=== PATIENT | male | born 1965 | race Caucasian/White ===

== ENCOUNTER 2022-07-31 11:17 | Inpatient (IN) ==
--- NOTE | 2022-07-31 12:12 | XRay Report ---
XR chest 2V PA/lateral HISTORY: Atypical Chest Pain COMPARISON: Chest 01/24/2020. FINDINGS: No pneumothorax. There is a small right pleural effusion. The heart is normal in size. Righ t jugular Port-A-Cath terminates at the distal SVC. Interval development of multiple pulmonary nodule s/masses most pronounced within the right lung consistent with metastatic disease. Dominant right mid lung zone mass measures 7.7 cm. Lobular appearance to the mediastinum likely representing lymphadenop athy. IMPRESSION: 1. Interval development of multiple pulmonary nodules/masses and mediastinal lymphadenopathy consiste nt with metastatic disease. 2. Small right pleural effusion. ACT 112: Negative or not required by law. Electronically signed by: Winston Sepulveda M.D. 07/31/2022 12:10 PM
[2022-07-31 12:39] LABS: Basophils # (auto) 0.04 K/uL (0-0.2); Basophils % (auto) 0.4 %; Eosinophils # (auto) 0.25 K/uL (0-0.50); Eosinophils % (auto) 2.5 %; Hematocrit (blood only) 43.3 % (40.1-51.0); Hemoglobin 15.4 g/dl (14.0-18.0); Immature Granulocytes # (auto) 0.08 K/uL (0.00-0.02); Immature Granulocytes % (auto) 0.8 %; Lymphocytes # (auto) 1.31 K/uL (1.2-3.4); Lymphocytes % (auto) 13.1 %; Mean Corpuscular Hemoglobin 31.2 pg (25.0-34.0); Mean Corpuscular Hgb Conc 35.6 g/dL (32.0-36.0); Mean Corpuscular Volume 87.8 fL (80.0-100.0); Mean Platelet Volume 10.1 fL (9.4-12.4); Monocytes # (auto) 0.92 K/uL (0.24-0.82); Monocytes % (auto) 9.2 %; Neutrophils # (auto) 7.37 K/uL (1.4-6.5); Platelet Count 202 K/uL (130-400); RDW Standard Deviation 38.6 fL (36.4-46.3); Red Blood Count 4.93 M/uL (4.63-6.08); White Blood Count 9.97 K/ul (4.8-10.8)
[2022-07-31] MEDS ORDERED: HYDROmorphone INJ 1 MG/ML SYRINGE IV STA ×2 (12:49→15:12)
[2022-07-31] MEDS ORDERED: ONDANSETRON INJ 2 MG/ML 2 ML VIAL IV STA (12:49)
--- NOTE | 2022-07-31 12:53 | Emergency Department Note ---
Impression & Plan Chest pain, Metastatic cancer, Synovial sarcoma, Goals of care, counseling/discussion, Cancer related pain, Hypokalemia ED Provider Note NAME: CHAPIS VICK AGE: 56 SEX: M : 1965 ARRIVES VIA: Walk-In INFORMANT: Patient ED PROVIDER(S): Krunal Dorantes DO CHIEF COMPLAINT: Right sided chest pain HPI: Patient is a 56-year-old male with past medical history of synovial sarcoma who presents the ER for severe right-sided chest pain which has been present for the past 2 weeks. Pain is a 9.5 out of 10. It feels better when he lays on his chest. Does not change with twisting, turning, bending or exertion. No belly pain, nausea, vomiting, or diarrhea. No dysuria, urgency, or frequency. No other exacerbating or remitting factors. He follows with [facility] hematology/oncology. They will not give him any pain medications. He was unable to get into his PCP and consequently was referred in here. ROS: See above HPI for pertinent positives & negatives. A total of 10 systems reviewed and were otherwise negative. PAST MEDICAL HISTORY:See Below PAST SURGICAL HISTORY:See Below FAMILY HISTORY:See Below SOCIAL HISTORY:See Below HOME MEDICATIONS:See Below ALLERGIES:See Below VITALS:See Below PHYSICAL EXAMINATION: GENERAL: Sitting up in bed, alert, well appearing, well nourished, no distress, non-toxic EYE EXAM: normal conjunctiva. OROPHARYNX: no exudate, no erythema, lips, buccal mucosa, and tongue normal and mucous membranes are moist NECK: supple, no nuchal rigidity, no adenopathy, non-tender CHEST: No reproducible anterior chest pain LUNGS: Clear to auscultation. Normal chest wall mechanics HEART: no murmurs, S1 normal and S2 normal ABDOMEN: abdomen soft, non-tender, normo-active bowel sounds, no masses, no rebound or guarding. UPPER EXTREMITIES: upper extremities are grossly normal. LOWER EXTREMITIES: No pitting edema. NEURO EXAM: Normal sensorium, cranial nerves II-XII grossly intact, normal speech, no gross weakness of arms, no gross weakness of legs. MEDICAL DECISION MAKING: Patient is a 56-year-old male who presents the ER for severe right-sided chest pain which has been getting worse over the past 2 weeks. IV was established blood work was obtained. Labs show no significant leukocytosis or anemia. INR unremarkable. BMP with mild hypokalemia 3.2. LFTs and troponin was negative. T bili slightly up at 1.9. CT angio of the chest showed a pleural effusion with metastatic disease but no PEs. EKG was nondiagnostic. Do favor that this is likely secondary to the cancer. He was given 2 dose of IV Dilaudid with improvement of his symptoms. He was still having a moderate amount of pain. He has no good follow-up in regards to pain control as an outpatient consequently was discussed with the hospitalist for further evaluation. I discussed with Jammie from [facility]. Triage Nursing notes reviewed. Limited review of prior medical records performed Vital Signs: reviewed and remarkable for HTN Differential diagnosis: Cardiac ischemia, aortic dissection, pulmonary embolism, pneumothorax, pneumonia, pericarditis, myocarditis, esophageal rupture, GERD, cholecystitis, pancreatitis, musculoskeletal, as well as other pathologies. ER treatment provided: See below Diagnostics interpreted by me: ECG: Sinus rhythm rate 78 Normal axis No PVCs QTC 442 Cardiac Monitoring: An order was placed for continuous cardiac monitoring. The monitor shows a rate of 80 with sinus rhythm. Laboratory studies: As stated above and show below. 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 Grandmother (Maternal) , iat 91 old age No problems noted. Grandfather (Paternal) , in his eighties old age No problems noted. Father , age 66 of pancreatic cancer and metastasis No problems noted. Mother No problems noted. Brother Age: 54 No problems noted. Son Age: 35 Leukemia in remission Daughter Age: 35 No problems noted. Daughter Age: 23 No problems noted. Son Age: 20 No problems noted. Social History Smoking Status: Never smoker Hx Alcohol Use: Yes (social) Hx Substance Use: No Preferred Language: Turkish Beliefs That Will Affect Care: None marital status: Current Living Situation: Spouse current occupational status: employed Feels Safe at Home: Yes Childhood Exposure to Second-Hand Smoke: Yes caffeine: No Dental Care, Regularly: Yes Physical Activity Frequency: Does not Exercise Seatbelt Use: always Sunscreen Use: Yes Do you think of yourself as: straight/heterosexual Allergies Allergies Allergy/AdvReac Type Severity Reaction Status Date / Time bacitracin Allergy Severe hives, Verified 07/31/22 16:51 syncopy tree and shrub pollen AdvReac Mild nasal Verified 07/31/22 16:51 congestion, eyes water Home Meds Home Medications Medication Instructions Recorded Confirmed albuterol sulfate 90 mcg/actuation 2 puffs inhalation Q4 PRN 10/10/19 07/31/22 aerosol inhaler (Ventolin HFA) Shortness Of Breath Or Wheezing pantoprazole 40 mg tablet,delayed 40 mg PO DAILY 10/10/19 07/31/22 release (Protonix) valacyclovir 1 gram tablet 1,000 mg PO PRN 01/04/20 07/31/22 (Valtrex) albuterol sulfate 2.5 mg/3 mL 2.5 mg inhalation Q6H PRN 01/31/20 07/31/22 (0.083 %) solution for nebulization shortness of breath or wheezing montelukast 10 mg tablet 10 mg PO DAILY 06/29/20 07/31/22 (Singulair) acetaminophen 500 mg tablet 1,000 - 1,500 mg PO Q8 PRN Pain 07/31/22 07/31/22 (Tylenol Extra Strength) amlodipine 10 mg tablet 10 mg PO DAILY 07/31/22 07/31/22 amoxicillin 500 mg capsule 2,000 mg PO DIRECTED 07/31/22 07/31/22 carvedilol 6.25 mg tablet 6.25 mg PO BID 07/31/22 07/31/22 famotidine 40 mg tablet 40 mg PO DAILY 07/31/22 07/31/22 fluticasone propionate 50 2 spray intranasal QAM 07/31/22 07/31/22 mcg/actuation nasal spray,suspension hydrochlorothiazide 25 mg tablet 25 mg PO DAILY 07/31/22 07/31/22 hydroxyzine HCl 25 mg tablet 50 mg PO HS 07/31/22 07/31/22 loratadine 10 mg tablet 10 mg PO DAILY 07/31/22 07/31/22 losartan 100 mg tablet 100 mg PO DAILY 07/31/22 07/31/22 pazopanib 200 mg tablet (Votrient) 800 mg PO QAM 07/31/22 07/31/22 potassium chloride 10 mEq 10 meq PO QAM 07/31/22 07/31/22 tablet,extended release(part/cryst) (Klor-Con M) Previous Rx's Medication Instructions Recorded fluticasone furoate 100 1 puffs inhalation DAILY #180 ea 10/13/19 mcg-vilanterol 25 mcg/dose inhalation powder (Breo Ellipta) Results & Data (ED) Vital Signs Vital Signs - 24 hr 07/31/22 11:20 07/31/22 12:55 07/31/22 12:55 Temperature 36.8 C Temperature Source Temporal Artery Scan Pulse Rate 77 Pulse Rate [Finger] 77 Pulse Rhythm [Finger] Regular Pulse Strength [Finger] Normal Respiratory Rate 18 22 Respiratory Effort / Characteristics Non-Labored Respiratory Depth Normal Respiratory Pattern Regular Blood Pressure 174/109 H Blood Pressure [Right Arm] 175/109 H Blood Pressure Mean 130 Blood Pressure Mean [Right Arm] 131 Blood Pressure Position [Right Arm] Lying Pulse Oximetry 96 96 95 Oxygen Delivery Method Room Air Room Air Room Air Sepsis Recent Fever Within 48 Hours No Sepsis New/Unexplained Change in Mental Status No Sepsis Action Taken by Nursing No Action Required 07/31/22 14:15 07/31/22 15:50 07/31/22 17:00 Temperature Temperature Source Pulse Rate Pulse Rate [Finger] 68 70 68 Pulse Rhythm [Finger] Regular Regular Pulse Strength [Finger] Normal Normal Respiratory Rate 16 20 18 Respiratory Effort / Characteristics Non-Labored Spontaneous Non-Labored Non-Labored Respiratory Depth Normal Normal Normal Respiratory Pattern Regular Regular Regular Blood Pressure Blood Pressure [Right Arm] 166/107 H 172/116 H 153/96 H Blood Pressure Mean Blood Pressure Mean [Right Arm] 126 134 115 Blood Pressure Position [Right Arm] Sitting Lying Pulse Oximetry 96 95 93 Oxygen Delivery Method Room Air Room Air Room Air Sepsis Recent Fever Within 48 Hours Sepsis New/Unexplained Change in Mental Status Sepsis Action Taken by Nursing Laboratory Data Result diagrams: 07/31/22 11:43 07/31/22 11:43 Lab Results 07/31/22 07/31/22 07/31/22 Range/Units 11:43 11:43 11:43 WBC 9.97 (4.8-10.8) K/ul RBC 4.93 (4.63-6.08) M/uL Hgb 15.4 (14.0-18.0) g/dl Hct 43.3 (40.1-51.0) % MCV 87.8 (80.0-100.0) fL MCH 31.2 (25.0-34.0) pg MCHC 35.6 (32.0-36.0) g/dL RDW Std Deviation 38.6 (36.4-46.3) fL RDW Coeff of Darrell 12.0 (11.5-14.5) % Plt Count 202 (130-400) K/uL MPV 10.1 (9.4-12.4) fL Immature Gran % (Auto) 0.8 % Neut % (Auto) 74.0 % Lymph % (Auto) 13.1 % [place] % (Auto) 9.2 % Eos % (Auto) 2.5 % Baso % (Auto) 0.4 % Neut # (Auto) 7.37 H (1.4-6.5) K/uL Lymph # (Auto) 1.31 (1.2-3.4) K/uL [place] # (Auto) 0.92 H (0.24-0.82) K/uL Eos # (Auto) 0.25 (0-0.50) K/uL Baso # (Auto) 0.04 (0-0.2) K/uL Immature Gran # (Auto) 0.08 H (0.00-0.02) K/uL PT 12.0 (9.0-12.0) Seconds INR 1.1 (0.9-1.1) APTT 36.0 H (21.0-31.0) Seconds PTT Ratio 1.3 Sodium 139 (136-145) mmol/L Potassium 3.2 L (3.5-5.1) mmol/L Chloride 101 (98-107) mmol/L Carbon Dioxide 28 (21-32) mmol/L Anion Gap 10 (3-11) BUN 13 (6-23) mg/dl Creatinine 0.48 L (0.6-1.4) mg/dl Est Cr Clr Drug Dosing 237.7 ml/min Est GFR ( Amer) 141.8 ml/min Est GFR (Non-Af Amer) 122.3 ml/min BUN/Creatinine Ratio 27.1 H (10-20) Glucose 127 H (70-99(Fasting)) mg/dl Calcium 8.6 (8.5-10.1) mg/dl Total Bilirubin 1.9 H (0.2-1.0) mg/dl AST 20 (13-39) U/L ALT 50 (7-52) U/L Alkaline Phosphatase 98 (34-104) U/L Troponin I High Sens 6.1 (0-20) pg/ml Total Protein 6.4 (6.0-8.3) gm/dl Albumin 3.8 (3.4-5.0) gm/dl Globulin 2.6 (2.5-4.0) gm/dl Albumin/Globulin Ratio 1.5 (0.9-2) Administered Medications Discontinued Medications Hydromorphone HCl (Hydromorphone Inj 1 Mg/Ml Syringe) 1 mg IV NOW STA Stop: 07/31/22 12:50 Last Admin: 07/31/22 12:55 Dose: 1 mg Documented By: CATIE Hydromorphone HCl (Hydromorphone Inj 1 Mg/Ml Syringe) 1 mg IV NOW STA Stop: 07/31/22 15:13 Last Admin: 07/31/22 15:27 Dose: 1 mg Documented By: RSL Hydromorphone HCl (Hydromorphone Inj 0.5 Mg/0.5 Ml Syr) 0.5 mg IV NOW STA Stop: 07/31/22 17:11 Last Admin: 07/31/22 17:24 Dose: 0.5 mg Documented By: ARNOL Ioversol (Optiray 300 500ml) 117 ml IV ONCE ONE Stop: 07/31/22 14:12 Last Admin: 07/31/22 14:11 Dose: 117 ml Documented By: YANELIS Ondansetron HCl (Ondansetron Inj 2 Mg/Ml 2 Ml Vial) 4 mg IV NOW STA Stop: 07/31/22 12:50 Last Admin: 07/31/22 12:55 Dose: 4 mg Documented By: CATIE Imaging Data Radiologist's Impression: Chest X-Ray 07/31/22 11:25 XR chest 2V PA/lateral HISTORY: Atypical Chest Pain COMPARISON: Chest 01/24/2020. FINDINGS: No pneumothorax. There is a small right pleural effusion. The heart is normal in size. Right jugular Port-A-Cath terminates at the distal SVC. Interval development of multiple pulmonary nodules/masses most pronounced within the right lung consistent with metastatic disease. Dominant right midlung zone mass measures 7.7 cm. Lobular appearance to the mediastinum likely representing lymphadenopathy. IMPRESSION: 1. Interval development of multiple pulmonary nodules/masses and mediastinal lymphadenopathy consistent with metastatic disease. 2. Small right pleural effusion. ACT 112: Negative or not required by law. Electronically signed by: Winston Sepulveda M.D. 07/31/2022 12:10 PM Chest CTA 07/31/22 12:49 CT ANGIOGRAPHY OF THE CHEST, PULMONARY EMBOLUS PROTOCOL CLINICAL HISTORY: Severe right-sided chest pain. Metastatic disease. COMPARISON STUDY: Chest radiograph July 31, 2022. TECHNIQUE: Following IV administration of 117 mL of Optiray, helical axial images of the chest were obtained utilizing the pulmonary embolus protocol. Maximal intensity projections and sagittal and coronal reformats were viewed on an independent 3D workstation. IV contrast was administered without complication. Automated exposure control was utilized for the study. A dose lowering technique was utilized adhering to the principles of ALARA. CT DOSE: 611.92 mGycm FINDINGS: No pulmonary emboli are identified. There is no thoracic aortic dissection. Size of the heart is normal. There is no pericardial effusion. A right internal jugular [id number] is in place. A small right pleural effusion is noted. There are numerous right pleural masses. These include a 5.9 x 3.1 cm lesion within the right lateral hemithorax. A 7.6 x 4.8 cm mass along the medias tinal pleura is noted. There is an additional 5.1 x 4.8 cm mass along the left anterior mediastinal pleura and 3.8 x 3.5 cm right posterior mediastinal lymph node/pleural lesion. There is no pneumothorax. Numerous pulmonary nodules are also present. The largest left lung nodule is a 1.7 cm left upper lobe lesion. The central airways are patent. Subpleural opacities within the right lower lobe represent atelectasis. There is no consolidation to suggest pneumonia. There is a possible 1.1 cm left pleural implant on axial image 178 of 301. No bony destruction within the thorax is noted. There is a partially visualized indeterminate density medial to the spleen which measures at least 2.6 cm. IMPRESSION: 1. No pulmonary emboli identified. 2. Extensive metastatic disease within the chest, as described above. Numerous right pleural masses, pulmonary metastases and a small malignant right pleural effusion. ACT 112: Negative or not required by law. Electronically signed by: Marquis Lu M.D. 07/31/2022 3:07 PM Discharge Plan Visit Data Chief Complaint: Chest Pain Stated Complaint: CHEST PAIN, RIB DISCOMFORT, CANCER ED Provider: Krunal Dorantes Discharge Problem: Chest pain, Metastatic cancer, Synovial sarcoma, Goals of care, counseling/d iscussion, Cancer related pain, Hypokalemia Forms Stand Alone Forms: My [facility] [employer] Prescriptions Prescriptions: No Action albuterol sulfate 2.5 mg /3 mL (0.083 %) solution for nebulization 2.5 mg INH Q6H PRN (Reason: shortness of breath or wheezing) montelukast [Singulair] 10 mg tablet 10 mg PO DAILY Breo Ellipta 100-25 mcg/dose blister with device 1 puffs INH DAILY Qty: 180 3RF pantoprazole [Protonix] 40 mg tablet,delayed release (DR/EC) 40 mg PO DAILY albuterol sulfate [Ventolin HFA] 90 mcg/actuation HFA aerosol inhaler 2 puffs INH Q4 PRN (Reason: Shortness Of Breath Or Wheezing) valacyclovir [Valtrex] 1 gram tablet 1,000 mg PO PRN Rx Instructions: PRN FOR COLDSORES amoxicillin 500 mg Capsule 2,000 mg PO DIRECTED Rx Instructions: TAKE 1 HR PRIOR TO DENTIST carvedilol 6.25 mg tablet 6.25 mg PO BID acetaminophen [Tylenol Extra Strength] 500 mg Tablet 1,000 - 1,500 mg PO Q8 PRN (Reason: Pain) amlodipine 10 mg tablet 10 mg PO DAILY hydroxyzine HCl 25 mg tablet 50 mg PO HS hydrochlorothiazide 25 mg tablet 25 mg PO DAILY losartan 100 mg tablet 100 mg PO DAILY fluticasone propionate 50 mcg/actuation spray,suspension 2 spray INTRANASAL QAM loratadine 10 mg Tablet 10 mg PO DAILY potassium chloride [Klor-Con M10] 10 mEq tablet,ER particles/crystals 10 meq PO QAM Votrient 200 mg tablet 800 mg PO QAM Rx Instructions: Take on empty stomach, do not eat for 1 hr. famotidine 40 mg tablet 40 mg PO DAILY Referrals Referrals: PCP,NO [Physician] -
[2022-07-31 12:54] LABS: INR 1.1 (0.9-1.1); Partial Thromboplastin Ratio 1.3
[2022-07-31 13:05] LABS: Troponin I High Sensitivity 6.1 pg/ml (0-20)
[2022-07-31 13:10] LABS: Albumin Globulin Ratio 1.5 (0.9-2); Albumin Level 3.8 gm/dl (3.4-5.0); BUN Creatinine Ratio 27.1 (10-20); Bilirubin,Total 1.9 mg/dl (0.2-1.0); Calcium 8.6 mg/dl (8.5-10.1); Creatinine Clr Calc Pharmacy 237.7 ml/min; Est GFR (African American) 141.8 ml/min; Est GFR (Non-African American) 122.3 ml/min; Globulin 2.6 gm/dl (2.5-4.0); Potassium 3.2 mmol/L (3.5-5.1); Total Protein 6.4 gm/dl (6.0-8.3)
--- NOTE | 2022-07-31 13:33 | Electrocardiogram Report ---
Test Reason : Blood Pressure : / mmHG Vent. Rate : 078 BPM Atrial Rate : 078 BPM P-R Int : 146 ms QRS Dur : 090 ms QT Int : 388 ms P-R-T Axes : 036 -06 005 degrees QTc Int : 442 ms Poor data quality, interpretation may be adversely affected Normal sinus rhythm Normal ECG When compared with ECG of 03-AUG-2016 14:30, No significant change was found Confirmed by Xavi Garcia ([id number]) on 07/31/2022 1:32:49 PM Referred By: Confirmed By:Rigoberto Garcia
[2022-07-31] MEDS ORDERED: OPTIRAY 300 500mL IV ONE (14:11)
--- NOTE | 2022-07-31 15:08 | CT Scan Report ---
CT ANGIOGRAPHY OF THE CHEST, PULMONARY EMBOLUS PROTOCOL CLINICAL HISTORY: Severe right-sided chest pain. Metastatic disease. COMPARISON STUDY: Chest radiograph July 31, 2022. TECHNIQUE: Following IV administration of 117 mL of Optiray, helical axial images of the chest were o btained utilizing the pulmonary embolus protocol. Maximal intensity projections and sagittal and cor onal reformats were viewed on an independent 3D workstation. IV contrast was administered without co mplication. Automated exposure control was utilized for the study. A dose lowering technique was ut ilized adhering to the principles of ALARA. CT DOSE: 611.92 mGycm FINDINGS: No pulmonary emboli are identified. There is no thoracic aortic dissection. Size of the he art is normal. There is no pericardial effusion. A right internal jugular Tueikw-x-Ohbh is in place. A small right pleural effusion is noted. There are numerous right pleural masses. These include a 5.9 x 3.1 cm lesion within the right lateral hemithorax. A 7.6 x 4.8 cm mass along the mediastinal pleur a is noted. There is an additional 5.1 x 4.8 cm mass along the left anterior mediastinal pleura and 3 .8 x 3.5 cm right posterior mediastinal lymph node/pleural lesion. There is no pneumothorax. Numerous pulmonary nodules are also present. The largest left lung nodule is a 1.7 cm left upper lobe lesion. The central airways are patent. Subpleural opacities within the right lower lobe represent atelectas is. There is no consolidation to suggest pneumonia. There is a possible 1.1 cm left pleural implant o n axial image 178 of 301. No bony destruction within the thorax is noted. There is a partially visual ized indeterminate density medial to the spleen which measures at least 2.6 cm. IMPRESSION: 1. No pulmonary emboli identified. 2. Extensive metastatic disease within the chest, as described above. Numerous right pleural masses, pulmonary metastases and a small malignant right pleural effusion. ACT 112: Negative or not required by law. Electronically signed by: Marquis Lu M.D. 07/31/2022 3:07 PM
--- NOTE | 2022-07-31 16:28 | History & Physical Report ---
Date of Service July 31, 2022 Assessment & Plan (1) Synovial sarcoma: (2) Cancer related pain: (3) HTN (hypertension): (4) Goals of care, counseling/discussion: (5) Asthma: (6) GERD (gastroesophageal reflux disease): Plan 56 year old with advanced metastatic synovial sarcoma presents with right sided pleuritic pain 08/04. Follows with Dr. Concepcion ricardo and [facility]. On oral chemo; Votrient. CT on 07/27 showed increasing lesion and further mets to heart border. Admit for pain control. 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 Palliative Med consulted. Goals of care as outlined below. Metastatic Synovial Sarcoma Cancer Related Pain: Initial Biospy done: 08/2019; involving left medial elbow/forearm initially; now metastatic involving lungs and lymph nodes. Opioid naive - Received two doses of IV Dilaudid in the ED; relieved pain Follows Dr. Concepcion ricardo; received second opinion from Dr. Martin at [facility] Received 3 cycles ofAIMchemotherapy followed by preoperative radiation therapy. Last cycle of chemotherapy was given on 12/02/2019 through 12/05/2019. Further wide surgical excision on 2019 and underwent soft tissue reconstruction with a free anterior lateral thigh flap. Histopathology was consistent with the synovial sarcoma, size was 13 x 6 x 5.3 with negative margin. 04/09/22: Disease progression noted on CT; increased lung nodule sizes, large nodules along right heart bordered and right middle lobe. Has started taking Votriant on 07/27 for oral chemotherapy 07/23: Patient has incurable disease and he can benefit with palliative treatment per review of Dr. Javier's documentation after his visit Patient is schedule to have a follow-up appointment with Dr. Martin on zoom in 3 weeks to determine further treatment continuation or discontinuation. As patient is opioid naive, want to gain a better understanding of his breakthrough use. So far, patient has received 2.5 mg of IV Dilaudid and continues to have 07/05 pain. 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 Dosing instructions as follows per order: Dilaudid 30mg/30mL: NO Basal rate as patient is opioid naive. 0.25mg bolus with Q 20 minute lockout with max dose of 0.75 mg over a one hour period. Order placed via SALES AND MERCHANDISING REPRESENTATIVE order set Will have one additional Dilaudid 0.5 mg IV Once order prior to SALES AND MERCHANDISING REPRESENTATIVE set u; which will be a total of TWO mg administered PRIOR to SALES AND MERCHANDISING REPRESENTATIVE initiation Would not consider a fentanyl patch in this gentleman at this point; may be a good Methadone candidate; however, I fear this patient may decline rapidly. Patient may benefit from a long acting opiod, but need to have better pain control and opioid data use prior to making that transition. Patient noted that his BM's are soft due to the Votrient. Will have PRN stool softeners available. Will consult palliative medicine team for continued pain and symptom management. Goals of care; counseling/discussion: Lengthy conversation held with patient and his Selam at bedside. Both are reasonably realistic but admitted that this has progressed faster than they anticipated. They do understand that the cancer is not curable. I stated that my first priority is his pain control which will allow him to think more clearly w ith regards to end of life and what is important to him if he was to have limited time. They have 4 adult children with the youngest being 20 years old. 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 We did discuss Hospice and what that entails; family understandably not ready for this transition. Will monitor his progress through this hospitalization. HTN: Elevated in ED; takes Amlodipine, HCTZ, and Losartan; continue Hydralazine 10 mg IV Q 6 PRN for SBP > 170 Asthma: Takes Fluticasone; continue Takes montelukast; continue Albuterol PRN for rescue; continue GERD: Continue pantoprazole Disposition: PCP: Dr. Urias Code: Full VTE Prophylaxis: Lovenox SQ Goal to return home at DC I personally was able to review all current laboratory work and diagnostic images obtained in the ED. Additionally, I was able to review the patients past medication reconciliation and history with direct visualization in the patients chart. Collaborated with Dr. Villarreal regarding this patient plan of care. History of Present Illness Chief Complaint: cancer related pain Primary Care Provider: Nelson Martin MD, PhD Mr. Marsh is a 59-year-old unfortunate male who presented to the ED today with 9/10 right sided chest pain that has been occuring over the past few weeks. 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 Initial Biospy done: 08/2019; involving left medial elbow/forearm initially; now metastatic involving lungs and lymph nodes.He follows Dr. Javier locally; received second opinion from Dr. Martin at [facility]. He has received 3 cycles ofAIMchemotherapy followed by preoperative radiation therapy.His last cycle of chemotherapy was given on 12/02/2019 through 12/05/2019.Further wide surgical excision on 2019 and underwent soft tissue reconstruction with a free anterior lateral thigh flap.Histopathology was consistent with the synovial sarcoma, size was 13 x 6 x 5.3 with negative margin. 04/09/22: Disease progression noted on CT; increased lung nodule sizes, large nodules along right heart bordered and right middle lobe. Has started taking Votriant on 07/27 for oral chemotherapy. 07/23: Patient has incurable disease and he can benefit with palliative treatment per review of Dr. Javier's documentation after his visit. Patient is schedule to have a follow- up appointment with Dr. Mario boucher in 3 weeks to determine further treatment continuation or discontinuation of his treatment. Patient has incurable disease and he can benefit with palliative medicine and has an appointment with Dr. Moss but not until 08/11. He will be followed by Dr. Martin and his team for the treatment decision and also follow for toxicity from the Votrient. Patient is schedule to have a follow-up appointment with Dr. Mario boucher in 3- 4 weeks to determine further treatment options. Additional PMH includes HTN, GERD, asthma, and DUY (on CPAP at home). Patient is sitting in his bed in acute distress. His pain is right sided pleuritic without radiation. He denies LAMB, dizziness, SOB, CP, palpitations, N/V/D, skin changes. He recently did complete a course of Prednisone for poison shona. Patient will be admitted for pain management and further goals of care. Please see A/P for further details. Allergies Allergy/AdvReac Type Severity Reaction Status Date / Time bacitracin Allergy Severe hives, Verified 07/31/22 16:51 syncopy tree and shrub pollen AdvReac Mild nasal Verified 07/31/22 16:51 congestion, eyes water Home Medications Medication Instructions Recorded Confirmed Type albuterol sulfate 90 mcg/actuation 2 puffs inhalation Q4 PRN 10/10/19 07/31/22 History aerosol inhaler (Ventolin HFA) Shortness Of Breath Or Wheezing pantoprazole 40 mg tablet,delayed 40 mg PO DAILY 10/10/19 07/31/22 History release (Protonix) fluticasone furoate 100 1 puffs inhalation DAILY #180 ea 10/13/19 07/31/22 Rx mcg-vilanterol 25 mcg/dose inhalation powder (Breo Ellipta) valacyclovir 1 gram tablet 1,000 mg PO PRN 01/04/20 07/31/22 History (Valtrex) albuterol sulfate 2.5 mg/3 mL 2.5 mg inhalation Q6H PRN 01/31/20 07/31/22 History (0.083 %) solution for nebulization shortness of breath or wheezing montelukast 10 mg tablet 10 mg PO DAILY 06/29/20 07/31/22 History (Singulair) acetaminophen 500 mg tablet 1,000 - 1,500 mg PO Q8 PRN Pain 07/31/22 07/31/22 History (Tylenol Extra Strength) amlodipine 10 mg tablet 10 mg PO DAILY 07/31/22 07/31/22 History amoxicillin 500 mg capsule 2,000 mg PO DIRECTED 07/31/22 07/31/22 History carvedilol 6.25 mg tablet 6.25 mg PO BID 07/31/22 07/31/22 History famotidine 40 mg tablet 40 mg PO DAILY 07/31/22 07/31/22 History fluticasone propionate 50 2 spray intranasal QAM 07/31/22 07/31/22 History mcg/actuation nasal spray,suspension hydrochlorothiazide 25 mg tablet 25 mg PO DAILY 07/31/22 07/31/22 History hydroxyzine HCl 25 mg tablet 50 mg PO HS 07/31/22 07/31/22 History loratadine 10 mg tablet 10 mg PO DAILY 07/31/22 07/31/22 History losartan 100 mg tablet 100 mg PO DAILY 07/31/22 07/31/22 History pazopanib 200 mg tablet (Votrient) 800 mg PO QAM 07/31/22 07/31/22 History potassium chloride 10 mEq 10 meq PO QAM 07/31/22 07/31/22 History tablet,extended release(part/cryst) (Earnestine Milner) Past Med/Surg History Medical History (Updated 07/31/22 @ 18:13 by Krunal Dorantes DO) Asthma Cancer related pain GERD (gastroesophageal reflux disease) GERD (gastroesophageal reflux disease) Goals of care, counseling/discussion Hepatic steatosis HTN (hypertension) 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 Grandmother (Maternal) , iat 91 old age No problems noted. Grandfather (Paternal) , in his eighties old age No problems noted. Father , age 66 of pancreatic cancer and metastasis No problems noted. Mother No problems noted. Brother Age: 54 No problems noted. Son Age: 35 Leukemia in remission Daughter Age: 35 No problems noted. Daughter Age: 23 No problems noted. Son Age: 20 No problems noted. Social History Smoking Status: Never smoker Hx Alcohol Use: Yes (social) Hx Substance Use: No Preferred Language: Belarusian Beliefs That Will Affect Care: None marital status: Current Living Situation: Spouse current occupational status: employed Feels Safe at Home: Yes Childhood Exposure to Second-Hand Smoke: Yes caffeine: No Dental Care, Regularly: Yes Physical Activity Frequency: Does not Exercise Seatbelt Use: always Sunscreen Use: Yes Do you think of yourself as: straight/heterosexual Review of Systems Review of Systems: Neuro: (-) Falls, trauma, slurred speech HEENT: (-) LAMB, dizziness, dysphagia, visual or auditory changes CV: (-) CP, palpitations, swelling Resp: (-) SOB GI: (-) appetite changes, N/V/D, bowel changes : (-) urinary changes Skin: (-) rashes Psych: (-) anxiety, depression Physical Exam Physical Exam: Neuro: AAOx4, PERRLA, no aphagia, memory changes, CNII-XII grossly intact HEENT: head normocephalic, moist mucus membranes CV: S1/S2, (-) M/G/R, (-) edema, cap refill < 3 seconds Resp: Lungs CTA in all webster. On RA GI: Abdomen large S/NT/ND, Ax4 bowel sounds, (-) CVA tenderness Musculoskeletal: 5/5 B/L UE strength, 5/5 B/L LE strength. No gait disturbance Skin: (-) rashes , (-) erythema. Psych: euthymic mood Results & Data Results & Data ([facility]) Vital Signs (Past 12 Hours) Vital Signs Temp Pulse Pulse Resp BP BP Pulse Ox 07/31/22 15:50 70 20 172/116 H 95 07/31/22 14:15 68 16 166/107 H 96 07/31/22 12:55 77 22 175/109 H 95 07/31/22 12:55 96 07/31/22 11:20 36.8 C 77 18 174/109 H 96 O2 Del Method 07/31/22 15:50 Room Air 07/31/22 14:15 Room Air 07/31/22 12:55 Room Air 07/31/22 12:55 Room Air 07/31/22 11:20 Room Air Laboratory Results Short CBC 07/31/22 Range/Units 11:43 WBC 9.97 (4.8-10.8) K/ul Hgb 15.4 (14.0-18.0) g/dl Hct 43.3 (40.1-51.0) % Plt Count 202 (130-400) K/uL BMP 07/31/22 11:43 Sodium 139 Potassium 3.2 L Chloride 101 Carbon Dioxide 28 BUN 13 Creatinine 0.48 L Glucose 127 H Calcium 8.6 Liver Function 07/31/22 Range/Units 11:43 Total Bilirubin 1.9 H (0.2-1.0) mg/dl AST 20 (13-39) U/L ALT 50 (7-52) U/L Alkaline Phosphatase 98 (34-104) U/L Albumin 3.8 (3.4-5.0) gm/dl Diagnostic Findings Chest X-Ray 07/31/22 11:25 XR chest 2V PA/lateral HISTORY: Atypical Chest Pain COMPARISON: Chest 01/24/2020. FINDINGS: No pneumothorax. There is a small right pleural effusion. The heart is normal in size. Right jugular Port-A-Cath terminates at the distal SVC. Interval development of multiple pulmonary nodules/masses most pronounced within the right lung consistent with metastatic disease. Dominant right midlung zone mass measures 7.7 cm. Lobular appearance to the mediastinum likely representing lymphadenopathy. IMPRESSION: 1. Interval development of multiple pulmonary nodules/masses and mediastinal lymphadenopathy consistent with metastatic disease. 2. Small right pleural effusion. ACT 112: Negative or not required by law. Electronically signed by: Winston Sepulveda M.D. 07/31/2022 12:10 PM Chest CTA 07/31/22 12:49 CT ANGIOGRAPHY OF THE CHEST, PULMONARY EMBOLUS PROTOCOL CLINICAL HISTORY: Severe right-sided chest pain. Metastatic disease. COMPARISON STUDY: Chest radiograph July 31, 2022. TECHNIQUE: Following IV administration of 117 mL of Optiray, helical axial images of the chest were obtained utilizing the pulmonary embolus protocol. Maximal intensity projections and sagittal and coronal reformats were viewed on an independent 3D workstation. IV contrast was administered without complication. Automated exposure control was utilized for the study. A dose lowering technique was utilized adhering to the principles of ALARA. CT DOSE: 611.92 mGycm FINDINGS: No pulmonary emboli are identified. There is no thoracic aortic dissection. Size of the heart is normal. There is no pericardial effusion. A right internal jugular [id number] is in place. A small right pleural effusion is noted. There are numerous right pleural masses. These include a 5.9 x 3.1 cm lesion within the right lateral hemithorax. A 7.6 x 4.8 cm mass along the mediastinal pleura is noted. There is an additional 5.1 x 4.8 cm mass along the left anterior mediastinal pleura and 3.8 x 3.5 cm right posterior mediastinal lymph node/pleural lesion. There is no pneumothorax. Numerous pulmonary nodules are also present. The largest left lung nodule is a 1.7 cm left upper lobe lesion. The central airways are patent. Subpleural opacities within the right lower lobe represent atelectasis. There is no consolidation to suggest pneumonia. There is a possible 1.1 cm left pleural implant on axial image 178 of 301. No bony destruction within the thorax is noted. There is a partially visualized indeterminate density medial to the spleen which measures at least 2.6 cm. IMPRESSION: 1. No pulmonary emboli identified. 2. Extensive metastatic disease within the chest, as described above. Numerous right pleural masses, pulmonary metastases and a small malignant right pleural effusion. ACT 112: Negative or not required by law. Electronically signed by: Marquis Lu M.D. 07/31/2022 3:07 PM Code Status & VTE Plan Code Status Full Code in the event of cardiac or respiratory arrest VTE Prophylaxis Plan VTE Prophylaxis will be ordered: Yes Supervising Physician Co-Signing Physician Notes 56-year-old male with PMH of metastatic synovial sarcoma comes in with right- sided lower chest pain 08/04. 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 Admitting CT chest with bilateral lung metastasis. Patient does report exacerbation of pain with deep breathing. Patient denies any fever/chills/sore throat/cough/belly pain/acute changes in his bowel or bladder habits lately. We will order pain management, will need further tailoring of pain management medications. Palliative consulted. We will resume other home medications as and when appropriate. Other labs reviewed, fairly WNL. Upon examination, class II obese, on 2 L nasal cannula oxygen, heart lung and abdomen exam fairly WNL, no BLE edema. Rest of the examination as above. I have seen and examined the patient and have discussed the case with the pr lorna above. I agree with the assessment and plan as stated.
[2022-07-31] MEDS ORDERED: HYDROmorphone INJ 0.5 MG/0.5 ML SYR IV STA ×2 (17:10→18:12)
[2022-07-31] MEDS ORDERED: oxyCODONE HCL IR 5 MG TAB (IMMEDIATE RELEASE) PO PRN (17:47)
[2022-07-31] MEDS ORDERED: MoRPHine SULFATE CR 15 MG TABCR PO SCH (18:00)
[2022-07-31] MEDS ORDERED: HYDROmorphone PCA 30 MG/30 ML IV PRN (18:14)
[2022-07-31] MEDS ORDERED: NALOXONE HCL 0.4 MG/1 ML VIAL/CARP IV PRN (18:14)
[2022-07-31] MEDS ORDERED: ALBUTEROL HFA 8 GM INHALER INH PRN (20:46)
[2022-07-31] MEDS ORDERED: ALUMINUM/MAGNESIUM SUSP 30 ML UDC PO PRN (20:46)
[2022-07-31] MEDS ORDERED: ONDANSETRON INJ 2 MG/ML 2 ML VIAL IV PRN (20:46)
[2022-07-31] MEDS ORDERED: hydrALAZINE HCL 20 MG/ML VIAL IV PRN (20:46)
[2022-07-31] MEDS ORDERED: ALBUTEROL 0.083% NEBU SOLN 3 ML VIAL INH PRN (20:46)
[2022-07-31] MEDS ORDERED: MAGNESIUM HYDROXIDE SUSP 30 ML UDC PO PRN (20:46)
[2022-07-31] MEDS ORDERED: ACETAMINOPHEN 325 MG TAB PO PRN (20:46)
[2022-07-31] MEDS ORDERED: HYDROmorphone INJ 0.5 MG/0.5 ML SYR IV PRN (21:00)
[2022-07-31] MEDS: carvediloL 6.25 MG TAB PO SCH (22:22)
[2022-08-01] MEDS: SODIUM CHLORIDE 0.9% 1000ML 1,000 ML IV SCH (00:38)
[2022-08-01 05:08] LABS: Hematocrit (blood only) 42.9 % (40.1-51.0); Mean Corpuscular Hemoglobin 31.6 pg (25.0-34.0); Mean Corpuscular Volume 90.3 fL (80.0-100.0); Mean Platelet Volume 10.3 fL (9.4-12.4); Platelet Count 200 K/uL (130-400); RDW Coefficient of Variation 12.1 % (11.5-14.5); Red Blood Count 4.75 M/uL (4.63-6.08); White Blood Count 10.96 K/ul (4.8-10.8)
[2022-08-01 05:32] LABS: BUN Creatinine Ratio 27.1 (10-20); Calcium 8.6 mg/dl (8.5-10.1); Creatinine Clr Calc Pharmacy 193.1 ml/min; Est GFR (African American) 130.3 ml/min; Est GFR (Non-African American) 112.4 ml/min; Magnesium 2.1 mg/dl (1.7-2.4); Potassium 3.3 mmol/L (3.5-5.1)
[2022-08-01] MEDS ORDERED: PANTOprazole 40 MG TAB PO SCH (09:00)
[2022-08-01] MEDS ORDERED: PAZOPANIB HCL 200 MG PO SCH (09:00)
[2022-08-01] MEDS: ENOXAPARIN INJ 40 MG/0.4 ML SYR SQ SCH ×2 (09:20→20:06)
[2022-08-01] MEDS ORDERED: POTASSIUM CHLORIDE CRTAB 20 MEQ TABCR PO STA (09:21)
[2022-08-01] MEDS: FLUTICASONE/VILANTEROL 100/25MCG 14 PUFFS/INHALER INH SCH (09:21)
[2022-08-01] MEDS: FAMOTIDINE 40 MG TABLET PO SCH (09:21)
[2022-08-01] MEDS: LOSARTAN POTASSIUM 50 MG TAB PO SCH (09:21)
[2022-08-01] MEDS: MONTELUKAST SODIUM 10 MG TABLET PO SCH (09:21)
[2022-08-01] MEDS: hydroCHLOROthiazide 25 MG TAB PO SCH (09:21)
[2022-08-01] MEDS: LORATADINE 10 MG TAB PO SCH (09:21)
[2022-08-01] MEDS: carvediloL 6.25 MG TAB PO SCH ×2 (09:21→20:05)
--- NOTE | 2022-08-01 10:53 | XRay Report ---
XR chest 1V portable HISTORY: post-operative coughing and wheezing COMPARISON: Chest 07/31/2022. FINDINGS: No pneumothorax. The heart remains mildly enlarged. There are low lung volumes. Bilateral p leural/pulmonary masses are again noted. There is progressive consolidation within the right lower lo be and a small right pleural effusion. Right jugular Port-A-Cath terminates at the distal SVC. IMPRESSION: 1. Interval progression of the small right pleural effusion and right lower lobe airspace opacity. 2. Pleural/pulmonary masses again noted. ACT 112: Negative or not required by law. Electronically signed by: Winston Sepulveda M.D. 08/01/2022 10:52 AM
--- NOTE | 2022-08-01 11:06 | Palliative Care Consultation ---
Date of Consultation August 01, 2022 Assessment & Plan (1) Chest pain: He was placed on a DIRECTOR OF MATERIALS with bolus dosing only when admitted. Dose is hydromorphone 0.25mg with lockout every 20minutes. He has had numerous attempts overnight and pump was cleared four hours prior to my visit. In that four hour time frame he had 10 doses for a total of 2.5mg of dilaudid. He tells me that he has never caught up from the relief that he got in the ER when he had a total of 2.5mg while in the ER. He recalls that the pain was 5/10 in intensity compared to 9/10 at this time. I asked him what an acceptable level of pain would be and he told me 0/10. I explained that no pain may not be a realistic expectation but we would focus on controlling pain so he would be able to be more active. At this point he has very limited activity due to pain. He asked about long acting pain medication which would be a good plan in the long run but as his pain is not currently controlled, it is not clear what dose of medication he would need. We discussed increasing bolus dose on DIRECTOR OF MATERIALS to 0.5 mg. We also discussed adjuvant treatments. He had significant relief with prednisone. Given his immunotherapy, long term care phlebotomist steroids would not be indicated but we will try short term dosing to see if he gets relief and could potentially rotate to an NSAID if he gets relief. We also discussed having him meet with radiation oncology to see if he would benefit from palliative radiation. I discussed this with Dr. Villarreal who consulted radiation oncology. We will monitor prn dosing with increased dose with the goal of converting to long acting opioid. (2) Dyspnea: Related to pain. Small right pleural effusion noted on CT in addition to numerous metastatic lesions. On O2 (3) Palliative care encounter: During our conversation, I explained to Mr. Marsh, the need to be careful and systematic about prescribing long acting opioids as there could be considerable risk of harm with overdose. He told me that he was already "at the end stage". We explored that further and he was clear that he is not wanting to shift focus of care to comfort and symptom management. While he understands that his cancer is not curable, he is hopeful that his new therapy will at least provide further time and he would want to make the most of that. I stopped by the room later and spoke with Mrs Marsh who had questions about plan of care for pain management. We reviewed current plan. At that time, Davey, also mentioned that he has had morphine for postoperative pain in the past and did not get significant relief. He is unsure about the dose. 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 He had initial treatment with adriamycin followed by radiation therapy and subsequent resection with negative margins. He is followed at [facility] by a Dr. Pinto and locally by Dr. Javier. 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 He was just recently started on Votrient earlier this month. He presented with uncontrolled pain of his right chest. He has a scheduled appointment with Dr. Boland later this month but was not able to tolerate the pain and came to the hospital. He describes severe, 9/10 pain in his right chest. It feels like a pressure and is constant. It does not radiate. It is worse when he is upright. He also has stabbing pleuritic pain which is making him feel short of breath. He has not had any opioid pain medication prior to coming to the hospital. He does note that when he recently had prednisone for poison shona, the pain was better while he was on the prednisone. Allergies Allergy/AdvReac Type Severity Reaction Status Date / Time bacitracin Allergy Severe hives, Verified 07/31/22 16:51 syncopy tree and shrub pollen AdvReac Mild nasal Verified 07/31/22 16:51 congestion, eyes water Home Medications Medication Instructions Recorded Confirmed Type albuterol sulfate 90 mcg/actuation 2 puffs inhalation Q4 PRN 10/10/19 07/31/22 History aerosol inhaler (Ventolin HFA) Shortness Of Breath Or Wheezing pantoprazole 40 mg tablet,delayed 40 mg PO DAILY 10/10/19 07/31/22 History release (Protonix) fluticasone furoate 100 1 puffs inhalation DAILY #180 ea 10/13/19 07/31/22 Rx mcg-vilanterol 25 mcg/dose inhalation powder (Breo Ellipta) valacyclovir 1 gram tablet 1,000 mg PO PRN 01/04/20 07/31/22 History (Valtrex) albuterol sulfate 2.5 mg/3 mL 2.5 mg inhalation Q6H PRN 01/31/20 07/31/22 History (0.083 %) solution for nebulization shortness of breath or wheezing montelukast 10 mg tablet 10 mg PO DAILY 06/29/20 07/31/22 History (Singulair) acetaminophen 500 mg tablet 1,000 - 1,500 mg PO Q8 PRN Pain 07/31/22 07/31/22 History (Tylenol Extra Strength) amlodipine 10 mg tablet 10 mg PO DAILY 07/31/22 07/31/22 History amoxicillin 500 mg capsule 2,000 mg PO DIRECTED 07/31/22 07/31/22 History carvedilol 6.25 mg tablet 6.25 mg PO BID 07/31/22 07/31/22 History famotidine 40 mg tablet 40 mg PO DAILY 07/31/22 07/31/22 History fluticasone propionate 50 2 spray intranasal QAM 07/31/22 07/31/22 History mcg/actuation nasal spray,suspension hydrochlorothiazide 25 mg tablet 25 mg PO DAILY 07/31/22 07/31/22 History hydroxyzine HCl 25 mg tablet 50 mg PO HS 07/31/22 07/31/22 History loratadine 10 mg tablet 10 mg PO DAILY 07/31/22 07/31/22 History losartan 100 mg tablet 100 mg PO DAILY 07/31/22 07/31/22 History pazopanib 200 mg tablet (Votrient) 800 mg PO QAM 07/31/22 07/31/22 History potassium chloride 10 mEq 10 meq PO QAM 07/31/22 07/31/22 History tablet,extended release(part/cryst) (Klor-Con M) Patient History Medical History Asthma Cancer related pain GERD (gastroesophageal reflux disease) GERD (gastroesophageal reflux disease) Goals of care, counseling/discussion Hepatic steatosis HTN (hypertension) 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 Grandmother (Maternal) , iat 91 old age No problems noted. Grandfather (Paternal) , in his eighties old age No problems noted. Father , age 66 of pancreatic cancer and metastasis No problems noted. Mother No problems noted. Brother Age: 54 No problems noted. Son Age: 35 Leukemia in remission Daughter Age: 35 No problems noted. Daughter Age: 23 No problems noted. Son Age: 20 No problems noted. Social History Smoking Status: Never smoker Hx Alcohol Use: Yes Alcohol type: beer Hx Substance Use: No Preferred Language: Upper Sorbian Communication Ability: Effective Computational Geneticist Required: No Beliefs That Will Affect Care: None marital status: Current Living Situation: Spouse current occupational status: employed Other Information That Helps Us Care for You: No Feels Safe at Home: Yes Safety Concerns: Feels Safe At This Time Childhood Exposure to Second-Hand Smoke: Yes caffeine: No Dental Care, Regularly: Yes Physical Activity Frequency: Does not Exercise Seatbelt Use: always Sunscreen Use: Yes Do you think of yourself as: straight/heterosexual Assistive Devices: CPAP and Glasses Assistive Devices Comment: READING GLASSES, HOME CPAP Review of Systems Review of Systems: ESAS Pain 3/3 Dyspnea 2/3, halting conversation Nausea 0/3 Drowsiness 0/3 Anorexia 0/3 PPS 50% with pain 70% without pain Physical Exam Constitutional: no acute distress ENMT: Mouth: oral mucous membranes not dry Respiratory: shallow respirations Cardiovascular: Rate/Rhythm: regular rate and regular rhythm Gastrointestinal (Abdomen): obese, LBM 10/6 Musculoskeletal: previous surgery left forearm otherwise normal to inspection Skin: warm and dry Neurologic: moves all extremities and awake; not confused Genitourinary: continent Results & Data ([facility]) Vital Signs (Past 12 Hours) Vital Signs Temp Pulse Resp BP Pulse Ox O2 Del Method O2 Flow Rate 08/01/22 08:00 98.6 F 82 20 128/84 93 CPAP 08/01/22 03:00 98.1 F 78 18 149/97 H 90 CPAP 07/31/22 23:56 Nasal Cannula 3 07/31/22 23:00 98.2 F 79 20 136/89 90 CPAP PG Care Time/CCT Total # of Minutes Spent Total Time Spent: 80 Total Time Spent with Patient: Total time spent is greater than 50% in coordination of care (as documented) at patient's floor/unit and/or counseling patient: goals of care, symptom management, patient and family education and support, coordination of care Coding Level of Care Code 14038 Initial Inpt Care Lvl 3 Diagnoses Chest pain R07.9 Dyspnea R06.00 Palliative care encounter Z51.5 Synovial sarcoma C49.9
[2022-08-01] MEDS: HYDROmorphone PCA 30 MG/30 ML IV PRN ×2 (11:18→21:44)
[2022-08-01] MEDS: dexAMETHasone 4 MG in SYRINGE 0 ML IV SCH ×2 (11:32→20:06)
--- NOTE | 2022-08-01 13:03 | Radiation OncologyConsultation ---
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 He ultimately underwent en bloc excision with clear margins. The tumor measured 13 cm with very little pretreatment response noted. The margins were clear with the closest margin the posterior margin at 0.4 cm in 2019. Patient was noted to have metastatic disease in the early fall 2020 with biopsy on July 08 confirming metastatic disease. At that time the lesions were small and patient was asymptomatic and the choice was made to continue to follow. These lesions gradually increased in size and more recently rapidly increased in size. Patient started to have pain initially relieved by the prednisone given to him for his poison shona but with completion of this treatment the patient since pain has become rated at a 9-10. Given a level of 9-10 by the patient. This pain is exacerbated by motion respiration and cough. Patient has been started on Votrient on July 27. Treatment Options: 1. Continue Votrient. 2. Continue pain medication. 3. Initiation of palliative radiation. Recommendations: The patient is just started on therapy with Votrient a few days ago. He is still experiencing pain which is gradually improving with increasing doses of pain medication. We talked about waiting to give adequate time for the Votrient to respond versus initiation of palliative radiation. Plan: 1. We will allow a few days for the patient to obtain appropriate pain control. 2. We will talk with the patient on Thursday either in hospital or at home about the initiation of palliative radiation. 3. If patient wishes to proceed we will schedule him for CT simulation. 4. After planning the patient would begin a course of palliative radiation for pain control to the right chest wall lesion. 5. Patient will continue follow-up with Dr. Javier and Dr. Zhang. Rationale/Explanation of Treatment: The patient has had evidence of metastatic chest disease for over a year but this has increased only slowly until recently when it has started to increase rapidly. The patient just started to have chest pain approximately 2 weeks ago. This was improved with the 2 doses of prednisone he took for his poison shona but with completion of this medication the pain has become severe which he rates at a 9-10. Patient has just been started on Votrient on August 01 which hopefully will have a positive response. However it appears that this medication would likely take weeks or longer to obtain appropriate response and pain control. For this reason we will talk with the patient on Thursday about initiating a course of palliative radiation. Hopefully by then he will have adequate pain control with his pain medication regimen that he is started since admission. He is under the care of Dr. Hernadez (palliative medicine) to aid in pain control. If the patient agrees we will schedule him for a CT simulation and ultimately initiate a course of palliative radiation to the right chest wall mass. We will discussed with the patient the anticipated duration of treatment as well as the potential risks and side effects which hopefully should be few. Once his consent form has been reviewed signed and witnessed we will schedule him for CT simulation with the initiation of a palliative course of radiation as soon as possible after that. The the patient and his had multiple questions which were answered to their full satisfaction. Thank you for allowing us to participate in the care of this patient. This chart was completed in part utilizing [employer] Speech Voice Recognition software. Grammatical errors, random word insertions, pronoun errors and incomplete sentences are occasional consequence of this system due to software limitations, ambient noise and hardware issues. Any formal questions or concerns about the content, text or information contained within the body of this dictation should be directly addressed to the provider for clarification. Minh Adams MD Department of Radiation Oncology [facility] History of Present Illness Reason for Consultation: Progressive severe chest pain. Attending Physician: Dale Villarreal MD History of Present Illness Mr. Marsh is a 56-year-old male who was initially diagnosed with a localized synovial cell sarcoma. He was treated with preoperative chemoradiation and surgery. Unfortunately now presents with metastatic disease causing severe pain. 08/23/2019. X-ray of forearm. X-ray of elbow. Impression: Multiple foci of mineralization within the medial soft tissues at the level of the elbow joint with findings concerning for underlying mass. Correlation with MRI is recommended. 09/20/2019. Left forearm mass, core needle biopsy: Synovial sarcoma. 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 10/08/2019. Patient seen by Dr. Peter Zhang (orthopedic oncology). He had ordered a PET CT scan demonstrating no evidence of metastatic disease. The left forearm mass was very PET avid. He recommended preoperative chemoradiation followed by surgery. 12/04/2019. CT of chest. Impression: No evidence of metastatic disease in the chest. Indeterminate hypodensity in the superior pole of the left kidney, not PET avid on recent study and new from 2013. Consider nonemergent outpatient renal ultrasound evaluation. 12/19/2019. MRI of left elbow with and without gadolinium. Conclusion a large irregularly enhancing mass is seen in the musculature in the ulnar aspect of the proximal forearm measuring up to approximately 9.5 cm in the cephalocaudal dimension. The appearance is consistent with a history of a sarcoma. Increased signal intensity is seen in the musculature distal to the mass on the fast immediate weighted sagittal and coronal sequences. This could be due to edema however tumor extension cannot be excluded. This is incompletely imaged on the present study and could be further evaluated with an MRI examination of the forearm. A partial tear of the common extensor tendon adjacent to the lateral epicondyle seen. A partial tear of the common flexor tendon adjacent to the medial epicondyle is suggested. Biceps tendon is thickened distally with increased signal intensity consistent with tendinitis. Increased signal intensity is seen in the marrow of the distal humerus mid metadiaphysis and in the proximal shaft of the radius of the fast intermediate weighted images which could be red marrow. A bone marrow scan might provide additional information. 12/30/2019. Orthopedic surgery follow-up. Multidisciplinary sarcoma and bone cancer clinic. Recommendation is for preoperative radiation therapy followed by surgical resection. Also referral to plastic surgery. 01/17/2020. Patient begins preoperative radiation to the left elbow and upper arm. 02/20/2020. Patient completes course of preoperative radiation with 25 fractions at 200 cGy per fraction for total preoperative dose of 50 Gy. 03/13/2020. Patient undergoes left forearm reconstruction with free right anterolateral thigh flap, split-thickness skin graft to right thigh. An 8.4 cm deep biphasic synovial sarcoma involving the left anterior medial elbow and proximal forearm was removed en bloc. Overall the tumor measured 13.0 x 6.0 x 5.3 cm. There were 10/10 high-power field with histologic grade 2. The margins were uninvolved by sarcoma with the closest margin the posterior margin at 0.4 cm. There were no lymph nodes identified. Final stage was ypT3 NX M0. Accession #: [id number]. 06/29/2020. Patient seen in follow-up in radiation oncology. He has steadily recuperated following the surgery. Prior to surgery he did have skin irritation with hyperpigmentation. He also had some areas of desquamation on the antecubital fossa and elbow. Photographs were reviewed. These were taken by his . The skin healed without difficulty. He underwent the surgery with the free flap from the thigh. He did have some issues with skin reactions and itching. They have also noted that he has sensitivity to the skin if it is slightly scratched or bumped he will developed a red raised area. He continues his follow-up with Dr. Zhang. They stated that follow-up was not continued with the medical oncologist. Dr. Zhang is a oncologic orthopedic physician and that the remainder of follow-up will be with him. They did have follow-up with plastic surgery. 09/10/2020. Patient seen in follow-up by orthopedics with patient doing well with no evidence of recurrent disease locally. CT scan of the chest was obtained and there were several subcentimeter pulmonary nodules of indeterminate significance but no significant evidence of recurrent disease. A recent MRI had been obtained and showed no evidence of locally recurrent tumor. 03/14/2021. CT of the chest showed subcentimeter nodules in the bilateral lung. Largest in the right upper lung. These have previously grown and are compatible with metastatic disease. The right upper lobe nodule measured 9 x 7 mm increased from 7 x 7 mm. 5 by 06/13/2021. Patient seen in orthopedic oncology for follow-up. Local examination again showed no clinical evidence of recurrent disease. Unfortunately CT scan showed slowly enlarging multiple pulmonary nodules consistent with metastatic disease. The largest nodule measured 10 cm. These are highly suggestive of metastatic synovial sarcoma. Core needle biopsy was recommended by Dr. Peter Zhang. 07/08/2021. A needle biopsy of the right lung pleural-based lesion was performed. This was positive for metastatic synovial cell sarcoma. Accession #: [id number]. Patient unfortunately did develop a collapsed lung. This was treated with a chest tube and has since reexpanded. Discussions at the time included the potential initiation of systemic chemotherapy. However upon review of the pathology specimen post preoperative chemoradiation showed very little treatment response and the chemotherapy suggested with the same that was used previously. The patient was having no symptoms at the time and the decision was made to hold off on initiation of any systemic therapy. 10/16/2021. CT of the chest abdomen pelvis performed. This showed slowly enlarging pulmonary nodules with a stable small radiodense area in the right posterior L1 vertebral body of indeterminate significance possibly representing metastatic disease or normal anatomic variant. 11/28/2021. Patient seen by Dr. Peter Zhang (orthopedic oncology). The patient reportedly was feeling well. He reviewed the discussion of systemic chemotherapy versus continued observation. He continued under the care of medical oncology and the plan was to pursue active surveillance short-term reserving chemotherapy as an alternative treatment for the future. Plan was to continue follow-up with orthopedic clinic in 6 months. 04/09/2022. CT scan showed significant increase in lung nodule size with the largest nodules along the right heart border and right middle lobe measuring 2.7 x 1.9 cm. Multiple smaller nodules are also mildly more prominent compared to previous study. The largest at the right lung base on right measures 1.6 cm compared to 6 mm previously. Nodules abutting the right heart border are grossly larger measuring 2.8 x 3.0 cm. 07/24/2022. Patient seen by Dr. Ocasio (internal medicine) complaining of a rash in the left chest wall consistent with poison shona. Patient was started on prednisone and given to cycles. This had significantly improved the right chest pain that he was having. With the completion of his prednisone the pain started to return and ultimately became severe. 07/27/2022. Patient initiated treatment with Votrient (Pazopanib oral chemotherapy). 07/30/2022. Patient undergoes CT chest abdomen and pelvis with IV and oral contrast at [facility]. Subpleural mass in the right upper lobe measured 6.0 x 2.8 cm previously measuring 3.0 x 2.1 cm. The right perihilar mass measured 3.7 x 4.0 cm previously measuring 2.4 x 3.1 cm. Right middle lobe nodule measured 7.4 x 5.2 cm previously measuring 3.3 x 3.1 cm. A new mass along the base of the right lung abutting the right hemidiaphragm measured 5.8 x 4.5 cm with additional numerous pulmonary nodules seen which have also increased in size. A 5.1 x 5.0 cm heterogeneous nodule was noted in the anterior mediastinum previously measuring 1.0 x 0.5 cm. A new right paratracheal mass measuring 3.8 x 3.1 cm was noted. A 3.7 cm lesion in the superior pole of the left kidney is unchanged there is a left hip arthroplasty and degenerative changes seen within the spine. 07/31/2022. Patient presents to the emergency department with plaint of chest pain and prior history of metastatic synovial cell sarcoma to the chest. CT of the chest was performed which showed evidence of metastatic disease with a 5.9 x 3 point centimeter lesion in the right lateral hemithorax, a 7.6 x 4.8 cm mass along the mediastinal pleura, 5.1 x 4.8 cm mass along the left anterior mediastinal pleura, 3.8 x 3.5 cm right posterior mediastinal lymph node/pleural lesion and multiple pulmonary nodules the largest in the left lung at 1.7 cm in the left upper lobe. There is a possible 1.1 cm left pleural implant. Patient was admitted for pain control. 07/31/2022. The patient was admitted for further evaluation and pain control. He was seen by Dr. Martin at [facility] for second opinion and is presently under the care of Dr. Javier locally. Patient was initially treated with IV Dila udid and has since been placed on a pump for pain control. He states his pain is slightly better but still not adequately controlled. 08/01/2022. Patient seen by radiation oncology for evaluation and discussion of the potential role of palliative radiation. This chart was completed in part utilizing [employer] Speech Voice Recognition software. Grammatical errors, random word insertions, pronoun errors and incomplete sentences are occasional consequence of this system due to software limitations, ambient noise and hardware issues. Any formal questions or concerns about the content, text or information contained within the body of this dictation should be directly addressed to the provider for clarification. Minh Adams MD Department of Radiation Oncology [facility] Allergies Allergy/AdvReac Type Severity Reaction Status Date / Time bacitracin Allergy Severe hives, Verified 07/31/22 16:51 syncopy tree and shrub pollen AdvReac Mild nasal Verified 07/31/22 16:51 congestion, eyes water Home Medications Medication Instructions Recorded Confirmed Type albuterol sulfate 90 mcg/actuation 2 puffs inhalation Q4 PRN 10/10/19 07/31/22 History aerosol inhaler (Ventolin HFA) Shortness Of Breath Or Wheezing pantoprazole 40 mg tablet,delayed 40 mg PO DAILY 10/10/19 07/31/22 History release (Protonix) fluticasone furoate 100 1 puffs inhalation DAILY #180 ea 10/13/19 07/31/22 Rx mcg-vilanterol 25 mcg/dose inhalation powder (Breo Ellipta) valacyclovir 1 gram tablet 1,000 mg PO PRN 01/04/20 07/31/22 History (Valtrex) albuterol sulfate 2.5 mg/3 mL 2.5 mg inhalation Q6H PRN 01/31/20 07/31/22 History (0.083 %) solution for nebulization shortness of breath or wheezing montelukast 10 mg tablet 10 mg PO DAILY 06/29/20 07/31/22 History (Singulair) acetaminophen 500 mg tablet 1,000 - 1,500 mg PO Q8 PRN Pain 07/31/22 07/31/22 History (Tylenol Extra Strength) amlodipine 10 mg tablet 10 mg PO DAILY 07/31/22 07/31/22 History amoxicillin 500 mg capsule 2,000 mg PO DIRECTED 07/31/22 07/31/22 History carvedilol 6.25 mg tablet 6.25 mg PO BID 07/31/22 07/31/22 History famotidine 40 mg tablet 40 mg PO DAILY 07/31/22 07/31/22 History fluticasone propionate 50 2 spray intranasal QAM 07/31/22 07/31/22 History mcg/actuation nasal spray,suspension hydrochlorothiazide 25 mg tablet 25 mg PO DAILY 07/31/22 07/31/22 History hydroxyzine HCl 25 mg tablet 50 mg PO HS 07/31/22 07/31/22 History loratadine 10 mg tablet 10 mg PO DAILY 07/31/22 07/31/22 History losartan 100 mg tablet 100 mg PO DAILY 07/31/22 07/31/22 History pazopanib 200 mg tablet (Votrient) 800 mg PO QAM 07/31/22 07/31/22 History potassium chloride 10 mEq 10 meq PO QAM 07/31/22 07/31/22 History tablet,extended release(part/cryst) (Klor-Con M) Patient History Medical History Asthma Cancer related pain GERD (gastroesophageal reflux disease) GERD (gastroesophageal reflux disease) Goals of care, counseling/discussion Hepatic steatosis HTN (hypertension) 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 Grandmother (Maternal) , iat 91 old age No problems noted. Grandfather (Paternal) , in his eighties old age No problems noted. Father , age 66 of pancreatic cancer and metastasis No problems noted. Mother No problems noted. Brother Age: 54 No problems noted. Son Age: 35 Leukemia in remission Daughter Age: 35 No problems noted. Daughter Age: 23 No problems noted. Son Age: 20 No problems noted. Social History Smoking Status: Never smoker Hx Alcohol Use: Yes Alcohol type: beer Hx Substance Use: No Preferred Language: Portuguese Communication Ability: Effective Field Tax Auditor Required: No Beliefs That Will Affect Care: None marital status: Current Living Situation: Spouse current occupational status: employed Other Information That Helps Us Care for You: No Feels Safe at Home: Yes Safety Concerns: Feels Safe At This Time Childhood Exposure to Second-Hand Smoke: Yes caffeine: No Dental Care, Regularly: Yes Physical Activity Frequency: Does not Exercise Seatbelt Use: always Sunscreen Use: Yes Do you think of yourself as: straight/heterosexual Assistive Devices: None Assistive Devices Comment: READING GLASSES, HOME CPAP Review of Systems Eyes: no diplopia and no problem reported Ear, Nose, Mouth, Throat: no problem reported Respiratory: See history of present illness Cardiovascular: no problem reported Gastrointestinal: + constipation Genitourinary: no problem reported Integumentary: no problem reported Neurologic: no problem reported Endocrine: no problem reported Physical Exam Constitutional: WD/WN, vitals as above Eyes: PERRL, conjunctivae normal, anicteric sclerae ENMT: Ears: no hearing impairment Neck: trachea midline, no thyromegaly Respiratory: normal respiratory effort, lungs clear to auscultation Cardiovascular: RRR, no murmur, no edema Chest (Breasts): Additional Comments: Chest wall is nontender. Gastrointestinal (Abdomen): normal bowel sounds, soft, nontender, no hepatosplenomegaly Musculoskeletal: The left upper extremity is neurovascularly intact. He has a well-healed graft of the lateral aspect of the forearm. Skin: no rashes, warm and dry Neurologic: Normal strength and coordination. Psychiatric: A+Ox3, euthymic affect Results (Rad Onc) Pathology Results: were reviewed and pertinent findings noted in HPI Imaging Studies: were reviewed and pertinent findings noted in HPI Time Spent Attending This documentation has been prepared in full or in part by Tanja EDWARD acting as a scribe under my direction. I, Dr. Adams personally reviewed the services described and have reviewed the documentation to ensure its accuracy. I spent 20 minutes with direct face to face interaction with the patient which included obtaining clinical information, recommending a plan of action and answering questions. I spent 30 minutes reviewing his scans, his chart, discussion with medical oncology and preparation of this document. NANNETTE
--- NOTE | 2022-08-01 14:10 | Hospitalist Progress Note ---
Date of Service August 01, 2022 Assessment & Plan (1) Synovial sarcoma: (2) Cancer related pain: (3) HTN (hypertension): (4) Goals of care, counseling/discussion: (5) Asthma: (6) GERD (gastroesophageal reflux disease): Plan 56 year old with advanced metastatic synovial sarcoma presented 07/31 with right sided pleuritic pain 08/04. Follows with Dr. Concepcion ricardo and [facility]. On oral chemo; Votrient. CT on 07/27 showed increasing lesion and further mets to he art border. Admitted for pain control. Opioid naive. He is being managed for the following: Metastatic Synovial Sarcoma Cancer Related Pain: Initial Biospy done: 08/2019; involving left medial elbow/forearm initially; now metastatic involving lungs and lymph nodes. Opioid naive - Received two doses of IV Dilaudid in the ED; relief of pain noted. Follows Dr. Javier locally; received second opinion from Dr. Martin at [facility] Received 3 cycles ofAIMchemotherapy followed by preoperative radiation therapy. Last cycle of chemotherapy was given on 12/02/2019 through 12/05/2019. Further wide surgical excision on 2019 and underwent soft tissue reconstruction with a free anterior lateral thigh flap. Histopathology was consistent with the synovial sarcoma, size was 13 x 6 x 5.3 with negative margin. 04/09/22: Disease progression noted on CT; increased lung nodule sizes, large nodules along right heart bordered and right middle lobe. Has started taking Votriant on 07/27 for oral chemotherapy 07/23: Patient has incurable disease and he can benefit with palliative treatment per review of Dr. Javier's documentation after his visit Patient is schedule to have a follow-up appointment with Dr. Martin on zoom in 3 weeks to determine further treatment continuation or discontinuation. As the patient was not recently taking any opiates as an outpatient, he was started on Dilaudid TRADE SHOW COORDINATOR pump to gain a better understanding of his breakthrough use of pain meds. Since patient had reported improvement in his pain with the steroid use during the treatment course of poison shona prior to arrival, steroid has been started per palliative care. Plan to increase bolus dose of TRADE SHOW COORDINATOR pump to 0.5 mg. Appreciate palliative recommendation. Radiation oncology consulted for evaluation for palliative radiation. Appreciate recs. Goals of care; counseling/discussion: Lengthy conversation held with patient and his Selam at bedside on the day of arrival. Both are reasonably realistic but admitted that this has progressed faster than they anticipated. They do understand that the cancer is not curable. They have 4 adult children with the youngest being 20 years old. 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 We did discuss Hospice and what that entails; family understandably not ready for this transition. Will monitor his progress through this hospitalization. Palliative care on board, appreciate recommendation. HTN: Elevated in ED; takes Amlodipine, HCTZ, and Losartan; continue Hydralazine 10 mg IV Q 6 PRN for SBP > 170 Asthma: Takes Fluticasone; continue Takes montelukast; continue Albuterol PRN for rescue; continue GERD: Continue pantoprazole Disposition: PCP: Dr. Urias Code: Full VTE Prophylaxis: Lovenox SQ Goal to return home at DC Admission and Anticipated Discharge Date Admission Date: July 31, 2022 Subjective Patient seen and examined at bedside as a follow-up of cancer related pain secondary to metastatic synovial sarcoma. Patient was lying in bed, on 3 L nasal cannula oxygen, not very much happy due to pain pump not working in the night until late, reports not an optimal pain control, reports ongoing right lower chest pain, reports eating okay, denies cough or shortness of breath, denies any headache or dizziness, has not moved bowel but is moving gas. Denies other review of symptoms. Physical Exam Physical Exam: GENERAL: Alert and oriented x3. NAD, on RA. Class II obese. HEENT: No pallor, no icterus. Pupils equal, round and reactive to light. Oral mucosa moist. NECK: No JVD, no neck masses. HEART: S1 and S2 heard. Regular rate and rhythm. No murmur, no gallop. RESPIRATORY SYSTEM: Normal AP diameter. No accessory muscle use. No wheezing, no crackles. ABDOMEN: Soft, bowel sounds present, nontender, no distention. CENTRAL NERVOUS SYSTEM: No facial droop. Speech is clear. Obeys simple commands. Moves extremities. EXTREMITIES: No edema, no erythema seen. Results & Data Results & Data ([facility]) Vital Signs (Past 12 Hours) Vital Signs Temp Pulse Resp BP Pulse Ox O2 Del Method O2 Flow Rate 08/01/22 08:00 Nasal Cannula 3 08/01/22 11:30 37.0 C 79 18 162/99 H 94 Nasal Cannula 2.5 08/01/22 08:00 37.0 C 82 20 128/84 93 CPAP 08/01/22 03:00 36.7 C 78 18 149/97 H 90 CPAP
[2022-08-01] MEDS: DOCUSATE SODIUM 100 MG CAP PO PRN (21:42)
[2022-08-01] MEDS ORDERED: HEPARIN 100 UNIT/ML 5ML FLUSH FLUSH PRN (23:36)
[2022-08-02] MEDS ORDERED: Nursing to Pharmacy Communication SCH ×2 (01:00→20:30)
[2022-08-02 05:26] LABS: Hematocrit (blood only) 41.2 % (40.1-51.0); Hemoglobin 14.6 g/dl (14.0-18.0); Mean Corpuscular Hemoglobin 31.7 pg (25.0-34.0); Mean Corpuscular Hgb Conc 35.4 g/dL (32.0-36.0); Mean Corpuscular Volume 89.6 fL (80.0-100.0); Mean Platelet Volume 10.3 fL (9.4-12.4); Platelet Count 197 K/uL (130-400); RDW Coefficient of Variation 11.9 % (11.5-14.5); RDW Standard Deviation 38.1 fL (36.4-46.3); White Blood Count 10.31 K/ul (4.8-10.8)
[2022-08-02] MEDS: PAZOPANIB HCL 200 MG PO SCH (05:56)
[2022-08-02 06:05] LABS: BUN Creatinine Ratio 40.4 (10-20); Calcium 9.1 mg/dl (8.5-10.1); Creatinine Clr Calc Pharmacy 199.9 ml/min; Est GFR (African American) 132.1 ml/min; Magnesium 2.2 mg/dl (1.7-2.4); Phosphorus 2.5 mg/dl (2.5-4.9); Potassium 3.5 mmol/L (3.5-5.1)
[2022-08-02] MEDS: HYDROmorphone PCA 30 MG/30 ML IV PRN ×2 (07:18→19:50)
[2022-08-02] MEDS ORDERED: CALCIUM CARBONATE 500 MG CHEWABLE TAB PO PRN (07:33)
[2022-08-02] MEDS: POLYETHYLENE (MIRALAX) 17 GM PACK PO PRN (08:04)
[2022-08-02] MEDS: DOCUSATE SODIUM 100 MG CAP PO PRN (08:04)
[2022-08-02] MEDS ORDERED: SENNA 8.6 MG TAB PO SCH (09:00)
[2022-08-02] MEDS: hydroCHLOROthiazide 25 MG TAB PO SCH (09:10)
[2022-08-02] MEDS: LOSARTAN POTASSIUM 50 MG TAB PO SCH (09:10)
[2022-08-02] MEDS: PANTOprazole 40 MG TAB PO SCH ×2 (09:10→21:48)
[2022-08-02] MEDS: FLUTICASONE/VILANTEROL 100/25MCG 14 PUFFS/INHALER INH SCH (09:11)
[2022-08-02] MEDS: LORATADINE 10 MG TAB PO SCH (09:11)
[2022-08-02] MEDS: carvediloL 6.25 MG TAB PO SCH ×2 (09:11→21:47)
[2022-08-02] MEDS: MONTELUKAST SODIUM 10 MG TABLET PO SCH (09:12)
[2022-08-02] MEDS: FAMOTIDINE 40 MG TABLET PO SCH (09:12)
[2022-08-02] MEDS: ENOXAPARIN INJ 40 MG/0.4 ML SYR SQ SCH ×2 (09:12→21:47)
[2022-08-02] MEDS: amLODIPine BESYLATE 5 MG TAB PO SCH (09:13)
[2022-08-02] MEDS: dexAMETHasone 4 MG in SYRINGE 0 ML IV SCH ×2 (09:13→21:48)
[2022-08-02] MEDS: POTASSIUM CHLORIDE 10 MEQ TABCR PO SCH (10:00)
[2022-08-02] MEDS ORDERED: fentaNYL 50 MCG/HR TDSY TD STA (11:45)
--- NOTE | 2022-08-02 11:53 | Palliative Care Progress Note ---
Date of Service August 02, 2022 Assessment & Plan (1) Chest pain: Plan: Some improvement with hydromorphone WINE BLENDER. Will convert to fentanyl patch. Start patch at 50mcg, accounting for cross tolerance. Continue WINE BLENDER for now. Goal will be to transition to oral hydromorphone for breakthrough pain when fentanyl patch is at therapeutic level. Continue IV decadron for now. Will convert to NSAID for discharge. He has been seen by radiation oncology and could benefit from treatment. Discussed with RN (2) Anxiety: Plan: He is very focused on timing of WINE BLENDER and persistent pain is creating increased anxiety which contributes to pain perception. Will add prn lorazepam just twice daily as needed. (3) Constipation: Plan: He generally moves his bowels every morning. He does have flatus and denies abdominal pain or nausea. Increase senna. Continue miralax prn. (4) Palliative care encounter: Plan: He has just started new oral immunotherapy treatment a few days ago. He very much wants to continue treatment and have more time if it can be relatively comfortable, good time. Admission and Anticipated Discharge Date Admission Date: July 31, 2022 Subjective Awake and alert. Didn't sleep well last night. He continues to push the WINE BLENDER button every 20 minutes. He has had 9mg of hydromorphone (180mg OME) in last 12 hours. He reports that constant pressure pain is now 3/10. Pleuritic pain feels somewhat worse today. He is able to ambulate to the bathroom independently. Eating a little less than usual per his but he reports good appetite. Review of Systems Review of Systems: ESAS Pain 2/3 Dyspnea 0/3 Anxiety 2/3 Nausea 0/3 Drowsiness 0/3 PPS 50% Physical Exam Constitutional: no acute distress ENMT: Mouth: + dry oral mucous membranes Respiratory: normal respiratory effort; no labored breathing Cardiovascular: Rate/Rhythm: regular rate and regular rhythm Gastrointestinal (Abdomen): LBM 07/31 Musculoskeletal: Extremities: extremities normal to inspection Neurologic: moves all extremities and awake; not confused Results & Data ([facility]) Vital Signs (Past 12 Hours) Vital Signs Temp Pulse Pulse Resp BP Pulse Ox O2 Del Method 08/02/22 11:12 97.9 F 59 L 19 151/97 H 92 Nasal Cannula 08/02/22 08:00 67 10/08/22 08:00 Nasal Cannula 08/02/22 07:23 97.5 F L 66 19 137/98 92 Nasal Cannula 08/02/22 04:24 97.7 F 71 20 155/90 H 91 Nasal Cannula O2 Flow Rate 08/02/22 11:12 2.5 08/02/22 08:00 08/02/22 08:00 2.5 08/02/22 07:23 2.5 08/02/22 04:24 2.5 PG Care Time/CCT Total # of Minutes Spent Total Time Spent: 45 Total Time Spent with Patient: Total time spent is greater than 50% in coordination of care (as documented) at patient's floor/unit and/or counseling patient: symptom management, patient and family education and support, coordination of care. Coding Level of Care Code 56283 Subseq Hosp Care Lvl 3 Diagnoses Chest pain R07.9 Anxiety F41.9 Constipation K59.00 Palliative care encounter Z51.5
[2022-08-02] MEDS: LORazepam 0.5 MG TAB PO PRN ×2 (11:59→21:49)
[2022-08-02] MEDS: CHECK fentaNYL PATCH PLACEMENT SCH (15:44)
--- NOTE | 2022-08-02 18:41 | Hospitalist Progress Note ---
Date of Service August 02, 2022 Assessment & Plan (1) Synovial sarcoma: (2) Cancer related pain: (3) HTN (hypertension): (4) Goals of care, counseling/discussion: (5) Asthma: (6) GERD (gastroesophageal reflux disease): Plan 56 year old with advanced metastatic synovial sarcoma presented 07/31 with right sided pleuritic pain 08/04. Follows with Dr. Concepcino ricardo and [facility]. On oral chemo; Votrient. CT on 07/27 showed increasing lesion and further mets to he art border. Admitted for pain control. Opioid naive. He is being managed for the following: Metastatic Synovial Sarcoma Cancer Related Pain: Initial Biospy done: 08/2019; involving left medial elbow/forearm initially; now metastatic involving lungs and lymph nodes. Opioid naive - Received two doses of IV Dilaudid in the ED; relief of pain noted. Follows Dr. Javier locally; received second opinion from Dr. Martin at [facility] Received 3 cycles ofAIMchemotherapy followed by preoperative radiation therapy. Last cycle of chemotherapy was given on 12/02/2019 through 12/05/2019. Further wide surgical excision on 2019 and underwent soft tissue reconstruction with a free anterior lateral thigh flap. Histopathology was consistent with the synovial sarcoma, size was 13 x 6 x 5.3 with negative margin. 04/09/22: Disease progression noted on CT; increased lung nodule sizes, large nodules along right heart bordered and right middle lobe. Has started taking Votriant on 07/27 for oral chemotherapy 07/23: Patient has incurable disease and he can benefit with palliative treatment per review of Dr. Javier's documentation after his visit Patient is schedule to have a follow-up appointment with Dr. Martin on zoom in 3 weeks to determine further treatment continuation or discontinuation. As the patient was not recently taking any opiates as an outpatient, he was started on Dilaudid EMBOSSING PRESS OPERATOR APPRENTICE pump to gain a better understanding of his breakthrough use of pain meds. Since patient had reported improvement in his pain with the steroid use during the treatment course of poison shona prior to arrival, steroid has been started per palliative care. Patient pain is not optimally being controlled with EMBOSSING PRESS OPERATOR APPRENTICE pump boluses, he has not been able to sleep overnight, patient is started on fentanyl patch 08/02, appreciate palliative recommendation. Radiation oncology consulted for evaluation for palliative radiation. Appreciate recs. Goals of care; counseling/discussion: Lengthy conversation held with patient and his Selam at bedside on the day of arrival. Both are reasonably realistic but admitted that this has progressed faster than they anticipated. They do understand that the cancer is not curable. They have 4 adult children with the youngest being 20 years old. 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 We did discuss Hospice and what that entails; family understandably not ready for this transition. Will monitor his progress through this hospitalization. Palliative care on board, appreciate recommendation. HTN: Elevated in ED; takes Amlodipine, HCTZ, and Losartan; continue Hydralazine 10 mg IV Q 6 PRN for SBP > 170 Asthma: Takes Fluticasone; continue Takes montelukast; continue Albuterol PRN for rescue; continue GERD: Continue pantoprazole Disposition: PCP: Dr. Urias Code: Full VTE Prophylaxis: Lovenox SQ Goal to return home at DC Admission and Anticipated Discharge Date Admission Date: July 31, 2022 Subjective Patient seen and examined at bedside as a follow-up of cancer related pain secondary to metastatic synovial sarcoma. Patient was lying in bed, on 2L nasal cannula oxygen, still with a lot of pain, patient put on fentanyl patch today, reports not an optimal pain control, reports ongoing right lower chest pain, reports eating okay, denies cough or shortness of breath, denies any headache or dizziness, has not moved bowel but is moving gas. Denies other review of symptoms. Has not able to sleep last night due to pain. Physical Exam Physical Exam: GENERAL: Alert and oriented x3. NAD, on RA. Class II obese. HEENT: No pallor, no icterus. Pupils equal, round and reactive to light. Oral mucosa moist. NECK: No JVD, no neck masses. HEART: S1 and S2 heard. Regular rate and rhythm. No murmur, no gallop. RESPIRATORY SYSTEM: Normal AP diameter. No accessory muscle use. No wheezing, no crackles. ABDOMEN: Soft, bowel sounds present, nontender, no distention. CENTRAL NERVOUS SYSTEM: No facial droop. Speech is clear. Obeys simple commands. Moves extremities. EXTREMITIES: No edema, no erythema seen. Results & Data Results & Data ([facility]) Vital Signs (Past 12 Hours) Vital Signs Temp Pulse Pulse Resp BP Pulse Ox O2 Del Method 08/02/22 15:55 63 08/02/22 15:36 36.7 C 59 L 18 137/83 92 Nasal Cannula 08/02/22 11:12 36.6 C 59 L 19 151/97 H 92 Nasal Cannula 08/02/22 08:00 67 08/02/22 08:00 Nasal Cannula 08/02/22 07:23 36.4 C L 66 19 137/98 92 Nasal Cannula O2 Flow Rate 08/02/22 15:55 08/02/22 15:36 2.5 08/02/22 11:12 2.5 08/02/22 08:00 08/02/22 08:00 2.5 08/02/22 07:23 2.5
[2022-08-02] MEDS: SODIUM CHLORIDE 0.9% 1000ML 1,000 ML IV SCH ×2 (19:50→21:46)
[2022-08-02] MEDS: SENNA 8.6 MG TAB PO SCH (21:48)
[2022-08-03] MEDS: CHECK fentaNYL PATCH PLACEMENT SCH ×4 (01:42→23:48)
[2022-08-03 05:57] LABS: BUN Creatinine Ratio 29.5 (10-20); Calcium 9.3 mg/dl (8.5-10.1); Creatinine Clr Calc Pharmacy 187.2 ml/min; Est GFR (African American) 128.5 ml/min; Est GFR (Non-African American) 110.9 ml/min; Potassium 3.3 mmol/L (3.5-5.1)
[2022-08-03] MEDS: PAZOPANIB HCL 200 MG PO SCH (06:22)
[2022-08-03] MEDS: ENOXAPARIN INJ 40 MG/0.4 ML SYR SQ SCH ×2 (07:40→19:42)
[2022-08-03] MEDS: POLYETHYLENE (MIRALAX) 17 GM PACK PO PRN (07:42)
[2022-08-03] MEDS: FLUTICASONE/VILANTEROL 100/25MCG 14 PUFFS/INHALER INH SCH (09:04)
[2022-08-03] MEDS: dexAMETHasone 4 MG in SYRINGE 0 ML IV SCH ×2 (09:05→19:46)
[2022-08-03] MEDS: amLODIPine BESYLATE 5 MG TAB PO SCH (09:06)
[2022-08-03] MEDS: LORATADINE 10 MG TAB PO SCH (09:06)
[2022-08-03] MEDS: hydroCHLOROthiazide 25 MG TAB PO SCH (09:07)
[2022-08-03] MEDS: LOSARTAN POTASSIUM 50 MG TAB PO SCH (09:07)
[2022-08-03] MEDS: POTASSIUM CHLORIDE 10 MEQ TABCR PO SCH (09:08)
[2022-08-03] MEDS: FAMOTIDINE 40 MG TABLET PO SCH (09:08)
[2022-08-03] MEDS: PANTOprazole 40 MG TAB PO SCH ×2 (09:08→19:44)
[2022-08-03] MEDS: MONTELUKAST SODIUM 10 MG TABLET PO SCH (09:08)
[2022-08-03] MEDS: carvediloL 6.25 MG TAB PO SCH ×2 (09:08→19:44)
[2022-08-03] MEDS: SENNA 8.6 MG TAB PO SCH ×2 (09:08→19:46)
[2022-08-03] MEDS ORDERED: POTASSIUM CHLORIDE CRTAB 20 MEQ TABCR PO STA (09:35)
[2022-08-03] MEDS ORDERED: HYDROmorphone INJ 0.5 MG/0.5 ML SYR IV PRN (10:20)
[2022-08-03] MEDS: HYDROmorphone HCL 2 MG TAB PO PRN (11:01)
[2022-08-03] MEDS ORDERED: Nursing to Pharmacy Communication SCH (16:00)
[2022-08-03 16:10] LABS: Anion Gap 8.9 (3-11)
--- NOTE | 2022-08-03 16:50 | Hospitalist Progress Note ---
Date of Service August 03, 2022 Assessment & Plan (1) Synovial sarcoma: (2) Cancer related pain: (3) HTN (hypertension): (4) Goals of care, counseling/discussion: (5) Asthma: (6) GERD (gastroesophageal reflux disease): Plan 56 year old with advanced metastatic synovial sarcoma presented 07/31 with right sided pleuritic pain 08/04. Follows with Dr. Concepcion ricardo and [facility]. On oral chemo; Votrient. CT on 07/27 showed increasing lesion and further mets to he art border. Admitted for pain control. Opioid naive. He is being managed for the following: Metastatic Synovial Sarcoma Cancer Related Pain: Initial Biospy done: 08/2019; involving left medial elbow/forearm initially; now metastatic involving lungs and lymph nodes. Opioid naive - Received two doses of IV Dilaudid in the ED; relief of pain noted. Follows Dr. Javier locally; received second opinion from Dr. Martin at [facility] Received 3 cycles ofAIMchemotherapy followed by preoperative radiation therapy. Last cycle of chemotherapy was given on 12/02/2019 through 12/05/2019. Further wide surgical excision on 2019 and underwent soft tissue reconstruction with a free anterior lateral thigh flap. Histopathology was consistent with the synovial sarcoma, size was 13 x 6 x 5.3 with negative margin. 04/09/22: Disease progression noted on CT; increased lung nodule sizes, large nodules along right heart bordered and right middle lobe. Has started taking Votriant on 07/27 for oral chemotherapy 07/23: Patient has incurable disease and he can benefit with palliative treatment per review of Dr. Javier's documentation after his visit Patient is schedule to have a follow-up appointment with Dr. Martin on zoom in 3 weeks to determine further treatment continuation or discontinuation. As the patient was not recently taking any opiates as an outpatient, he was started on Dilaudid ENERGY ADVISOR pump to gain a better understanding of his breakthrough use of pain meds. Since patient had reported improvement in his pain with the steroid use during the treatment course of poison shona prior to arrival, steroid has been started per palliative care. Pain better controlled with Dilaudid and fentanyl patch, appreciate palliative recommendation. Radiation oncology consulted for evaluation for palliative radiation. Appreciate recs. Goals of care; counseling/discussion: Lengthy conversation held with patient and his Selam at bedside on the day of arrival. Both are reasonably realistic but admitted that this has progressed faster than they anticipated. They do understand that the cancer is not curable. They have 4 adult children with the youngest being 20 years old. 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 We did discuss Hospice and what that entails; family understandably not ready for this transition. Will monitor his progress through this hospitalization. Palliative care on board, appreciate recommendation. HTN: Elevated in ED; takes Amlodipine, HCTZ, and Losartan; continue Hydralazine 10 mg IV Q 6 PRN for SBP > 170 Asthma: Takes Fluticasone; continue Takes montelukast; continue Albuterol PRN for rescue; continue GERD: Continue pantoprazole Disposition: PCP: Dr. Urias Code: Full VTE Prophylaxis: Lovenox SQ Goal to return home at DC Admission and Anticipated Discharge Date Admission Date: July 31, 2022 Subjective Patient seen and examined at bedside as a follow-up of cancer related pain secondary to metastatic synovial sarcoma. Patient was lying in bed, on room air, reports pain better controlled today, patient was put on fentanyl patch yesterday, patient reports being constipated likely secondary to ongoing narcotic use/need, reports eating okay, denies cough or shortness of breath/headache or dizziness/other review of symptoms. Physical Exam Physical Exam: GENERAL: Alert and oriented x3. NAD, on RA. Class II obese. HEENT: No pallor, no icterus. Pupils equal, round and reactive to light. Oral mucosa moist. NECK: No JVD, no neck masses. HEART: S1 and S2 heard. Regular rate and rhythm. No murmur, no gallop. RESPIRATORY SYSTEM: Normal AP diameter. No accessory muscle use. No wheezing, no crackles. ABDOMEN: Soft, bowel sounds present, nontender, no distention. CENTRAL NERVOUS SYSTEM: No facial droop. Speech is clear. Obeys simple commands. Moves extremities. EXTREMITIES: No edema, no erythema seen. Results & Data Results & Data ([facility]) Vital Signs (Past 12 Hours) Vital Signs Temp Pulse Pulse Resp BP Pulse Ox Pulse Ox 08/03/22 15:38 37.0 C 58 L 18 155/97 H 91 08/03/22 11:43 36.6 C 61 19 156/90 H 92 08/03/22 08:00 51 L 08/03/22 08:00 08/03/22 08:00 96 08/03/22 07:01 37.0 C 60 19 155/94 H 94 O2 Del Method O2 Del Method O2 Flow Rate O2 Flow Rate 08/03/22 15:38 Room Air 08/03/22 11:43 Room Air 08/03/22 08:00 08/03/22 08:00 Nasal Cannula 1 08/03/22 08:00 Room Air 1 08/03/22 07:01 Nasal Cannula 1
[2022-08-04] MEDS: HYDROmorphone HCL 2 MG TAB PO PRN (03:14)
[2022-08-04 03:31] VITALS: O2SAT 93
[2022-08-04] MEDS: PAZOPANIB HCL 200 MG PO SCH (05:50)
[2022-08-04 07:13] LABS: BUN Creatinine Ratio 27.9 (10-20); Calcium 8.8 mg/dl (8.5-10.1); Creatinine Clr Calc Pharmacy 185.1 ml/min; Est GFR (African American) 128.5 ml/min; Est GFR (Non-African American) 110.9 ml/min; Magnesium 1.9 mg/dl (1.7-2.4); Potassium 3.3 mmol/L (3.5-5.1)
[2022-08-04] MEDS: CHECK fentaNYL PATCH PLACEMENT SCH (07:26)
[2022-08-04 07:38] VITALS: TEMP 97.5
[2022-08-04] MEDS ORDERED: POTASSIUM CHLORIDE CRTAB 20 MEQ TABCR PO STA (09:06)
[2022-08-04] MEDS: POTASSIUM CHLORIDE 10 MEQ TABCR PO SCH (09:10)
[2022-08-04] MEDS: MONTELUKAST SODIUM 10 MG TABLET PO SCH (09:10)
[2022-08-04] MEDS: LOSARTAN POTASSIUM 50 MG TAB PO SCH (09:11)
[2022-08-04] MEDS: FAMOTIDINE 40 MG TABLET PO SCH (09:11)
[2022-08-04] MEDS: LORATADINE 10 MG TAB PO SCH (09:11)
[2022-08-04] MEDS: hydroCHLOROthiazide 25 MG TAB PO SCH (09:11)
[2022-08-04] MEDS: carvediloL 6.25 MG TAB PO SCH (09:12)
[2022-08-04] MEDS: amLODIPine BESYLATE 5 MG TAB PO SCH (09:12)
[2022-08-04] MEDS: ENOXAPARIN INJ 40 MG/0.4 ML SYR SQ SCH (09:12)
[2022-08-04] MEDS: dexAMETHasone 4 MG in SYRINGE 0 ML IV SCH ×2 (09:13→10:16)
[2022-08-04] MEDS: SENNA 8.6 MG TAB PO SCH (09:13)
[2022-08-04] MEDS: PANTOprazole 40 MG TAB PO SCH (09:14)
[2022-08-04] MEDS: FLUTICASONE/VILANTEROL 100/25MCG 14 PUFFS/INHALER INH SCH (09:14)
[2022-08-04] MEDS ORDERED: dexAMETHasone 4 MG TAB PO ONE (09:28)
[2022-08-04] MEDS ORDERED: HYDROmorphone HCL 2 MG TAB PO PRN (09:29)
--- NOTE | 2022-08-04 09:34 | Palliative Care Progress Note ---
Date of Service August 04, 2022 Assessment & Plan (1) Chest pain: Plan: Controlled on current regimen. He used prn hydromorphone twice in the last 24 hours. As fentanyl should now be therapeutic and he has no pain, will decrease prn dose of hydromorphone to 2mg every four hours as needed. Will convert decadron to po and decrease dose to 6mg daily for four days then decrease to 4mg daily. He has an appointment with Dr. Boland in one week and she can contin ue taper at that time. Radiation oncology is following him to arrange palliative radiation. (2) Anxiety: Plan: Improved with pain control. (3) Constipation: Plan: Improved on senna BID with prn miralax. (4) Palliative care encounter: Plan: 56 yo gentleman diagnosed with synovial sarcoma of left forearm in 2019. He is s/p adriamycin and radiation therapy with subsequent resection. He was found to have metastatic disease to the lung, pleura and mediastinal lymph node and is on immunotherapy. He presented with severe pressure like pain in right chest consistent with location of metastatic lesion. He also had severe pleuritic pain. Pain has improved and he is planning a hunting trip later this month. He is realistic about his cancer and understands that he will likely from this. However, at this time, his priority is to do what he can to live as long as he can. (5) Synovial sarcoma: Admission and Anticipated Discharge Date Admission Date: July 31, 2022 Subjective Sitting up in bed. Reports feeling good. Denies pain. Was able to sleep last night with some interruptions. Moved bowels yesterday and today. Going for sim study in radiation oncology later this morning. Review of Systems Review of Systems: ESAS Pain 0/3 Dyspnea 0/3 Drowsiness 0/3 Nausea 0/3 Anxiety 0/3 PPS 50% Physical Exam Constitutional: no acute distress ENMT: Mouth: + dry oral mucous membranes Respiratory: normal respiratory effort; no labored breathing Gastrointestinal (Abdomen): obese, LBM 10/10 Musculoskeletal: Extremities: extremities normal to inspection Neurologic: moves all extremities and awake; not confused Results & Data ([facility]) Vital Signs (Past 12 Hours) Vital Signs Temp Pulse Resp BP Pulse Ox O2 Del Method 08/04/22 07:37 97.5 F L 59 L 18 151/93 H 93 BiPAP 08/04/22 03:36 169/98 H 08/04/22 03:30 97.7 F 52 L 18 93 Room Air 08/03/22 23:09 98.2 F 61 18 156/88 H 90 PG Care Time/CCT Total # of Minutes Spent Total Time Spent: 30 Total Time Spent with Patient: Total time spent is greater than 50% in coordination of care (as documented) at patient's floor/unit and/or counseling patient: symptom management, patient education and support, coordination of care Coding Level of Care Code 26766 Subseq Hosp Care Lvl 2 Diagnoses Chest pain R07.9 Anxiety F41.9 Constipation K59.00 Palliative care encounter Z51.5 Synovial sarcoma C49.9
[2022-08-04 13:35] VITALS: BP 158/94; PULSE 54
[2022-08-04] MEDS ORDERED: Nursing to Pharmacy Communication SCH (13:45)
[2022-08-04] MEDS ORDERED: fentaNYL 50 MCG/HR TDSY TD SCH (14:00)
--- NOTE | 2022-08-04 14:15 | Discharge Summary ---
Discharge Summary Date of Service August 04, 2022 Notes For Next Care Provider Patient is started on hydromorphone and dexamethasone taper for his cancer related pain. Patient will need PCP follow-up in a week. Patient will need radiation oncology follow-up as an outpatient. Patient will need his outpatient oncology follow-up. Patient will need palliative care follow-up to continue pain management evaluation/prescription and to continue with the steroid taper. CBC/CMP/Mg in 1 week at PCP eval. Medication Changes From Visit Hydromorphone, and dexamethasone taper added for your pain related to cancer. Your potassium supplement has been increased to 20 mEq daily. Continue to take your pantoprazole twice a day as long as you are on a steroid. You can use a stool softener [id number]. Admission HPI Per Admitting Provider Mr. Marsh is a 59-year-old unfortunate male who presented to the ED today with 9/10 right sided chest pain that has been occuring over the past few weeks. 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 Initial Biospy done: 08/2019; involving left medial elbow/forearm initially; now metastatic involving lungs and lymph nodes.He follows Dr. Javier locally; received second opinion from Dr. Martin at [facility]. He has received 3 cycles ofAIMchemotherapy followed by preoperative radiation therapy.His last cycle of chemotherapy was given on 12/02/2019 through 12/05/2019.Further wide surgical excision on 2019 and underwent soft tissue reconstruction with a free anterior lateral thigh flap.Histopathology was consistent with the synovial sarcoma, size was 13 x 6 x 5.3 with negative margin. 04/09/22: Disease progression noted on CT; increased lung nodule sizes, large nodules along right heart bordered and right middle lobe. Has started taking Votriant on 07/27 for oral chemotherapy. 07/23: Patient has incurable disease and he can benefit with palliative treatment per review of Dr. Javier's documentation after his visit. Patient is schedule to have a follow- up appointment with Dr. Martin on zoom in 3 weeks to determine further treatment continuation or discontinuation of his treatment. Patient has incurable disease and he can benefit with palliative medicine and has an appointment with Dr. Moss but not until 08/11. He will be followed by Dr. Martin and his team for the treatment decision and also follow for toxicity from the Votrient. Patient is schedule to have a follow-up appointment with Dr. Martin on zoom in 3- 4 weeks to determine further treatment options. Additional PMH includes HTN, GERD, asthma, and DUY (on CPAP at home). Patient is sitting in his bed in acute distress. His pain is right sided pleuritic without radiation. He denies LAMB, dizziness, SOB, CP, palpitations, N/V/D, skin changes. He recently did complete a course of Prednisone for poison shona. Patient will be admitted for pain management and further goals of care. Please see A/P for further details. Admission Exam Per Admitting Provider Neuro: AAOx4, PERRLA, no aphagia, memory changes, CNII-XII grossly intact HEENT: head normocephalic, moist mucus membranes CV: S1/S2, (-) M/G/R, (-) edema, cap refill < 3 seconds Resp: Lungs CTA in all webster. On RA GI: Abdomen large S/NT/ND, Ax4 bowel sounds, (-) CVA tenderness Musculoskeletal: 5/5 B/L UE strength, 5/5 B/L LE strength. No gait disturbance Skin: (-) rashes , (-) erythema. Psych: euthymic mood Principal Dx & Hospital Course #1 = Principal Diagnosis (1) Synovial sarcoma: (2) Cancer related pain: (3) HTN (hypertension): (4) Goals of care, counseling/discussion: (5) Asthma: (6) GERD (gastroesophageal reflux disease): Plan 56 year old with advanced metastatic synovial sarcoma presented 07/31 with right sided pleuritic pain 08/04. Follows with Dr. Concepcion ricardo and [facility]. On oral chemo; Votrient. CT on 07/27 showed increasing lesion and further mets to heart border. Admitted for pain control. Opioid naive. He was managed for the following: Metastatic Synovial Sarcoma Cancer Related Pain: Initial Biospy done: 08/2019; involving left medial elbow/forearm initially; now metastatic involving lungs and lymph nodes. Opioid naive - Received two doses of IV Dilaudid in the ED; relief of pain noted. Follows Dr. Concepcion ricardo; received second opinion from Dr. Martin at [facility] Received 3 cycles ofAIMchemotherapy followed by preoperative radiation therapy. Last cycle of chemotherapy was given on 12/02/2019 through 12/05/2019. Further wide surgical excision on 2019 and underwent soft tissue reconstruction with a free anterior lateral thigh flap. Histopathology was consistent with the synovial sarcoma, size was 13 x 6 x 5.3 with negative margin. 04/09/22: Disease progression noted on CT; increased lung nodule sizes, large nodules along right heart bordered and right middle lobe. Has started taking Votriant on 07/27 for oral chemotherapy 07/23: Patient has incurable disease and he can benefit with palliative treatment per review of Dr. Javier's documentation after his visit Patient is schedule to have a follow-up appointment with Dr. Martin on zoom in 3 weeks to determine further treatment continuation or discontinuation. As the patient was not recently taking any opiates as an outpatient, he was started on Dilaudid R[employer] pump to gain a better understanding of his breakthrough use of pain meds. Since patient had reported improvement in his pain with the steroid use during the treatment course of poison shona prior to arrival, steroid has been started per palliative care. Pain better controlled with Dilaudid and fentanyl patch, appreciate palliative recommendation. Patient is being discharged on pain management regimen with hydromorphone and dexamethasone taper, patient made aware to follow-up with palliative care to continue pain management evaluation/prescription and to continue dexamethasone taper. He voiced understanding. Radiation oncology consulted for evaluation for palliative radiation. Appreciate recs. Patient to follow-up with radiation oncology upon discharge. Patient to maintain follow-up with his outpatient oncology. Goals of care; counseling/discussion: Lengthy conversation held with patient and his Selam at bedside on the day of arrival. Both are reasonably realistic but admitted that this has progressed faster than they anticipated. They do understand that the cancer is not curable. They have 4 adult children with the youngest being 20 years old. 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 We did discuss Hospice and what that entails; family understandably not ready for this transition. Palliative care on board, appreciate recommendation. HTN: Elevated in ED; takes Amlodipine, HCTZ, and Losartan; continue Hydralazine 10 mg IV Q 6 PRN for SBP > 170 Asthma: Takes Fluticasone; continue Takes montelukast; continue Albuterol PRN for rescue; continue GERD: Continue pantoprazole Disposition: PCP: Dr. Urias Code: Full Patient being discharged home with following instruction at the point of discharge: Follow-up with your primary care physician within a week time. You will likely need your blood test CBC/CMP/magnesium level after evaluation with your PCP. Follow-up with palliative care DrYonny As an outpatient in a week time. Follow-up with your radiation oncology recommendation who evaluated you while inpatient, maintain follow-up with them after discharge for radiation. Maintain follow-up with outpatient oncology. For your pain management, you will be discharged on pain medication and a steroid taper, you will have to get in touch with your palliative care for ongoing pain management evaluation/prescription and further doses on tapering your steroid. You can use [id number] stool softeners/laxatives to counter pain medication induced constipation. Because your potassium was borderline low while in hospital, your home potassium supplement has been increased to 20 mEq daily. Your pantoprazole has been increased to twice a day, continue to take twice a day for the duration you are on steroid. Take your medications as prescribed. Discharge Exam GENERAL: Alert and oriented x3. NAD, on RA. Class II obese. HEENT: No pallor, no icterus. Pupils equal, round and reactive to light. Oral mucosa moist. NECK: No JVD, no neck masses. HEART: S1 and S2 heard. Regular rate and rhythm. No murmur, no gallop. RESPIRATORY SYSTEM: Normal AP diameter. No accessory muscle use. No wheezing, no crackles. ABDOMEN: Soft, bowel sounds present, nontender, no distention. CENTRAL NERVOUS SYSTEM: No facial droop. Speech is clear. Obeys simple commands. Moves extremities. EXTREMITIES: No edema, no erythema seen. Updated Medication List Medication Instructions Recorded Confirmed Type albuterol sulfate 90 mcg/actuation 2 puffs inhalation Q4 PRN 10/10/19 07/31/22 History aerosol inhaler (Ventolin HFA) Shortness Of Breath Or Wheezing fluticasone furoate 100 1 puffs inhalation DAILY #180 ea 10/13/19 07/31/22 Rx mcg-vilanterol 25 mcg/dose inhalation powder (Breo Ellipta) valacyclovir 1 gram tablet 1,000 mg PO PRN 01/04/20 07/31/22 History (Valtrex) albuterol sulfate 2.5 mg/3 mL 2.5 mg inhalation Q6H PRN 01/31/20 07/31/22 History (0.083 %) solution for nebulization shortness of breath or wheezing montelukast 10 mg tablet 10 mg PO DAILY 06/29/20 07/31/22 History (Singulair) acetaminophen 500 mg tablet 1,000 - 1,500 mg PO Q8 PRN Pain 07/31/22 07/31/22 History (Tylenol Extra Strength) amlodipine 10 mg tablet 10 mg PO DAILY 07/31/22 07/31/22 History amoxicillin 500 mg capsule 2,000 mg PO DIRECTED 07/31/22 07/31/22 History carvedilol 6.25 mg tablet 6.25 mg PO BID 07/31/22 07/31/22 History famotidine 40 mg tablet 40 mg PO DAILY 07/31/22 07/31/22 History fluticasone propionate 50 2 spray intranasal QAM 07/31/22 07/31/22 History mcg/actuation nasal spray,suspension hydrochlorothiazide 25 mg tablet 25 mg PO DAILY 07/31/22 07/31/22 History hydroxyzine HCl 25 mg tablet 50 mg PO HS 07/31/22 07/31/22 History loratadine 10 mg tablet 10 mg PO DAILY 07/31/22 07/31/22 History losartan 100 mg tablet 100 mg PO DAILY 07/31/22 07/31/22 History pazopanib 200 mg tablet (Votrient) 800 mg PO QAM 07/31/22 07/31/22 History dexamethasone 2 mg tablet 4 mg PO DAILY 10 days #24 tabs 08/04/22 Rx docusate sodium 100 mg capsule 100 mg PO BID PRN laxative effect 08/04/22 Rx #60 caps fentanyl 50 mcg/hr transdermal 50 mcg transdermal Q72H #5 ea 08/04/22 Rx patch hydromorphone 2 mg tablet 2 mg PO Q4H PRN severe pain (scale 08/04/22 Rx (Dilaudid) score 7-10) 7 days #42 tabs pantoprazole 40 mg tablet,delayed 40 mg PO BID #60 tabs 08/04/22 Rx release polyethylene glycol 3350 17 gram 17 g PO DAILY PRN laxative effect 08/04/22 Rx oral powder packet (Miralax) #30 ea potassium chloride 10 mEq 20 meq PO QAM #60 tabs 08/04/22 Rx tablet,extended release(part/cryst) (Klor-Con M) sennosides 8.6 mg tablet (Senokot) 8.6 mg PO BID #60 tabs 08/04/22 Rx Hospital Stay Data Consultations 07/31/22 17:42 Consult Palliative Care Routine 08/01/22 11:28 Consult Radiation Oncology Routine Diagnostic Imagining Performed 07/31/22 12:49 CT angio chest PE protocol Stat 08/04/22 08:47 CT guide rad therapy chest Routine Pending Results Patient Have Any Pending Studies at Discharge: No Discharge Instructions Given to Patient (Per Discharging Provider) Follow-up with your primary care physician within a week time. You will likely need your blood test CBC/CMP/magnesium level after evaluation with your PCP. Follow-up with palliative care As an outpatient in a week time. Follow-up with your radiation oncology recommendation who evaluated you while inpatient, maintain follow-up with them after discharge for radiation. Maintain follow-up with outpatient oncology. For your pain management, you will be discharged on pain medication and a steroid taper, you will have to get in touch with your palliative care for ongoing pain management evaluation/prescription and further doses on tapering your steroid. You can use [id number] stool softeners/laxatives to counter pain medication induced constipation. Because your potassium was borderline low while in hospital, your home potassium supplement has been increased to 20 mEq daily. Your pantoprazole has been increased to twice a day, continue to take twice a day for the duration you are on steroid. Take your medications as prescribed. Total Time Total Time Spent Total Time Spent (In Minutes): 45
--- NOTE | 2022-08-04 16:31 | Communication Note ---
Date of Service: August 04, 2022 After the patient was discharged, received a message from pharmacy that they did not get my already prescribed potassium order, which I cannot cancel, hence ordered another set of potassium tablets 20 mEq daily. Hence the two orders are seen in discharge med rec. Also pharmacy said that they need prior authorization for Dilaudid, I got in touch with complex case manager, Dilaudid does not apparently need prior authorization. Fentanyl prior authorization has been sent earlier in the day. Pharmacy said that they did not receive prior Auth so far. May take 2-3 days to process, RN was communicated to change the fentanyl patch prior to DC, so the current patch on patient should work for next 3 days. Also pharmacy said that they had confusion on dexamethasone prescribed which had clear instruction on it, I canceled the prior order and submitted 2 separate dexamethasone orders to the patient's pharmacy.
[2022-08-05] MEDS ORDERED: fentaNYL 50 MCG/HR TDSY TD SCH (11:45)
== END 2022-08-04 15:15 | disposition home or self-care (01) | DRG 948 ==
LOC: ED 11:17 → 4W 17:46
DX: G89.3 Neoplasm related pain (acute) (chronic); C79.89 Secondary malignant neoplasm of other specified sites; C78.01 Secondary malignant neoplasm of right lung; Z79.891 Long term (current) use of opiate analgesic; K21.9 Gastro-esophageal reflux disease without esophagitis; C49.9 Malignant neoplasm of connective and soft tissue, unspecified; Z92.3 Personal history of irradiation; K59.00 Constipation, unspecified; J45.909 Unspecified asthma, uncomplicated; E87.6 Hypokalemia; C78.02 Secondary malignant neoplasm of left lung; I10 Essential (primary) hypertension; K76.0 Fatty (change of) liver, not elsewhere classified; R07.81 Pleurodynia

== ENCOUNTER 2022-09-02 11:06 | Inpatient (IN) ==
--- NOTE | 2022-09-02 11:21 | Emergency Department Note ---
Impression & Plan Transaminitis, Fever, Lung cancer ED Provider Note NAME: CHAPIS VICK AGE: 57 SEX: M : 1965 ARRIVES VIA: Walk-In INFORMANT: [Patient][, ] ED PROVIDER(S): [Brandon Gonzalez MD] Chief Complaint: Abdominal pain, outpatient referral HPI: Patient presents due to concern for some abdominal pain as well as assoc iated fever and was referred by his outpatient provider due to concern for abnormal blood work. Patient has had associated fever. Because he does have a fentanyl patch and is taking Dilaudid they have not taken anything for the fever. Fever is waxed and waned on its own T-max is great is 101. Patient denies any upper respiratory symptoms including cough congestion or ear pain. Patient does not complain of any chest pains or shortness of breath. Patient has not had any associated nausea vomiting or dysuria. Patient does have the right upper abdominal pain. Patient was told that a recent chemotherapy drug that he was taken off of a days ago because of some liver dysfunction could be a likely cause of his change in liver function testing. The patient also did recently have radiation therapy completed to a right lower lobe nodule with Dr. Javier. It also been postulated that may be some of the radiation had also gotten part of the liver as well. Patient denies any vomiting or diarrhea. The was concerned about some intermittent episodes of confusion but no recent falls or trauma the patient denies any numbness tingling focal weakness slurred speech or facial droop. Patient denies any alcohol or tobacco use. Patient is not take anything for his fever at home. ROS: See HPI for pertinent positives and negatives. A total of 10 systems were reviewed and otherwise negative. Past medical history: See below Surgical history: See below Social history: See below Physical Exam: GENERAL: NAD, wearing a mask, non-toxic. EYE EXAM: Normal conjunctiva. Prosthetic R eye, L eye w/ normal EOM and no pain, round and reactive pupil. NECK: Supple, no nuchal rigidity, no adenopathy, non-tender. No signs of meningismus. FROM of the neck with good chin to chest and neck extension. No stridor. LUNGS: Clear to auscultation. Normal chest wall mechanics. HEART: NSR, no MRG. ABDOMEN: Abdomen soft, RUQ pain but not peritonitic, normo-active bowel sounds, no masses, no rebound or guarding. BACK: No CVA TTP. SKIN: No rashes and no bruising. UPPER EXTREMITIES: Upper extremities are grossly normal. LOWER EXTREMITIES: Grossly normal, no edema. NEURO EXAM: A&O x3, cranial nerves II-XII grossly intact, normal speech, moves all 4 extremities. No sensory deficits. Differential diagnoses: Viral syndrome, otitis, pharyngitis, pneumonia, influenza, meningitis, urinary tract infection, sepsis, bacteremia, as well as other pathologies. Course: Patient was seen and evaluated the bedside. Full history physical exam was performed. Imaging Studies: See Below Cardiac monitoring: An order was placed for continuous cardiac monitoring. The monitor shows a rate of 88 with sinus rhythm. MDM: Patient's blood work showed a normal white count with mild anemia hemoglobin of 12 with a normal platelet count. The patient's kidney function does show some mild MICHA with a creatinine of 1.49. Patient does have a transaminitis noted. Patient did receive IV fluids as well as IV Toradol. Tylenol avoided given patient's transaminitis. Patient CT head negative. CT angio of the chest without PE. The patient's pulmonary nodules do appear lessened compared to prior. CT abdomen pelvis does show bilateral renal enhancement with perinephric stranding. There is bladder wall thickening. Patient not complain of any urinary symptoms but in light of the patient's fever and associated findings on CT patient was ordered antibiotics. I did speak with the on-call hospitalist after discussing the findings with the patient. I did speak with Ivy Hensley PA-C and the patient was admitted by Dr. Ludwig. 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 Grandmother (Maternal) , iat 91 old age No problems noted. Grandfather (Paternal) , in his eighties old age No problems noted. Father , age 66 of pancreatic cancer and metastasis No problems noted. Mother No problems noted. Brother Age: 54 No problems noted. Son Age: 35 Leukemia in remission Daughter Age: 35 No problems noted. Daughter Age: 23 No problems noted. Son Age: 20 No problems noted. Social History Smoking Status: Former smoker Smoking End Date: 2001; Hx Alcohol Use: No Hx Substance Use: No Preferred Language: Bengali Communication Ability: Effective Micro Computer Specialist Required: No Beliefs That Will Affect Care: None marital status: Current Living Situation: Spouse current occupational status: employed Feels Safe at Home: Yes Safety Concerns: Feels Safe At This Time Childhood Exposure to Second-Hand Smoke: Yes caffeine: No Dental Care, Regularly: Yes Physical Activity Frequency: Does not Exercise Seatbelt Use: always Sunscreen Use: Yes Do you think of yourself as: straight/heterosexual Assistive Devices: Oxygen - Continuous Allergies Allergies Allergy/AdvReac Type Severity Reaction Status Date / Time bacitracin Allergy Severe hives, Verified 09/02/22 15:46 syncopy tree and shrub pollen AdvReac Mild nasal Verified 09/02/22 15:46 congestion, eyes water Home Meds Home Medications Medication Instructions Recorded Confirmed albuterol sulfate 90 mcg/actuation 2 puffs inhalation Q4 PRN 10/10/19 09/02/22 aerosol inhaler (Ventolin HFA) Shortness Of Breath Or Wheezing albuterol sulfate 2.5 mg/3 mL 2.5 mg inhalation Q6H PRN 01/31/20 09/02/22 (0.083 %) solution for nebulization shortness of breath or wheezing montelukast 10 mg tablet 10 mg PO DAILY 06/29/20 09/02/22 (Singulair) amlodipine 10 mg tablet 10 mg PO DAILY 07/31/22 09/02/22 amoxicillin 500 mg capsule 2,000 mg PO DIRECTED 07/31/22 09/02/22 carvedilol 6.25 mg tablet 6.25 mg PO BID 07/31/22 09/02/22 famotidine 40 mg tablet 40 mg PO DAILY 07/31/22 09/02/22 fluticasone propionate 50 2 spray intranasal QAM 07/31/22 09/02/22 mcg/actuation nasal spray,suspension hydrochlorothiazide 25 mg tablet 25 mg PO DAILY 07/31/22 09/02/22 hydroxyzine HCl 25 mg tablet 50 mg PO HS 07/31/22 09/02/22 loratadine 10 mg tablet 10 mg PO DAILY 07/31/22 09/02/22 losartan 100 mg tablet 100 mg PO DAILY 07/31/22 09/02/22 hydromorphone 2 mg tablet 2 mg PO Q3H PRN Severe Pain (Scale 08/12/22 09/02/22 (Dilaudid) Score 7-10) aspirin 81 mg tablet 81 mg PO DAILY 09/02/22 09/02/22 buspirone 10 mg tablet 10 mg PO BID PRN Pain 09/02/22 09/02/22 mirtazapine 15 mg tablet 15 mg PO HS 09/02/22 09/02/22 pantoprazole 40 mg tablet,delayed 40 mg PO QAM 09/02/22 09/02/22 release sennosides 8.6 mg tablet (Senokot) 8.6 mg PO BID PRN Constipation 09/02/22 09/02/22 Previous Rx's Medication Instructions Recorded fluticasone furoate 100 1 puffs inhalation DAILY #180 ea 10/13/19 mcg-vilanterol 25 mcg/dose inhalation powder (Breo Ellipta) docusate sodium 100 mg capsule 100 mg PO BID PRN laxative effect 08/04/22 #60 caps fentanyl 50 mcg/hr transdermal 50 mcg transdermal Q72H #5 ea 08/04/22 patch polyethylene glycol 3350 17 gram 17 g PO DAILY PRN laxative effect 08/04/22 oral powder packet (Miralax) #30 ea potassium chloride 20 mEq 20 meq PO DAILY #30 tabs 08/04/22 tablet,extended release Results & Data (ED) Vital Signs Vital Signs - 24 hr 09/02/22 11:09 09/02/22 11:32 09/02/22 12:24 Temperature 37.6 C H Temperature Source Oral Pulse Rate 82 90 Pulse Rate [Apical] 91 H Pulse Rhythm Regular Pulse Rhythm [Apical] Regular Pulse Strength [Apical] Respiratory Rate 18 16 18 Respiratory Effort / Characteristics Non-Labored Non-Labored Respiratory Depth Normal Normal Respiratory Pattern Regular Regular Blood Pressure 108/72 Blood Pressure [Left Arm] 105/66 Blood Pressure Mean 84 Blood Pressure Mean [Left Arm] 79 Blood Pressure Position [Left Arm] Lying Pulse Oximetry 92 91 91 Oxygen Delivery Method Room Air Room Air Room Air Oxygen Flow Rate Sepsis Recent Fever Within 48 Hours Yes Sepsis New/Unexplained Change in Mental Status No Sepsis Action Taken by Nursing No Action Required Oxygen Flow Rate - Titration Pulse Oximetry Post Tiitration 09/02/22 14:00 09/02/22 14:10 Temperature Temperature Source Pulse Rate Pulse Rate [Apical] 79 Pulse Rhythm Pulse Rhythm [Apical] Regular Pulse Strength [Apical] Normal Respiratory Rate 16 Respiratory Effort / Characteristics Non-Labored Respiratory Depth Normal Respiratory Pattern Regular Blood Pressure Blood Pressure [Left Arm] 113/69 Blood Pressure Mean Blood Pressure Mean [Left Arm] 83 Blood Pressure Position [Left Arm] Lying Pulse Oximetry 92 88 L Oxygen Delivery Method Nasal Cannula Room Air Nasal Cannula Oxygen Flow Rate 2 0 Sepsis Recent Fever Within 48 Hours Sepsis New/Unexplained Change in Mental Status Sepsis Action Taken by Nursing Oxygen Flow Rate - Titration 2 Pulse Oximetry Post Tiitration 93 Home Medications Current Medication List: was personally reviewed by me Laboratory Data Attestation: I reviewed the patient's lab results. . Result diagrams: 09/03/22 05:25 09/03/22 05:25 Lab Results 09/02/22 09/02/22 09/02/22 Range/Units 11:57 12:00 12:00 WBC 6.29 (4.8-10.8) K/ul RBC 3.84 L (4.63-6.08) M/uL Hgb 12.1 L (14.0-18.0) g/dl Hct 35.4 L (40.1-51.0) % MCV 92.2 (80.0-100.0) fL MCH 31.5 (25.0-34.0) pg MCHC 34.2 (32.0-36.0) g/dL RDW Std Deviation 53.1 H (36.4-46.3) fL RDW Coeff of Darrell 15.9 H (11.5-14.5) % Plt Count 166 (130-400) K/uL MPV 10.6 (9.4-12.4) fL Immature Gran % (Auto) 0.5 % Neut % (Auto) 76.4 % Lymph % (Auto) 13.7 % Webb % (Auto) 9.1 % Eos % (Auto) 0.0 % Baso % (Auto) 0.3 % Neut # (Auto) 4.81 (1.4-6.5) K/uL Lymph # (Auto) 0.86 L (1.2-3.4) K/uL Webb # (Auto) 0.57 (0.24-0.82) K/uL Eos # (Auto) 0.00 (0-0.50) K/uL Baso # (Auto) 0.02 (0-0.2) K/uL Immature Gran # (Auto) 0.03 H (0.00-0.02) K/uL PT 14.5 H (9.0-12.0) Seconds INR 1.4 H (0.9-1.1) Sodium (136-145) mmol/L Potassium (3.5-5.1) mmol/L Chloride (98-107) mmol/L Carbon Dioxide (21-32) mmol/L Anion Gap (3-11) BUN (6-23) mg/dl Creatinine (0.6-1.4) mg/dl Est Cr Clr Drug Dosing ml/min Est GFR ( Amer) ml/min Est GFR (Non-Af Amer) ml/min BUN/Creatinine Ratio (10-20) Glucose (70-99(Fasting)) mg/dl Calcium (8.5-10.1) mg/dl Total Bilirubin (0.2-1.0) mg/dl AST (13-39) U/L ALT (7-52) U/L Alkaline Phosphatase (34-104) U/L Total Protein (6.0-8.3) gm/dl Albumin (3.4-5.0) gm/dl Globulin (2.5-4.0) gm/dl Albumin/Globulin Ratio (0.9-2) Lipase (11-82) U/L Urine Color [place] Urine Appearance Cloudy A (Clear) Urine pH 5.5 (4.5-7.5) Ur Specific [place] 1.017 (1.000-1.030) Urine Protein 1+ H (Negative) Urine Glucose (UA) Negative (Negative) Urine Ketones Negative (Negative) Urine Blood Negative (Negative) Urine Nitrite Negative (Negative) Urine Bilirubin Negative (Negative) Urine Urobilinogen Positive H (Negative) Ur Leukocyte Esterase Trace H (Negative) Urine WBC (Auto) 1-5 (0-5) /hpf Urine RBC (Auto) 5-10 H (0-4) /hpf U Hyaline Cast (Auto) 1-5 (0-5) /lpf U Epithel Cells (Auto) 5-10 H (0-5) /lpf Urine Bacteria (Auto) Negative (Negative) SARS-CoV-2, RNA, NAAT (NEGATIVE) 09/02/22 09/02/22 Range/Units 12:00 12:20 WBC (4.8-10.8) K/ul RBC (4.63-6.08) M/uL Hgb (14.0-18.0) g/dl Hct (40.1-51.0) % MCV (80.0-100.0) fL MCH (25.0-34.0) pg MCHC (32.0-36.0) g/dL RDW Std Deviation (36.4-46.3) fL RDW Coeff of Darrell (11.5-14.5) % Plt Count (130-400) K/uL MPV (9.4-12.4) fL Immature Gran % (Auto) % Neut % (Auto) % Lymph % (Auto) % Webb % (Auto) % Eos % (Auto) % Baso % (Auto) % Neut # (Auto) (1.4-6.5) K/uL Lymph # (Auto) (1.2-3.4) K/uL Webb # (Auto) (0.24-0.82) K/uL Eos # (Auto) (0-0.50) K/uL Baso # (Auto) (0-0.2) K/uL Immature Gran # (Auto) (0.00-0.02) K/uL PT (9.0-12.0) Seconds INR (0.9-1.1) Sodium 134 L (136-145) mmol/L Potassium 4.0 (3.5-5.1) mmol/L Chloride 99 (98-107) mmol/L Carbon Dioxide 25 (21-32) mmol/L Anion Gap 10 (3-11) BUN 34 H (6-23) mg/dl Creatinine 1.49 H (0.6-1.4) mg/dl Est Cr Clr Drug Dosing 73.7 ml/min Est GFR ( Amer) 59.1 ml/min Est GFR (Non-Af Amer) 51.0 ml/min BUN/Creatinine Ratio 22.8 H (10-20) Glucose 127 H (70-99(Fasting)) mg/dl Calcium 7.2 L (8.5-10.1) mg/dl Total Bilirubin 1.9 H (0.2-1.0) mg/dl AST 334 H (13-39) U/L ALT 336 H (7-52) U/L Alkaline Phosphatase 183 H (34-104) U/L Total Protein 6.8 (6.0-8.3) gm/dl Albumin 2.6 L (3.4-5.0) gm/dl Globulin 4.2 H (2.5-4.0) gm/dl Albumin/Globulin Ratio 0.6 L (0.9-2) Lipase 15 (11-82) U/L Urine Color Urine Appearance (Clear) Urine pH (4.5-7.5) Ur Specific [place] (1.000-1.030) Urine Protein (Negative) Urine Glucose (UA) (Negative) Urine Ketones (Negative) Urine Blood (Negative) Urine Nitrite (Negative) Urine Bilirubin (Negative) Urine Urobilinogen (Negative) Ur Leukocyte Esterase (Negative) Urine WBC (Auto) (0-5) /hpf Urine RBC (Auto) (0-4) /hpf U Hyaline Cast (Auto) (0-5) /lpf U Epithel Cells (Auto) (0-5) /lpf Urine Bacteria (Auto) (Negative) SARS-CoV-2, RNA, NAAT NEGATIVE (NEGATIVE) Administered Medications Acetaminophen (Acetaminophen 325 Mg Tab) 650 mg PO Q4H PRN PRN Reason: Pain or Fever Stop: 10/02/22 16:39 Last Admin: 09/03/22 06:01 Dose: 650 mg Documented By: TG Carvedilol (Carvedilol 6.25 Mg Tab) 6.25 mg PO BID ADIA Stop: 10/02/22 20:59 Last Admin: 09/02/22 20:26 Dose: 6.25 mg Documented By: TG Heparin Sodium (Porcine) (Heparin Sod 5,000 Unit/0.5 Ml Vial) 5,000 units SQ Q8 ADIA Stop: 10/02/22 21:59 Last Admin: 09/03/22 05:32 Dose: 5,000 units Documented By: Admin: 09/02/22 22:03 Dose: 5,000 units Documented By: TG Hydromorphone HCl (Hydromorphone Hcl 2 Mg Tab) 2 mg PO Q3H PRN PRN Reason: Severe Pain (Scale Score 7-10) Stop: 09/16/22 17:42 Last Admin: 09/03/22 04:34 Dose: 2 mg Documented By: Admin: 09/02/22 20:27 Dose: 2 mg Documented By: TG Hydroxyzine HCl (Hydroxyzine Hcl 25 Mg Tab) 50 mg PO HS [facility] Stop: 10/02/22 20:59 Last Admin: 09/02/22 20:26 Dose: 50 mg Documented By: TG Cefepime HCl 2,000 mg/ Syringe 20 mls @ 5 mls/min IV Q12 ADIA; Protocol Stop: 09/12/22 20:59 Last Admin: 09/02/22 20:26 Dose: 5 mls/min Documented By: TG Sodium Chloride (Nss 1000ml) 1,000 mls @ 125 mls/hr IV .Q8H ADIA Stop: 09/03/22 10:29 Last Admin: 09/03/22 03:29 Dose: 125 mls/hr Documented By: Infusion: 09/03/22 03:29 Dose: 125 mls/hr Documented By: Admin: 09/02/22 19:29 Dose: 125 mls/hr Documented By: TG Mirtazapine (Mirtazapine Tab 15 Mg Tab) 15 mg PO HS ADIA Stop: 10/02/22 20:59 Last Admin: 09/02/22 20:27 Dose: 15 mg Documented By: TG Miscellaneous (Check Fentanyl Patch Placement) 1 each N/A QS [facility] Stop: 10/03/22 00:00 Last Admin: 09/02/22 23:08 Dose: 1 each Documented By: TG Discontinued Medications Hydromorphone HCl (Hydromorphone Hcl 2 Mg Tab) 2 mg PO NOW STA Stop: 09/02/22 11:57 Last Admin: 09/02/22 12:15 Dose: 2 mg Documented By: Hydromorphone HCl (Hydromorphone Hcl 2 Mg Tab) 2 mg PO NOW STA Stop: 09/02/22 17:38 Last Admin: 09/02/22 17:50 Dose: 2 mg Documented By: JOHANNA Hydromorphone HCl (Hydromorphone Inj 1 Mg/Ml Syringe) Confirm Administered Dose 2 mg .ROUTE .STK-MED ONE Stop: 09/02/22 17:46 Last Admin: 09/02/22 17:50 Dose: Not Given Documented By: JOHANNA Sodium Chloride (Nss 1000ml) 1,000 mls @ 999 mls/hr IV .Q1H1M STA Stop: 09/02/22 12:56 Last Infusion: 09/02/22 13:20 Dose: 0 mls/hr Documented By: Admin: 09/02/22 12:15 Dose: 999 mls/hr Documented By: Cefepime HCl (Maxipime) 2,000 mg in 20 mls @ 5 mls/min IV NOW STA; Protocol Stop: 09/02/22 12:00 Last Admin: 09/02/22 12:15 Dose: 5 mls/min Documented By: Ceftriaxone Sodium (Rocephin) 2,000 mg in 70 mls @ 140 mls/hr IV NOW STA Stop: 09/02/22 14:20 Last Infusion: 09/02/22 14:45 Dose: 0 mls/hr Documented By: Admin: 09/02/22 14:15 Dose: 140 mls/hr Documented By: Calcium Gluconate () 1,000 mg in 60 mls @ 240 mls/hr IV NOW STA Stop: 09/02/22 15:09 Last Infusion: 09/02/22 15:40 Dose: 0 mls/hr Documented By: Admin: 09/02/22 15:14 Dose: 240 mls/hr Documented By: JAIRO Ioversol (Optiray 320 500ml) 120 ml IV ONCE ONE Stop: 09/02/22 13:20 Last Admin: 09/02/22 13:19 Dose: 120 ml Documented By: JAMEL Ketorolac Tromethamine (Ketorolac Tromethamine 15 Mg/Ml Vial) 10 mg IV NOW ONE Stop: 09/02/22 11:58 Last Admin: 09/02/22 12:16 Dose: 10 mg Documented By: Imaging Data Radiologist's Impression: Abdomen/Pelvis CT 09/02/22 11:[address] WITH IV CONTRAST CT DOSE: 3289.58 mGy.cm HISTORY: Right upper quadrant pain, transaminitis, radiation trx to liver TECHNIQUE: Multiaxial CT images of the abdomen and pelvis were performed following the use of intravenous contrast. A dose lowering technique was utilized adhering to the principles of ALARA. COMPARISON STUDY: Outside hospital chest, abdomen, and pelvis CT 07/30/2022. Chest CTA 07/31/2022. FINDINGS: Please refer to the same day chest CTA for further evaluation of the intrathoracic metastatic disease. No pneumoperitoneum. No pneumatosis. There is a left total hip arthroplasty. No suspicious lytic or blastic osseous lesions. Partially visualized catheter tip at the distal SVC. Trace bilateral pleural effusions and multiple pleural/pulmonary masses again noted. There is a tiny fat-containing umbilical hernia. Hepatic steatosis. No hepatic or splenic dino s. The adrenal glands, pancreas, and gallbladder are unremarkable. The main portal vein is patent. No retroperitoneal or pelvic lymphadenopathy. Normal caliber abdominal aorta. No hydronephrosis. Mild bilateral perinephric edema has slightly progressed. No renal or ureteral stones identified. Stable 3.7 cm intermediate density lesion within the upper pole the left kidney. This favors a hyperdense cyst. Mild diffuse heterogeneous enhancement within the kidneys which is new from the prior study. The kidneys appear slightly enlarged compared to the prior study. No hydronephrosis. Normal caliber abdominal aorta. Moderate bladder wall thickening. The prostate gland is mildly enlarged. Deep pelvic structures are suboptimally assessed due to the metallic artifact from the left hip prosthesis. Colonic diverticulosis. No evidence for acute diverticulitis. No bowel wall thickening or obstruction. Normal appendix. Small subcutaneous trace nodules within the gluteal regions favors prior medication injection. Chronic epiploic appendages within the right upper quadrant remain stable. No adjacent i nflammatory change to suggest an acute abnormality. IMPRESSION: 1. Mild enlargement and heterogeneous enhancement within the kidneys which is new from the prior study. Mild bilateral perinephric edema has also progressed. This could be due to a pyelonephritis or glomerulonephritis. Recommend correlate with urinalysis and renal function tests for further evaluation. 2. Hepatic steatosis. No hepatic masses. 3. Please refer to the same day chest CT for further evaluation of the intrathoracic metastatic disease. 4. No bowel wall thickening or obstruction. 5. Bladder wall thickening. This could be due to chronic outlet obstruction from the enlarged prostate gland or a cystitis. Recommend correlation with urinalysis. 6. Colonic diverticulosis. No evidence for acute diverticulitis. 7. Normal appendix. 8. Additional findings as described above. ACT 112: Negative or not required by law. Electronically signed by: Winston Sepulveda M.D. 09/02/2022 1:45 PM Chest CTA 09/02/22 11:56 CT angio chest PE protocol CLINICAL HISTORY: PE, h/o radiation to liver/chemo; h/o lung ca TECHNIQUE: Multidetector row helical CT of the chest was performed with angiographic protocol. Coronal and sagittal reformations were obtained. Coronal and sagittal MIPS were obtained from the axial data set and were submitted for review. Automated dose lowering techniques and/or adjustment according to patient size were utilized for this exam. Comparison: Comparison is made to CTA chest 07/31/2022 FINDINGS: Lungs and pleura: Numerous pulmonary and pleural-based nodules are seen, overall minimally decreased in size from prior exam. For example, a right perihilar nodule previously measured 39 mm, now measures 22 mm. A right lower lobe nodule previously measured 60 mm, now measures 50 mm. Heart and pericardium: Heart size is normal. No pericardial effusion. Vessels: No evidence of pulmonary embolism. Mediastinum and otoniel: Unremarkable. Chest wall and lower neck: A right thyroid nodule measures 21 mm in diameter. Right jugular catheter is seen. Abdomen: For findings below the diaphragm, please refer to CT of the abdomen dated the same. Bones: Unremarkable. IMPRESSION: 1. No evidence of pulmonary embolism. 2. Overall interval mild decrease in size of numerous pulmonary and pleural- based masses/nodules. 3. Right thyroid nodule is incidentally noted. If not previously evaluated, nonemergent ultrasound can be performed. ACT 112: Positive. There are findings on this exam that require communication between the performing entity and the patient following Patient Test Result Information Act ([place] Act 112) guidelines. Electronically signed by: Viktor Carpenter M.D. 09/02/2022 1:[address] 09/02/22 11:57 CT SCAN OF THE BRAIN WITHOUT IV CONTRAST CLINICAL HISTORY: Change in mental status. Fever. History of lung cancer. COMPARISON STUDY: No priors. TECHNIQUE: Unenhanced axial CT scan of the brain is performed from the vertex to the skull base. A dose lowering technique was utilized adhering to the principles of ALARA. FINDINGS: Brain parenchyma: There is age-related involutional change noting mild subcortical and periventricular microangiopathic disease. There is no hemorrhage, mass effect, or evidence of acute territorial ischemia by CT criteria. Corbett-white matter differentiation is preserved. No extra-axial fluid collection is seen. Ventricles, sulci, cisterns: Prominent secondary to involutional change. Intracranial vasculature: There is atherosclerotic calcification of the cavernous carotid arteries. Calvarium: Unremarkable. Sinuses and mastoids: The visualized paranasal sinuses are clear. The mastoid air cells are well pneumatized. Orbits: The bony orbits are grossly intact. A prosthetic globe is seen on the right. IMPRESSION: There is no hemorrhage, mass effect, or evidence of acute territorial ischemia by CT criteria. ACT 112: Negative or not required by law. Electronically signed by: Santos Gutiérrez M.D. 09/02/2022 1:35 PM Discharge Plan Visit Data Chief Complaint: Abdominal Pain Stated Complaint: UPPER ABDOMINAL PAIN, FEVER ED Provider: Brandon Gonzalez Discharge Problem: Transaminitis, Fever, Lung cancer Patient Disposition: Admitted As Inpatient Discharge Instructions Interventions: ED Discharge Assessment Last Done: 09/02/22 15:53
[2022-09-02] MEDS ORDERED: SODIUM CHLORIDE 0.9% 1000ML 1,000 ML IV STA (11:56)
[2022-09-02] MEDS ORDERED: HYDROmorphone HCL 2 MG TAB PO STA ×2 (11:56→17:37)
[2022-09-02] MEDS ORDERED: CEFEPIME 2,000 MG/20 ML VIAL IV STA (11:57)
[2022-09-02] MEDS ORDERED: KETOROLAC TROMETHAMINE 15 MG/ML VIAL IV ONE (11:57)
[2022-09-02 12:20] LABS: Basophils # (auto) 0.02 K/uL (0-0.2); Basophils % (auto) 0.3 %; Hematocrit (blood only) 35.4 % (40.1-51.0); Hemoglobin 12.1 g/dl (14.0-18.0); Immature Granulocytes # (auto) 0.03 K/uL (0.00-0.02); Immature Granulocytes % (auto) 0.5 %; Lymphocytes # (auto) 0.86 K/uL (1.2-3.4); Lymphocytes % (auto) 13.7 %; Mean Corpuscular Hemoglobin 31.5 pg (25.0-34.0); Mean Corpuscular Hgb Conc 34.2 g/dL (32.0-36.0); Mean Corpuscular Volume 92.2 fL (80.0-100.0); Mean Platelet Volume 10.6 fL (9.4-12.4); Monocytes # (auto) 0.57 K/uL (0.24-0.82); Monocytes % (auto) 9.1 %; Neutrophils # (auto) 4.81 K/uL (1.4-6.5); Neutrophils % (auto) 76.4 %; Platelet Count 166 K/uL (130-400); RDW Coefficient of Variation 15.9 % (11.5-14.5); RDW Standard Deviation 53.1 fL (36.4-46.3); Red Blood Count 3.84 M/uL (4.63-6.08); White Blood Count 6.29 K/ul (4.8-10.8)
[2022-09-02 12:24] LABS: Appearance Urine Cloudy (Clear); Bacteria Urine Automated Negative (Negative); Bilirubin Urine Negative (Negative); Blood Urine Negative (Negative); Color Urine Orange; Glucose Urine UA Negative (Negative); Ketones Urine Negative (Negative); Leukocyte Esterase Urine Trace (Negative); Nitrite Urine Negative (Negative); Protein Urine 1+ (Negative); Specific Gravity Urine 1.017 (1.000-1.030); Urobilinogen Urine Positive (Negative); pH Urine 5.5 (4.5-7.5)
[2022-09-02 12:53] LABS: Albumin Globulin Ratio 0.6 (0.9-2); Albumin Level 2.6 gm/dl (3.4-5.0); BUN Creatinine Ratio 22.8 (10-20); Bilirubin,Total 1.9 mg/dl (0.2-1.0); Calcium 7.2 mg/dl (8.5-10.1); Creatinine Clr Calc Pharmacy 73.7 ml/min; Est GFR (African American) 59.1 ml/min; Globulin 4.2 gm/dl (2.5-4.0); Total Protein 6.8 gm/dl (6.0-8.3)
[2022-09-02 12:56] LABS: INR 1.4 (0.9-1.1); Prothrombin Time 14.5 Seconds (9.0-12.0)
[2022-09-02] MEDS ORDERED: OPTIRAY 320 500ml IV ONE (13:19)
--- NOTE | 2022-09-02 13:36 | CT Scan Report ---
CT SCAN OF THE BRAIN WITHOUT IV CONTRAST CLINICAL HISTORY: Change in mental status. Fever. History of lung cancer. COMPARISON STUDY: No priors. TECHNIQUE: Unenhanced axial CT scan of the brain is performed from the vertex to the skull base. A do se lowering technique was utilized adhering to the principles of ALARA. FINDINGS: Brain parenchyma: There is age-related involutional change noting mild subcortical and periventricula r microangiopathic disease. There is no hemorrhage, mass effect, or evidence of acute territorial isc hemia by CT criteria. Corbett-white matter differentiation is preserved. No extra-axial fluid collection is seen. Ventricles, sulci, cisterns: Prominent secondary to involutional change. Intracranial vasculature: There is atherosclerotic calcification of the cavernous carotid arteries. Calvarium: Unremarkable. Sinuses and mastoids: The visualized paranasal sinuses are clear. The mastoid air cells are well pneu matized. Orbits: The bony orbits are grossly intact. A prosthetic globe is seen on the right. IMPRESSION: There is no hemorrhage, mass effect, or evidence of acute territorial ischemia by CT aj casas. ACT 112: Negative or not required by law. Electronically signed by: Santos Gutiérrez M.D. 09/02/2022 1:35 PM
--- NOTE | 2022-09-02 13:37 | CT Scan Report ---
CT angio chest PE protocol CLINICAL HISTORY: PE, h/o radiation to liver/chemo; h/o lung ca TECHNIQUE: Multidetector row helical CT of the chest was performed with angiographic protocol. Mcgarry l and sagittal reformations were obtained. Coronal and sagittal MIPS were obtained from the axial nancy a set and were submitted for review. Automated dose lowering techniques and/or adjustment according to patient size were utilized for this exam. Comparison: Comparison is made to CTA chest 07/31/2022 FINDINGS: Lungs and pleura: Numerous pulmonary and pleural-based nodules are seen, overall minimally decreased in size from prior exam. For example, a right perihilar nodule previously measured 39 mm, now measure s 22 mm. A right lower lobe nodule previously measured 60 mm, now measures 50 mm. Heart and pericardium: Heart size is normal. No pericardial effusion. Vessels: No evidence of pulmonary embolism. Mediastinum and otoniel: Unremarkable. Chest wall and lower neck: A right thyroid nodule measures 21 mm in diameter. Right jugular catheter is seen. Abdomen: For findings below the diaphragm, please refer to CT of the abdomen dated the same. Bones: Unremarkable. IMPRESSION: 1. No evidence of pulmonary embolism. 2. Overall interval mild decrease in size of numerous pulmonary and pleural-based masses/nodules. 3. Right thyroid nodule is incidentally noted. If not previously evaluated, nonemergent ultrasound c an be performed. ACT 112: Positive. There are findings on this exam that require communication between the performing entity and the patient following Patient Test Result Information Act ([place] Act 112) guidelines. Electronically signed by: Viktor Carpenter M.D. 09/02/2022 1:35 PM
--- NOTE | 2022-09-02 13:47 | CT Scan Report ---
ABDOMEN AND PELVIS CT WITH IV CONTRAST CT DOSE: 3289.58 mGy.cm HISTORY: Right upper quadrant pain, transaminitis, radiation trx to liver TECHNIQUE: Multiaxial CT images of the abdomen and pelvis were performed following the use of intrave nous contrast. A dose lowering technique was utilized adhering to the principles of ALARA. COMPARISON STUDY: Outside hospital chest, abdomen, and pelvis CT 07/30/2022. Chest CTA 07/31/2022. FINDINGS: Please refer to the same day chest CTA for further evaluation of the intrathoracic metastat ic disease. No pneumoperitoneum. No pneumatosis. There is a left total hip arthroplasty. No suspiciou s lytic or blastic osseous lesions. Partially visualized catheter tip at the distal SVC. Trace bilate ral pleural effusions and multiple pleural/pulmonary masses again noted. There is a tiny fat-containi ng umbilical hernia. Hepatic steatosis. No hepatic or splenic masses. The adrenal glands, pancreas, a nd gallbladder are unremarkable. The main portal vein is patent. No retroperitoneal or pelvic lymphad enopathy. Normal caliber abdominal aorta. No hydronephrosis. Mild bilateral perinephric edema has sli ghtly progressed. No renal or ureteral stones identified. Stable 3.7 cm intermediate density lesion w ithin the upper pole the left kidney. This favors a hyperdense cyst. Mild diffuse heterogeneous enhan cement within the kidneys which is new from the prior study. The kidneys appear slightly enlarged com pared to the prior study. No hydronephrosis. Normal caliber abdominal aorta. Moderate bladder wall th ickening. The prostate gland is mildly enlarged. Deep pelvic structures are suboptimally assessed due to the metallic artifact from the left hip prosthesis. Colonic diverticulosis. No evidence for acute diverticulitis. No bowel wall thickening or obstruction. Normal appendix. Small subcutaneous trace n odules within the gluteal regions favors prior medication injection. Chronic epiploic appendages with in the right upper quadrant remain stable. No adjacent inflammatory change to suggest an acute abnorm ality. IMPRESSION: 1. Mild enlargement and heterogeneous enhancement within the kidneys which is new from the prior stud y. Mild bilateral perinephric edema has also progressed. This could be due to a pyelonephritis or kanika merulonephritis. Recommend correlate with urinalysis and renal function tests for further evaluation. 2. Hepatic steatosis. No hepatic masses. 3. Please refer to the same day chest CT for further evaluation of the intrathoracic metastatic disea se. 4. No bowel wall thickening or obstruction. 5. Bladder wall thickening. This could be due to chronic outlet obstruction from the enlarged prostat e gland or a cystitis. Recommend correlation with urinalysis. 6. Colonic diverticulosis. No evidence for acute diverticulitis. 7. Normal appendix. 8. Additional findings as described above. ACT 112: Negative or not required by law. Electronically signed by: Winston Sepulveda M.D. 09/02/2022 1:45 PM
[2022-09-02] MEDS ORDERED: cefTRIAXone SODIUM 2,000 MG/70 ML BAG IV STA (13:51)
[2022-09-02] MEDS ORDERED: CALCIUM GLUCONATE 1,000 MG/60 ML BAG IV STA (14:55)
--- NOTE | 2022-09-02 15:17 | History & Physical Report ---
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 Garcia [facility] rad onc, asthma, hypertension and other medical problems listed below who presents with overnight fever and transaminitis. Fever Abnormal CT of the abdomen Tmax of 101.6 F overnight. UA abnormal with urine culture CT abd/pelvis with mild enlargement and heterogeneous enhancement within the kidneys which is new from the prior study. Also with hepatic steatosis, bladder wall thickening Head CT without acute abnormality, chest CTA without evidence of PE, overall interval mild decrease in size of numerous pulmonary and pleural-based masses/nodules Urine and blood cultures pending. Vital signs stable. Continue empiric cefepime Transaminitis Started on Votrient chemotherapy on 07/27, last taken on 08/25. Currently on hold given worsening transaminitis AST 465 -> 334, ALT 467 -> 336, alk phos 232 -> 183 since yesterday. 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 Garcia [facility] rad onc Due for telemed appointment with oncologist Dr. Martin tomorrow evening (09/03) at 1800 Dr Martin's contact info : [phone] Acute kidney injury Cr 1.49 (baseline ~ 0.61). Appears dry on exam CT abd/pelvis with mild enlargement and heterogeneous enhancement within the kidneys which is new from the prior study Holding Votrient. Will also hold hctz and losartan. Continue to monitor with daily labs Cancer related pain on narcotics Following with palliative care. Current regimen for cancer-related pain is fentanyl 50 mcg/h with Dilaudid 2 mg tablet every 3 hours as needed for breakthrough pain Right thyroid nodule Incidental finding on chest CTA. Nonemergent ultrasound and outpatient follow- up recommended Hypertension Normotensive. Holding hctz and losartan for now given MICHA Asthma Continue albuterol nebulizer as needed for shortness of breath and wheezing, albuterol rescue inhaler, Singulair Constipation Continue bowel regimen. Last bowel movement 09/01/22 DVT Ppx: SQ heparin given impaired renal function Code status: FULL PCP: [facility] Dispo: Admitted to PCU Patient seen in collaboration with Dr. Ludwig. Please see addendum. 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 Garcia [facility] rad onc, asthma, hypertension and other medical problems listed below who presents with overnight fever. Was started on a new oral chemotherapy Votrient at [facility] on 07/27 with side effect of transaminitis. With worsening liver function tests, Votrient has been held since 08/15 with outpatient LFT monitoring from yesterday 09/01 revealing T bili of 1.3, AST of 465 and ALT 467. Patient was encouraged to present to ED given worsening LFTs but felt fine enough to stay home, per patient. Overnight, patient had a fever with T-max of 101.6 F. States he feels okay otherwise. Still having pain in right lower ribs with associated abdominal fullness on right side. Current regimen for ca ncer-related pain is fentanyl 50 mcg/h with Dilaudid 2 mg tablet every 3 hours as needed for breakthrough pain. Denies any headache, chest pain, shortness of breath, nausea, vomiting, dysuria, hematuria or diarrhea. Issues with constipation in setting of opioid use but has bowel regimen with last bowel movement yesterday evening. Poor appetite but trying to keep fluid intake up. Follows with Dr. Martin at [facility] with due for telemedicine appointment tomorrow evening at 1800. Allergies Allergy/AdvReac Type Severity Reaction Status Date / Time bacitracin Allergy Severe hives, Verified 09/02/22 15:46 syncopy tree and shrub pollen AdvReac Mild nasal Verified 09/02/22 15:46 congestion, eyes water Home Medications Medication Instructions Recorded Confirmed Type albuterol sulfate 90 mcg/actuation 2 puffs inhalation Q4 PRN 10/10/19 09/02/22 History aerosol inhaler (Ventolin HFA) Shortness Of Breath Or Wheezing fluticasone furoate 100 1 puffs inhalation DAILY #180 ea 10/13/19 09/02/22 Rx mcg-vilanterol 25 mcg/dose inhalation powder (Breo Ellipta) albuterol sulfate 2.5 mg/3 mL 2.5 mg inhalation Q6H PRN 01/31/20 09/02/22 History (0.083 %) solution for nebulization shortness of breath or wheezing montelukast 10 mg tablet 10 mg PO DAILY 06/29/20 09/02/22 History (Singulair) amlodipine 10 mg tablet 10 mg PO DAILY 07/31/22 09/02/22 History amoxicillin 500 mg capsule 2,000 mg PO DIRECTED 07/31/22 09/02/22 History carvedilol 6.25 mg tablet 6.25 mg PO BID 07/31/22 09/02/22 History famotidine 40 mg tablet 40 mg PO DAILY 07/31/22 09/02/22 History fluticasone propionate 50 2 spray intranasal QAM 07/31/22 09/02/22 History mcg/actuation nasal spray,suspension hydrochlorothiazide 25 mg tablet 25 mg PO DAILY 07/31/22 09/02/22 History hydroxyzine HCl 25 mg tablet 50 mg PO HS 07/31/22 09/02/22 History loratadine 10 mg tablet 10 mg PO DAILY 07/31/22 09/02/22 History losartan 100 mg tablet 100 mg PO DAILY 07/31/22 09/02/22 History docusate sodium 100 mg capsule 100 mg PO BID PRN laxative effect 08/04/22 09/02/22 Rx #60 caps fentanyl 50 mcg/hr transdermal 50 mcg transdermal Q72H #5 ea 08/04/22 09/02/22 Rx patch polyethylene glycol 3350 17 gram 17 g PO DAILY PRN laxative effect 08/04/22 09/02/22 Rx oral powder packet (Miralax) #30 ea potassium chloride 20 mEq 20 meq PO DAILY #30 tabs 08/04/22 09/02/22 Rx tablet,extended release hydromorphone 2 mg tablet 2 mg PO Q3H PRN Severe Pain (Scale 08/12/22 09/02/22 History (Dilaudid) Score 7-10) aspirin 81 mg tablet 81 mg PO DAILY 09/02/22 09/02/22 History buspirone 10 mg tablet 10 mg PO BID PRN Pain 09/02/22 09/02/22 History mirtazapine 15 mg tablet 15 mg PO HS 09/02/22 09/02/22 History pantoprazole 40 mg tablet,delayed 40 mg PO QAM 09/02/22 09/02/22 History release sennosides 8.6 mg tablet (Senokot) 8.6 mg PO BID PRN Constipation 09/02/22 09/02/22 History Past Med/Surg History Medical History (Updated 09/02/22 @ 18:26 by Ivy Hensley PA-C) Asthma Cancer related pain GERD (gastroesophageal reflux disease) Hepatic steatosis HTN (hypertension) 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 Grandmother (Maternal) , iat 91 old age No problems noted. Grandfather (Paternal) , in his eighties old age No problems noted. Father , age 66 of pancreatic cancer and metastasis No problems noted. Mother No problems noted. Brother Age: 54 No problems noted. Son Age: 35 Leukemia in remission Daughter Age: 35 No problems noted. Daughter Age: 23 No problems noted. Son Age: 20 No problems noted. Social History Smoking Status: Former smoker Smoking End Date: 2001; Hx Alcohol Use: No Hx Substance Use: No Preferred Language: Martiniquais Communication Ability: Effective Transplanter Required: No Beliefs That Will Affect Care: None marital status: Current Living Situation: Spouse current occupational status: employed Feels Safe at Home: Yes Safety Concerns: Feels Safe At This Time Childhood Exposure to Second-Hand Smoke: Yes caffeine: No Dental Care, Regularly: Yes Physical Activity Frequency: Does not Exercise Seatbelt Use: always Sunscreen Use: Yes Do you think of yourself as: straight/heterosexual Assistive Devices: Oxygen - Continuous Review of Systems Review of Systems: At least ten systems reviewed and negative except as noted in the HPI. Physical Exam Physical Exam: General Appearance: WD/WN, vitals as above, NAD, sitting up in bed, pleasant, obese Head: normocephalic, atraumatic Eyes: normal inspection, PERRL, conjunctivae normal, anicteric sclerae ENT: external ear and nose normal, oropharynx normal Neck: normal visual inspection, trachea midline, no thyromegaly Respiratory: normal respiratory effort, lungs clear to auscultation, no wheeze, rales, rhonchi. No accessory muscle use Cardiovascular: regular rate, rhythm, no murmur, normal peripheral pulses, no BLE edema. Vessels: no JVD Chest: normal inspection of chest. + TTP R anterolateral ribs. + Port R chest wall Abdomen/GI: normal bowel sounds, soft with some TTP in RUQ, no guarding Extremities/Musculoskeletal: no cyanosis or clubbing, extremities motor strength 5/5 Neurologic: PERRL, EOMI, accommodation nl, no face palsy, no dysarthria, CN's II-XI intact bilaterally and moves all extremities Psychiatric: A+Ox3, euthymic affect Skin: no rashes, +mild jaundice noted, warm/dry Results & Data Results & Data ([facility]) Vital Signs (Past 12 Hours) Vital Signs Temp Pulse Pulse Resp BP BP Pulse Ox 09/02/22 14:10 88 L 09/02/22 14:00 79 16 113/69 92 09/02/22 12:24 90 18 91 09/02/22 11:32 91 H 16 105/66 91 09/02/22 11:09 37.6 C H 82 18 108/72 92 O2 Del Method O2 Flow Rate 09/02/22 14:10 Room Air, Nasal Cannula 0 09/02/22 14:00 Nasal Cannula 2 09/02/22 12:24 Room Air 09/02/22 11:32 Room Air 09/02/22 11:09 Room Air Laboratory Results Short CBC 09/02/22 Range/Units 12:00 WBC 6.29 (4.8-10.8) K/ul Hgb 12.1 L (14.0-18.0) g/dl Hct 35.4 L (40.1-51.0) % Plt Count 166 (130-400) K/uL BMP 09/02/22 12:00 Sodium 134 L Potassium 4.0 Chloride 99 Carbon Dioxide 25 BUN 34 H Creatinine 1.49 H Glucose 127 H Calcium 7.2 L Liver Function 09/02/22 Range/Units 12:00 Total Bilirubin 1.9 H (0.2-1.0) mg/dl AST 334 H (13-39) U/L ALT 336 H (7-52) U/L Alkaline Phosphatase 183 H (34-104) U/L Albumin 2.6 L (3.4-5.0) gm/dl Urine 09/02/22 Range/Units 11:57 Urine Color Desha Urine Appearance Cloudy A (Clear) Urine pH 5.5 (4.5-7.5) Ur Specific [place] 1.017 (1.000-1.030) Urine Protein 1+ H (Negative) Urine Glucose (UA) Negative (Negative) Diagnostic Findings Abdomen/Pelvis CT 09/02/22 11:[address] WITH IV CONTRAST CT DOSE: 3289.58 mGy.cm HISTORY: Right upper quadrant pain, transaminitis, radiation trx to liver TECHNIQUE: Multiaxial CT images of the abdomen and pelvis were performed following the use of intravenous contrast. A dose lowering technique was utilized adhering to the principles of ALARA. COMPARISON STUDY: Outside hospital chest, abdomen, and pelvis CT 07/30/2022. Chest CTA 07/31/2022. FINDINGS: Please refer to the same day chest CTA for further evaluation of the intrathoracic metastatic disease. No pneumoperitoneum. No pneumatosis. There is a left total hip arthroplasty. No suspicious lytic or blastic osseous lesions. Partially visualized catheter tip at the distal SVC. Trace bilateral pleural effusions and multiple pleural/pulmonary masses again noted. There is a tiny fat-containing umbilical hernia. Hepatic steatosis. No hepatic or splenic masses. The adrenal glands, pancreas, and gallbladder are unremarkable. The main portal vein is patent. No retroperitoneal or pelvic lymphadenopathy. Normal caliber abdominal aorta. No hydronephrosis. Mild bilateral perinephric edema has slightly progressed. No renal or ureteral stones identified. Stable 3.7 cm intermediate density lesion within the upper pole the left kidney. This favors a hyperdense cyst. Mild diffuse heterogeneous enhancement within the kidneys which is new from the prior study. The kidneys appear slightly enlarged compared to the prior study. No hydronephrosis. Normal caliber abdominal aorta. Moderate bladder wall thickening. The prostate gland is mildly enlarged. Deep pelvic structures are suboptimally assessed due to the metallic artifact from the left hip prosthesis. Colonic diverticulosis. No evidence for acute diverticulitis. No bowel wall thickening or obstruction. Normal appendix. Small subcutaneous trace nodules within the gluteal regions favors prior medication injection. Chronic epiploic appendages within the right upper quadrant remain stable. No adjacent inflammatory change to suggest an acute abnormality. IMPRESSION: 1. Mild enlargement and heterogeneous enhancement within the kidneys which is new from the prior study. Mild bilateral perinephric edema has also progressed. This could be due to a pyelonephritis or glomerulonephritis. Recommend correlate with urinalysis and renal function tests for further evaluation. 2. Hepatic steatosis. No hepatic masses. 3. Please refer to the same day chest CT for further evaluation of the intrathoracic metastatic disease. 4. No bowel wall thickening or obstruction. 5. Bladder wall thickening. This could be due to chronic outlet obstruction from the enlarged prostate gland or a cystitis. Recommend correlation with urinalysis. 6. Colonic diverticulosis. No evidence for acute diverticulitis. 7. Normal appendix. 8. Additional findings as described above. ACT 112: Negative or not required by law. Electronically signed by: Winston Sepulveda M.D. 09/02/2022 1:45 PM Chest CTA 09/02/22 11:56 CT angio chest PE protocol CLINICAL HISTORY: PE, h/o radiation to liver/chemo; h/o lung ca TECHNIQUE: Multidetector row helical CT of the chest was performed with angiographic protocol. Coronal and sagittal reformations were obtained. Coronal and sagittal MIPS were obtained from the axial data set and were submitted for review. Automated dose lowering techniques and/or adjustment according to patient size were utilized for this exam. Comparison: Comparison is made to CTA chest 07/31/2022 FINDINGS: Lungs and pleura: Numerous pulmonary and pleural-based nodules are seen, overall minimally decreased in size from prior exam. For example, a right perihilar nodule previously measured 39 mm, now measures 22 mm. A right lower lobe nodule previously measured 60 mm, now measures 50 mm. Heart and pericardium: Heart size is normal. No pericardial effusion. Vessels: No evidence of pulmonary embolism. Mediastinum and otoniel: Unremarkable. Chest wall and lower neck: A right thyroid nodule measures 21 mm in diameter. Right jugular catheter is seen. Abdomen: For findings below the diaphragm, please refer to CT of the abdomen dated the same. Bones: Unremarkable. IMPRESSION: 1. No evidence of pulmonary embolism. 2. Overall interval mild decrease in size of numerous pulmonary and pleural- based masses/nodules. 3. Right thyroid nodule is incidentally noted. If not previously evaluated, nonemergent ultrasound can be performed. ACT 112: Positive. There are findings on this exam that require communication between the performing entity and the patient following Patient Test Result Information Act ([place] Act 112) guidelines. Electronically signed by: Viktor Carpenter M.D. 09/02/2022 1:[address] 09/02/22 11:57 CT SCAN OF THE BRAIN WITHOUT IV CONTRAST CLINICAL HISTORY: Change in mental status. Fever. History of lung cancer. COMPARISON STUDY: No priors. TECHNIQUE: Unenhanced axial CT scan of the brain is performed from the vertex to the skull base. A dose lowering technique was utilized adhering to the principles of ALARA. FINDINGS: Brain parenchyma: There is age-related involutional change noting mild subcortical and periventricular microangiopathic disease. There is no hemorrhage, mass effect, or evidence of acute territorial ischemia by CT criteria. Corbett-white matter differentiation is preserved. No extra-axial fluid collection is seen. Ventricles, sulci, cisterns: Prominent secondary to involutional change. Intracranial vasculature: There is atherosclerotic calcification of the cavernous carotid arteries. Calvarium: Unremarkable. Sinuses and mastoids: The visualized paranasal sinuses are clear. The mastoid air cells are well pneumatized. Orbits: The bony orbits are grossly intact. A prosthetic globe is seen on the right. IMPRESSION: There is no hemorrhage, mass effect, or evidence of acute territorial ischemia by CT criteria. ACT 112: Negative or not required by law. Electronically signed by: Santos Gutiérrez M.D. 09/02/2022 1:35 PM Supervising Physician Co-Signing Physician Notes I have seen and examined the patient and have discussed the case with the provider above. I agree with the assessment and plan as stated. 57-year-old man with a history of metastatic sarcoma who has been on immunotherapy presents with evidence of possible infection and hepatotoxicity. He reports upper abdominal plain that is bilateral. Right upper quadrant tenderness is greater than left upper quadrant tenderness. He has been febrile. He is followed by [facility] and has been off his immunotherapy which has multiple side effects we are seeing here. My physical exam is consistent without listed above. I do not see jaundice on his exam, however. Work-up today reveals a normal white blood cell count, H&H of 12 and 35 down from 14.6/40 just 1 week ago. INR is elevated at 1.4. Creatinine is up to 1.49 from a baseline of 0.6. Calcium is low however this is normal when corrected for albumin. Total bili is 1.9, AST is 334, ALT is 336, alk phos is 183. Albumin is 2.6. Lipase is 15. No evidence of christos infection on urinalysis and there is no CVA tenderness on exam. He does have protein and blood in his urine. Multiple possible etiologies including but not limited to glomerulonephritis as a side effect of immunotherapy. 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 Also with acute renal failure and possible infection in immunosuppressed state. Agree with continuation of antibiotics and monitoring pending culture results and clinical improvement. We discussed any adverse side effects of his immuno therapy and his was given an up-to-date drug list profile for this medication. All questions were answered to their satisfaction. All results were explained to them. DO Oziel
[2022-09-02] MEDS ORDERED: POLYETHYLENE (MIRALAX) 17 GM PACK PO PRN (16:40)
[2022-09-02] MEDS ORDERED: ONDANSETRON INJ 2 MG/ML 2 ML VIAL IV PRN (16:40)
[2022-09-02] MEDS ORDERED: ALBUTEROL 0.083% NEBU SOLN 3 ML VIAL INH PRN (17:43)
[2022-09-02] MEDS ORDERED: ALBUTEROL HFA 8 GM INHALER INH PRN (17:43)
[2022-09-02] MEDS ORDERED: SENNA 8.6 MG TAB PO PRN (17:43)
[2022-09-02] MEDS ORDERED: busPIRone 5 MG TAB PO PRN (17:43)
[2022-09-02] MEDS ORDERED: DOCUSATE SODIUM 100 MG CAP PO PRN (17:43)
[2022-09-02] MEDS ORDERED: HYDROmorphone INJ 1 MG/ML SYRINGE ONE (17:45)
[2022-09-02] MEDS: SODIUM CHLORIDE 0.9% 1000ML 1,000 ML IV SCH (19:29)
[2022-09-02] MEDS: CEFEPIME 2,000 MG in SYRINGE 0 ML IV SCH (20:26)
[2022-09-02] MEDS: hydrOXYzine HCl 25 MG TAB PO SCH (20:26)
[2022-09-02] MEDS: HYDROmorphone HCL 2 MG TAB PO PRN (20:27)
[2022-09-02] MEDS: MIRTAZAPINE TAB 15 MG TAB PO SCH (20:27)
[2022-09-02] MEDS ORDERED: carvediloL 6.25 MG TAB PO SCH (21:00)
[2022-09-02 21:44] LABS: INR 1.4 (0.9-1.1); Prothrombin Time 14.5 Seconds (9.0-12.0)
[2022-09-02 21:49] LABS: Albumin Globulin Ratio 0.6 (0.9-2); Albumin Level 2.6 gm/dl (3.4-5.0); BUN Creatinine Ratio 22.6 (10-20); Bilirubin,Total 1.6 mg/dl (0.2-1.0); Calcium 7.2 mg/dl (8.5-10.1); Creatinine Clr Calc Pharmacy 80.3 ml/min; Est GFR (African American) 65.4 ml/min; Est GFR (Non-African American) 56.5 ml/min; Globulin 4.3 gm/dl (2.5-4.0); Potassium 3.9 mmol/L (3.5-5.1); Total Protein 6.9 gm/dl (6.0-8.3)
[2022-09-02] MEDS: HEPARIN SOD 5,000 UNIT/0.5 ML VIAL SQ SCH (22:03)
[2022-09-02] MEDS: CHECK fentaNYL PATCH PLACEMENT SCH (23:08)
[2022-09-03] MEDS: SODIUM CHLORIDE 0.9% 1000ML 1,000 ML IV SCH (03:29)
[2022-09-03] MEDS: HYDROmorphone HCL 2 MG TAB PO PRN ×4 (04:34→20:06)
[2022-09-03] MEDS: HEPARIN SOD 5,000 UNIT/0.5 ML VIAL SQ SCH (05:32)
[2022-09-03 06:01] LABS: Hematocrit (blood only) 33.3 % (40.1-51.0); Hemoglobin 11.4 g/dl (14.0-18.0); Mean Corpuscular Hemoglobin 31.4 pg (25.0-34.0); Mean Corpuscular Hgb Conc 34.2 g/dL (32.0-36.0); Mean Corpuscular Volume 91.7 fL (80.0-100.0); Mean Platelet Volume 10.9 fL (9.4-12.4); Platelet Count 164 K/uL (130-400); RDW Coefficient of Variation 15.9 % (11.5-14.5); RDW Standard Deviation 53.1 fL (36.4-46.3); Red Blood Count 3.63 M/uL (4.63-6.08); White Blood Count 6.93 K/ul (4.8-10.8)
[2022-09-03] MEDS: ACETAMINOPHEN 325 MG TAB PO PRN ×2 (06:01→22:53)
[2022-09-03 06:40] LABS: Albumin Globulin Ratio 0.6 (0.9-2); Albumin Level 2.5 gm/dl (3.4-5.0); BUN Creatinine Ratio 23.8 (10-20); Bilirubin,Total 1.8 mg/dl (0.2-1.0); Est GFR (African American) 75.3 ml/min; Est GFR (Non-African American) 64.9 ml/min; Globulin 4.2 gm/dl (2.5-4.0); Potassium 3.8 mmol/L (3.5-5.1); Total Protein 6.7 gm/dl (6.0-8.3)
[2022-09-03] MEDS: POTASSIUM CHLORIDE CRTAB 20 MEQ TABCR PO SCH (08:19)
[2022-09-03] MEDS: PANTOprazole 40 MG TAB PO SCH (08:19)
[2022-09-03] MEDS: FAMOTIDINE 40 MG TABLET PO SCH (08:19)
[2022-09-03] MEDS: CHECK fentaNYL PATCH PLACEMENT SCH ×2 (08:20→16:56)
[2022-09-03] MEDS: MONTELUKAST SODIUM 10 MG TABLET PO SCH (08:20)
[2022-09-03] MEDS: LORATADINE 10 MG TAB PO SCH (08:20)
[2022-09-03] MEDS: CEFEPIME 2,000 MG in SYRINGE 0 ML IV SCH ×2 (08:20→20:07)
[2022-09-03] MEDS: FLUTICASONE PROPIONATE NA SPR 16 GM BTL NAE SCH (08:21)
[2022-09-03] MEDS: FLUTICASONE/VILANTEROL 100/25MCG 14 PUFFS/INHALER INH SCH (08:21)
[2022-09-03] MEDS: fentaNYL 50 MCG/HR TDSY TD SCH (08:21)
[2022-09-03] MEDS ORDERED: HYDROmorphone HCL 2 MG TAB PO PRN (08:28)
[2022-09-03] MEDS ORDERED: ASPIRIN 81 MG ECTAB PO SCH (09:00)
[2022-09-03] MEDS ORDERED: amLODIPine BESYLATE 5 MG TAB PO SCH (09:00)
--- NOTE | 2022-09-03 09:17 | Palliative Care Consultation ---
Date of Consultation September 03, 2022 Assessment & Plan (1) Palliative care encounter: * Palliative prognostics support overall low risk of mortality in the next 4-8 weeks. * Pt has been clear on prior visits his goal is to live as long as he can, so as long as therapies and interventions are offered, he will accept. He will rely on medical teams to tell him when he is transitioning towards an end of life process, because he has to have time to think about what he wants at that junction. It is not something he wants to dwell on right now. * pt is having some limitations with hospital cuisine, some favorite foods were identified and nursing has asked for those to be sent up from kitchen for pt. Advance Care Planning: * Pt recalls his prior discussion with Dr Hernadez during the July admission re [facility]. He indicates his wishes have not changed. He and his elect to remain full code, would like to continue any and all cancer directed therapies, hoping to have years more to live. * They acknowledge the concern re Votrient at dose reduction - what is liver dysfunction persists and chemo needs to be stopped, etc. * They are both aware this would be a junction at which the aims/goals of treatment may change but they feel it is best o approach that with a "we'll cross that bridge when we get to it" mentality. * Patient wants to keep his focus on improving to be dc from this admission and working to resume chemo. is extremely supportive and a staunch advocate for pt. She supports his wishes without hesitation and she is clearly devoted to him. * pt and have a telephonic meeting with Dr Martin / [facility] today at aprpox 6pm. They would like to have primary team attending speak with Dr Martin tomorrow, and will ask Dr Martin what information he would like to have for review if needed. (2) Cancer related pain: * Currently on TDF 50mcg/hr and Dilaudid 2mg PO q4h prn. At home would caitie Dilaudid 4mg prior to bed then 1-2 doses of 2mg through the day, average daily Dilaudid PRN dose is 6mg PO, this is roughly equivalent to 30mg PO MS/oral morphine equivalents (OMEs) or approx 10mg IV MS * We discussed options for pain mgt - I offered a modest dose increase in TDF to 62mcg with the addition of a 12mcg patch which for now pt declined. he would like a few days of treating presumed infection to see if pain improves. * For now, I have added the option of Dilaudid 4mg prn if needed for severe pain and have modified indicator of Dilaudid 2mg to be moderate pain. I have added hold parameters to both opioid orders: Hold for somnolence or resp rate below 14/min. * pt does report OIC, will add daily Senna S one tab PO daily, which he had prior good relief with at home. Would note pt has on average a daily BM sometimes 2/day. I have stopped BID Senokot order. PN daily miralax order remains. Pt encouraged to take this tonight or tomorrow morning if NO BM toda y. * Using BuSpar for anxiety - no change * Pt is followed by Dr Boland/[facility] pall med. I have updated her about the above med changes and she is in agreement. (3) Metastatic cancer: Synovial sarcoma followed by Dr Martin at [place]. he was started on Votrient Jul 2022, with subsequent rise in LFTs. Pt and affirm they have been advised by Dr. Martin that the Votrient is "90% likely to be the culprit behind the liver numbers rising up." They have discussed dose reduced chemo, Dr Martin is contemplating re challenging at 50% reduced dose in next 1-2 weeks, but will need an update re this admission, recent lab and imaging results prior to any chemo. (4) Synovial sarcoma: As above. (5) Fever: progressive transaminitis, work up in progress. Fever type: due to other condition Qualified Code(s): R50.81 - Fever presenting with conditions classified elsewhere Plan recommendations as noted above Jolie Lincoln DNP Clinical Director, Palliative Medicine History of Present Illness Reason for Consultation: "met synovial cancer sent in by [facility] palliative" Attending Physician: Fabian Barnhart MD History of Present Illness Mr. 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 He presented to the emergency room with a complaint of fever and was found to have transaminitis. He has an additional medical history of asthma, reflux, left renal cyst, prosthetic right eye, hypertension. From a surgical perspective he has had a total hip arthroplasty. He was last admitted to our hospital 07/31/2022 through 08/04/2022. At that time he was treated with hydromorphone and dexamethasone taper for cancer related pain. He was also scheduled for outpatient radiation oncology follow-up.He was last seen by the palliative medicine team in [facility] during that admission on 08/04/2022. At that time we recommended continuing his Decadron taper orally, continuing the fentanyl patch and hydromorphone 2 mg every 4 hours as needed. He is followed by Dr. Boland in outpatient palliative medicine at [facility]. During the July admission, he discussed with Dr. Hernadez his goals of care and shared that he tries to remain realistic about his cancer, understands that this will likely be what he dies from but his priority and overall goal at this time is to do what ever he can to live as long as he can. Continues to make plans for travel and to maximize time he spends with friends and family including a hunting trip he has planned. Recent radiation oncology notes indicate that patient completed rate palliative radiation therapy to the right anterior chest min, receiving a total of 2000 cGy. Treatment was given in 5 fractions total. His liver function tests were shown to be worsening and Votrient has been held since 08/15/2022. Labs done on 09/01/2022 revealed a total bilirubin of 1.3, AST 465, ALT 467. During a telemedicine visit he was then advised to present to a local emergency room for further evaluation. He initially declined to do so however overnight had a worsening temperature with a T-max reported at home of 101.6. He continues to have a complaint of cancer related pain in the right lower ribs that seems to intensify with abdominal fullness. His current regimen for cancer related pain management is transdermal fentanyl patch 50 mcg/h every 72 hours along with Dilaudid 2 mg p.o. every 3 hours as needed for breakthrough pain. He does have a issue with constipation due to the chronic opioid use but continues on a bowel regimen which for the most part has been helping. Overall he has some anorexia and appetite remains poor. He denies any other acute symptoms including headache, chest pain, dyspnea, nausea, vomiting, dysuria, hematuria, weakness, falls, syncope, lightheadedness, pruritus, new rash or lesion, or easier bruising. He is due for telemedicine heme-onc visit with Porsha Pink/Dr. Martin today at 6 PM While in the emergency room yesterday and abdominal and pelvic CT with contrast was obtained: There is mild enlargement and heterogeneous enhancement within the kidneys which is new from the prior study. There is mild but bilateral perinephric edema which is also progressed. There is noted by the radiologist that this may be a pyelonephritis or glomerulonephritis. Correlation with clinical data was recommended. There is hepatic steatosis without any masses. Intrathoracic metastatic disease is noted and further outlined in the same-day chest CT. There was no bowel wall thickening or obstruction noted there is bladder wall thickening noted, questionable due to chronic outlet obstruction from his enlarged prostate gland or previous cystitis. There is colonic diverticulosis without evidence of acute diverticulitis. CT angio (PE protocol) revealed numerous pulmonary and pleural-based nodules, overall minimally decreased in size from prior exam. A right perihilar nodule previously measured 39 mm now measuring 22 mm. A right lower lobe nodule previously measured at 60 mm is now noted to be measuring 50 mm. His heart and pericardium were normal in size without any evidence of an effusion. There was no evidence of pulmonary embolism. His mediastinum and otoniel were otherwise unremarkable. There is a right thyroid nodule measuring 21 mm in diameter also noted is a right jugular catheter. His bones appeared unremarkable on this CT scan. His oncology history is as follows: In August 2019 the biopsy revealed a synovial sarcoma clinically stage T2N0, stage IIIa. He was seen in a multidisciplinary sarcoma and bone cancer clinic with recommendations for radiation followed by surgical resection. In January 2020 he was status post completion of radiation therapy to the left arm receiving a total of 5000 cGy using a volumetric modulated arc therapy. In February [address] of the chest revealed bilateral lung nodules and in June 2021 needle biopsy of the right lung pleural-based nodule showed a metastatic synovial sarcoma. There was very little response to treatment. Patient chose for active surveillance unless symptomatic at that time. In July 2022 he was initiated on Votrient therapy. During that same month a chest CT showed multiple pulmonary metastatic lesions. He was then subsequently admitted for emergency room evaluation for uncontrolled chest wall pain. On 12 August 2022 he completed palliative radiation therapy to the right anterior chest wall as outlined above. Pt is seen bedside with present. Allergies Allergy/AdvReac Type Severity Reaction Status Date / Time bacitracin Allergy Severe hives, Verified 09/02/22 15:46 syncopy tree and shrub pollen AdvReac Mild nasal Verified 09/02/22 15:46 congestion, eyes water Home Medications Medication Instructions Recorded Confirmed Type albuterol sulfate 90 mcg/actuation 2 puffs inhalation Q4 PRN 10/10/19 09/02/22 History aerosol inhaler (Ventolin HFA) Shortness Of Breath Or Wheezing fluticasone furoate 100 1 puffs inhalation DAILY #180 ea 10/13/19 09/02/22 Rx mcg-vilanterol 25 mcg/dose inhalation powder (Breo Ellipta) albuterol sulfate 2.5 mg/3 mL 2.5 mg inhalation Q6H PRN 01/31/20 09/02/22 History (0.083 %) solution for nebulization shortness of breath or wheezing montelukast 10 mg tablet 10 mg PO DAILY 06/29/20 09/02/22 History (Singulair) amlodipine 10 mg tablet 10 mg PO DAILY 07/31/22 09/02/22 History amoxicillin 500 mg capsule 2,000 mg PO DIRECTED 07/31/22 09/02/22 History carvedilol 6.25 mg tablet 6.25 mg PO BID 07/31/22 09/02/22 History famotidine 40 mg tablet 40 mg PO DAILY 07/31/22 09/02/22 History fluticasone propionate 50 2 spray intranasal QAM 07/31/22 09/02/22 History mcg/actuation nasal spray,suspension hydrochlorothiazide 25 mg tablet 25 mg PO DAILY 07/31/22 09/02/22 History hydroxyzine HCl 25 mg tablet 50 mg PO HS 07/31/22 09/02/22 History loratadine 10 mg tablet 10 mg PO DAILY 07/31/22 09/02/22 History losartan 100 mg tablet 100 mg PO DAILY 07/31/22 09/02/22 History docusate sodium 100 mg capsule 100 mg PO BID PRN laxative effect 08/04/22 09/02/22 Rx #60 caps fentanyl 50 mcg/hr transdermal 50 mcg transdermal Q72H #5 ea 08/04/22 09/02/22 Rx patch polyethylene glycol 3350 17 gram 17 g PO DAILY PRN laxative effect 08/04/22 09/02/22 Rx oral powder packet (Miralax) #30 ea potassium chloride 20 mEq 20 meq PO DAILY #30 tabs 08/04/22 09/02/22 Rx tablet,extended release hydromorphone 2 mg tablet 2 mg PO Q3H PRN Severe Pain (Scale 08/12/22 09/02/22 History (Dilaudid) Score 7-10) aspirin 81 mg tablet 81 mg PO DAILY 09/02/22 09/02/22 History buspirone 10 mg tablet 10 mg PO BID PRN Pain 09/02/22 09/02/22 History mirtazapine 15 mg tablet 15 mg PO HS 09/02/22 09/02/22 History pantoprazole 40 mg tablet,delayed 40 mg PO QAM 09/02/22 09/02/22 History release sennosides 8.6 mg tablet (Senokot) 8.6 mg PO BID PRN Constipation 09/02/22 09/02/22 History Patient History Medical History Asthma Cancer related pain GERD (gastroesophageal reflux disease) Hepatic steatosis HTN (hypertension) 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 Grandmother (Maternal) , iat 91 old age No problems noted. Grandfather (Paternal) , in his eighties old age No problems noted. Father , age 66 of pancreatic cancer and metastasis No problems noted. Mother No problems noted. Brother Age: 54 No problems noted. Son Age: 35 Leukemia in remission Daughter Age: 35 No problems noted. Daughter Age: 23 No problems noted. Son Age: 20 No problems noted. Social History Smoking Status: Former smoker Smoking End Date: 2001; Hx Alcohol Use: No Hx Substance Use: No Preferred Language: Faroese Communication Ability: Effective [place] [employer] Required: No Beliefs That Will Affect Care: None marital status: Current Living Situation: Spouse current occupational status: employed Feels Safe at Home: Yes Safety Concerns: Feels Safe At This Time Childhood Exposure to Second-Hand Smoke: Yes caffeine: No Dental Care, Regularly: Yes Physical Activity Frequency: Does not Exercise Seatbelt Use: always Sunscreen Use: Yes Do you think of yourself as: straight/heterosexual Assistive Devices: None Review of Systems Review of Systems: All systems reviewed & are unremarkable except as noted in HPI & below and All systems reviewed & are unremarkable except as noted in Subjective Physical Exam Physical Exam: ECO-2 For Oncology Patients: Patient's Palliative Prognostic Score (PaP) Score = 5 points/Interpretation:30- day survival probability >70% ( https://www.mda.co/mfhaetwsmk-wbvdijcvwz-kxtqw-kwj-gxcoqwdwyj-606/); The Palliative Prognostic Score was originally developed for use in cases of solid tumors and has been validated in large prospective studies. It predicts 30-day survival based on theKarnofsky Performance Score (KPS) https://www.mda.co/hsdiietwq-oozpt-fpf-tgwtabiitxp-tjgdtt-vqywhvemmg-231/ and five other criteria: dyspnea, anorexia, clinical prediction of survival in weeks, total WBC and lymphocyte percentage. (Renard Milner, et al.Successful V alidation of the Palliative Prognostic Score in Terminally Ill Cancer Patients https://www.ncbi.nlm.nih.gov/pubmed/52200976 . J Pain and Symptom Manage. 1999; 17:240-247.) Patient's Palliative Prognostic Index (PPI) Score = 4.5 points/Note:If the PPI is greater than 6.0, survival is less than three weeks (Sensitivity - 80%; Specificity - 85%). (https://www.mda.co/hryrnmtgxd-oadjjylany-sixdv-drc-hchugnghbs-401/) The PPI predicts survival in terminally ill oncologic patients based on the score in the Palliative Performance Scale, and four other clinical symptoms: oral intake, o edema, dyspnea at rest and delirium. The PPI can acceptably predict whether or not a patient will survive >3 or >6 weeks. The existence of concomitant diseases has not been taken into account in the building of the majority of survival prognostic scores, although acute concomitant diseases can impact scoring and survival. (Corbin CY, Francisco YS, Marcos HM, Cristal JS, Darrius TL, Cathy CY, David CC, Mika YC, Escobedo JM, Catherine JH, Desmond WC.Combination of initial palliative prognostic index and score change provides a better prognostic value for terminally ill cancer patients: a six-year observational cohort study https://www.ncbi.nlm.nih.gov/pubmed/88689844 . J Pain Symptom Manage. 2014;48(5):804-14.) Tired appearing male, resting in bed,mild distress. Abd distended, tender on laterals, no epigastric or periumbilical tendeness BS diminished no anterior chest wall tenderness S1S2, no JVD Lungs clear, sl diminished. this is a limited anterior chest wall exam Strength intact AAOx3, following commands skin warm, cheeks slightly flushed CAMICU screen is NEG for delirium Results & Data ([facility]) Vital Signs (Past 12 Hours) Vital Signs Temp Pulse Pulse Resp BP Pulse Ox O2 Del Method 09/03/22 08:00 36.6 C 85 20 131/84 91 Room Air 09/03/22 07:41 36.8 C 09/03/22 06:03 38.3 C H 96 H 21 92 Room Air 09/03/22 03:32 37.4 C 93 H 18 113/75 89 L CPAP 09/02/22 22:35 92 H 09/02/22 23:11 38.3 C H 95 H 18 120/75 91 BiPAP Laboratory Results Labs and imaging reviewed PG Care Time/CCT Total # of Minutes Spent Total Time Spent: 110 Total Time Spent with Patient: Total time spent is greater than 50% in coordination of care (as documented) at patient's floor/unit and/or counseling patient: I spent 110 minutes overall addressing this case: 20 in very complex medical data review/discussion with referring provider(s) and/or preparation for the visit 45 in direct interaction with the patient and 18 Advance Care Planning/Goals of Care discussions as detailed above in note (must be >16min) 12 in subsequent review and synthesis of assessment and plan 15 in communicating with other providers regarding the patient's case: primary team, nursing Prolonged Care Time Prolonged Care Time: [place] [address] Inpt Consult Level 5 Patient Type New History Comprehensive Exam Comprehensive Medical Decision Making High Complexity Diagnoses Palliative care encounter Z51.5 Cancer related pain G89.3 Metastatic cancer C79.9 Synovial sarcoma C49.9 Fever R50.81 Fever type: due to other condition Additional Codes Prolonged Care Time - Prolonged Care Time: Yes ([id number])
--- NOTE | 2022-09-03 10:16 | Gastrointestinal Consultation ---
Date of Consultation September 03, 2022 Assessment & Plan (1) Transaminitis: (2) Synovial sarcoma: (3) Fever: Plan Patient is a 57 years old male with metastatic synovial carcinoma completed XRT and was on Votrient, who was admitted with fevers and transaminitis. Work-up currently showed possible pyelonephritis, cystitis versus glomerulonephritis. He is currently being covered with cefepime IV antibiotics. Regarding his elevated LFTs, this was suspected to be DILI due to Votrient use. Votrient was started on 07/27, DC'd 08/15. LFTs are on downward trend. He is not jaundiced, not having mental status changes, abd pain. - Will continue to trend LFTs - Consider initiating Prednisone for Votrient related DILI - F/U urine culture results - Will follow along Supervising Physician Co-Signing Physician Notes ATtg add: I interviewed and examined pt, reviewed chart and labs. Pt with increased LFTs after beginning Votrient. Denies abd pain, n/v, jaundice, rash. No APAP or EtOH use. Lipase WNL, Imaging wihtout wanda di, PVT, or liver mass. DILI, likely chemo related -- r/o Hep B, PVT, trend LFTs. If LFT's fail to decline, consider steroids. 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 He denies any jaundice, chest pain or shortness of breath. He does endorse some discomfort on bilateral flank area, rating down to his abdominal sites. Urine has been dark in color. He denies any changes in his bowel habits. Work-up with CT abdomen pelvis showed possible signs of pyelonephritis, cystitis or glomerulonephritis. Currently getting covered with cefepime IV antibiotics. Urine cultures pending. His sarcoma has been managed by [facility] medical oncology, and [facility] radiation oncology. He completed radiation to his right chest wall middle of July. He was started on new oral chemotherapy, Votrient, on 07/27. It was noted that his LFTs started to rise and his Votrient was held August 15. August 25, LFTs were : Total bilirubin 1.6, ALT 554, AST 296, alkaline phosphatase 202. Today's LFTs: Total bilirubin 1.8, AST 252, ALT 278, alkaline phosphatase 168 Allergies Allergy/AdvReac Type Severity Reaction Status Date / Time bacitracin Allergy Severe hives, Verified 09/02/22 15:46 syncopy tree and shrub pollen AdvReac Mild nasal Verified 09/02/22 15:46 congestion, eyes water Home Medications Medication Instructions Recorded Confirmed Type albuterol sulfate 90 mcg/actuation 2 puffs inhalation Q4 PRN 10/10/19 09/02/22 History aerosol inhaler (Ventolin HFA) Shortness Of Breath Or Wheezing fluticasone furoate 100 1 puffs inhalation DAILY #180 ea 10/13/19 09/02/22 Rx mcg-vilanterol 25 mcg/dose inhalation powder (Breo Ellipta) albuterol sulfate 2.5 mg/3 mL 2.5 mg inhalation Q6H PRN 01/31/20 09/02/22 History (0.083 %) solution for nebulization shortness of breath or wheezing montelukast 10 mg tablet 10 mg PO DAILY 06/29/20 09/02/22 History (Singulair) amlodipine 10 mg tablet 10 mg PO DAILY 07/31/22 09/02/22 History amoxicillin 500 mg capsule 2,000 mg PO DIRECTED 07/31/22 09/02/22 History carvedilol 6.25 mg tablet 6.25 mg PO BID 07/31/22 09/02/22 History famotidine 40 mg tablet 40 mg PO DAILY 07/31/22 09/02/22 History fluticasone propionate 50 2 spray intranasal QAM 07/31/22 09/02/22 History mcg/actuation nasal spray,suspension hydrochlorothiazide 25 mg tablet 25 mg PO DAILY 07/31/22 09/02/22 History hydroxyzine HCl 25 mg tablet 50 mg PO HS 07/31/22 09/02/22 History loratadine 10 mg tablet 10 mg PO DAILY 07/31/22 09/02/22 History losartan 100 mg tablet 100 mg PO DAILY 07/31/22 09/02/22 History docusate sodium 100 mg capsule 100 mg PO BID PRN laxative effect 08/04/22 09/02/22 Rx #60 caps fentanyl 50 mcg/hr transdermal 50 mcg transdermal Q72H #5 ea 08/04/22 09/02/22 Rx patch polyethylene glycol 3350 17 gram 17 g PO DAILY PRN laxative effect 08/04/22 09/02/22 Rx oral powder packet (Miralax) #30 ea potassium chloride 20 mEq 20 meq PO DAILY #30 tabs 08/04/22 09/02/22 Rx tablet,extended release hydromorphone 2 mg tablet 2 mg PO Q3H PRN Severe Pain (Scale 08/12/22 09/02/22 History (Dilaudid) Score 7-10) aspirin 81 mg tablet 81 mg PO DAILY 09/02/22 09/02/22 History buspirone 10 mg tablet 10 mg PO BID PRN Pain 09/02/22 09/02/22 History mirtazapine 15 mg tablet 15 mg PO HS 09/02/22 09/02/22 History pantoprazole 40 mg tablet,delayed 40 mg PO QAM 09/02/22 09/02/22 History release sennosides 8.6 mg tablet (Senokot) 8.6 mg PO BID PRN Constipation 09/02/22 09/02/22 History Patient History Medical History Asthma Cancer related pain GERD (gastroesophageal reflux disease) Hepatic steatosis HTN (hypertension) 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 Grandmother (Maternal) , iat 91 old age No problems noted. Grandfather (Paternal) , in his eighties old age No problems noted. Father , age 66 of pancreatic cancer and metastasis No problems noted. Mother No problems noted. Brother Age: 54 No problems noted. Son Age: 35 Leukemia in remission Daughter Age: 35 No problems noted. Daughter Age: 23 No problems noted. Son Age: 20 No problems noted. Social History Smoking Status: Former smoker Smoking End Date: 2001; Hx Alcohol Use: No Hx Substance Use: No Preferred Language: Grenadian Communication Ability: Effective Videographer Required: No Beliefs That Will Affect Care: None marital status: Current Living Situation: Spouse current occupational status: employed Feels Safe at Home: Yes Safety Concerns: Feels Safe At This Time Childhood Exposure to Second-Hand Smoke: Yes caffeine: No Dental Care, Regularly: Yes Physical Activity Frequency: Does not Exercise Seatbelt Use: always Sunscreen Use: Yes Do you think of yourself as: straight/heterosexual Assistive Devices: None Review of Systems Review of Systems: All systems reviewed & are unremarkable except as noted in HPI & below Physical Exam Constitutional: WD/WN, vitals as above well groomed, cooperative and comfortable Eyes: PERRL, conjunctivae normal, anicteric sclerae ENMT: external ear and nose normal, oropharynx normal Respiratory: normal respiratory effort, lungs clear to auscultation Cardiovascular: RRR, no murmur, no edema Gastrointestinal (Abdomen): normal bowel sounds, soft, nontender, no hepatosplenomegaly Skin: no rashes, warm and dry no jaundice Neurologic: Motor/Sensory: no asterixis Psychiatric: A+Ox3, euthymic affect Lymphatic: no lymphedema Results & Data ([facility]) Vital Signs (Past 12 Hours) Vital Signs Temp Pulse Pulse Resp BP Pulse Ox O2 Del Method 09/03/22 08:00 36.6 C 85 20 131/84 91 Room Air 09/03/22 07:41 36.8 C 09/03/22 06:03 38.3 C H 96 H 21 92 Room Air 09/03/22 03:32 37.4 C 93 H 18 113/75 89 L CPAP 09/02/22 22:35 92 H 09/02/22 23:11 38.3 C H 95 H 18 120/75 91 BiPAP (1) Fever Fever type: due to other condition Qualified Code(s): R50.81 - Fever p resenting with conditions classified elsewhere
[2022-09-03] MEDS ORDERED: DOCUSATE SODIUM/SENNA 50/8.6MG TAB PO SCH (12:30)
[2022-09-03 12:42] LABS: INR 1.5 (0.9-1.1); Partial Thromboplastin Ratio 1.2; Partial Thromboplastin Time 33.5 Seconds (21.0-31.0); Prothrombin Time 15.3 Seconds (9.0-12.0)
[2022-09-03 13:01] LABS: Appearance Urine Clear (Clear); Bacteria Urine Automated Negative (Negative); Bilirubin Urine Negative (Negative); Blood Urine Trace (Negative); Color Urine Orange; Glucose Urine UA Negative (Negative); Ketones Urine Negative (Negative); Leukocyte Esterase Urine Negative (Negative); Nitrite Urine Negative (Negative); Protein Urine 1+ (Negative); Specific Gravity Urine 1.021 (1.000-1.030); Urobilinogen Urine Negative (Negative)
--- NOTE | 2022-09-03 13:43 | Hospitalist Progress Note ---
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 Garcia [facility] rad onc, asthma, hypertension and other medical problems listed below who presents with overnight fever and transaminitis. Fever Possible pyelonephritis Tmax of 101.6 F overnight. UA abnormal with urine culture CT abd/pelvis with mild enlargement and heterogeneous enhancement within the kidneys which is new from the prior study. Also with hepatic steatosis, bladder wall thickening Head CT without acute abnormality, chest CTA without evidence of PE, overall interval mild decrease in size of numerous pulmonary and pleural-based masses/nodules Plan; Continue on cefepime for now. We will follow-up on urine culture and blood culture results. Repeat culture if febrile again. Transaminitis likely secondary to Votrient Started on Votrient chemotherapy on 07/27, last taken on 08/25. Currently on hold given worsening transaminitis AST, ALT and ALP all downtrending. GI on board; likely chemo related drug-induced liver injury. Hepatitis B serologies sent; recommend to start steroid if LFTs fail to decline. Hematuria Epistaxis Patient reports episode of epistaxis from his left naris and pinkish urine output today morning PT/INR and APTT mildly elevated. We will hold his aspirin and heparin for now. Monitor his H&H at 6 PM today. 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 Garcia [facility] rad onc Due for telemed appointment with oncologist Dr. Martin today evening (09/03) at 1800 Dr Martin's contact info : [phone] Acute kidney injury Cr 1.49 (baseline ~ 0.61). CT abd/pelvis with mild enlargement and heterogeneous enhancement within the kidneys which is new from the prior study Creatinine downtrending to 1.22. Will hold his antihypertensives for today. MICHA likely secondary to sepsis. On LR at 80 cc/h. Cancer related pain on narcotics Following with palliative care. Dilaudid increased to every 2 hours as needed. Right thyroid nodule Incidental finding on chest CTA. Nonemergent ultrasound and outpatient follow- up recommended Hypertension Antihypertensive on hold. Asthma Continue albuterol nebulizer as needed for shortness of breath and wheezing, albuterol rescue inhaler, Singulair Constipation Continue bowel regimen. Last bowel movement 09/01/22 DVT Ppx: SCDs for now. Holding off pharmacologic PPx in light of hematuria and epistaxis Code status: FULL PCP: [facility] Dispo: Admitted to PCU Admission and Anticipated Discharge Date Admission Date: September 02, 2022 Subjective Patient seen and examined at bedside. Overnight, he was febrile to 38.2 C. He denies chills but reports sweating during the episodes. He reports bilateral flank pain; more on his left side. Patient had episode of epistaxis from his left naris and hematuria. Review of Systems Review of Systems: All systems reviewed & are unremarkable except as noted in Subjective Physical Exam Physical Exam: Constitutional: WD/WN, vitals as above, NAD, sitting up in bed, pleasant, conversing easily Respiratory: normal respiratory effort, lungs clear to auscultation, no wheeze, rales, rhonchi. Normal insp/exp effort, no accessory muscle use Cardiovascular: RRR, no murmur, no edema Vessels: no JVD or carotid bruit Chest: normal inspection of chest. Port present at right upper chest Abdomen: Tenderness present at left flank. Musculoskeletal: no cyanosis or clubbing, extremities motor strength 5/5 Skin: no rashes, warm and dry normal turgor Neurologic: PERRL, EOMI, accommodation nl, no face palsy, no dysarthria CN's II- XI intact bilaterally and moves all extremities Psychiatric: A+Ox3, euthymic affect Lymphatic: no cervical or axillary lymphadenopathy : deferred Results & Data Results & Data ([facility]) Vital Signs (Past 12 Hours) Vital Signs Temp Pulse Pulse Resp BP Pulse Ox O2 Del Method 09/03/22 12:11 36.6 C 78 18 124/78 91 Room Air 09/03/22 08:00 94 H 09/03/22 08:00 Room Air 09/03/22 08:00 36.6 C 85 20 131/84 91 Room Air 09/03/22 07:41 36.8 C 09/03/22 06:03 38.3 C H 96 H 21 92 Room Air 09/03/22 03:32 37.4 C 93 H 18 113/75 89 L CPAP Laboratory Results Laboratory Results WBC 6.93 K/ul (4.8-10.8) 09/03/22 05:25 RBC 3.63 M/uL (4.63-6.08) L 09/03/22 05:25 Hgb 11.4 g/dl (14.0-18.0) L 09/03/22 05:25 Hct 33.3 % (40.1-51.0) L 09/03/22 05:25 MCV 91.7 fL (80.0-100.0) 09/03/22 05:25 MCH 31.4 pg (25.0-34.0) 09/03/22 05:25 MCHC 34.2 g/dL (32.0-36.0) 09/03/22 05:25 RDW Std Deviation 53.1 fL (36.4-46.3) H 09/03/22 05:25 RDW Coeff of Darrell 15.9 % (11.5-14.5) H 09/03/22 05:25 Plt Count 164 K/uL (130-400) 09/03/22 05:25 MPV 10.9 fL (9.4-12.4) 09/03/22 05:25 Immature Gran % (Auto) 0.5 % 09/02/22 12:00 Neut % (Auto) 76.4 % 09/02/22 12:00 Lymph % (Auto) 13.7 % 09/02/22 12:00 [place] % (Auto) 9.1 % 09/02/22 12:00 Eos % (Auto) 0.0 % 09/02/22 12:00 Baso % (Auto) 0.3 % 09/02/22 12:00 Neut # (Auto) 4.81 K/uL (1.4-6.5) 09/02/22 12:00 Lymph # (Auto) 0.86 K/uL (1.2-3.4) L 09/02/22 12:00 [place] # (Auto) 0.57 K/uL (0.24-0.82) 09/02/22 12:00 Eos # (Auto) 0.00 K/uL (0-0.50) 09/02/22 12:00 Baso # (Auto) 0.02 K/uL (0-0.2) 09/02/22 12:00 Immature Gran # (Auto) 0.03 K/uL (0.00-0.02) H 09/02/22 12:00 PT 15.3 Seconds (9.0-12.0) H 09/03/22 12:06 INR 1.5 (0.9-1.1) H 09/03/22 12:06 APTT 33.5 Seconds (21.0-31.0) H 09/03/22 12:06 PTT Ratio 1.2 09/03/22 12:06 Sodium 134 mmol/L (136-145) L 09/03/22 05:25 Potassium 3.8 mmol/L (3.5-5.1) 09/03/22 05:25 Chloride 100 mmol/L (98-107) 09/03/22 05:25 Carbon Dioxide 25 mmol/L (21-32) 09/03/22 05:25 Anion Gap 9 (3-11) 09/03/22 05:25 BUN 29 mg/dl (6-23) H 09/03/22 05:25 Creatinine 1.22 mg/dl (0.6-1.4) 09/03/22 05:25 Est Cr Clr Drug Dosing 91.0 ml/min 09/03/22 05:25 Est GFR ( Amer) 75.3 ml/min 09/03/22 05:25 Est GFR (Non-Af Amer) 64.9 ml/min 09/03/22 05:25 BUN/Creatinine Ratio 23.8 (10-20) H 09/03/22 05:25 Glucose 94 mg/dl (70-99(Fasting)) 09/03/22 05:25 Calcium 7.0 mg/dl (8.5-10.1) L 09/03/22 05:25 Total Bilirubin 1.8 mg/dl (0.2-1.0) H 09/03/22 05:25 AST 252 U/L (13-39) H 09/03/22 05:25 ALT 278 U/L (7-52) H 09/03/22 05:25 Alkaline Phosphatase 168 U/L (34-104) H 09/03/22 05:25 Total Protein 6.7 gm/dl (6.0-8.3) 09/03/22 05:25 Albumin 2.5 gm/dl (3.4-5.0) L 09/03/22 05:25 Globulin 4.2 gm/dl (2.5-4.0) H 09/03/22 05:25 Albumin/Globulin Ratio 0.6 (0.9-2) L 09/03/22 05:25 Lipase 15 U/L (11-82) 09/02/22 12:00 Urine Color [place] 09/03/22 11:10 Urine Appearance Clear (Clear) 09/03/22 11:10 Urine pH 5.0 (4.5-7.5) 09/03/22 11:10 Ur Specific [place] 1.021 (1.000-1.030) 09/03/22 11:10 Urine Protein 1+ (Negative) H 09/03/22 11:10 Urine Glucose (UA) Negative (Negative) 09/03/22 11:10 Urine Ketones Negative (Negative) 09/03/22 11:10 Urine Blood Trace (Negative) H 09/03/22 11:10 Urine Nitrite Negative (Negative) 09/03/22 11:10 Urine Bilirubin Negative (Negative) 09/03/22 11:10 Urine Urobilinogen Negative (Negative) 09/03/22 11:10 Ur Leukocyte Esterase Negative (Negative) 09/03/22 11:10 Urine WBC (Auto) 1-5 /hpf (0-5) 09/03/22 11:10 Urine RBC (Auto) 5-10 /hpf (0-4) H 09/03/22 11:10 U Hyaline Cast (Auto) 5-10 /lpf (0-5) H 09/03/22 11:10 U Epithel Cells (Auto) 10-20 /lpf (0-5) H 09/03/22 11:10 Urine Bacteria (Auto) Negative (Negative) 09/03/22 11:10 Acetaminophen < 3 ug/ml (10-30) L 09/03/22 12:06 SARS-CoV-2, RNA, NAAT NEGATIVE (NEGATIVE) 09/02/22 12:20 Impressions Abdomen/Pelvis CT 09/02/22 11:[address] WITH IV CONTRAST CT DOSE: 3289.58 mGy.cm HISTORY: Right upper quadrant pain, transaminitis, radiation trx to liver TECHNIQUE: Multiaxial CT images of the abdomen and pelvis were performed following the use of intravenous contrast. A dose lowering technique was utilized adhering to the principles of ALARA. COMPARISON STUDY: Outside hospital chest, abdomen, and pelvis CT 07/30/2022. Chest CTA 07/31/2022. FINDINGS: Please refer to the same day chest CTA for further evaluation of the intrathoracic metastatic disease. No pneumoperitoneum. No pneumatosis. There is a left total hip arthroplasty. No suspicious lytic or blastic osseous lesions. Partially visualized catheter tip at the distal SVC. Trace bilateral pleural effusions and multiple pleural/pulmonary masses again noted. There is a tiny fat-containing umbilical hernia. Hepatic steatosis. No hepatic or splenic masses. The adrenal glands, pancreas, and gallbladder are unremarkable. The main portal vein is patent. No retroperitoneal or pelvic lymphadenopathy. Normal caliber abdominal aorta. No hydronephrosis. Mild bilateral perinephric edema has slightly progressed. No renal or ureteral stones identified. Stable 3.7 cm intermediate density lesion within the upper pole the left kidney. This favors a hyperdense cyst. Mild diffuse heterogeneous enhancement within the kidneys which is new from the prior study. The kidneys appear slightly enlarged compared to the prior study. No hydronephrosis. Normal caliber abdominal aorta. Moderate bladder wall thickening. The prostate gland is mildly enlarged. Deep pelvic structures are suboptimally assessed due to the metallic artifact from the left hip prosthesis. Colonic diverticulosis. No evidence for acute diverticulitis. No bowel wall thickening or obstruction. Normal appendix. Small subcutaneous trace nodules within the gluteal regions favors prior medication injection. Chronic epiploic appendages within the right upper quadrant remain stable. No adjacent inflammatory change to suggest an acute abnormality. IMPRESSION: 1. Mild enlargement and heterogeneous enhancement within the kidneys which is new from the prior study. Mild bilateral perinephric edema has also progressed. This could be due to a pyelonephritis or glomerulonephritis. Recommend correlate with urinalysis and renal function tests for further evaluation. 2. Hepatic steatosis. No hepatic masses. 3. Please refer to the same day chest CT for further evaluation of the intrathoracic metastatic disease. 4. No bowel wall thickening or obstruction. 5. Bladder wall thickening. This could be due to chronic outlet obstruction from the enlarged prostate gland or a cystitis. Recommend correlation with urinalysis. 6. Colonic diverticulosis. No evidence for acute diverticulitis. 7. Normal appendix. 8. Additional findings as described above. ACT 112: Negative or not required by law. Electronically signed by: Winston Sepulveda M.D. 09/02/2022 1:45 PM Chest CTA 09/02/22 11:56 CT angio chest PE protocol CLINICAL HISTORY: PE, h/o radiation to liver/chemo; h/o lung ca TECHNIQUE: Multidetector row helical CT of the chest was performed with angiographic protocol. Coronal and sagittal reformations were obtained. Coronal and sagittal MIPS were obtained from the axial data set and were submitted for review. Automated dose lowering techniques and/or adjustment according to patient size were utilized for this exam. Comparison: Comparison is made to CTA chest 07/31/2022 FINDINGS: Lungs and pleura: Numerous pulmonary and pleural-based nodules are seen, overall minimally decreased in size from prior exam. For example, a right perihilar nodule previously measured 39 mm, now measures 22 mm. A right lower lobe nodule previously measured 60 mm, now measures 50 mm. Heart and pericardium: Heart size is normal. No pericardial effusion. Vessels: No evidence of pulmonary embolism. Mediastinum and otoniel: Unremarkable. Chest wall and lower neck: A right thyroid nodule measures 21 mm in diameter. Right jugular catheter is seen. Abdomen: For findings below the diaphragm, please refer to CT of the abdomen dated the same. Bones: Unremarkable. IMPRESSION: 1. No evidence of pulmonary embolism. 2. Overall interval mild decrease in size of numerous pulmonary and pleural- based masses/nodules. 3. Right thyroid nodule is incidentally noted. If not previously evaluated, nonemergent ultrasound can be performed. ACT 112: Positive. There are findings on this exam that require communication between the performing entity and the patient following Patient Test Result Information Act ([place] Act 112) guidelines. Electronically signed by: Viktor Carpenter M.D. 09/02/2022 1:[address] 09/02/22 11:57 CT SCAN OF THE BRAIN WITHOUT IV CONTRAST CLINICAL HISTORY: Change in mental status. Fever. History of lung cancer. COMPARISON STUDY: No priors. TECHNIQUE: Unenhanced axial CT scan of the brain is performed from the vertex to the skull base. A dose lowering technique was utilized adhering to the principles of ALARA. FINDINGS: Brain parenchyma: There is age-related involutional change noting mild subcortical and periventricular microangiopathic disease. There is no hemorrhage, mass effect, or evidence of acute territorial ischemia by CT criteria. Corbett-white matter differentiation is preserved. No extra-axial fluid collection is seen. Ventricles, sulci, cisterns: Prominent secondary to involutional change. Intracranial vasculature: There is atherosclerotic calcification of the cavernous carotid arteries. Calvarium: Unremarkable. Sinuses and mastoids: The visualized paranasal sinuses are clear. The mastoid air cells are well pneumatized. Orbits: The bony orbits are grossly intact. A prosthetic globe is seen on the right. IMPRESSION: There is no hemorrhage, mass effect, or evidence of acute territorial ischemia by CT criteria. ACT 112: Negative or not required by law. Electronically signed by: Santos Gutiérrez M.D. 09/02/2022 1:35 PM (1) Fever Fever type: due to other condition Qualified Code(s): R50.81 - Fever presenting with conditions classified elsewhere
[2022-09-03 13:44] LABS: Creatinine Urine Random 128.9 mg/dl; Protein Creatinine Ratio Urine 0.9 (0-0.2); Total Protein Urine Random 111.8 mg/dl (0-11.9)
[2022-09-03] MEDS: LACTATED RINGER'S 1,000 ML IV SCH (13:51)
[2022-09-03] MEDS ORDERED: VANCOMYCIN HCL 2,000 MG in SODIUM CHLORIDE 0.9% 500 ML IV SCH (16:00)
[2022-09-03] MEDS ORDERED: VANCOMYCIN CONSULT ACTIVE PRN (16:00)
[2022-09-03] MEDS ORDERED: MAGNESIUM HYDROXIDE SUSP 30 ML UDC PO ONE (16:01)
[2022-09-03] MEDS ORDERED: VANCOMYCIN HCL 2,500 MG in SODIUM CHLORIDE 0.9% 500 ML IV ONE (16:15)
--- NOTE | 2022-09-03 17:47 | Ultrasound Report ---
US abdomen limited CLINICAL HISTORY: RUQ us; elevated lft TECHNIQUE: Multiple real-time sonographic images of the right upper quadrant were obtained. Comparison: Comparison is made to CT abdomen pelvis 09/02/2022 FINDINGS: The liver is diffusely echogenic in appearance with poor ultrasound penetration, with normal contour, which is consistent with fatty infiltration. No focal mass lesions are seen. No intrahepatic duct al dilatation is seen. The gallbladder is contracted. No stones are seen. A sonographic Nuno's sig n was not elicited by the core piler. The common duct measures 0.6 cm in diameter at the level of the hepatic artery. The visualized portions of the pancreas appear normal. The right kidney shows normal echogenicity, cortical thickness and renal contour. The right kidney sh ows no evidence of hydronephrosis or mass. No ascites or free fluid is seen in Torres's pouch. IMPRESSION: Hepatic steatosis. No evidence of acute cholecystitis. ACT 112: Negative or not required by law. Electronically signed by: Viktor Carpenter M.D. 09/03/2022 5:46 PM
[2022-09-03 18:35] LABS: Hemoglobin 11.5 g/dl (14.0-18.0)
[2022-09-03] MEDS: hydrOXYzine HCl 25 MG TAB PO SCH (20:07)
[2022-09-03] MEDS: MIRTAZAPINE TAB 15 MG TAB PO SCH (20:08)
[2022-09-04] MEDS: HYDROmorphone HCL 2 MG TAB PO PRN ×3 (00:10→16:46)
[2022-09-04] MEDS: VANCOMYCIN HCL 1,250 MG in SODIUM CHLORIDE 0.9% 250 ML IV SCH ×2 (02:42→13:13)
[2022-09-04] MEDS: LACTATED RINGER'S 1,000 ML IV SCH ×3 (02:42→17:19)
[2022-09-04 07:55] LABS: Hematocrit (blood only) 32.3 % (40.1-51.0); Hemoglobin 11.1 g/dl (14.0-18.0); Mean Corpuscular Hemoglobin 31.3 pg (25.0-34.0); Mean Corpuscular Hgb Conc 34.4 g/dL (32.0-36.0); Mean Platelet Volume 10.8 fL (9.4-12.4); Platelet Count 165 K/uL (130-400); RDW Coefficient of Variation 15.8 % (11.5-14.5); RDW Standard Deviation 52.6 fL (36.4-46.3); Red Blood Count 3.55 M/uL (4.63-6.08); White Blood Count 6.99 K/ul (4.8-10.8)
[2022-09-04] MEDS: MONTELUKAST SODIUM 10 MG TABLET PO SCH (08:17)
[2022-09-04] MEDS: POTASSIUM CHLORIDE CRTAB 20 MEQ TABCR PO SCH (08:17)
[2022-09-04] MEDS: FAMOTIDINE 40 MG TABLET PO SCH (08:17)
[2022-09-04] MEDS: FLUTICASONE PROPIONATE NA SPR 16 GM BTL NAE SCH (08:18)
[2022-09-04] MEDS: LORATADINE 10 MG TAB PO SCH (08:18)
[2022-09-04] MEDS: FLUTICASONE/VILANTEROL 100/25MCG 14 PUFFS/INHALER INH SCH (08:18)
[2022-09-04] MEDS: PANTOprazole 40 MG TAB PO SCH (08:19)
[2022-09-04] MEDS: CHECK fentaNYL PATCH PLACEMENT SCH ×3 (08:19→16:31)
[2022-09-04] MEDS: CEFEPIME 2,000 MG in SYRINGE 0 ML IV SCH ×2 (08:22→16:45)
[2022-09-04] MEDS: ACETAMINOPHEN 325 MG TAB PO PRN (08:23)
[2022-09-04] MEDS: MAGNESIUM HYDROXIDE SUSP 30 ML UDC PO SCH (08:27)
[2022-09-04 08:36] LABS: Albumin Globulin Ratio 0.6 (0.9-2); Albumin Level 2.5 gm/dl (3.4-5.0); BUN Creatinine Ratio 22.8 (10-20); Bilirubin,Total 1.8 mg/dl (0.2-1.0); Calcium 7.4 mg/dl (8.5-10.1); Creatinine Clr Calc Pharmacy 141.7 ml/min; Est GFR (African American) 114.7 ml/min; Globulin 4.3 gm/dl (2.5-4.0); Potassium 3.8 mmol/L (3.5-5.1); Total Protein 6.8 gm/dl (6.0-8.3)
--- NOTE | 2022-09-04 09:34 | Pharmacy Report ---
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 Garcia [facility] rad onc, asthma, hypertension who presents with overnight fever and transaminitis. Patient initially started on cefepime and now vancomycin was added last evening. Repeat blood cultures are pending. Still febrile this morning. Day #2 of vancomycin therapy. Plan Vancomycin * AUC/OSCAR is the preferred PK/PD target for vancomycin * AUC guided dosing is effective and associated with decreased risk of nephrotoxicity compared to traditional trough targets * Patient started on vancomycin 1250 mg iv q 12 hr last evening - Renal function improving more today however dosing still appropriate to achieve targets. * This dosing is predicted to achieve at trough level of ~15 mcg/mL is predicted to achieve target AUC/OSCAR of 400-600 mg/L.hr and may be associated with a 10 % risk of nephrotoxicity * Vancomycin ordered only empirically x 48 hrs - plan to obtain a level tomorrow to ensure stable Pharmacy will continue to follow and will adjust dose/frequency as necessary. Thank you.
--- NOTE | 2022-09-04 09:52 | Gastroenterology Progress Note ---
Date of Service September 04, 2022 Assessment & Plan (1) Transaminitis: (2) Synovial sarcoma: (3) Fever: Plan Patient is a 57 years old male with metastatic synovial carcinoma completed XRT and was on Votrient, who was admitted with fevers and transaminitis. Work-up currently showed possible pyelonephritis, cystitis versus glomerulonephritis. He is currently being covered with cefepime IV antibiotics. Regarding his elevated LFTs, this was suspected to be DILI due to Votrient use. Votrient was started on 07/27, DC'd 08/15. LFTs are on downward trend. He is not jaundiced, not having mental status changes, abd pain. - Continue to trend LFTs - Fever workup per primary team. - No new GI plans, will sign off. Pls recall prn Admission and Anticipated Discharge Date Admission Date: September 02, 2022 Supervising Physician Co-Signing Physician Notes Attg add: LFT's improving, APAP undetectable, HBV/HCV/HAV neg, uls unremarkable although doppler not done. Please continue to trend LFT's and reconsult if needed. Subjective Pt denies any nausea or vomiting. Still having some bilateral lower flank pain. Did not pass any bowel movements today, lots of flatus. Dilaudid helps with his pain. Review of Systems Review of Systems: All systems reviewed & are unremarkable except as noted in HPI & below Physical Exam Constitutional: WD/WN, vitals as above well groomed, cooperative and comfortable Eyes: PERRL, conjunctivae normal, anicteric sclerae ENMT: external ear and nose normal, oropharynx normal Respiratory: normal respiratory effort, lungs clear to auscultation Cardiovascular: RRR, no murmur, no edema Gastrointestinal (Abdomen): normal bowel sounds, soft, nontender, no hepatosplenomegaly Skin: no rashes, warm and dry no jaundice Neurologic: Motor/Sensory: no asterixis Psychiatric: A+Ox3, euthymic affect Lymphatic: no lymphedema Results & Data ([facility]) Vital Signs (Past 12 Hours) Vital Signs Temp Pulse Pulse Resp BP Pulse Ox O2 Del Method 09/04/22 08:02 38.8 C H 103 H 21 127/78 92 Room Air 09/04/22 00:00 94 H 09/04/22 03:27 37.3 C 90 18 120/78 90 Room Air 09/03/22 23:25 94 H 09/03/22 23:14 38.2 C H 97 H 18 129/81 90 BiPAP (1) Fever Fever type: due to other condition Qualified Code(s): R50.81 - Fever presenting with conditions classified elsewhere
[2022-09-04 11:18] LABS: HBSAG NON-REACTIVE (NON-REACTIVE); Hepatitis A Antibody IgM NON-REACTIVE (NON-REACTIVE); Hepatitis B Core Antibody IgM NON-REACTIVE (NON-REACTIVE)
[2022-09-04] MEDS: valACYclovir HCL 500 MG TABLET PO SCH ×2 (13:12→21:15)
--- NOTE | 2022-09-04 14:06 | Hospitalist Progress Note ---
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 Garcia [facility] rad onc, asthma, hypertension and other medical problems listed below who presents with overnight fever and transaminitis. Fever Possible pyelonephritis Tmax of 38.8. Urinalysis analysis does not show sign of infection Urine culture no growth Blood culture no growth so far CT abd/pelvis with mild enlargement and heterogeneous enhancement within the kidneys which is new from the prior study. Also with hepatic steatosis, bladder wall thickening Head CT without acute abnormality, chest CTA without evidence of PE, overall interval mild decrease in size of numerous pulmonary and pleural-based masses/nodules Plan; Continue on cefepime and vancomycin for now. We will follow-up on repeat culture. We will get infectious disease on board; appreciate recommendation. Hepatoxicity and acute liver insufficiency secondary to Votrient therapy Started on Votrient chemotherapy on 07/27, last taken on 08/25. Currently on hold given worsening transaminitis AST, ALT and ALP all downtrending. GI on board; likely chemo related drug-induced liver injury. Continue to monitor. Patient's oncologist Dr. Martin contacted; awaiting callback Hematuria Epistaxis Can be secondary to Votrient therapy Patient reports episode of epistaxis from his left naris and pinkish urine output on 09/03 PT/INR and APTT mildly elevated. Hemoglobin is stable. Continue to monitor. Patient is not on aspirin at home. Heparin Presently on hold. 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 Garcia [facility] rad onc Dr Martin's contact info : [phone]. Contacted; awaiting callback. Acute kidney injury, resolved Cr 1.49 (baseline ~ 0.61). CT abd/pelvis with mild enlargement and heterogeneous enhancement within the kidneys which is new from the prior study Will hold his antihypertensives for today. MICHA likely secondary to sepsis. On LR at 80 cc/h. Cancer related pain on narcotics Following with palliative care. Dilaudid increased to every 2 hours as needed. Right thyroid nodule Incidental finding on chest CTA. Nonemergent ultrasound and outpatient follow- up recommended Hypertension Antihypertensive on hold. Asthma Continue albuterol nebulizer as needed for shortness of breath and wheezing, albuterol rescue inhaler, Singulair Constipation Continue bowel regimen. Last bowel movement 09/01/22 DVT Ppx: SCDs for now. Holding off pharmacologic PPx in light of hematuria and epistaxis Code status: FULL PCP: [facility] Dispo: Admitted to PCU Discussed with at bedside. Answered questions. Admission and Anticipated Discharge Date Admission Date: September 02, 2022 Subjective Patient seen and examined at bedside. He continues to have fever with sweating; T-max of 38.8 C Review of Systems Review of Systems: All systems reviewed & are unremarkable except as noted in Subjective Physical Exam Physical Exam: Constitutional: WD/WN, vitals as above, NAD, sitting up in bed, pleasant, conversing easily Respiratory: normal respiratory effort, lungs clear to auscultation, no wheeze, rales, rhonchi. Normal insp/exp effort, no accessory muscle use Cardiovascular: RRR, no murmur, no edema Vessels: no JVD or carotid bruit Chest: normal inspection of chest. Port present at right upper chest Abdomen: Tenderness present at left flank. Musculoskeletal: no cyanosis or clubbing, extremities motor strength 5/5 Skin: no rashes, warm and dry normal turgor Neurologic: PERRL, EOMI, accommodation nl, no face palsy, no dysarthria CN's II- XI intact bilaterally and moves all extremities Psychiatric: A+Ox3, euthymic affect Lymphatic: no cervical or axillary lymphadenopathy : deferred Results & Data Results & Data ([facility]) Vital Signs (Past 12 Hours) Vital Signs Temp Pulse Resp BP Pulse Ox O2 Del Method 09/04/22 11:30 36.3 C L 83 19 124/74 93 Room Air 09/04/22 08:02 38.8 C H 103 H 21 127/78 92 Room Air 09/04/22 03:27 37.3 C 90 18 120/78 90 Room Air Laboratory Results Laboratory Results WBC 6.99 K/ul (4.8-10.8) 09/04/22 07: RBC 3.55 M/uL (4.63-6.08) L 09/04/22: Hgb 11.1 g/dl (14.0-18.0) L 09/04/22: Hct 32.3 % (40.1-51.0) L 09/04/22: MCV 91.0 fL (80.0-100.0) 09/04/22: MCH 31.3 pg (25.0-34.0) 09/04/22: MCHC 34.4 g/dL (32.0-36.0) 09/04/22: RDW Std Deviation 52.6 fL (36.4-46.3) H 09/04/22: RDW Coeff of Darrell 15.8 % (11.5-14.5) H 09/04/22: Plt Count 165 K/uL (130-400) 09/04/22: MPV 10.8 fL (9.4-12.4) 09/04/22: Immature Gran % (Auto) 0.5 % 09/02/22 12:00 Neut % (Auto) 76.4 % 09/02/22 12:00 Lymph % (Auto) 13.7 % 09/02/22 12:00 Orange % (Auto) 9.1 % 09/02/22 12:00 Eos % (Auto) 0.0 % 09/02/22 12:00 Baso % (Auto) 0.3 % 09/02/22 12:00 Neut # (Auto) 4.81 K/uL (1.4-6.5) 09/02/22 12:00 Lymph # (Auto) 0.86 K/uL (1.2-3.4) L 09/02/22 12:00 Orange # (Auto) 0.57 K/uL (0.24-0.82) 09/02/22 12:00 Eos # (Auto) 0.00 K/uL (0-0.50) 09/02/22 12:00 Baso # (Auto) 0.02 K/uL (0-0.2) 09/02/22 12:00 Immature Gran # (Auto) 0.03 K/uL (0.00-0.02) H 09/02/22 12:00 PT 15.3 Seconds (9.0-12.0) H 09/03/22 12:06 INR 1.5 (0.9-1.1) H 09/03/22 12:06 APTT 33.5 Seconds (21.0-31.0) H 09/03/22 12:06 PTT Ratio 1.2 09/03/22 12:06 Sodium 134 mmol/L (136-145) L 09/04/22 07:22 Potassium 3.8 mmol/L (3.5-5.1) 09/04/22 07:22 Chloride 100 mmol/L (98-107) 09/04/22 07: Carbon Dioxide 27 mmol/L (21-32) 09/04/22 07:22 Anion Gap 7 (3-11) 09/04/22 07:22 BUN 18 mg/dl (6-23) 09/04/22 07: Creatinine 0.79 mg/dl (0.6-1.4) D 09/04/22 07:22 Est Cr Clr Drug Dosing 141.7 ml/min 09/04/22 07:22 Est GFR ( Amer) 114.7 ml/min 09/04/22 07:22 Est GFR (Non-Af Amer) 99.0 ml/min 09/04/22 07:22 BUN/Creatinine Ratio 22.8 (10-20) H 09/04/22 07:22 Glucose 87 mg/dl (70-99(Fasting)) 09/04/22 07: Calcium 7.4 mg/dl (8.5-10.1) L 09/04/22 07:22 Total Bilirubin 1.8 mg/dl (0.2-1.0) H 09/04/22 07:22 AST 192 U/L (13-39) H 09/04/22 07:22 ALT 225 U/L (7-52) H 09/04/22 07:22 Alkaline Phosphatase 149 U/L (34-104) H 09/04/22 07:22 Total Protein 6.8 gm/dl (6.0-8.3) 09/04/22 07:22 Albumin 2.5 gm/dl (3.4-5.0) L 09/04/22 07: Globulin 4.3 gm/dl (2.5-4.0) H 09/04/22 07: Albumin/Globulin Ratio 0.6 (0.9-2) L 09/04/22 07: Lipase 15 U/L (11-82) 09/02/22 12:00 Urine Color [place] 09/03/22 11:10 Urine Appearance Clear (Clear) 09/03/22 11:10 Urine pH 5.0 (4.5-7.5) 09/03/22 11:10 Ur Specific [place] 1.021 (1.000-1.030) 09/03/22 11:10 Urine Protein 1+ (Negative) H 09/03/22 11:10 Urine Glucose (UA) Negative (Negative) 09/03/22 11:10 Urine Ketones Negative (Negative) 09/03/22 11:10 Urine Blood Trace (Negative) H 09/03/22 11:10 Urine Nitrite Negative (Negative) 09/03/22 11:10 Urine Bilirubin Negative (Negative) 09/03/22 11:10 Urine Urobilinogen Negative (Negative) 09/03/22 11:10 Ur Leukocyte Esterase Negative (Negative) 09/03/22 11:10 Urine WBC (Auto) 1-5 /hpf (0-5) 09/03/22 11:10 Urine RBC (Auto) 5-10 /hpf (0-4) H 09/03/22 11:10 U Hyaline Cast (Auto) 5-10 /lpf (0-5) H 09/03/22 11:10 U Epithel Cells (Auto) 10-20 /lpf (0-5) H 09/03/22 11:10 Urine Bacteria (Auto) Negative (Negative) 09/03/22 11:10 Ur Random Creatinine 128.9 mg/dl 09/03/22 11:10 U Random Total Protein 111.8 mg/dl (0-11.9) H 09/03/22 11:10 Protein/Creatinin Ratio 0.9 (0-0.2) H 09/03/22 11:10 Acetaminophen < 3 ug/ml (10-30) L 09/03/22 12:06 Hepatitis A IgM Ab NON-REACTIVE (NON-REACTIVE) 09/03/22 12:06 Hep Bs Antigen NON-REACTIVE (NON-REACTIVE) 09/03/22 12:06 Hep Bs Ag Confirmation TNP 09/03/22 12:06 Hep B Core IgM Ab NON-REACTIVE (NON-REACTIVE) 09/03/22 12:06 Hepatitis C Ab (EIA) NON-REACTIVE (NON-REACTIVE) 09/03/22 12:06 Hep C Ab Signal/Cutoff 0.13 (<1.00) 09/03/22 12:06 SARS-CoV-2, RNA, NAAT NEGATIVE (NEGATIVE) 09/02/22 12:20 Impressions Abdomen/Pelvis CT 09/02/22 11:[address] WITH IV CONTRAST CT DOSE: 3289.58 mGy.cm HISTORY: Right upper quadrant pain, transaminitis, radiation trx to liver TECHNIQUE: Multiaxial CT images of the abdomen and pelvis were performed following the use of intravenous contrast. A dose lowering technique was utilized adhering to the principles of ALARA. COMPARISON STUDY: Outside hospital chest, abdomen, and pelvis CT 07/30/2022. Chest CTA 07/31/2022. FINDINGS: Please refer to the same day chest CTA for further evaluation of the intrathoracic metastatic disease. No pneumoperitoneum. No pneumatosis. There is a left total hip arthroplasty. No suspicious lytic or blastic osseous lesions. Partially visualized catheter tip at the distal SVC. Trace bilateral pleural effusions and multiple pleural/pulmonary masses again noted. There is a tiny fat-containing umbilical hernia. Hepatic steatosis. No hepatic or splenic m asses. The adrenal glands, pancreas, and gallbladder are unremarkable. The main portal vein is patent. No retroperitoneal or pelvic lymphadenopathy. Normal caliber abdominal aorta. No hydronephrosis. Mild bilateral perinephric edema has slightly progressed. No renal or ureteral stones identified. Stable 3.7 cm intermediate density lesion within the upper pole the left kidney. This favors a hyperdense cyst. Mild diffuse heterogeneous enhancement within the kidneys which is new from the prior study. The kidneys appear slightly enlarged compared to the prior study. No hydronephrosis. Normal caliber abdominal aorta. Moderate bladder wall thickening. The prostate gland is mildly enlarged. Deep pelvic structures are suboptimally assessed due to the metallic artifact from the left hip prosthesis. Colonic diverticulosis. No evidence for acute diverticulitis. No bowel wall thickening or obstruction. Normal appendix. Small subcutaneous trace nodules within the gluteal regions favors prior medication injection. Chronic epiploic appendages within the right upper quadrant remain stable. No adjacent inflammatory change to suggest an acute abnormality. IMPRESSION: 1. Mild enlargement and heterogeneous enhancement within the kidneys which is new from the prior study. Mild bilateral perinephric edema has also progressed. This could be due to a pyelonephritis or glomerulonephritis. Recommend correlate with urinalysis and renal function tests for further evaluation. 2. Hepatic steatosis. No hepatic masses. 3. Please refer to the same day chest CT for further evaluation of the intrathoracic metastatic disease. 4. No bowel wall thickening or obstruction. 5. Bladder wall thickening. This could be due to chronic outlet obstruction from the enlarged prostate gland or a cystitis. Recommend correlation with urinalysis. 6. Colonic diverticulosis. No evidence for acute diverticulitis. 7. Normal appendix. 8. Additional findings as described above. ACT 112: Negative or not required by law. Electronically signed by: Winston Sepulveda M.D. 09/02/2022 1:45 PM Chest CTA 09/02/22 11:56 CT angio chest PE protocol CLINICAL HISTORY: PE, h/o radiation to liver/chemo; h/o lung ca TECHNIQUE: Multidetector row helical CT of the chest was performed with angiographic protocol. Coronal and sagittal reformations were obtained. Coronal and sagittal MIPS were obtained from the axial data set and were submitted for review. Automated dose lowering techniques and/or adjustment according to patient size were utilized for this exam. Comparison: Comparison is made to CTA chest 07/31/2022 FINDINGS: Lungs and pleura: Numerous pulmonary and pleural-based nodules are seen, overall minimally decreased in size from prior exam. For example, a right perihilar nodule previously measured 39 mm, now measures 22 mm. A right lower lobe nodule previously measured 60 mm, now measures 50 mm. Heart and pericardium: Heart size is normal. No pericardial effusion. Vessels: No evidence of pulmonary embolism. Mediastinum and otoniel: Unremarkable. Chest wall and lower neck: A right thyroid nodule measures 21 mm in diameter. Right jugular catheter is seen. Abdomen: For findings below the diaphragm, please refer to CT of the abdomen dated the same. Bones: Unremarkable. IMPRESSION: 1. No evidence of pulmonary embolism. 2. Overall interval mild decrease in size of numerous pulmonary and pleural- based masses/nodules. 3. Right thyroid nodule is incidentally noted. If not previously evaluated, nonemergent ultrasound can be performed. ACT 112: Positive. There are findings on this exam that require communication between the performing entity and the patient following Patient Test Result Information Act ([place] Act 112) guidelines. Electronically signed by: Viktor Carpenter M.D. 09/02/2022 1:[address] 09/02/22 11:57 CT SCAN OF THE BRAIN WITHOUT IV CONTRAST CLINICAL HISTORY: Change in mental status. Fever. History of lung cancer. COMPARISON STUDY: No priors. TECHNIQUE: Unenhanced axial CT scan of the brain is performed from the vertex to the skull base. A dose lowering technique was utilized adhering to the principles of ALARA. FINDINGS: Brain parenchyma: There is age-related involutional change noting mild subcortical and periventricular microangiopathic disease. There is no hemorrhage , mass effect, or evidence of acute territorial ischemia by CT criteria. Corbett- white matter differentiation is preserved. No extra-axial fluid collection is seen. Ventricles, sulci, cisterns: Prominent secondary to involutional change. Intracranial vasculature: There is atherosclerotic calcification of the cavernous carotid arteries. Calvarium: Unremarkable. Sinuses and mastoids: The visualized paranasal sinuses are clear. The mastoid air cells are well pneumatized. Orbits: The bony orbits are grossly intact. A prosthetic globe is seen on the right. IMPRESSION: There is no hemorrhage, mass effect, or evidence of acute territorial ischemia by CT criteria. ACT 112: Negative or not required by law. Electronically signed by: Santos Gutiérrez M.D. 09/02/2022 1:35 PM Abdomen Ultrasound 09/03/22 11:10 US abdomen limited CLINICAL HISTORY: RUQ us; elevated lft TECHNIQUE: Multiple real-time sonographic images of the right upper quadrant were obtained. Comparison: Comparison is made to CT abdomen pelvis 09/02/2022 FINDINGS: The liver is diffusely echogenic in appearance with poor ultrasound penetration, with normal contour, which is consistent with fatty infiltration. No focal mass lesions are seen. No intrahepatic ductal dilatation is seen. The gallbladder is contracted. No stones are seen. A sonographic Nuno's sign was not elicited by the manager marketing sales. The common duct measures 0.6 cm in diameter at the level of the hepatic artery. The visualized portions of the pancreas appear normal. The right kidney shows normal echogenicity, cortical thickness and renal contour. The right kidney shows no evidence of hydronephrosis or mass. No ascites or free fluid is seen in Torres's pouch. IMPRESSION: Hepatic steatosis. No evidence of acute cholecystitis. ACT 112: Negative or not required by law. Electronically signed by: Viktor Carpenter M.D. 09/03/2022 5:46 PM (1) Fever Fever type: due to other condition Qualified Code(s): R50.81 - Fever presenting with conditions classified elsewhere
[2022-09-04 16:21] LABS: Lyme Ab IgG w/WB Rflx Negative (Negative); Lyme Ab IgM w/WB Rflx Negative (Negative)
[2022-09-04] MEDS ORDERED: HYDROmorphone HCL 2 MG TAB PO SCH (21:00)
[2022-09-04] MEDS: hydrOXYzine HCl 25 MG TAB PO SCH (21:16)
[2022-09-04] MEDS: MIRTAZAPINE TAB 15 MG TAB PO SCH (21:16)
[2022-09-05] MEDS: HYDROmorphone HCL 2 MG TAB PO PRN ×9 (00:05→21:45)
[2022-09-05] MEDS: CHECK fentaNYL PATCH PLACEMENT SCH ×3 (00:54→15:16)
[2022-09-05] MEDS ORDERED: HYDROmorphone INJ 0.5 MG/0.5 ML SYR IV STA (00:54)
[2022-09-05] MEDS: CEFEPIME 2,000 MG in SYRINGE 0 ML IV SCH ×3 (00:54→15:18)
[2022-09-05] MEDS: VANCOMYCIN HCL 1,250 MG in SODIUM CHLORIDE 0.9% 250 ML IV SCH (01:24)
[2022-09-05] MEDS: LACTATED RINGER'S 1,000 ML IV SCH ×2 (06:32→18:07)
[2022-09-05] MEDS: PANTOprazole 40 MG TAB PO SCH (07:55)
[2022-09-05] MEDS: valACYclovir HCL 500 MG TABLET PO SCH (07:55)
[2022-09-05] MEDS: LORATADINE 10 MG TAB PO SCH (07:56)
[2022-09-05] MEDS: MONTELUKAST SODIUM 10 MG TABLET PO SCH (07:56)
[2022-09-05] MEDS: POTASSIUM CHLORIDE CRTAB 20 MEQ TABCR PO SCH (07:56)
[2022-09-05] MEDS: MAGNESIUM HYDROXIDE SUSP 30 ML UDC PO SCH (07:56)
[2022-09-05] MEDS: FAMOTIDINE 40 MG TABLET PO SCH (07:56)
[2022-09-05] MEDS: FLUTICASONE/VILANTEROL 100/25MCG 14 PUFFS/INHALER INH SCH (07:57)
[2022-09-05] MEDS: FLUTICASONE PROPIONATE NA SPR 16 GM BTL NAE SCH (07:57)
[2022-09-05 09:38] LABS: Creatinine Clr Calc Pharmacy 159.4 ml/min; Est GFR (African American) 120.6 ml/min
--- NOTE | 2022-09-05 10:49 | Nephrology Consultation ---
Date of Consultation September 05, 2022 Assessment & Plan (1) Hematuria: suspect this is multifactorial > from liver dysfunction/mild coagulopathy and pazopanib (votrient). 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 while glomerulonephritis has been reported w/ TKIs, it is case report only and in setting of MICHA and other immune modulating medications in addition to TKIs. during acute illness would not start dar/ arb but could consider after hospital d/c nothing to suggest nephrotic syndrome at this time History of Present Illness Reason for Consultation: hematuria, ? glomerulonephritis Requesting Physician: Dr Barnhart Attending Physician: Fabian Barnhart MD History of Present Illness 57 y/o M whom I'm asked to see for hematuria concerning for possible glomerulonephritis was admitted here 09/02 with F and transaminitis. 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 He follows at [facility] oncology and w/ Dr Garcia [facility] for rad onc. Also w/ hx of HTN, asthma. He had MICHA on presentation w/ presenting creatinine 1.5 (baseline 0.6) and was noted on CT scan to have new/mild heterogeneity/enlargement of renal parenchyma. urinalysis in early july was completely bland. however late july urinalysiis shows 2+ proteinuria adn no blood. 2 f/u labs both show dipstick proteinuria and 900 mg proteinrua on spot ratio w/ trace blood adn 5-10 RBC / hpf on last 2 bmp. Pt also reports that for the past 3 days he has had either aye urine or pink urine; no yellow urine for the past week. urine cytology showed atypical urothelial cells. His renal function came back quickly to 0.8, even though he received IV contrast shortly after admission. no F since yesterday. pt reports marked dyspnea w/ slight exertion. no n/v. has been having repeated blood on tissues when blows his nose after using cpap; this is new. no uncontrolled pain currently though he often has pain in his lateral BL ribs which goes down mid axillary line to his hips and wraps around to hsi pelvis. Allergies Allergy/AdvReac Type Severity Reaction Status Date / Time bacitracin Allergy Severe hives, Verified 09/02/22 15:46 syncopy tree and shrub pollen AdvReac Mild nasal Verified 09/02/22 15:46 congestion, eyes water Home Medications Medication Instructions Recorded Confirmed Type albuterol sulfate 90 mcg/actuation 2 puffs inhalation Q4 PRN 10/10/19 09/02/22 History aerosol inhaler (Ventolin HFA) Shortness Of Breath Or Wheezing fluticasone furoate 100 1 puffs inhalation DAILY #180 ea 10/13/19 09/02/22 Rx mcg-vilanterol 25 mcg/dose inhalation powder (Breo Ellipta) albuterol sulfate 2.5 mg/3 mL 2.5 mg inhalation Q6H PRN 01/31/20 09/02/22 History (0.083 %) solution for nebulization shortness of breath or wheezing montelukast 10 mg tablet 10 mg PO DAILY 06/29/20 09/02/22 History (Singulair) amlodipine 10 mg tablet 10 mg PO DAILY 07/31/22 09/02/22 History amoxicillin 500 mg capsule 2,000 mg PO DIRECTED 07/31/22 09/02/22 History carvedilol 6.25 mg tablet 6.25 mg PO BID 07/31/22 09/02/22 History famotidine 40 mg tablet 40 mg PO DAILY 07/31/22 09/02/22 History fluticasone propionate 50 2 spray intranasal QAM 07/31/22 09/02/22 History mcg/actuation nasal spray,suspension hydrochlorothiazide 25 mg tablet 25 mg PO DAILY 07/31/22 09/02/22 History hydroxyzine HCl 25 mg tablet 50 mg PO HS 07/31/22 09/02/22 History loratadine 10 mg tablet 10 mg PO DAILY 07/31/22 09/02/22 History losartan 100 mg tablet 100 mg PO DAILY 07/31/22 09/02/22 History docusate sodium 100 mg capsule 100 mg PO BID PRN laxative effect 08/04/22 09/02/22 Rx #60 caps fentanyl 50 mcg/hr transdermal 50 mcg transdermal Q72H #5 ea 08/04/22 09/02/22 Rx patch polyethylene glycol 3350 17 gram 17 g PO DAILY PRN laxative effect 08/04/22 09/02/22 Rx oral powder packet (Miralax) #30 ea potassium chloride 20 mEq 20 meq PO DAILY #30 tabs 08/04/22 09/02/22 Rx tablet,extended release hydromorphone 2 mg tablet 2 mg PO Q3H PRN Severe Pain (Scale 08/12/22 09/02/22 History (Dilaudid) Score 7-10) aspirin 81 mg tablet 81 mg PO DAILY 09/02/22 09/02/22 History buspirone 10 mg tablet 10 mg PO BID PRN Pain 09/02/22 09/02/22 History mirtazapine 15 mg tablet 15 mg PO HS 09/02/22 09/02/22 History pantoprazole 40 mg tablet,delayed 40 mg PO QAM 09/02/22 09/02/22 History release sennosides 8.6 mg tablet (Senokot) 8.6 mg PO BID PRN Constipation 09/02/22 09/02/22 History Patient History Medical History Asthma Cancer related pain GERD (gastroesophageal reflux disease) Hepatic steatosis HTN (hypertension) 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 Grandmother (Maternal) , iat 91 old age No problems noted. Grandfather (Paternal) , in his eighties old age No problems noted. Father , age 66 of pancreatic cancer and metastasis No problems noted. Mother No problems noted. Brother Age: 54 No problems noted. Son Age: 35 Leukemia in remission Daughter Age: 35 No problems noted. Daughter Age: 23 No problems noted. Son Age: 20 No problems noted. 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 Beliefs That Will Affect Care: None marital status: Current Living Situation: Spouse current occupational status: employed Feels Safe at Home: Yes Childhood Exposure to Second-Hand Smoke: Yes caffeine: No Dental Care, Regularly: Yes Physical Activity Frequency: Does not Exercise Seatbelt Use: always Sunscreen Use: Yes Do you think of yourself as: straight/heterosexual Assistive Devices: None Review of Systems Review of Systems: All systems reviewed & are unremarkable except as noted in HPI & below Physical Exam Constitutional: well developed, well nourished, + obese and cooperative; no acute distress Eyes: EOM intact bilaterally ENMT: Ears: no external ear abnormality Nose: no external nose abnormality Mouth: + dry oral mucous membranes Neck: no nuchal rigidity Respiratory: normal respiratory effort Auscultation: + diminished lung sounds Cardiovascular: Rate/Rhythm: regular rhythm and + tachycardic (in 90s) Extremities: no edema Gastrointestinal (Abdomen): Inspection/Auscultation: normal bowel sounds Percussion/Palpation: abdomen soft; abdomen nontender Musculoskeletal: Extremities: strength 5/5 throughout Skin: no rashes, warm and dry Neurologic: thomas, fluent speech, no tremor; some amblyopia Psychiatric: Orientation: oriented x 3 Speech: normal rate/rhythm/volume of speech Results & Data ([facility]) Vital Signs (Past 12 Hours) Vital Signs Temp Pulse Pulse Pulse Resp BP Pulse Ox 09/05/22 06:08 85 09/05/22 07:46 37.0 C 102 H 20 129/84 92 09/05/22 03:20 36.6 C 93 H 20 119/78 92 09/04/22 23:10 36.8 C 97 H 18 124/78 93 09/04/22 22:59 88 O2 Del Method 09/05/22 06:08 09/05/22 07:46 Room Air 09/05/22 03:20 BiPAP 09/04/22 23:10 BiPAP 09/04/22 22:59 Laboratory Results 09/04/22 07:22 09/05/22 08:36 09/04 cbc, cmp reviewed UAs 08/21, 09/02, 09/03 reviewed Diagnostic Findings RUQ u/s 09/03 The liver is diffusely echogenic in appearance with poor ultrasound penetration, with normal contour, which is consistent with fatty infiltration. No focal mass lesions are seen. No intrahepatic ductal dilatation is seen. The gallbladder is contracted. No stones are seen. A sonographic Nuno's sign was not elicited by the acid painter. The common duct measures 0.6 cm in diameter at the level of the hepatic artery. The visualized portions of the pancreas appear normal. The right kidney shows normal echogenicity, cortical thickness and renal contour. The right kidney shows no evidence of hydronephrosis or mass. No ascites or free fluid is seen in Torres's pouch. IMPRESSION: Hepatic steatosis. No evidence of acute cholecystitis. CTA Chest 09/02 1. No evidence of pulmonary embolism. 2. Overall interval mild decrease in size of numerous pulmonary and pleural- based masses/nodules. 3. Right thyroid nodule is incidentally noted. If not previously evaluated, nonemergent ultrasound can be performed. CT a/p w/ IV con 09/02 FINDINGS: Please refer to the same day chest CTA for further evaluation of the intrathoracic metastatic disease. No pneumoperitoneum. No pneumatosis. There is a left total hip arthroplasty. No suspicious lytic or blastic osseous lesions. Partially visualized catheter tip at the distal SVC. Trace bilateral pleural effusions and multiple pleural/pulmonary masses again noted. There is a tiny fat-containing umbilical hernia. Hepatic steatosis. No hepatic or splenic masses. The adrenal glands, pancreas, and gallbladder are unremarkable. The main portal vein is patent. No retroperitoneal or pelvic lymphadenopathy. Normal caliber abdominal aorta. No hydronephrosis. Mild bilateral perinephric edema has slightly progressed. No renal or ureteral stones identified. Stable 3.7 cm intermediate density lesion within the upper pole the left kidney. This favors a hyperdense cyst. Mild diffuse heterogeneous enhancement within the kidneys which is new from the prior study. The kidneys appear slightly enlarged compared to the prior study. No hydronephrosis. Normal caliber abdominal aorta. Moderate bladder wall thickening. The prostate gland is mildly enlarged. Deep pelvic structures are suboptimally assessed due to the metallic artifact from the left hip prosthesis. Colonic diverticulosis. No evidence for acute diverticulitis. No bowel wall thickening or obstruction. Normal appendix. Small subcutaneous trace nodules within the gluteal regions favors prior medication injection. Chronic epiploic appendages within the right upper quadrant remain stable. No adjacent inflammatory change to suggest an acute abnormality. IMPRESSION: 1. Mild enlargement and heterogeneous enhancement within the kidneys which is new from the prior study. Mild bilateral perinephric edema has also progressed. This could be due to a pyelonephritis or glomerulonephritis. Recommend correlate with urinalysis and renal function tests for further evaluation. 2. Hepatic steatosis. No hepatic masses. 3. Please refer to the same day chest CT for further evaluation of the intrathoracic metastatic disease. 4. No bowel wall thickening or obstruction. 5. Bladder wall thickening. This could be due to chronic outlet obstruction from the enlarged prostate gland or a cystitis. Recommend correlation with urinalysis. 6. Colonic diverticulosis. No evidence for acute diverticulitis. 7. Normal appendix. 8. Additional findings as described above.
--- NOTE | 2022-09-05 11:27 | Pharmacy Report ---
Pharmacy Vanc AUC Short Note - Date of Service September 05, 2022 - Assessment & Plan Assessment This is a 57yo M with a PMH of synovial sarcoma with metastasis to lungs and lymph nodes following with [facility] onc and Dr. Garcia [facility] rad onc, asthma, hypertension who presents with overnight fever and transaminitis. Patient continues on vancomycin/cefepime. Repeat blood cultures are negative. Fevers improving. Day #3 of vancomycin therapy. Plan Vancomycin * AUC/OSCAR is the preferred PK/PD target for vancomycin * AUC guided dosing is effective and associated with decreased risk of nephrotoxicity compared to traditional trough targets * Random level came back at ~10 mcg/ml - this dosing is predicted to achieve an AUC/OSCAR <400 therefore will increase vancomycin dosing to 1250 mg iv q 8 hrs. * This higher dosing is estimated to produce a trough level of 16 mcg/mL is predicted to achieve target AUC/OSCAR of 400-600 mg/L.hr and may be associated with a 11 % risk of nephrotoxicity * Will begin new dosing for vancomycin now - will order another level in next 24-48 hours if continued Pharmacy will continue to follow and will adjust dose/frequency as necessary. Thank you.
[2022-09-05] MEDS ORDERED: VANCOMYCIN HCL 1,250 MG in SODIUM CHLORIDE 0.9% 250 ML IV SCH (12:00)
[2022-09-05 12:51] LABS: Basophils # (auto) 0.02 K/uL (0-0.2); Basophils % (auto) 0.4 %; Hematocrit (blood only) 32.4 % (40.1-51.0); Hemoglobin 10.9 g/dl (14.0-18.0); Immature Granulocytes # (auto) 0.02 K/uL (0.00-0.02); Immature Granulocytes % (auto) 0.4 %; Lymphocytes % (auto) 13.8 %; Mean Corpuscular Hemoglobin 31.1 pg (25.0-34.0); Mean Corpuscular Hgb Conc 33.6 g/dL (32.0-36.0); Mean Corpuscular Volume 92.6 fL (80.0-100.0); Mean Platelet Volume 10.9 fL (9.4-12.4); Monocytes # (auto) 0.43 K/uL (0.24-0.82); Monocytes % (auto) 8.5 %; Neutrophils # (auto) 3.89 K/uL (1.4-6.5); Neutrophils % (auto) 76.9 %; Platelet Count 166 K/uL (130-400); RDW Coefficient of Variation 15.5 % (11.5-14.5); RDW Standard Deviation 52.5 fL (36.4-46.3); White Blood Count 5.06 K/ul (4.8-10.8)
[2022-09-05] MEDS ORDERED: HYDROmorphone INJ 1 MG/ML SYRINGE IV STA (12:58)
--- NOTE | 2022-09-05 13:05 | Palliative Care Progress Note ---
Date of Service September 05, 2022 Assessment & Plan (1) Palliative care encounter: Plan: Pain and symptom mgt as outlined below. (2) Cancer related pain: Plan: I have modified Dilaudid as follows: Dilaudid 2mg PO q3h prn and Dilaudid 4mg PO q4h prn/hold for somnolence or reps rate<14/min I will give a dose of Dilaudid 1mg IV x1 now for severe persistent pain. He had a dose of 0.5mg IV over night without much relief. (3) Synovial sarcoma: Plan: Pt desires to continue cancer directed therapy. Current chemo, Votrient, is on hold due to elevated LFTs (4) Metastatic cancer: (5) Anxiety: Plan: I have added ativan 0.5mg PO q6h prn anxiety or insomnia Plan As outlined above. I am available by pager through the weekend if needed. Jolie Lincoln DNP Clinical Director, Palliative Medicine Admission and Anticipated Discharge Date Admission Date: September 02, 2022 Subjective * Pain remains uncontrolled * having issues with Dilaudid 4mg prn qhs, tells me he was not always asking for it near bedtime, sometimes would be thru the overnight and then told he could not have it * also notes, pain med not being given routinely, he thought the meds would be offered ATC vs him asking for them when needed. * feels he is now trying to catch up with pain meds, pain has increased and pain along mid to anterior flank/chest wall has increased in addition to his usual abd / pelvic pain * appetite is ok, denies acute n/v/d/c * finds it hard to feel comfortable in hospital. very anxious when is not here. prefers to sleep during daytime when she is visiting "I just feel safer to sleep when she is here with me." * struggling with anxiety from being in hospital, insomnia and hypervigilance related stress Review of Systems Review of Systems: All systems reviewed & are unremarkable except as noted in Subjective Physical Exam Physical Exam: Tired appearing male, resting in bed, some increased distress noted, guarding right side left PERRL, right eye prosthetic Abd distended, tender on laterals, no epigastric or periumbilical tenderness BS diminished +right > left chest/side wall tenderness S1S2, no JVD Lungs clear, sl diminished. this is a limited anterior chest wall exam Strength intact AAOx3, following commands skin warm, cheeks slightly flushed Results & Data ([facility]) Vital Signs (Past 12 Hours) Vital Signs Temp Pulse Pulse Pulse Resp BP Pulse Ox 09/05/22 11:49 37.2 C 94 H 20 133/84 92 09/05/22 06:08 85 09/05/22 07:46 37.0 C 102 H 20 129/84 92 09/05/22 03:20 36.6 C 93 H 20 119/78 92 O2 Del Method 09/05/22 11:49 Room Air 09/05/22 06:08 09/05/22 07:46 Room Air 09/05/22 03:20 BiPAP PG Care Time/CCT Total # of Minutes Spent Total Time Spent: 60 Total Time Spent with Patient: Total time spent is greater than 50% in coordination of care (as documented) at patient's floor/unit and/or counseling patient: 10min chart review, 30 min with pt/, 10 min in GOC/ACP, 10 min in care coordination with medical teams. [place] [address] Subseq Hosp Care Lvl 3 Patient Type Established History Detailed Exam Detailed Medical Decision Making Moderate Complexity Diagnoses Palliative care encounter Z51.5 Cancer related pain G89.3 Synovial sarcoma C49.9 Metastatic cancer C79.9 Anxiety F41.9
[2022-09-05] MEDS: LORazepam 0.5 MG TAB PO PRN (13:21)
--- NOTE | 2022-09-05 13:45 | Urology Consultation ---
Date of Consultation September 05, 2022 Assessment & Plan (1) Hematuria: Urology consulted for evaluation of hematuria and abnormal urine cytology. Patient with microscopic hematuria and recent report of gross hematuria. Afebrile, lab work reviewed - Creatinine 0.65, WBC 5.06. LFTs are trending down. We discussed hematuria work-up including CT imaging, urine cytology, urine culture, and cystoscopy. CT imaging reviewed - mild enlargement and heterogeneous enhancement within the kidneys, mild bilateral perinephric edema. No obstruction. A 3.7 cm upper pole lesion of the left kidney favoring a hyperdense cyst. Urine cytology showed atypical urothelial cells. Urine culture negative. Recommend completing a hematuria work-up with cystoscopy - this can be done as an outpatient. He is voiding spontaneously. Continue to monitor. Bladder scan prn. Patient and spouse are agreeable to the plan. Continue supportive care and antibiotics per primary team. We will arrange outpatient follow-up with our service. will sign off. Case discussed with Dr. Graves, urologist shoe ironer. Supervising Physician Co-Signing Physician Notes I have discussed Mr. Marsh's case with FERNANDO Newby and agree with the above documentation. With history of hematuria he will require cystoscopy and likely further imaging of the collecting systems. These can be coordinated as an outpatient. For now, he is voiding spontaneously and does not require a catheter. We will arrange outpatient followup. 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 History of XRT. He follows with [facility] oncology and Dr. Garcia [facility] rad onc. Votrient was held due to worsening transaminitis. Urology is consulted for evaluation of hematuria and abnormal urine cytology. His CT abdomen and pelvis with IV contrast on 09/02 reviewed and notes mild enlargement and heterogeneous enhancement within the kidneys. Mild bilateral perinephric edema. A 3.7 cm upper pole lesion of the left kidney favoring a hyperdense cyst. No renal or ureteral stones. No hydronephrosis. Prostate mildly enlarged. Bladder wall thickening noted. Urine culture showed no growth. Blood cultures no growth to date. He is on IV Cefepime. His urine cytology showed atypical urothelial cells. UA on 08/21 showed 0-4 RBCs/hpf. UA on 09/02 and 09/03 showed 5-10 RBCs/hpf. Patient seen and examined at bedside this afternoon. present. Reports fever yesterday, but denies fever or chills at present. He reports pain on the sides of his abdomen, right greater than left. He denies flank pain. He is voiding spontaneously. He reports occasional dysuria. Recently he has noted darker urine intermittently. He noted pink urine today. No clots. No history of urinary tract infections. Some minor LUTS at baseline including nocturia 1-3 and urgency. He feels he empties his bladder. No hesitancy. No prior urology evaluations. No personal or family hx of stones. No family hx of malignancy. Allergies Allergy/AdvReac Type Severity Reaction Status Date / Time bacitracin Allergy Severe hives, Verified 09/02/22 15:46 syncopy tree and shrub pollen AdvReac Mild nasal Verified 09/02/22 15:46 congestion, eyes water Home Medications Medication Instructions Recorded Confirmed Type albuterol sulfate 90 mcg/actuation 2 puffs inhalation Q4 PRN 10/10/19 09/02/22 History aerosol inhaler (Ventolin HFA) Shortness Of Breath Or Wheezing fluticasone furoate 100 1 puffs inhalation DAILY #180 ea 10/13/19 09/02/22 Rx mcg-vilanterol 25 mcg/dose inhalation powder (Breo Ellipta) albuterol sulfate 2.5 mg/3 mL 2.5 mg inhalation Q6H PRN 01/31/20 09/02/22 History (0.083 %) solution for nebulization shortness of breath or wheezing montelukast 10 mg tablet 10 mg PO DAILY 06/29/20 09/02/22 History (Singulair) amlodipine 10 mg tablet 10 mg PO DAILY 07/31/22 09/02/22 History amoxicillin 500 mg capsule 2,000 mg PO DIRECTED 07/31/22 09/02/22 History carvedilol 6.25 mg tablet 6.25 mg PO BID 07/31/22 09/02/22 History famotidine 40 mg tablet 40 mg PO DAILY 07/31/22 09/02/22 History fluticasone propionate 50 2 spray intranasal QAM 07/31/22 09/02/22 History mcg/actuation nasal spray,suspension hydrochlorothiazide 25 mg tablet 25 mg PO DAILY 07/31/22 09/02/22 History hydroxyzine HCl 25 mg tablet 50 mg PO HS 07/31/22 09/02/22 History loratadine 10 mg tablet 10 mg PO DAILY 07/31/22 09/02/22 History losartan 100 mg tablet 100 mg PO DAILY 07/31/22 09/02/22 History docusate sodium 100 mg capsule 100 mg PO BID PRN laxative effect 08/04/22 09/02/22 Rx #60 caps fentanyl 50 mcg/hr transdermal 50 mcg transdermal Q72H #5 ea 08/04/22 09/02/22 Rx patch polyethylene glycol 3350 17 gram 17 g PO DAILY PRN laxative effect 08/04/22 09/02/22 Rx oral powder packet (Miralax) #30 ea potassium chloride 20 mEq 20 meq PO DAILY #30 tabs 08/04/22 09/02/22 Rx tablet,extended release hydromorphone 2 mg tablet 2 mg PO Q3H PRN Severe Pain (Scale 08/12/22 09/02/22 History (Dilaudid) Score 7-10) aspirin 81 mg tablet 81 mg PO DAILY 09/02/22 09/02/22 History buspirone 10 mg tablet 10 mg PO BID PRN Pain 09/02/22 09/02/22 History mirtazapine 15 mg tablet 15 mg PO HS 09/02/22 09/02/22 History pantoprazole 40 mg tablet,delayed 40 mg PO QAM 09/02/22 09/02/22 History release sennosides 8.6 mg tablet (Senokot) 8.6 mg PO BID PRN Constipation 09/02/22 09/02/22 History Patient History Medical History Asthma Cancer related pain GERD (gastroesophageal reflux disease) Hepatic steatosis HTN (hypertension) 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 Grandmother (Maternal) , iat 91 old age No problems noted. Grandfather (Paternal) , in his eighties old age No problems noted. Father , age 66 of pancreatic cancer and metastasis No problems noted. Mother No problems noted. Brother Age: 54 No problems noted. Son Age: 35 Leukemia in remission Daughter Age: 35 No problems noted. Daughter Age: 23 No problems noted. Son Age: 20 No problems noted. 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 Required: No Beliefs That Will Affect Care: None marital status: Current Living Situation: Spouse current occupational status: employed Feels Safe at Home: Yes Childhood Exposure to Second-Hand Smoke: Yes caffeine: No Dental Care, Regularly: Yes Physical Activity Frequency: Does not Exercise Seatbelt Use: always Sunscreen Use: Yes Do you think of yourself as: straight/heterosexual Assistive Devices: None Review of Systems Review of Systems: All systems reviewed & are unremarkable except as noted in HPI & below Physical Exam Constitutional: well developed and well nourished; no acute distress and not ill appearing Eyes: no scleral abnormality Neck: normal visual inspection Respiratory: normal respiratory effort and able to speak in complete sentences; no respiratory distress and no labored breathing Cardiovascular: Extremities: no pedal edema Gastrointestinal (Abdomen): Inspection/Auscultation: abdomen normal to inspection; abdomen not distended Percussion/Palpation: + abdomen tender (tender to palpation at right upper quadrant) and abdomen soft; no guarding Musculoskeletal: Head/Neck/Chest: normocephalic and head atraumatic Neurologic: moves all extremities and awake Psychiatric: Orientation: alert and oriented x 3 Genitourinary: no CVA tenderness Results & Data ([facility]) Vital Signs (Past 12 Hours) Vital Signs Temp Pulse Pulse Pulse Resp BP Pulse Ox 09/05/22 11:49 37.2 C 94 H 20 133/84 92 09/05/22 06:08 85 09/05/22 07:46 37.0 C 102 H 20 129/84 92 09/05/22 03:20 36.6 C 93 H 20 119/78 92 O2 Del Method 09/05/22 11:49 Room Air 09/05/22 06:08 09/05/22 07:46 Room Air 09/05/22 03:20 BiPAP PG Care Time/CCT Total # of Minutes Spent Total Time Spent with Patient: Total time spent is greater than 50% in coordination of care (as documented) at patient's floor/unit and/or counseling patient: Coding Level of Care Code 69779 Inpt Consult Level 4 Diagnoses Hematuria R31.9
[2022-09-05 14:13] LABS: Albumin Globulin Ratio 0.6 (0.9-2); Albumin Level 2.5 gm/dl (3.4-5.0); BUN Creatinine Ratio 23.1 (10-20); Bilirubin,Total 1.5 mg/dl (0.2-1.0); Calcium 7.9 mg/dl (8.5-10.1); Creatinine Clr Calc Pharmacy 171.6 ml/min; Est GFR (African American) 124.3 ml/min; Est GFR (Non-African American) 107.2 ml/min; Globulin 4.4 gm/dl (2.5-4.0); Potassium 3.5 mmol/L (3.5-5.1); Total Protein 6.9 gm/dl (6.0-8.3)
--- NOTE | 2022-09-05 14:44 | Hospitalist Progress Note ---
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 Garcia [facility] rad onc, asthma, hypertension and other medical problems listed below who presents with overnight fever and transaminitis. Fever Possible pyelonephritis Afebrile in last 24 hours. He was febrile to 38.3 C intermittently since admission. Urinalysis analysis does not show sign of infection Urine culture no growth Blood culture no growth so far CT abd/pelvis with mild enlargement and heterogeneous enhancement within the kidneys which is new from the prior study. Also with hepatic steatosis, bladder wall thickening Head CT without acute abnormality, chest CTA without evidence of PE, overall interval mild decrease in size of numerous pulmonary and pleural-based masses/nodules Plan; Appreciate infectious disease input. Vancomycin discontinued as MRSA was negative. -Lyme serology and tickborne illness lab sent. Nothing positive for so far. -We will continue on cefepime for now. -Thoracic echo did not show any significant findings. Hepatoxicity and acute liver insufficiency secondary to Votrient therapy Started on Votrient chemotherapy on 07/27, last taken on 08/25. Currently on hold given worsening transaminitis AST, ALT and ALP all downtrending. GI on board; likely chemo related drug-induced liver injury. Continue to monitor. Patient's oncologist Dr. Martin contacted; awaiting callback Hematuria Epistaxis Can be secondary to Votrient therapy Patient reports episode of epistaxis from his left naris and pinkish urine output on 09/03 PT/INR and APTT mildly elevated. Hemoglobin is stable. Continue to monitor. Patient is not on aspirin at home. Heparin Presently on hold. Plan; Nephrology and urology's recommendation appreciated. 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 Garcia [facility] rad onc Dr Martin's contact info : [phone]. Contacted; awaiting callback. Acute kidney injury, resolved Cr 1.49 (baseline ~ 0.61). CT abd/pelvis with mild enlargement and heterogeneous enhancement within the kidneys which is new from the prior study Will hold his antihypertensives for today. MICHA likely secondary to sepsis. On LR at 80 cc/h. Cancer related pain on narcotics Following with palliative care. Right thyroid nodule Incidental finding on chest CTA. Nonemergent ultrasound and outpatient follow- up recommended Hypertension Antihypertensive on hold. Asthma Continue albuterol nebulizer as needed for shortness of breath and wheezing, albuterol rescue inhaler, Singulair Constipation Continue bowel regimen. DVT Ppx: SCDs for now. Holding off pharmacologic PPx in light of hematuria and epistaxis Code status: FULL PCP: [facility] Dispo: Admitted to PCU Discussed with at bedside. Answered questions. Admission and Anticipated Discharge Date Admission Date: September 02, 2022 Subjective Patient seen and examined at bedside. He is comfortable; not in any distress. He is afebrile in last 24 hours. Review of Systems Review of Systems: All systems reviewed & are unremarkable except as noted in Subjective Physical Exam Physical Exam: Constitutional: WD/WN, vitals as above, NAD, sitting up in bed, pleasant, conversing easily Respiratory: normal respiratory effort, lungs clear to auscultation, no wheeze, rales, rhonchi. Normal insp/exp effort, no accessory muscle use Cardiovascular: RRR, no murmur, no edema Vessels: no JVD or carotid bruit Chest: normal inspection of chest. Port present at right upper chest Abdomen: Tenderness present at left flank. Musculoskeletal: no cyanosis or clubbing, extremities motor strength 5/5 Skin: no rashes, warm and dry normal turgor Neurologic: PERRL, EOMI, accommodation nl, no face palsy, no dysarthria CN's II- XI intact bilaterally and moves all extremities Psychiatric: A+Ox3, euthymic affect Lymphatic: no cervical or axillary lymphadenopathy : deferred Results & Data Results & Data ([facility]) Vital Signs (Past 12 Hours) Vital Signs Temp Pulse Pulse Pulse Resp BP Pulse Ox 09/05/22 11:49 37.2 C 94 H 20 133/84 92 09/05/22 06:08 85 09/05/22 07:46 37.0 C 102 H 20 129/84 92 09/05/22 03:20 36.6 C 93 H 20 119/78 92 O2 Del Method 09/05/22 11:49 Room Air 09/05/22 06:08 09/05/22 07:46 Room Air 09/05/22 03:20 BiPAP Laboratory Results Laboratory Results WBC 5.06 K/ul (4.8-10.8) 09/05/22 12:11 RBC 3.50 M/uL (4.63-6.08) L 09/05/22 12:11 Hgb 10.9 g/dl (14.0-18.0) L 09/05/22 12:11 Hct 32.4 % (40.1-51.0) L 09/05/22 12:11 MCV 92.6 fL (80.0-100.0) 09/05/22 12:11 MCH 31.1 pg (25.0-34.0) 09/05/22 12:11 MCHC 33.6 g/dL (32.0-36.0) 09/05/22 12:11 RDW Std Deviation 52.5 fL (36.4-46.3) H 09/05/22 12:11 RDW Coeff of Darrell 15.5 % (11.5-14.5) H 09/05/22 12:11 Plt Count 166 K/uL (130-400) 09/05/22 12:11 MPV 10.9 fL (9.4-12.4) 09/05/22 12:11 Immature Gran % (Auto) 0.4 % 09/05/22 12:11 Neut % (Auto) 76.9 % 09/05/22 12:11 Lymph % (Auto) 13.8 % 09/05/22 12:11 [place] % (Auto) 8.5 % 09/05/22 12:11 Eos % (Auto) 0.0 % 09/05/22 12:11 Baso % (Auto) 0.4 % 09/05/22 12:11 Neut # (Auto) 3.89 K/uL (1.4-6.5) 09/05/22 12:11 Lymph # (Auto) 0.70 K/uL (1.2-3.4) L 09/05/22 12:11 [place] # (Auto) 0.43 K/uL (0.24-0.82) 09/05/22 12:11 Eos # (Auto) 0.00 K/uL (0-0.50) 09/05/22 12:11 Baso # (Auto) 0.02 K/uL (0-0.2) 09/05/22 12:11 Immature Gran # (Auto) 0.02 K/uL (0.00-0.02) 09/05/22 12:11 PT 15.3 Seconds (9.0-12.0) H 09/03/22 12:06 INR 1.5 (0.9-1.1) H 09/03/22 12:06 APTT 33.5 Seconds (21.0-31.0) H 09/03/22 12:06 PTT Ratio 1.2 09/03/22 12:06 Sodium 138 mmol/L (136-145) 09/05/22 12:11 Potassium 3.5 mmol/L (3.5-5.1) 09/05/22 12:11 Chloride 102 mmol/L (98-107) 09/05/22 12:11 Carbon Dioxide 27 mmol/L (21-32) 09/05/22 12:11 Anion Gap 9 (3-11) 09/05/22 12:11 BUN 15 mg/dl (6-23) 09/05/22 12:11 Creatinine 0.65 mg/dl (0.6-1.4) 09/05/22 12:11 Est Cr Clr Drug Dosing 171.6 ml/min 09/05/22 12:11 Est GFR ( Amer) 124.3 ml/min 09/05/22 12:11 Est GFR (Non-Af Amer) 107.2 ml/min 09/05/22 12:11 BUN/Creatinine Ratio 23.1 (10-20) H 09/05/22 12:11 Glucose 107 mg/dl (70-99(Fasting)) H 09/05/22 12:11 Calcium 7.9 mg/dl (8.5-10.1) L 09/05/22 12:11 Total Bilirubin 1.5 mg/dl (0.2-1.0) H 09/05/22 12:11 AST 161 U/L (13-39) H 09/05/22 12:11 ALT 179 U/L (7-52) H 09/05/22 12:11 Alkaline Phosphatase 146 U/L (34-104) H 09/05/22 12:11 Total Protein 6.9 gm/dl (6.0-8.3) 09/05/22 12:11 Albumin 2.5 gm/dl (3.4-5.0) L 09/05/22 12:11 Globulin 4.4 gm/dl (2.5-4.0) H 09/05/22 12:11 Albumin/Globulin Ratio 0.6 (0.9-2) L 09/05/22 12:11 Lipase 15 U/L (11-82) 09/02/22 12:00 Urine Color [place] 09/03/22 11:10 Urine Appearance Clear (Clear) 09/03/22 11:10 Urine pH 5.0 (4.5-7.5) 09/03/22 11:10 Ur Specific [place] 1.021 (1.000-1.030) 09/03/22 11:10 Urine Protein 1+ (Negative) H 09/03/22 11:10 Urine Glucose (UA) Negative (Negative) 09/03/22 11:10 Urine Ketones Negative (Negative) 09/03/22 11:10 Urine Blood Trace (Negative) H 09/03/22 11:10 Urine Nitrite Negative (Negative) 09/03/22 11:10 Urine Bilirubin Negative (Negative) 09/03/22 11:10 Urine Urobilinogen Negative (Negative) 09/03/22 11:10 Ur Leukocyte Esterase Negative (Negative) 09/03/22 11:10 Urine WBC (Auto) 1-5 /hpf (0-5) 09/03/22 11:10 Urine RBC (Auto) 5-10 /hpf (0-4) H 09/03/22 11:10 U Hyaline Cast (Auto) 5-10 /lpf (0-5) H 09/03/22 11:10 U Epithel Cells (Auto) 10-20 /lpf (0-5) H 09/03/22 11:10 Urine Bacteria (Auto) Negative (Negative) 09/03/22 11:10 Ur Random Creatinine 128.9 mg/dl 09/03/22 11:10 U Random Total Protein 111.8 mg/dl (0-11.9) H 09/03/22 11:10 Protein/Creatinin Ratio 0.9 (0-0.2) H 09/03/22 11:10 Nasal Screen MRSA (PCR) Negative (Negative) 09/04/22 16:51 Random Vancomycin 10.0 mcg/ml (10-20) 09/05/22 08:36 Acetaminophen < 3 ug/ml (10-30) L 09/03/22 12:06 Anaplasma Smear See Comment 09/04/22 15:20 Babesia Smear See Comment 09/04/22 15:20 Lyme Disease IgG Ab Negative (Negative) 09/04/22 15:20 Lyme Disease IgM Ab Negative (Negative) 09/04/22 15:20 Hepatitis A IgM Ab NON-REACTIVE (NON-REACTIVE) 09/03/22 12:06 Hep Bs Antigen NON-REACTIVE (NON-REACTIVE) 09/03/22 12:06 Hep Bs Ag Confirmation TNP 09/03/22 12:06 Hep B Core IgM Ab NON-REACTIVE (NON-REACTIVE) 09/03/22 12:06 Hepatitis C Ab (EIA) NON-REACTIVE (NON-REACTIVE) 09/03/22 12:06 Hep C Ab Signal/Cutoff 0.13 (<1.00) 09/03/22 12:06 SARS-CoV-2, RNA, NAAT NEGATIVE (NEGATIVE) 09/02/22 12:20 Impressions Abdomen/Pelvis CT 09/02/22 11:[address] WITH IV CONTRAST CT DOSE: 3289.58 mGy.cm HISTORY: Right upper quadrant pain, transaminitis, radiation trx to liver TECHNIQUE: Multiaxial CT images of the abdomen and pelvis were performed following the use of intravenous contrast. A dose lowering technique was utilized adhering to the principles of ALARA. COMPARISON STUDY: Outside hospital chest, abdomen, and pelvis CT 07/30/2022. Chest CTA 07/31/2022. FINDINGS: Please refer to the same day chest CTA for further evaluation of the intrathoracic metastatic disease. No pneumoperitoneum. No pneumatosis. There is a left total hip arthroplasty. No suspicious lytic or blastic osseous lesions. Partially visualized catheter tip at the distal SVC. Trace bilateral pleural effusions and multiple pleural/pulmonary masses again noted. There is a tiny fat-containing umbilical hernia. Hepatic steatosis. No hepatic or splenic masses. The adrenal glands, pancreas, and gallbladder are unremarkable. The main portal vein is patent. No retroperitoneal or pelvic lymphadenopathy. Normal caliber abdominal aorta. No hydronephrosis. Mild bilateral perinephric edema has slightly progressed. No renal or ureteral stones identified. Stable 3.7 cm intermediate density lesion within the upper pole the left kidney. This favors a hyperdense cyst. Mild diffuse heterogeneous enhancement within the kidneys which is new from the prior study. The kidneys appear slightly enlarged compared to the prior study. No hydronephrosis. Normal caliber abdominal aorta. Moderate bladder wall thickening. The prostate gland is mildly enlarged. Deep pelvic structures are suboptimally assessed due to the metallic artifact from the left hip prosthesis. Colonic diverticulosis. No evidence for acute diverticulitis. No bowel wall thickening or obstruction. Normal appendix. Small subcutaneous trace nodules within the gluteal regions favors prior medication injection. Chronic epiploic appendages within the right upper quadrant remain stable. No adjacent inflammatory change to suggest an acute abnormality. IMPRESSION: 1. Mild enlargement and heterogeneous enhancement within the kidneys which is new from the prior study. Mild bilateral perinephric edema has also progressed. This could be due to a pyelonephritis or glomerulonephritis. Recommend correlate with urinalysis and renal function tests for further evaluation. 2. Hepatic steatosis. No hepatic masses. 3. Please refer to the same day chest CT for further evaluation of the intrathoracic metastatic disease. 4. No bowel wall thickening or obstruction. 5. Bladder wall thickening. This could be due to chronic outlet obstruction from the enlarged prostate gland or a cystitis. Recommend correlation with urinalysis. 6. Colonic diverticulosis. No evidence for acute diverticulitis. 7. Normal appendix. 8. Additional findings as described above. ACT 112: Negative or not required by law. Electronically signed by: Winston Sepulveda M.D. 09/02/2022 1:45 PM Chest CTA 09/02/22 11:56 CT angio chest PE protocol CLINICAL HISTORY: PE, h/o radiation to liver/chemo; h/o lung ca TECHNIQUE: Multidetector row helical CT of the chest was performed with angiographic protocol. Coronal and sagittal reformations were obtained. Coronal and sagittal MIPS were obtained from the axial data set and were submitted for review. Automated dose lowering techniques and/or adjustment according to patient size were utilized for this exam. Comparison: Comparison is made to CTA chest 07/31/2022 FINDINGS: Lungs and pleura: Numerous pulmonary and pleural-based nodules are seen, overall minimally decreased in size from prior exam. For example, a right perihilar nodule previously measured 39 mm, now measures 22 mm. A right lower lobe nodule previously measured 60 mm, now measures 50 mm. Heart and pericardium: Heart size is normal. No pericardial effusion. Vessels: No evidence of pulmonary embolism. Mediastinum and otoniel: Unremarkable. Chest wall and lower neck: A right thyroid nodule measures 21 mm in diameter. Right jugular catheter is seen. Abdomen: For findings below the diaphragm, please refer to CT of the abdomen dated the same. Bones: Unremarkable. IMPRESSION: 1. No evidence of pulmonary embolism. 2. Overall interval mild decrease in size of numerous pulmonary and pleural- based masses/nodules. 3. Right thyroid nodule is incidentally noted. If not previously evaluated, nonemergent ultrasound can be performed. ACT 112: Positive. There are findings on this exam that require communication between the performing entity and the patient following Patient Test Result Information Act ([place] Act 112) guidelines. Electronically signed by: Viktor Carpenter M.D. 09/02/2022 1:[address] 09/02/22 11:57 CT SCAN OF THE BRAIN WITHOUT IV CONTRAST CLINICAL HISTORY: Change in mental status. Fever. History of lung cancer. COMPARISON STUDY: No priors. TECHNIQUE: Unenhanced axial CT scan of the brain is performed from the vertex to the skull base. A dose lowering technique was utilized adhering to the principles of ALARA. FINDINGS: Brain parenchyma: There is age-related involutional change noting mild subcortical and periventricular microangiopathic disease. There is no hemorrhage, mass effect, or evidence of acute territorial ischemia by CT criteria. Corbett-white matter differentiation is preserved. No extra-axial fluid collection is seen. Ventricles, sulci, cisterns: Prominent secondary to involutional change. Intracranial vasculature: There is atherosclerotic calcification of the cavernous carotid arteries. Calvarium: Unremarkable. Sinuses and mastoids: The visualized paranasal sinuses are clear. The mastoid air cells are well pneumatized. Orbits: The bony orbits are grossly intact. A prosthetic globe is seen on the right. IMPRESSION: There is no hemorrhage, mass effect, or evidence of acute territorial ischemia by CT criteria. ACT 112: Negative or not required by law. Electronically signed by: Santos Gutiérrez M.D. 09/02/2022 1:35 PM Abdomen Ultrasound 09/03/22 11:10 US abdomen limited CLINICAL HISTORY: RUQ us; elevated lft TECHNIQUE: Multiple real-time sonographic images of the right upper quadrant were obtained. Comparison: Comparison is made to CT abdomen pelvis 09/02/2022 FINDINGS: The liver is diffusely echogenic in appearance with poor ultrasound penetration, with normal contour, which is consistent with fatty infiltration. No focal mass lesions are seen. No intrahepatic ductal dilatation is seen. The gallbladder is contracted. No stones are seen. A sonographic Nuno's sign was not elicited by the incident response lead. The common duct measures 0.6 cm in diameter at the level of the hepatic artery. The visualized portions of the pancreas appear normal. The right kidney shows normal echogenicity, cortical thickness and renal contour. The right kidney shows no evidence of hydronephrosis or mass. No ascites or free fluid is seen in Torres's pouch. IMPRESSION: Hepatic steatosis. No evidence of acute cholecystitis. ACT 112: Negative or not required by law. Electronically signed by: Viktor Carpenter M.D. 09/03/2022 5:46 PM (1) Fever Fever type: due to other condition Qualified Code(s): R50.81 - Fever presenting with conditions classified elsewhere
[2022-09-05] MEDS: hydrOXYzine HCl 25 MG TAB PO SCH (20:19)
[2022-09-05] MEDS: MIRTAZAPINE TAB 15 MG TAB PO SCH (20:19)
[2022-09-06] MEDS: CHECK fentaNYL PATCH PLACEMENT SCH ×4 (01:00→23:29)
[2022-09-06] MEDS: CEFEPIME 2,000 MG in SYRINGE 0 ML IV SCH ×4 (01:00→23:30)
[2022-09-06] MEDS: HYDROmorphone HCL 2 MG TAB PO PRN ×7 (01:12→23:28)
[2022-09-06] MEDS ORDERED: HYDROmorphone INJ 0.5 MG/0.5 ML SYR IV STA (03:15)
[2022-09-06] MEDS: ACETAMINOPHEN 325 MG TAB PO PRN ×3 (03:24→20:04)
[2022-09-06 04:20] LABS: Basophils # (auto) 0.02 K/uL (0-0.2); Basophils % (auto) 0.4 %; Hematocrit (blood only) 30.7 % (40.1-51.0); Hemoglobin 10.4 g/dl (14.0-18.0); Immature Granulocytes # (auto) 0.02 K/uL (0.00-0.02); Immature Granulocytes % (auto) 0.4 %; Lymphocytes # (auto) 0.84 K/uL (1.2-3.4); Lymphocytes % (auto) 15.7 %; Mean Corpuscular Hgb Conc 33.9 g/dL (32.0-36.0); Mean Corpuscular Volume 91.4 fL (80.0-100.0); Mean Platelet Volume 10.8 fL (9.4-12.4); Monocytes # (auto) 0.53 K/uL (0.24-0.82); Monocytes % (auto) 9.9 %; Neutrophils # (auto) 3.93 K/uL (1.4-6.5); Neutrophils % (auto) 73.6 %; Platelet Count 167 K/uL (130-400); RDW Coefficient of Variation 15.4 % (11.5-14.5); RDW Standard Deviation 50.9 fL (36.4-46.3); Red Blood Count 3.36 M/uL (4.63-6.08); White Blood Count 5.34 K/ul (4.8-10.8)
[2022-09-06 04:38] LABS: Albumin Globulin Ratio 0.6 (0.9-2); Albumin Level 2.5 gm/dl (3.4-5.0); BUN Creatinine Ratio 18.2 (10-20); Bilirubin,Total 1.6 mg/dl (0.2-1.0); Calcium 7.7 mg/dl (8.5-10.1); Creatinine Clr Calc Pharmacy 144.9 ml/min; Est GFR (African American) 115.9 ml/min; Globulin 4.2 gm/dl (2.5-4.0); Potassium 3.7 mmol/L (3.5-5.1); Total Protein 6.7 gm/dl (6.0-8.3)
[2022-09-06] MEDS: LACTATED RINGER'S 1,000 ML IV SCH (06:19)
[2022-09-06] MEDS: FLUTICASONE PROPIONATE NA SPR 16 GM BTL NAE SCH (08:16)
[2022-09-06] MEDS: LORATADINE 10 MG TAB PO SCH (08:16)
[2022-09-06] MEDS: POTASSIUM CHLORIDE CRTAB 20 MEQ TABCR PO SCH (08:16)
[2022-09-06] MEDS: FLUTICASONE/VILANTEROL 100/25MCG 14 PUFFS/INHALER INH SCH (08:16)
[2022-09-06] MEDS: MONTELUKAST SODIUM 10 MG TABLET PO SCH (08:16)
[2022-09-06] MEDS: PANTOprazole 40 MG TAB PO SCH (08:16)
[2022-09-06] MEDS: FAMOTIDINE 40 MG TABLET PO SCH (08:16)
[2022-09-06] MEDS: MAGNESIUM HYDROXIDE SUSP 30 ML UDC PO SCH (08:17)
[2022-09-06] MEDS: fentaNYL 50 MCG/HR TDSY TD SCH (08:21)
--- NOTE | 2022-09-06 14:18 | Nephrology Progress Note ---
Date of Service September 06, 2022 Assessment & Plan (1) Hematuria: Plan: suspect this is multifactorial > from liver dysfunction/mild coagulopathy and pazopanib (votrient). 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 while glomerulonephritis has been reported w/ TKIs, it is case report only and in setting of MICHA and other immune modulating medications in addition to TKIs. during acute illness would not start dar/ arb but could consider after hospital d/c nothing to suggest nephrotic syndrome at this time >but do recommend stopping ivf andmonitoring BP along with 24 hr urine while here for creat and protein >recommend renal f/u after hospital d/c Admission and Anticipated Discharge Date Admission Date: September 02, 2022 Subjective no interval events. F again this am. no sob. no decreased UOP or change in gross urine appearance. urology recommends OP cysto mid Dec. Review of Systems Review of Systems: All systems reviewed & are unremarkable except as noted in Subjective Physical Exam Constitutional: well developed, well nourished, + obese and cooperative; no acute distress Eyes: EOM intact bilaterally ENMT: Ears: no external ear abnormality Nose: no external nose abnormality Mouth: + dry oral mucous membranes Neck: no nuchal rigidity Respiratory: normal respiratory effort Auscultation: + diminished lung sounds Cardiovascular: Rate/Rhythm: regular rhythm and + tachycardic (in 90s) Extremities: no edema Gastrointestinal (Abdomen): Inspection/Auscultation: normal bowel sounds Percussion/Palpation: abdomen soft; abdomen nontender Musculoskeletal: Extremities: strength 5/5 throughout Skin: no rashes, warm and dry slight diaphoresis/skin warm to touch Neurologic: thomas, fluent speech, no tremor Psychiatric: Orientation: oriented x 3 Speech: normal rate/rhythm/volume of speech Results & Data ([facility]) Vital Signs (Past 12 Hours) Vital Signs Temp Pulse Pulse Resp BP Pulse Ox O2 Del Method 09/06/22 11:39 37.9 C H 105 H 16 159/92 H 94 Room Air 09/06/22 08:08 36.8 C 96 H 16 136/89 96 Room Air 09/06/22 06:00 99 H 09/06/22 03:23 38.5 C H 77 18 154/97 H 92 Room Air Laboratory Results 09/06/22 03:59 09/06/22 03:59
--- NOTE | 2022-09-06 14:46 | Hospitalist Progress Note ---
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 Garcia [facility] rad onc, asthma, hypertension and other medical problems listed below who presents with overnight fever and transaminitis. Fever Possible pyelonephritis Fever again this morning to 38.5 C. Afebrile otherwise. Urinalysis analysis does not show sign of infection Urine culture no growth Blood culture no growth so far CT abd/pelvis with mild enlargement and heterogeneous enhancement within the kidneys which is new from the prior study. Also with hepatic steatosis, bladder wall thickening Head CT without acute abnormality, chest CTA without evidence of PE, overall int erval mild decrease in size of numerous pulmonary and pleural-based masses/nodules Plan; Another set of blood culture obtained. -If no growth on blood culture till tomorrow morning; will stop antibiotic and observe him. Will reach out to ID for further recommendation on Thursday. Vancomycin discontinued as MRSA was negative. -Lyme serology and tickborne illness lab sent. Nothing positive for so far. -Thoracic echo did not show any significant findings. Hepatoxicity and acute liver insufficiency secondary to Votrient therapy Started on Votrient chemotherapy on 07/27, last taken on 08/25. Currently on hold given worsening transaminitis AST, ALT and ALP all downtrending. GI on board; likely chemo related drug-induced liver injury. Continue to monitor. Patient's oncologist Dr. Martin contacted; awaiting callback Hematuria Proteinuria Epistaxis Can be secondary to Votrient therapy Patient reports episode of epistaxis from his left naris and pinkish urine output on 09/03 PT/INR and APTT mildly elevated. Hemoglobin is stable. Continue to monitor. Patient is not on aspirin at home. Heparin Presently on hold. Plan; Plan for 24-hour urine collection for protein as per nephrology. Follow-up with nephrology as outpatient. -- Follow-up with urology as outpatient for possible cystoscopy. 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 Garcia [facility] rad onc Dr Martin's contact info : [phone]. Contacted; awaiting callback. Acute kidney injury, resolved Cr 1.49 (baseline ~ 0.61). CT abd/pelvis with mild enlargement and heterogeneous enhancement within the kidneys which is new from the prior study . Fluid. Resume hydrochlorothiazide and losartan. Cancer related pain on narcotics Following with palliative care. Right thyroid nodule Incidental finding on chest CTA. Nonemergent ultrasound and outpatient follow- up recommended Hypertension Antihypertensive on hold. Asthma Continue albuterol nebulizer as needed for shortness of breath and wheezing, albuterol rescue inhaler, Singulair Constipation Continue bowel regimen. DVT Ppx: SCDs for now. Holding off pharmacologic PPx in light of hematuria and epistaxis Code status: FULL PCP: [facility] Dispo: Admitted to PCU Discussed with at bedside. Answered questions. Admission and Anticipated Discharge Date Admission Date: September 02, 2022 Subjective Patient seen and examined at bedside. He is comfortably lying in the bed; not in any distress. He reports feeling better overall compared to previous days. He had a fever of 38.5 C this morning; reports that he did not have any chills or discomfort at that moment. Review of Systems Review of Systems: All systems reviewed & are unremarkable except as noted in Subjective Physical Exam Physical Exam: Constitutional: WD/WN, vitals as above, NAD, sitting up in bed, pleasant, conversing easily Respiratory: normal respiratory effort, lungs clear to auscultation, no wheeze, rales, rhonchi. Normal insp/exp effort, no accessory muscle use Cardiovascular: RRR, no murmur, no edema Vessels: no JVD or carotid bruit Chest: normal inspection of chest. Port present at right upper chest Abdomen: Tenderness present at left flank. Musculoskeletal: no cyanosis or clubbing, extremities motor strength 5/5 Skin: no rashes, warm and dry normal turgor Neurologic: PERRL, EOMI, accommodation nl, no face palsy, no dysarthria CN's II- XI intact bilaterally and moves all extremities Psychiatric: A+Ox3, euthymic affect Lymphatic: no cervical or axillary lymphadenopathy : deferred Results & Data Results & Data ([facility]) Vital Signs (Past 12 Hours) Vital Signs Temp Pulse Pulse Resp BP Pulse Ox O2 Del Method 09/06/22 11:39 37.9 C H 105 H 16 159/92 H 94 Room Air 09/06/22 08:08 36.8 C 96 H 16 136/89 96 Room Air 09/06/22 06:00 99 H 09/06/22 03:23 38.5 C H 77 18 154/97 H 92 Room Air Laboratory Results Laboratory Results WBC 5.34 K/ul (4.8-10.8) 09/06/22 03:59 RBC 3.36 M/uL (4.63-6.08) L 09/06/22 03:59 Hgb 10.4 g/dl (14.0-18.0) L 09/06/22 03:59 Hct 30.7 % (40.1-51.0) L 09/06/22 03:59 MCV 91.4 fL (80.0-100.0) 09/06/22 03:59 MCH 31.0 pg (25.0-34.0) 09/06/22 03:59 MCHC 33.9 g/dL (32.0-36.0) 09/06/22 03:59 RDW Std Deviation 50.9 fL (36.4-46.3) H 09/06/22 03:59 RDW Coeff of Darrell 15.4 % (11.5-14.5) H 09/06/22 03:59 Plt Count 167 K/uL (130-400) 09/06/22 03:59 MPV 10.8 fL (9.4-12.4) 09/06/22 03:59 Immature Gran % (Auto) 0.4 % 09/06/22 03:59 Neut % (Auto) 73.6 % 09/06/22 03:59 Lymph % (Auto) 15.7 % 09/06/22 03:59 Pratt % (Auto) 9.9 % 09/06/22 03:59 Eos % (Auto) 0.0 % 09/06/22 03:59 Baso % (Auto) 0.4 % 09/06/22 03:59 Neut # (Auto) 3.93 K/uL (1.4-6.5) 09/06/22 03:59 Lymph # (Auto) 0.84 K/uL (1.2-3.4) L 09/06/22 03:59 Pratt # (Auto) 0.53 K/uL (0.24-0.82) 09/06/22 03:59 Eos # (Auto) 0.00 K/uL (0-0.50) 09/06/22 03:59 Baso # (Auto) 0.02 K/uL (0-0.2) 09/06/22 03:59 Immature Gran # (Auto) 0.02 K/uL (0.00-0.02) 09/06/22 03:59 PT 15.3 Seconds (9.0-12.0) H 09/03/22 12:06 INR 1.5 (0.9-1.1) H 09/03/22 12:06 APTT 33.5 Seconds (21.0-31.0) H 09/03/22 12:06 PTT Ratio 1.2 09/03/22 12:06 Sodium 136 mmol/L (136-145) 09/06/22 03:59 Potassium 3.7 mmol/L (3.5-5.1) 09/06/22 03:59 Chloride 101 mmol/L (98-107) 09/06/22 03:59 Carbon Dioxide 27 mmol/L (21-32) 09/06/22 03:59 Anion Gap 8 (3-11) 09/06/22 03:59 BUN 14 mg/dl (6-23) 09/06/22 03:59 Creatinine 0.77 mg/dl (0.6-1.4) 09/06/22 03:59 Est Cr Clr Drug Dosing 144.9 ml/min 09/06/22 03:59 Est GFR ( Amer) 115.9 ml/min 09/06/22 03:59 Est GFR (Non-Af Amer) 100.0 ml/min 09/06/22 03:59 BUN/Creatinine Ratio 18.2 (10-20) 09/06/22 03:59 Glucose 96 mg/dl (70-99(Fasting)) 09/06/22 03:59 Calcium 7.7 mg/dl (8.5-10.1) L 09/06/22 03:59 Total Bilirubin 1.6 mg/dl (0.2-1.0) H 09/06/22 03:59 AST 141 U/L (13-39) H 09/06/22 03:59 ALT 157 U/L (7-52) H 09/06/22 03:59 Alkaline Phosphatase 142 U/L (34-104) H 09/06/22 03:59 Total Protein 6.7 gm/dl (6.0-8.3) 09/06/22 03:59 Albumin 2.5 gm/dl (3.4-5.0) L 09/06/22 03:59 Globulin 4.2 gm/dl (2.5-4.0) H 09/06/22 03:59 Albumin/Globulin Ratio 0.6 (0.9-2) L 09/06/22 03:59 Lipase 15 U/L (11-82) 09/02/22 12:00 Urine Color [place] 09/03/22 11:10 Urine Appearance Clear (Clear) 09/03/22 11:10 Urine pH 5.0 (4.5-7.5) 09/03/22 11:10 Ur Specific [place] 1.021 (1.000-1.030) 09/03/22 11:10 Urine Protein 1+ (Negative) H 09/03/22 11:10 Urine Glucose (UA) Negative (Negative) 09/03/22 11:10 Urine Ketones Negative (Negative) 09/03/22 11:10 Urine Blood Trace (Negative) H 09/03/22 11:10 Urine Nitrite Negative (Negative) 09/03/22 11:10 Urine Bilirubin Negative (Negative) 09/03/22 11:10 Urine Urobilinogen Negative (Negative) 09/03/22 11:10 Ur Leukocyte Esterase Negative (Negative) 09/03/22 11:10 Urine WBC (Auto) 1-5 /hpf (0-5) 09/03/22 11:10 Urine RBC (Auto) 5-10 /hpf (0-4) H 09/03/22 11:10 U Hyaline Cast (Auto) 5-10 /lpf (0-5) H 09/03/22 11:10 U Epithel Cells (Auto) 10-20 /lpf (0-5) H 09/03/22 11:10 Urine Bacteria (Auto) Negative (Negative) 09/03/22 11:10 Ur Random Creatinine 128.9 mg/dl 09/03/22 11:10 U Random Total Protein 111.8 mg/dl (0-11.9) H 09/03/22 11:10 Protein/Creatinin Ratio 0.9 (0-0.2) H 09/03/22 11:10 Nasal Screen MRSA (PCR) Negative (Negative) 09/04/22 16:51 Random Vancomycin 10.0 mcg/ml (10-20) 09/05/22 08:36 Acetaminophen < 3 ug/ml (10-30) L 09/03/22 12:06 Anaplasma Smear See Comment 09/04/22 15:20 Babesia Smear See Comment 09/04/22 15:20 Lyme Disease IgG Ab Negative (Negative) 09/04/22 15:20 Lyme Disease IgM Ab Negative (Negative) 09/04/22 15:20 Hepatitis A IgM Ab NON-REACTIVE (NON-REACTIVE) 09/03/22 12:06 Hep Bs Antigen NON-REACTIVE (NON-REACTIVE) 09/03/22 12:06 Hep Bs Ag Confirmation TNP 09/03/22 12:06 Hep B Core IgM Ab NON-REACTIVE (NON-REACTIVE) 09/03/22 12:06 Hepatitis C Ab (EIA) NON-REACTIVE (NON-REACTIVE) 09/03/22 12:06 Hep C Ab Signal/Cutoff 0.13 (<1.00) 09/03/22 12:06 SARS-CoV-2, RNA, NAAT NEGATIVE (NEGATIVE) 09/02/22 12:20 Impressions Abdomen/Pelvis CT 09/02/22 11:[address] WITH IV CONTRAST CT DOSE: 3289.58 mGy.cm HISTORY: Right upper quadrant pain, transaminitis, radiation trx to liver TECHNIQUE: Multiaxial CT images of the abdomen and pelvis were performed f ollowing the use of intravenous contrast. A dose lowering technique was utilized adhering to the principles of ALARA. COMPARISON STUDY: Outside hospital chest, abdomen, and pelvis CT 07/30/2022. [facility] CTA 07/31/2022. FINDINGS: Please refer to the same day chest CTA for further evaluation of the intrathoracic metastatic disease. No pneumoperitoneum. No pneumatosis. There is a left total hip arthroplasty. No suspicious lytic or blastic osseous lesions. Partially visualized catheter tip at the distal SVC. Trace bilateral pleural effusions and multiple pleural/pulmonary masses again noted. There is a tiny fat-containing umbilical hernia. Hepatic steatosis. No hepatic or splenic masses. The adrenal glands, pancreas, and gallbladder are unremarkable. The main portal vein is patent. No retroperitoneal or pelvic lymphadenopathy. Normal caliber abdominal aorta. No hydronephrosis. Mild bilateral perinephric edema has slightly progressed. No renal or ureteral stones identified. Stable 3.7 cm i ntermediate density lesion within the upper pole the left kidney. This favors a hyperdense cyst. Mild diffuse heterogeneous enhancement within the kidneys which is new from the prior study. The kidneys appear slightly enlarged compared to the prior study. No hydronephrosis. Normal caliber abdominal aorta. Moderate bladder wall thickening. The prostate gland is mildly enlarged. Deep pelvic structures are suboptimally assessed due to the metallic artifact from the left hip prosthesis. Colonic diverticulosis. No evidence for acute diverticulitis. No bowel wall thickening or obstruction. Normal appendix. Small subcutaneous trace nodules within the gluteal regions favors prior medication injection. Chronic epiploic appendages within the right upper quadrant remain stable. No adjacent inflammatory change to suggest an acute abnormality. IMPRESSION: 1. Mild enlargement and heterogeneous enhancement within the kidneys which is new from the prior study. Mild bilateral perinephric edema has also progressed. This could be due to a pyelonephritis or glomerulonephritis. Recommend correlate with urinalysis and renal function tests for further evaluation. 2. Hepatic steatosis. No hepatic masses. 3. Please refer to the same day chest CT for further evaluation of the intrathoracic metastatic disease. 4. No bowel wall thickening or obstruction. 5. Bladder wall thickening. This could be due to chronic outlet obstruction from the enlarged prostate gland or a cystitis. Recommend correlation with urinalysis. 6. Colonic diverticulosis. No evidence for acute diverticulitis. 7. Normal appendix. 8. Additional findings as described above. ACT 112: Negative or not required by law. Electronically signed by: Winston Sepulveda M.D. 09/02/2022 1:45 PM Chest CTA 09/02/22 11:56 CT angio chest PE protocol CLINICAL HISTORY: PE, h/o radiation to liver/chemo; h/o lung ca TECHNIQUE: Multidetector row helical CT of the chest was performed with angiographic protocol. Coronal and sagittal reformations were obtained. Coronal and sagittal MIPS were obtained from the axial data set and were submitted for review. Automated dose lowering techniques and/or adjustment according to patient size were utilized for this exam. Comparison: Comparison is made to CTA chest 07/31/2022 FINDINGS: Lungs and pleura: Numerous pulmonary and pleural-based nodules are seen, overall minimally decreased in size from prior exam. For example, a right perihilar nodule previously measured 39 mm, now measures 22 mm. A right lower lobe nodule previously measured 60 mm, now measures 50 mm. Heart and pericardium: Heart size is normal. No pericardial effusion. Vessels: No evidence of pulmonary embolism. Mediastinum and otoniel: Unremarkable. Chest wall and lower neck: A right thyroid nodule measures 21 mm in diameter. Right jugular catheter is seen. Abdomen: For findings below the diaphragm, please refer to CT of the abdomen dated the same. Bones: Unremarkable. IMPRESSION: 1. No evidence of pulmonary embolism. 2. Overall interval mild decrease in size of numerous pulmonary and pleural- based masses/nodules. 3. Right thyroid nodule is incidentally noted. If not previously evaluated, nonemergent ultrasound can be performed. ACT 112: Positive. There are findings on this exam that require communication between the performing entity and the patient following Patient Test Result Information Act ([place] Act 112) guidelines. Electronically signed by: Viktor Carpenter M.D. 09/02/2022 1:[address] 09/02/22 11:57 CT SCAN OF THE BRAIN WITHOUT IV CONTRAST CLINICAL HISTORY: Change in mental status. Fever. History of lung cancer. COMPARISON STUDY: No priors. TECHNIQUE: Unenhanced axial CT scan of the brain is performed from the vertex to the skull base. A dose lowering technique was utilized adhering to the principles of ALARA. FINDINGS: Brain parenchyma: There is age-related involutional change noting mild subcortical and periventricular microangiopathic disease. There is no hemorrhage, mass effect, or evidence of acute territorial ischemia by CT criteria. Corbett-white matter differentiation is preserved. No extra-axial fluid collection is seen. Ventricles, sulci, cisterns: Prominent secondary to involutional change. Intracranial vasculature: There is atherosclerotic calcification of the ca vernous carotid arteries. Calvarium: Unremarkable. Sinuses and mastoids: The visualized paranasal sinuses are clear. The mastoid air cells are well pneumatized. Orbits: The bony orbits are grossly intact. A prosthetic globe is seen on the right. IMPRESSION: There is no hemorrhage, mass effect, or evidence of acute territorial ischemia by CT criteria. ACT 112: Negative or not required by law. Electronically signed by: Santos Gutiérrez M.D. 09/02/2022 1:35 PM Abdomen Ultrasound 09/03/22 11:10 US abdomen limited CLINICAL HISTORY: RUQ us; elevated lft TECHNIQUE: Multiple real-time sonographic images of the right upper quadrant were obtained. Comparison: Comparison is made to CT abdomen pelvis 09/02/2022 FINDINGS: The liver is diffusely echogenic in appearance with poor ultrasound penetration, with normal contour, which is consistent with fatty infiltration. No focal mass lesions are seen. No intrahepatic ductal dilatation is seen. The gallbladder is contracted. No stones are seen. A sonographic Nuno's sign was not elicited by the tool engineer. The common duct measures 0.6 cm in diameter at the level of the hepatic artery. The visualized portions of the pancreas appear normal. The right kidney shows normal echogenicity, cortical thickness and renal contour. The right kidney shows no evidence of hydronephrosis or mass. No ascites or free fluid is seen in Torres's pouch. IMPRESSION: Hepatic steatosis. No evidence of acute cholecystitis. ACT 112: Negative or not required by law. Electronically signed by: Viktor Carpenter M.D. 09/03/2022 5:46 PM (1) Fever Fever type: due to other condition Qualified Code(s): R50.81 - Fever presenting with conditions classified elsewhere
[2022-09-06] MEDS: LOSARTAN POTASSIUM 50 MG TAB PO SCH (15:59)
[2022-09-06] MEDS: hydroCHLOROthiazide 25 MG TAB PO SCH (15:59)
[2022-09-06] MEDS: MIRTAZAPINE TAB 15 MG TAB PO SCH (20:02)
[2022-09-06] MEDS: hydrOXYzine HCl 25 MG TAB PO SCH (20:02)
[2022-09-07] MEDS: ACETAMINOPHEN 325 MG TAB PO PRN (03:40)
[2022-09-07 04:54] LABS: Basophils # (auto) 0.03 K/uL (0-0.2); Basophils % (auto) 0.4 %; Hematocrit (blood only) 31.7 % (40.1-51.0); Hemoglobin 10.9 g/dl (14.0-18.0); Immature Granulocytes # (auto) 0.03 K/uL (0.00-0.02); Immature Granulocytes % (auto) 0.4 %; Lymphocytes # (auto) 0.87 K/uL (1.2-3.4); Lymphocytes % (auto) 11.8 %; Mean Corpuscular Hemoglobin 31.5 pg (25.0-34.0); Mean Corpuscular Hgb Conc 34.4 g/dL (32.0-36.0); Mean Corpuscular Volume 91.6 fL (80.0-100.0); Mean Platelet Volume 10.7 fL (9.4-12.4); Monocytes # (auto) 0.67 K/uL (0.24-0.82); Monocytes % (auto) 9.1 %; Neutrophils # (auto) 5.75 K/uL (1.4-6.5); Neutrophils % (auto) 78.3 %; Platelet Count 188 K/uL (130-400); RDW Standard Deviation 50.4 fL (36.4-46.3); Red Blood Count 3.46 M/uL (4.63-6.08); White Blood Count 7.35 K/ul (4.8-10.8)
[2022-09-07 05:14] LABS: BUN Creatinine Ratio 17.1 (10-20); Calcium 8.2 mg/dl (8.5-10.1); Creatinine Clr Calc Pharmacy 159.2 ml/min; Est GFR (African American) 120.6 ml/min; Potassium 3.4 mmol/L (3.5-5.1)
[2022-09-07] MEDS: HYDROmorphone HCL 2 MG TAB PO PRN ×4 (08:10→20:03)
[2022-09-07] MEDS: LORATADINE 10 MG TAB PO SCH (08:10)
[2022-09-07] MEDS: CEFEPIME 2,000 MG in SYRINGE 0 ML IV SCH (08:10)
[2022-09-07] MEDS: PANTOprazole 40 MG TAB PO SCH (08:11)
[2022-09-07] MEDS: hydroCHLOROthiazide 25 MG TAB PO SCH (08:11)
[2022-09-07] MEDS: FLUTICASONE/VILANTEROL 100/25MCG 14 PUFFS/INHALER INH SCH (08:11)
[2022-09-07] MEDS: FLUTICASONE PROPIONATE NA SPR 16 GM BTL NAE SCH (08:11)
[2022-09-07] MEDS: MONTELUKAST SODIUM 10 MG TABLET PO SCH (08:11)
[2022-09-07] MEDS: LOSARTAN POTASSIUM 50 MG TAB PO SCH (08:11)
[2022-09-07] MEDS: CHECK fentaNYL PATCH PLACEMENT SCH ×2 (08:11→16:02)
[2022-09-07] MEDS: FAMOTIDINE 40 MG TABLET PO SCH (08:11)
[2022-09-07] MEDS: POTASSIUM CHLORIDE CRTAB 20 MEQ TABCR PO SCH (08:11)
[2022-09-07] MEDS: MAGNESIUM HYDROXIDE SUSP 30 ML UDC PO SCH (08:12)
--- NOTE | 2022-09-07 14:21 | Hospitalist Progress Note ---
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 Garcia [facility] rad onc, asthma, hypertension and other medical problems listed below who presents with overnight fever and transaminitis. Fever Infective work up so far. ? Cancer related fever Repeated fever. Afebrile otherwise. Urinalysis analysis does not show sign of infection Urine culture no growth Blood culture no growth so far CT abd/pelvis with mild enlargement and heterogeneous enhancement within the kidneys which is new from the prior study. Also with hepatic steatosis, bladder wall thickening Head CT without acute abnormality, chest CTA without evidence of PE, overall interval mild decrease in size of numerous pulmonary and pleural-based masses/nodules Plan; Infectious work up negative so far. Blood Culture negative so far. --Antibiotics discontinued. -- will follow up with Infectious disease; fever is most likely due to cancer. Hepatoxicity and acute liver insufficiency secondary to Votrient therapy Started on Votrient chemotherapy on 07/27, last taken on 08/25. Currently on hold given worsening transaminitis AST, ALT and ALP all downtrending. GI on board; likely chemo related drug-induced liver injury. Continue to monitor. Patient's oncologist Dr. Martin contacted; awaiting callback Hematuria Proteinuria Epistaxis Can be secondary to Votrient therapy Patient reports episode of epistaxis from his left naris and pinkish urine output on 09/03 PT/INR and APTT mildly elevated. Hemoglobin is stable. Continue to monitor. Patient is not on aspirin at home. Heparin Presently on hold. Plan; Plan for 24-hour urine collection for protein as per nephrology. Follow-up with nephrology as outpatient. -- Follow-up with urology as outpatient for possible cystoscopy. 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 Garcia [facility] rad onc Dr Martin's contact info : [phone]. Acute kidney injury, resolved Cr 1.49 (baseline ~ 0.61). CT abd/pelvis with mild enlargement and heterogeneous enhancement within the kidneys which is new from the prior study . Fluid. Resume hydrochlorothiazide and losartan. Cancer related pain on narcotics Following with palliative care. Right thyroid nodule Incidental finding on chest CTA. Nonemergent ultrasound and outpatient follow- up recommended Hypertension Antihypertensive resumed. Coreg on hold. Asthma Continue albuterol nebulizer as needed for shortness of breath and wheezing, albuterol rescue inhaler, Singulair Constipation Continue bowel regimen. DVT Ppx: SCDs for now. Holding off pharmacologic PPx in light of hematuria and epistaxis Code status: FULL PCP: [facility] Dispo: Admitted to PCU Discussed with at bedside. Answered questions. Admission and Anticipated Discharge Date Admission Date: September 02, 2022 Subjective Patient is comfortable; not in any distress. Febrile overnight. Review of Systems Review of Systems: All systems reviewed & are unremarkable except as noted in Subjective Physical Exam Physical Exam: Constitutional: WD/WN, vitals as above, NAD, sitting up in bed, pleasant, conversing easily Respiratory: normal respiratory effort, lungs clear to auscultation, no wheeze, rales, rhonchi. Normal insp/exp effort, no accessory muscle use Cardiovascular: RRR, no murmur, no edema Vessels: no JVD or carotid bruit Chest: normal inspection of chest. Port present at right upper chest Abdomen: soft, non-tender. Musculoskeletal: no cyanosis or clubbing, extremities motor strength 5/5 Skin: no rashes, warm and dry normal turgor Neurologic: PERRL, EOMI, accommodation nl, no face palsy, no dysarthria CN's II- XI intact bilaterally and moves all extremities Psychiatric: A+Ox3, euthymic affect Lymphatic: no cervical or axillary lymphadenopathy : deferred Results & Data Results & Data ([facility]) Vital Signs (Past 12 Hours) Vital Signs Temp Pulse Pulse Resp BP Pulse Ox O2 Del Method 09/07/22 12:29 36.5 C 96 H 16 133/85 91 Room Air 09/07/22 07:45 36.9 C 106 H 16 122/84 94 CPAP 09/07/22 06:14 114 H 09/07/22 03:27 39.3 C H 115 H 22 143/95 H 93 BiPAP Laboratory Results Laboratory Results WBC 7.35 K/ul (4.8-10.8) 09/07/22 04:21 RBC 3.46 M/uL (4.63-6.08) L 09/07/22 04:21 Hgb 10.9 g/dl (14.0-18.0) L 09/07/22 04:21 Hct 31.7 % (40.1-51.0) L 09/07/22 04:21 MCV 91.6 fL (80.0-100.0) 09/07/22 04:21 MCH 31.5 pg (25.0-34.0) 09/07/22 04:21 MCHC 34.4 g/dL (32.0-36.0) 09/07/22 04:21 RDW Std Deviation 50.4 fL (36.4-46.3) H 09/07/22 04:21 RDW Coeff of Darrell 15.0 % (11.5-14.5) H 09/07/22 04:21 Plt Count 188 K/uL (130-400) 09/07/22 04:21 MPV 10.7 fL (9.4-12.4) 09/07/22 04:21 Immature Gran % (Auto) 0.4 % 09/07/22 04:21 Neut % (Auto) 78.3 % 09/07/22 04:21 Lymph % (Auto) 11.8 % 09/07/22 04:21 [place] % (Auto) 9.1 % 09/07/22 04:21 Eos % (Auto) 0.0 % 09/07/22 04:21 Baso % (Auto) 0.4 % 09/07/22 04:21 Neut # (Auto) 5.75 K/uL (1.4-6.5) 09/07/22 04:21 Lymph # (Auto) 0.87 K/uL (1.2-3.4) L 09/07/22 04:21 [place] # (Auto) 0.67 K/uL (0.24-0.82) 09/07/22 04:21 Eos # (Auto) 0.00 K/uL (0-0.50) 09/07/22 04:21 Baso # (Auto) 0.03 K/uL (0-0.2) 09/07/22 04:21 Immature Gran # (Auto) 0.03 K/uL (0.00-0.02) H 09/07/22 04:21 PT 15.3 Seconds (9.0-12.0) H 09/03/22 12:06 INR 1.5 (0.9-1.1) H 09/03/22 12:06 APTT 33.5 Seconds (21.0-31.0) H 09/03/22 12:06 PTT Ratio 1.2 09/03/22 12:06 Sodium 136 mmol/L (136-145) 09/07/22 04:21 Potassium 3.4 mmol/L (3.5-5.1) L 09/07/22 04:21 Chloride 100 mmol/L (98-107) 09/07/22 04:21 Carbon Dioxide 26 mmol/L (21-32) 09/07/22 04:21 Anion Gap 10 (3-11) 09/07/22 04:21 BUN 12 mg/dl (6-23) 09/07/22 04:21 Creatinine 0.70 mg/dl (0.6-1.4) 09/07/22 04:21 Est Cr Clr Drug Dosing 159.2 ml/min 09/07/22 04:21 Est GFR ( Amer) 120.6 ml/min 09/07/22 04:21 Est GFR (Non-Af Amer) 104.0 ml/min 09/07/22 04:21 BUN/Creatinine Ratio 17.1 (10-20) 09/07/22 04:21 Glucose 99 mg/dl (70-99(Fasting)) 09/07/22 04:21 Calcium 8.2 mg/dl (8.5-10.1) L 09/07/22 04:21 Total Bilirubin 1.6 mg/dl (0.2-1.0) H 09/06/22 03:59 AST 141 U/L (13-39) H 09/06/22 03:59 ALT 157 U/L (7-52) H 09/06/22 03:59 Alkaline Phosphatase 142 U/L (34-104) H 09/06/22 03:59 Total Protein 6.7 gm/dl (6.0-8.3) 09/06/22 03:59 Albumin 2.5 gm/dl (3.4-5.0) L 09/06/22 03:59 Globulin 4.2 gm/dl (2.5-4.0) H 09/06/22 03:59 Albumin/Globulin Ratio 0.6 (0.9-2) L 09/06/22 03:59 Lipase 15 U/L (11-82) 09/02/22 12:00 Urine Color [place] 09/03/22 11:10 Urine Appearance Clear (Clear) 09/03/22 11:10 Urine pH 5.0 (4.5-7.5) 09/03/22 11:10 Ur Specific [place] 1.021 (1.000-1.030) 09/03/22 11:10 Urine Protein 1+ (Negative) H 09/03/22 11:10 Urine Glucose (UA) Negative (Negative) 09/03/22 11:10 Urine Ketones Negative (Negative) 09/03/22 11:10 Urine Blood Trace (Negative) H 09/03/22 11:10 Urine Nitrite Negative (Negative) 09/03/22 11:10 Urine Bilirubin Negative (Negative) 09/03/22 11:10 Urine Urobilinogen Negative (Negative) 09/03/22 11:10 Ur Leukocyte Esterase Negative (Negative) 09/03/22 11:10 Urine WBC (Auto) 1-5 /hpf (0-5) 09/03/22 11:10 Urine RBC (Auto) 5-10 /hpf (0-4) H 09/03/22 11:10 U Hyaline Cast (Auto) 5-10 /lpf (0-5) H 09/03/22 11:10 U Epithel Cells (Auto) 10-20 /lpf (0-5) H 09/03/22 11:10 Urine Bacteria (Auto) Negative (Negative) 09/03/22 11:10 Ur Random Creatinine 128.9 mg/dl 09/03/22 11:10 U Random Total Protein 111.8 mg/dl (0-11.9) H 09/03/22 11:10 Protein/Creatinin Ratio 0.9 (0-0.2) H 09/03/22 11:10 Nasal Screen MRSA (PCR) Negative (Negative) 09/04/22 16:51 Random Vancomycin 10.0 mcg/ml (10-20) 09/05/22 08:36 Acetaminophen < 3 ug/ml (10-30) L 09/03/22 12:06 Anaplasma Smear See Comment 09/04/22 15:20 Babesia Smear See Comment 09/04/22 15:20 Lyme Disease IgG Ab Negative (Negative) 09/04/22 15:20 Lyme Disease IgM Ab Negative (Negative) 09/04/22 15:20 Hepatitis A IgM Ab NON-REACTIVE (NON-REACTIVE) 09/03/22 12:06 Hep Bs Antigen NON-REACTIVE (NON-REACTIVE) 09/03/22 12:06 Hep Bs Ag Confirmation TNP 09/03/22 12:06 Hep B Core IgM Ab NON-REACTIVE (NON-REACTIVE) 09/03/22 12:06 Hepatitis C Ab (EIA) NON-REACTIVE (NON-REACTIVE) 09/03/22 12:06 Hep C Ab Signal/Cutoff 0.13 (<1.00) 09/03/22 12:06 SARS-CoV-2, RNA, NAAT NEGATIVE (NEGATIVE) 09/02/22 12:20 Impressions Abdomen/Pelvis CT 09/02/22 11:[address] WITH IV CONTRAST CT DOSE: 3289.58 mGy.cm HISTORY: Right upper quadrant pain, transaminitis, radiation trx to liver TECHNIQUE: Multiaxial CT images of the abdomen and pelvis were performed following the use of intravenous contrast. A dose lowering technique was utilized adhering to the principles of ALARA. COMPARISON STUDY: Outside hospital chest, abdomen, and pelvis CT 07/30/2022. [facility] CTA 07/31/2022. FINDINGS: Please refer to the same day chest CTA for further evaluation of the intrathoracic metastatic disease. No pneumoperitoneum. No pneumatosis. There is a left total hip arthroplasty. No suspicious lytic or blastic osseous lesions. Partially visualized catheter tip at the distal SVC. Trace bilateral pleural effusions and multiple pleural/pulmonary masses again noted. There is a tiny fat-containing umbilical hernia. Hepatic steatosis. No hepatic or splenic masses. The adrenal glands, pancreas, and gallbladder are unremarkable. The main portal vein is patent. No retroperitoneal or pelvic lymphadenopathy. Normal caliber abdominal aorta. No hydronephrosis. Mild bilateral perinephric edema has slightly progressed. No renal or ureteral stones identified. Stable 3.7 cm intermediate density lesion within the upper pole the left kidney. This favors a hyperdense cyst. Mild diffuse heterogeneous enhancement within the kidneys which is new from the prior study. The kidneys appear slightly enlarged compared to the prior study. No hydronephrosis. Normal caliber abdominal aorta. Moderate bladder wall thickening. The prostate gland is mildly enlarged. Deep pelvic structures are suboptimally assessed due to the metallic artifact from the left hip prosthesis. Colonic diverticulosis. No evidence for acute diverticulitis. No bowel wall thickening or obstruction. Normal appendix. Small subcutaneous trace nodules within the gluteal regions favors prior medication injection. Chronic epiploic appendages within the right upper quadrant remain stable. No adjacent inflammatory change to suggest an acute abnormality. IMPRESSION: 1. Mild enlargement and heterogeneous enhancement within the kidneys which is new from the prior study. Mild bilateral perinephric edema has also progressed. This could be due to a pyelonephritis or glomerulonephritis. Recommend correlate with urinalysis and renal function tests for further evaluation. 2. Hepatic steatosis. No hepatic masses. 3. Please refer to the same day chest CT for further evaluation of the intrathoracic metastatic disease. 4. No bowel wall thickening or obstruction. 5. Bladder wall thickening. This could be due to chronic outlet obstruction from the enlarged prostate gland or a cystitis. Recommend correlation with urinalysis. 6. Colonic diverticulosis. No evidence for acute diverticulitis. 7. Normal appendix. 8. Additional findings as described above. ACT 112: Negative or not required by law. Electronically signed by: Winston Sepulveda M.D. 09/02/2022 1:45 PM Chest CTA 09/02/22 11:56 CT angio chest PE protocol CLINICAL HISTORY: PE, h/o radiation to liver/chemo; h/o lung ca TECHNIQUE: Multidetector row helical CT of the chest was performed with angiogra [facility] protocol. Coronal and sagittal reformations were obtained. Coronal and sagittal MIPS were obtained from the axial data set and were submitted for review. Automated dose lowering techniques and/or adjustment according to patient size were utilized for this exam. Comparison: Comparison is made to CTA chest 07/31/2022 FINDINGS: Lungs and pleura: Numerous pulmonary and pleural-based nodules are seen, overall minimally decreased in size from prior exam. For example, a right perihilar nodule previously measured 39 mm, now measures 22 mm. A right lower lobe nodule previously measured 60 mm, now measures 50 mm. Heart and pericardium: Heart size is normal. No pericardial effusion. Vessels: No evidence of pulmonary embolism. Mediastinum and otoniel: Unremarkable. Chest wall and lower neck: A right thyroid nodule measures 21 mm in diameter. Right jugular catheter is seen. Abdomen: For findings below the diaphragm, please refer to CT of the abdomen dated the same. Bones: Unremarkable. IMPRESSION: 1. No evidence of pulmonary embolism. 2. Overall interval mild decrease in size of numerous pulmonary and pleural- based masses/nodules. 3. Right thyroid nodule is incidentally noted. If not previously evaluated, nonemergent ultrasound can be performed. ACT 112: Positive. There are findings on this exam that require communication between the performing entity and the patient following Patient Test Result Information Act ([place] Act 112) guidelines. Electronically signed by: Viktor Carpenter M.D. 09/02/2022 1:[address] 09/02/22 11:57 CT SCAN OF THE BRAIN WITHOUT IV CONTRAST CLINICAL HISTORY: Change in mental status. Fever. History of lung cancer. COMPARISON STUDY: No priors. TECHNIQUE: Unenhanced axial CT scan of the brain is performed from the vertex to the skull base. A dose lowering technique was utilized adhering to the principles of ALARA. FINDINGS: Brain parenchyma: There is age-related involutional change noting mild subcortical and periventricular microangiopathic disease. There is no hemorrhage, mass effect, or evidence of acute territorial ischemia by CT criteria. Corbett-white matter differentiation is preserved. No extra-axial fluid collection is seen. Ventricles, sulci, cisterns: Prominent secondary to involutional change. Intracranial vasculature: There is atherosclerotic calcification of the c avernous carotid arteries. Calvarium: Unremarkable. Sinuses and mastoids: The visualized paranasal sinuses are clear. The mastoid air cells are well pneumatized. Orbits: The bony orbits are grossly intact. A prosthetic globe is seen on the right. IMPRESSION: There is no hemorrhage, mass effect, or evidence of acute territorial ischemia by CT criteria. ACT 112: Negative or not required by law. Electronically signed by: Santos Gutiérrez M.D. 09/02/2022 1:35 PM Abdomen Ultrasound 09/03/22 11:10 US abdomen limited CLINICAL HISTORY: RUQ us; elevated lft TECHNIQUE: Multiple real-time sonographic images of the right upper quadrant were obtained. Comparison: Comparison is made to CT abdomen pelvis 09/02/2022 FINDINGS: The liver is diffusely echogenic in appearance with poor ultrasound penetration, with normal contour, which is consistent with fatty infiltration. No focal mass lesions are seen. No intrahepatic ductal dilatation is seen. The gallbladder is contracted. No stones are seen. A sonographic Nuno's sign was not elicited by the cotton candy maker. The common duct measures 0.6 cm in diameter at the level of the hepatic artery. The visualized portions of the pancreas appear normal. The right kidney shows normal echogenicity, cortical thickness and renal contour. The right kidney shows no evidence of hydronephrosis or mass. No ascites or free fluid is seen in Torres's pouch. IMPRESSION: Hepatic steatosis. No evidence of acute cholecystitis. ACT 112: Negative or not required by law. Electronically signed by: Viktor Carpenter M.D. 09/03/2022 5:46 PM (1) Fever Fever type: due to other condition Qualified Code(s): R50.81 - Fever presenting with conditions classified elsewhere
[2022-09-07 17:02] LABS: Creatinine 24 Hour Urine 1.9 gm/24 HR (0.6-2.5); Urine Creatinine 64.5 mg/dl; Urine Total Protein 60.9 mg/dl
[2022-09-07] MEDS: hydrOXYzine HCl 25 MG TAB PO SCH (20:03)
[2022-09-07] MEDS: MIRTAZAPINE TAB 15 MG TAB PO SCH (20:04)
[2022-09-08] MEDS: CHECK fentaNYL PATCH PLACEMENT SCH ×4 (00:30→23:21)
[2022-09-08] MEDS: HYDROmorphone HCL 2 MG TAB PO PRN ×7 (01:03→23:21)
[2022-09-08 06:11] LABS: Basophils # (auto) 0.02 K/uL (0-0.2); Basophils % (auto) 0.3 %; Hemoglobin 9.4 g/dl (14.0-18.0); Immature Granulocytes # (auto) 0.02 K/uL (0.00-0.02); Immature Granulocytes % (auto) 0.3 %; Lymphocytes # (auto) 0.88 K/uL (1.2-3.4); Lymphocytes % (auto) 15.3 %; Mean Corpuscular Hemoglobin 31.4 pg (25.0-34.0); Mean Corpuscular Hgb Conc 33.6 g/dL (32.0-36.0); Mean Corpuscular Volume 93.6 fL (80.0-100.0); Mean Platelet Volume 10.8 fL (9.4-12.4); Monocytes # (auto) 0.67 K/uL (0.24-0.82); Monocytes % (auto) 11.7 %; Neutrophils # (auto) 4.15 K/uL (1.4-6.5); Neutrophils % (auto) 72.4 %; Platelet Count 185 K/uL (130-400); RDW Coefficient of Variation 15.4 % (11.5-14.5); RDW Standard Deviation 52.5 fL (36.4-46.3); Red Blood Count 2.99 M/uL (4.63-6.08); White Blood Count 5.74 K/ul (4.8-10.8)
[2022-09-08 06:42] LABS: Albumin Globulin Ratio 0.6 (0.9-2); Albumin Level 2.2 gm/dl (3.4-5.0); BUN Creatinine Ratio 24.5 (10-20); Bilirubin,Total 1.4 mg/dl (0.2-1.0); C Reactive Protein 15.62 mg/dl (0-0.5); Calcium 6.8 mg/dl (8.5-10.1); Creatinine Clr Calc Pharmacy 209.5 ml/min; Est GFR (African American) 135.2 ml/min; Est GFR (Non-African American) 116.6 ml/min; Globulin 3.8 gm/dl (2.5-4.0)
[2022-09-08] MEDS: LORATADINE 10 MG TAB PO SCH (08:09)
[2022-09-08] MEDS: hydroCHLOROthiazide 25 MG TAB PO SCH (08:09)
[2022-09-08] MEDS: FAMOTIDINE 40 MG TABLET PO SCH (08:09)
[2022-09-08] MEDS: PANTOprazole 40 MG TAB PO SCH (08:09)
[2022-09-08] MEDS: POTASSIUM CHLORIDE CRTAB 20 MEQ TABCR PO SCH (08:09)
[2022-09-08] MEDS: MONTELUKAST SODIUM 10 MG TABLET PO SCH (08:09)
[2022-09-08] MEDS: FLUTICASONE PROPIONATE NA SPR 16 GM BTL NAE SCH (08:10)
[2022-09-08] MEDS: LOSARTAN POTASSIUM 50 MG TAB PO SCH (08:10)
[2022-09-08] MEDS: FLUTICASONE/VILANTEROL 100/25MCG 14 PUFFS/INHALER INH SCH (08:10)
[2022-09-08] MEDS: MAGNESIUM HYDROXIDE SUSP 30 ML UDC PO SCH (08:11)
[2022-09-08] MEDS: POTASSIUM CHLORIDE / WTR 10 MEQ/100 ML PLCT IV SCH ×4 (08:15→11:20)
[2022-09-08] MEDS: LORazepam 0.5 MG TAB PO PRN (09:13)
--- NOTE | 2022-09-08 10:32 | Nephrology Progress Note ---
Date of Service September 08, 2022 Assessment & Plan Admission and Anticipated Discharge Date Admission Date: September 02, 2022 Subjective Assessment & Plan (1) Hematuria: Plan: suspect this is multifactorial > from liver dysfunction/mild coagulopathy and pazopanib (votrient). urology recs noted along with hx of atypical cells in urine cytology (2) Protein in urine: Plan: again tyrosine kinase inhibitors like votrient can cause proteinuria in up to 9% of patients; suspect this is distribution driver here of new finding of proteinuria (none present at start of July before starting votrient). while glomerulonephritis has been reported w/ TKIs, it is case report only and in setting of MICHA and other immune modulating medications in addition to TKIs. during acute illness would not start dar/ arb but could consider after hospital d/c nothing to suggest nephrotic syndrome at this time Rec: K is very low and needing aggressive supplement so given this D/c HCTZ for now and also at discharge recommend renal f/u after hospital d/c Subjective no interval events. no sob. no decreased UOP or change in gross urine appearance. urology recommends OP cysto mid Dec. Review of Systems Review of Systems: All systems reviewed & are unremarkable except as noted in Subjective Physical Exam Constitutional: well developed, well nourished, + obese and cooperative; no acute distress Eyes: EOM intact bilaterally ENMT: Ears: no external ear abnormality Nose: no external nose abnormality Mouth: + dry oral mucous membranes Neck: no nuchal rigidity Respiratory: normal respiratory effort Auscultation: + diminished lung sounds Cardiovascular: Rate/Rhythm: regular rhythm and + tachycardic (in 90s) Extremities: no edema Gastrointestinal (Abdomen): Inspection/Auscultation: normal bowel sounds Percussion/Palpation: abdomen soft; abdomen nontender Musculoskeletal: Extremities: strength 5/5 throughout Skin: no rashes, warm and dry slight diaphoresis/skin warm to touch Neurologic: thomas, fluent speech, no tremor Psychiatric: Orientation: oriented x 3 Speech: normal rate/rhythm/volume of speech Results & Data ([facility]) Vital Signs (Past 12 Hours) Vital Signs Temp Pulse Pulse Resp BP Pulse Ox O2 Del Method 09/08/22 07:02 37.0 C 103 H 18 118/72 90 Room Air 09/08/22 05:14 105 H 09/08/22 03:41 38.2 C H 106 H 18 112/71 90 Room Air 09/07/22 23:17 37.6 C H 112 H 18 120/75 94 CPAP
[2022-09-08] MEDS: dexAMETHasone 4 MG TAB PO SCH (13:30)
--- NOTE | 2022-09-08 15:33 | Hospitalist Progress Note ---
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 Garcia [facility] rad onc, asthma, hypertension and other medical problems listed below who presents with overnight fever and transaminitis. Fever Infective work up so far. ? Cancer related fever Intermittent fever since admission. The highest recorded temperature was 39.3 C yesterday morning. Urinalysis analysis does not show sign of infection Urine culture no growth Blood culture no growth so far CT abd/pelvis with mild enlargement and heterogeneous enhancement within the kidneys which is new from the prior study. Also with hepatic steatosis, bladder wall thickening Head CT without acute abnormality, chest CTA without evidence of PE, overall interval mild decrease in size of numerous pulmonary and pleural-based masses/nodules Plan; -His infectious work-up has been negative so far. It includes urine culture, repeated blood culture, Lyme serology, CT chest and echocardiogram. CT abdomen pelvis did show mild enlargement and enhancement of the kidney; urine culture was negative. Discussed with infectious disease; agree with observing him off antibiotic for now. The finding was also discussed with his oncologist ( Dr. Javier). The reason for his fever is most likely from drug-induced liver injury or fever related to connective tissue cancer. Patient and his reports that he felt better when he was on steroid during the last admission. Discussion was done with Dr. Javier, he is agreeable with Decadron trial as well. Started on Decadron 8 mg once daily. Will monitor for fever. -Palliative on board; he is currently on Dilaudid for pain control. Family wanted to get opinion from oncology as inpatient; consult placed. Hepatoxicity and acute liver insufficiency secondary to Votrient therapy Started on Votrient chemotherapy on 07/27, last taken on 08/25. Currently on hold given worsening transaminitis AST, ALT and ALP all downtrending. GI on board; likely chemo related drug-induced liver injury. Continue to monitor. Patient's oncologist Dr. Martin contacted; awaiting callback Hematuria Proteinuria Epistaxis Can be secondary to Votrient therapy Patient reports episode of epistaxis from his left naris and pinkish urine output on 09/03 PT/INR and APTT mildly elevated. Epistaxis resolved; he continues to have microscopic hematuria. Hemoglobin downtrending; 24-hour urine collection reveals proteinuria of 1800mg. His CT abdomen and pelvis on admission also showed mild enlargement and enhancement of the kidney with bilateral perinephric edema. Plan; Nephrology and urology were consulted. Nephrology recommends stopping hydrochlorothiazide. Continue on losartan .outpatient follow-up. Urology recommends cystoscopy as outpatient. 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 Garcia [facility] rad onc Dr Martin's contact info : [phone]. Unable to get hold of him. Informed by patient that he is currently in vacation. Acute kidney injury, likely pre-renal resolved Cr 1.49 (baseline ~ 0.61). Cancer related pain on narcotics Following with palliative care. Right thyroid nodule Incidental finding on chest CTA. Nonemergent ultrasound and outpatient follow- up recommended Hypertension on losartan. HCT and Coreg on hold. Asthma Continue albuterol nebulizer as needed for shortness of breath and wheezing, albuterol rescue inhaler, Singulair Constipation Continue bowel regimen. DVT Ppx: SCDs for now. Holding off pharmacologic PPx in light of hematuria Code status: FULL PCP: Lynettetermarco antonio Dispo: Admitted to PCU Discussed with at bedside. Answered questions. Admission and Anticipated Discharge Date Admission Date: September 02, 2022 Subjective Patient seen and examined at bedside. Overnight, the highest recorded temperature was 38.2 C; patient reports to be feeling fine at that time. He did not have chills or sweats. Review of Systems Review of Systems: All systems reviewed & are unremarkable except as noted in Subjective Physical Exam Physical Exam: Constitutional: WD/WN, vitals as above, NAD, sitting up in bed, pleasant, conversing easily Respiratory: normal respiratory effort, lungs clear to auscultation, no wheeze, rales, rhonchi. Normal insp/exp effort, no accessory muscle use Cardiovascular: RRR, no murmur, no edema Vessels: no JVD or carotid bruit Chest: normal inspection of chest. Port present at right upper chest; no erythema surrounding it. Abdomen: soft, non-tender. Musculoskeletal: no cyanosis or clubbing, extremities motor strength 5/5 Skin: no rashes, warm and dry normal turgor Neurologic: PERRL, EOMI, accommodation nl, no face palsy, no dysarthria CN's II- XI intact bilaterally and moves all extremities Psychiatric: A+Ox3, euthymic affect Lymphatic: no cervical or axillary lymphadenopathy : deferred Results & Data Results & Data ([facility]) Vital Signs (Past 12 Hours) Vital Signs Temp Pulse Pulse Resp BP Pulse Ox O2 Del Method 09/08/22 12:07 37.4 C 98 H 18 119/75 91 Room Air 09/08/22 07:02 37.0 C 103 H 18 118/72 90 Room Air 09/08/22 05:14 105 H 09/08/22 03:41 38.2 C H 106 H 18 112/71 90 Room Air Laboratory Results Laboratory Results WBC 5.74 K/ul (4.8-10.8) 09/08/22 05:50 RBC 2.99 M/uL (4.63-6.08) L 09/08/22 05:50 Hgb 9.4 g/dl (14.0-18.0) L 09/08/22 05:50 Hct 28.0 % (40.1-51.0) L 09/08/22 05:50 MCV 93.6 fL (80.0-100.0) 09/08/22 05:50 MCH 31.4 pg (25.0-34.0) 09/08/22 05:50 MCHC 33.6 g/dL (32.0-36.0) 09/08/22 05:50 RDW Std Deviation 52.5 fL (36.4-46.3) H 09/08/22 05:50 RDW Coeff of Darrell 15.4 % (11.5-14.5) H 09/08/22 05:50 Plt Count 185 K/uL (130-400) 09/08/22 05:50 MPV 10.8 fL (9.4-12.4) 09/08/22 05:50 Immature Gran % (Auto) 0.3 % 09/08/22 05:50 Neut % (Auto) 72.4 % 09/08/22 05:50 Lymph % (Auto) 15.3 % 09/08/22 05:50 [place] % (Auto) 11.7 % 09/08/22 05:50 Eos % (Auto) 0.0 % 09/08/22 05:50 Baso % (Auto) 0.3 % 09/08/22 05:50 Neut # (Auto) 4.15 K/uL (1.4-6.5) 09/08/22 05:50 Lymph # (Auto) 0.88 K/uL (1.2-3.4) L 09/08/22 05:50 [place] # (Auto) 0.67 K/uL (0.24-0.82) 09/08/22 05:50 Eos # (Auto) 0.00 K/uL (0-0.50) 09/08/22 05:50 Baso # (Auto) 0.02 K/uL (0-0.2) 09/08/22 05:50 Immature Gran # (Auto) 0.02 K/uL (0.00-0.02) 09/08/22 05:50 ESR 99 mm/hr (0-20) H 09/08/22 05:50 PT 15.3 Seconds (9.0-12.0) H 09/03/22 12:06 INR 1.5 (0.9-1.1) H 09/03/22 12:06 APTT 33.5 Seconds (21.0-31.0) H 09/03/22 12:06 PTT Ratio 1.2 09/03/22 12:06 Sodium 136 mmol/L (136-145) 09/08/22 05:50 Potassium 3.0 mmol/L (3.5-5.1) L 09/08/22 05:50 Chloride 105 mmol/L (98-107) 09/08/22 05:50 Carbon Dioxide 26 mmol/L (21-32) 09/08/22 05:50 Anion Gap 5 (3-11) 09/08/22 05:50 BUN 13 mg/dl (6-23) 09/08/22 05:50 Creatinine 0.53 mg/dl (0.6-1.4) L 09/08/22 05:50 Est Cr Clr Drug Dosing 209.5 ml/min 09/08/22 05:50 Est GFR ( Amer) 135.2 ml/min 09/08/22 05:50 Est GFR (Non-Af Amer) 116.6 ml/min 09/08/22 05:50 BUN/Creatinine Ratio 24.5 (10-20) H 09/08/22 05:50 Glucose 81 mg/dl (70-99(Fasting)) 09/08/22 05:50 Calcium 6.8 mg/dl (8.5-10.1) L 09/08/22 05:50 Total Bilirubin 1.4 mg/dl (0.2-1.0) H 09/08/22 05:50 AST 78 U/L (13-39) H 09/08/22 05:50 ALT 92 U/L (7-52) H 09/08/22 05:50 Alkaline Phosphatase 113 U/L (34-104) H 09/08/22 05:50 C-Reactive Protein 15.62 mg/dl (0-0.5) H 09/08/22 05:50 Total Protein 6.0 gm/dl (6.0-8.3) 09/08/22 05:50 Albumin 2.2 gm/dl (3.4-5.0) L 09/08/22 05:50 Globulin 3.8 gm/dl (2.5-4.0) 09/08/22 05:50 Albumin/Globulin Ratio 0.6 (0.9-2) L 09/08/22 05:50 Lipase 15 U/L (11-82) 09/02/22 12:00 Urine Color [place] 09/03/22 11:10 Urine Appearance Clear (Clear) 09/03/22 11:10 Urine pH 5.0 (4.5-7.5) 09/03/22 11:10 Ur Specific [place] 1.021 (1.000-1.030) 09/03/22 11:10 Urine Protein 1+ (Negative) H 09/03/22 11:10 Urine Glucose (UA) Negative (Negative) 09/03/22 11:10 Urine Ketones Negative (Negative) 09/03/22 11:10 Urine Blood Trace (Negative) H 09/03/22 11:10 Urine Nitrite Negative (Negative) 09/03/22 11:10 Urine Bilirubin Negative (Negative) 09/03/22 11:10 Urine Urobilinogen Negative (Negative) 09/03/22 11:10 Ur Leukocyte Esterase Negative (Negative) 09/03/22 11:10 Urine WBC (Auto) 1-5 /hpf (0-5) 09/03/22 11:10 Urine RBC (Auto) 5-10 /hpf (0-4) H 09/03/22 11:10 U Hyaline Cast (Auto) 5-10 /lpf (0-5) H 09/03/22 11:10 U Epithel Cells (Auto) 10-20 /lpf (0-5) H 09/03/22 11:10 Urine Bacteria (Auto) Negative (Negative) 09/03/22 11:10 Ur Random Creatinine 128.9 mg/dl 09/03/22 11:10 U Random Total Protein 111.8 mg/dl (0-11.9) H 09/03/22 11:10 Urine Total Volume 3000 mL 09/07/22 14:30 Urine Creatinine 64.5 mg/dl 09/07/22 14:30 Ur Creatinine 24 Hour 1.9 gm/24 HR (0.6-2.5) 09/07/22 14:30 Protein/Creatinin Ratio 0.9 (0-0.2) H 09/03/22 11:10 Ur Total Protein 24 Hr 1827.0 mg/24 Hr (0-149.1) H 09/07/22 14:30 Urine Total Protein 60.9 mg/dl 09/07/22 14:30 Nasal Screen MRSA (PCR) Negative (Negative) 09/04/22 16:51 Random Vancomycin 10.0 mcg/ml (10-20) 09/05/22 08:36 Acetaminophen < 3 ug/ml (10-30) L 09/03/22 12:06 Anaplasma Smear See Comment 09/04/22 15:20 Babesia Smear See Comment 09/04/22 15:20 Lyme Disease IgG Ab Negative (Negative) 09/04/22 15:20 Lyme Disease IgM Ab Negative (Negative) 09/04/22 15:20 Hepatitis A IgM Ab NON-REACTIVE (NON-REACTIVE) 09/03/22 12:06 Hep Bs Antigen NON-REACTIVE (NON-REACTIVE) 09/03/22 12:06 Hep Bs Ag Confirmation TNP 09/03/22 12:06 Hep B Core IgM Ab NON-REACTIVE (NON-REACTIVE) 09/03/22 12:06 Hepatitis C Ab (EIA) NON-REACTIVE (NON-REACTIVE) 09/03/22 12:06 Hep C Ab Signal/Cutoff 0.13 (<1.00) 09/03/22 12:06 SARS-CoV-2, RNA, NAAT NEGATIVE (NEGATIVE) 09/02/22 12:20 Impressions Abdomen/Pelvis CT 09/02/22 11:[address] WITH IV CONTRAST CT DOSE: 3289.58 mGy.cm HISTORY: Right upper quadrant pain, transaminitis, radiation trx to liver TECHNIQUE: Multiaxial CT images of the abdomen and pelvis were performed following the use of intravenous contrast. A dose lowering technique was utilized adhering to the principles of ALARA. COMPARISON STUDY: Outside hospital chest, abdomen, and pelvis CT 07/30/2022. Chest CTA 07/31/2022. FINDINGS: Please refer to the same day chest CTA for further evaluation of the intrathoracic metastatic disease. No pneumoperitoneum. No pneumatosis. There is a left total hip arthroplasty. No suspicious lytic or blastic osseous lesions. Partially visualized catheter tip at the distal SVC. Trace bilateral pleural effusions and multiple pleural/pulmonary masses again noted. There is a tiny fat-containing umbilical hernia. Hepatic steatosis. No hepatic or splenic masses. The adrenal glands, pancreas, and gallbladder are unremarkable. The main portal vein is patent. No retroperitoneal or pelvic lymphadenopathy. Normal caliber abdominal aorta. No hydronephrosis. Mild bilateral perinephric edema has slightly progressed. No renal or ureteral stones identified. Stable 3.7 cm intermediate density lesion within the upper pole the left kidney. This favors a hyperdense cyst. Mild diffuse heterogeneous enhancement within the kidneys which is new from the prior study. The kidneys appear slightly enlarged compared to the prior study. No hydronephrosis. Normal caliber abdominal aorta. Moderate bladder wall thickening. The prostate gland is mildly enlarged. Deep pelvic structures are suboptimally assessed due to the metallic artifact from the left hip prosthesis. Colonic diverticulosis. No evidence for acute diverticulitis. No bowel wall thickening or obstruction. Normal appendix. Small subcutaneous trace nodules within the gluteal regions favors prior medication injection. Chronic epiploic appendages within the right upper quadrant remain stable. No adjacent inflammatory change to suggest an acute abnormality. IMPRESSION: 1. Mild enlargement and heterogeneous enhancement within the kidneys which is new from the prior study. Mild bilateral perinephric edema has also progressed. This could be due to a pyelonephritis or glomerulonephritis. Recommend correlate with urinalysis and renal function tests for further evaluation. 2. Hepatic steatosis. No hepatic masses. 3. Please refer to the same day chest CT for further evaluation of the intrathoracic metastatic disease. 4. No bowel wall thickening or obstruction. 5. Bladder wall thickening. This could be due to chronic outlet obstruction from the enlarged prostate gland or a cystitis. Recommend correlation with urinalysis. 6. Colonic diverticulosis. No evidence for acute diverticulitis. 7. Normal appendix. 8. Additional findings as described above. ACT 112: Negative or not required by law. Electronically signed by: Winston Sepulveda M.D. 09/02/2022 1:45 PM Chest CTA 09/02/22 11:56 CT angio chest PE protocol CLINICAL HISTORY: PE, h/o radiation to liver/chemo; h/o lung ca TECHNIQUE: Multidetector row helical CT of the chest was performed with angiographic protocol. Coronal and sagittal reformations were obtained. Coronal and sagittal MIPS were obtained from the axial data set and were submitted for review. Automated dose lowering techniques and/or adjustment according to patient size were utilized for this exam. Comparison: Comparison is made to CTA chest 07/31/2022 FINDINGS: Lungs and pleura: Numerous pulmonary and pleural-based nodules are seen, overall minimally decreased in size from prior exam. For example, a right perihilar nodule previously measured 39 mm, now measures 22 mm. A right lower lobe nodule previously measured 60 mm, now measures 50 mm. Heart and pericardium: Heart size is normal. No pericardial effusion. Vessels: No evidence of pulmonary embolism. Mediastinum and otoniel: Unremarkable. Chest wall and lower neck: A right thyroid nodule measures 21 mm in diameter. Right jugular catheter is seen. Abdomen: For findings below the diaphragm, please refer to CT of the abdomen dated the same. Bones: Unremarkable. IMPRESSION: 1. No evidence of pulmonary embolism. 2. Overall interval mild decrease in size of numerous pulmonary and pleural- based masses/nodules. 3. Right thyroid nodule is incidentally noted. If not previously evaluated, nonemergent ultrasound can be performed. ACT 112: Positive. There are findings on this exam that require communication between the performing entity and the patient following Patient Test Result Information Act ([place] Act 112) guidelines. Electronically signed by: Viktor Carpenter M.D. 09/02/2022 1:[address] 09/02/22 11:57 CT SCAN OF THE BRAIN WITHOUT IV CONTRAST CLINICAL HISTORY: Change in mental status. Fever. History of lung cancer. COMPARISON STUDY: No priors. TECHNIQUE: Unenhanced axial CT scan of the brain is performed from the vertex to the skull base. A dose lowering technique was utilized adhering to the principles of ALARA. FINDINGS: Brain parenchyma: There is age-related involutional change noting mild subcortical and periventricular microangiopathic disease. There is no hemorrhage, mass effect, or evidence of acute territorial ischemia by CT criteria. Corbett-white matter differentiation is preserved. No extra-axial fluid collection is seen. Ventricles, sulci, cisterns: Prominent secondary to involutional change. Intracranial vasculature: There is atherosclerotic calcification of the cavernous carotid arteries. Calvarium: Unremarkable. Sinuses and mastoids: The visualized paranasal sinuses are clear. The mastoid air cells are well pneumatized. Orbits: The bony orbits are grossly intact. A prosthetic globe is seen on the right. IMPRESSION: There is no hemorrhage, mass effect, or evidence of acute territorial ischemia by CT criteria. ACT 112: Negative or not required by law. Electronically signed by: Santos Gutiérrez M.D. 09/02/2022 1:35 PM Abdomen Ultrasound 09/03/22 11:10 US abdomen limited CLINICAL HISTORY: RUQ us; elevated lft TECHNIQUE: Multiple real-time sonographic images of the right upper quadrant were obtained. Comparison: Comparison is made to CT abdomen pelvis 09/02/2022 FINDINGS: The liver is diffusely echogenic in appearance with poor ultrasound penetration, with normal contour, which is consistent with fatty infiltration. No focal mass lesions are seen. No intrahepatic ductal dilatation is seen. The gallbladder is contracted. No stones are seen. A sonographic Nuno's sign was not elicited by the mat packer. The common duct measures 0.6 cm in diameter at the level of the hepatic artery. The visualized portions of the pancreas appear normal. The right kidney shows normal echogenicity, cortical thickness and renal contour. The right kidney shows no evidence of hydronephrosis or mass. No ascites or free fluid is seen in Torres's pouch. IMPRESSION: Hepatic steatosis. No evidence of acute cholecystitis. ACT 112: Negative or not required by law. Electronically signed by: Viktor Carpenter M.D. 09/03/2022 5:46 PM (1) Fever Fever type: due to other condition Qualified Code(s): R50.81 - Fever presenting with conditions classified elsewhere
--- NOTE | 2022-09-08 16:00 | Palliative Care Progress Note ---
Date of Service September 08, 2022 Assessment & Plan (1) Palliative care encounter: Plan: Pt is followed for cancer related pain and sx mgt. He is inquiring about steroids. We initially held off on this during early part of admission d/t hi temps and possible infection. Infectious sources largely ruled out and though we have ruled out many issues there has not been any definitive diagnoses. Pt is weary of being in hospital, he wants to go home feels they have not been given a "straight answer about where things stands with the cancer" - I offered an oncology consult while here to offer a dialogue about his cancer and what it means with current findings, adds she would like to know what Stage he is at as well. I ordered the consult and reviewed case with Dr. Apodaca. 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 (2) Cancer related pain: Plan: No change today Will defer decision re steroids to oncology - if not objection, then would consider trial of 10mg daily. (3) Metastatic cancer: (4) Synovial sarcoma: Plan outlined above. Pt seeking more clarity regarding status of his cancer, discharge plan and what would be next steps given that Votrient has been on hold. He reports a desaturation event following in room exertion. I recommend a walk test with RT to determine if he may need supplemental O2. Jolie Lincoln DNP Clinical Director, Palliative Medicine Admission and Anticipated Discharge Date Admission Date: September 02, 2022 Subjective Patient sitting up in bed, at bedside Pain is about the same. They want to know if they could have steroids, pt feels pain was best managed when he had steroids, asking if he can stay on a daily dose nursing home; adds she has been researching his kidney issues online and read how steroids may help with all the symptoms he is experiencing. Both pt and voice frustration with communication from their cancer team at [facility], noting that expected calls/telemed appt were not kept, calls they placed were never returned, etc. This AM called and demanded to speak with their provider and was then told provider is on vacation. She feels they need a new oncology provider, states "We don't even know what Stage of cancer he is at, do you? If so, can you tell me?!?" She feels that if things are getting worse, "If he's terminal, or time's running out, we have to know" and is more tearful today. patient denies n/v/d/c he is anxious but better when is here and can use Ativan prn appetite ok pt states he became SOB after morning trip to bathroom, when he came to bed he was found to have SpO2 in the 80s. He feels this is because he has been shallow breathing due to pain. feels his breathing is not right and the lungs should be further examined for problems because that is where his metastatic disease is and their last scans showed significant interval enlargement. Review of Systems Review of Systems: All systems reviewed & are unremarkable except as noted in Subjective Physical Exam Constitutional: well developed, well nourished and + ill appearing Eyes: prosthetic right eye, left PERRL ENMT: external ear and nose normal, oropharynx normal Neck: trachea midline, no thyromegaly Respiratory: Clear but diminished bilat. No rales or rhonchi appreciated. Normal effort, no conversational dyspnea. Cardiovascular: Rate/Rhythm: regular rate and regular rhythm Chest (Breasts): Chest: normal inspection of chest and + vascular access device or port Gastrointestinal (Abdomen): Distended, mildly TTP, BS+ Results & Data ([facility]) Vital Signs (Past 12 Hours) Vital Signs Temp Pulse Pulse Resp BP Pulse Ox O2 Del Method 09/08/22 12:07 37.4 C 98 H 18 119/75 91 Room Air 09/08/22 07:02 37.0 C 103 H 18 118/72 90 Room Air 09/08/22 05:14 105 H Laboratory Results labs and imaging reviewed PG Care Time/CCT Total # of Minutes Spent Total Time Spent: 75 Total Time Spent with Patient: Total time spent is greater than 50% in coordination of care (as documented) at patient's floor/unit and/or counseling patient: 15min chart review 40 min with pt/ - discussions as noted above 10 min with care coordination 10 min discussion with teams, primary team and oncology [place] [address] Subseq Hosp Care Lvl 3 Patient Type Established History Detailed Exam Detailed Medical Decision Making High Complexity Diagnoses Palliative care encounter Z51.5 Cancer related pain G89.3 Metastatic cancer C79.9 Synovial sarcoma C49.9
[2022-09-08] MEDS: MIRTAZAPINE TAB 15 MG TAB PO SCH (20:08)
[2022-09-08] MEDS: hydrOXYzine HCl 25 MG TAB PO SCH (20:09)
[2022-09-08] MEDS: HEPARIN 100 UNIT/ML 5ML FLUSH FLUSH PRN (20:09)
[2022-09-08 21:51] LABS: Babesia microti DNA Not Detected (Not Detected)
[2022-09-09] MEDS: HYDROmorphone HCL 2 MG TAB PO PRN ×6 (03:27→21:05)
[2022-09-09 06:04] LABS: Hematocrit (blood only) 28.7 % (40.1-51.0); Hemoglobin 9.6 g/dl (14.0-18.0); Immature Granulocytes # (auto) 0.01 K/uL (0.00-0.02); Immature Granulocytes % (auto) 0.3 %; Lymphocytes # (auto) 0.35 K/uL (1.2-3.4); Lymphocytes % (auto) 11.1 %; Mean Corpuscular Hgb Conc 33.4 g/dL (32.0-36.0); Mean Corpuscular Volume 92.6 fL (80.0-100.0); Mean Platelet Volume 10.9 fL (9.4-12.4); Monocytes % (auto) 6.3 %; Neutrophils % (auto) 82.3 %; Platelet Count 184 K/uL (130-400); RDW Coefficient of Variation 14.7 % (11.5-14.5); RDW Standard Deviation 49.7 fL (36.4-46.3); White Blood Count 3.16 K/ul (4.8-10.8)
[2022-09-09 06:41] LABS: Albumin Globulin Ratio 0.6 (0.9-2); Albumin Level 2.7 gm/dl (3.4-5.0); BUN Creatinine Ratio 29.3 (10-20); Bilirubin,Total 0.9 mg/dl (0.2-1.0); Calcium 8.7 mg/dl (8.5-10.1); Creatinine Clr Calc Pharmacy 189.8 ml/min; Est GFR (African American) 130.3 ml/min; Est GFR (Non-African American) 112.4 ml/min; Globulin 4.6 gm/dl (2.5-4.0); Potassium 3.7 mmol/L (3.5-5.1); Total Protein 7.3 gm/dl (6.0-8.3)
[2022-09-09] MEDS: CHECK fentaNYL PATCH PLACEMENT SCH ×3 (08:22→23:10)
[2022-09-09] MEDS: fentaNYL 50 MCG/HR TDSY TD SCH (08:22)
[2022-09-09] MEDS: POTASSIUM CHLORIDE CRTAB 20 MEQ TABCR PO SCH (08:25)
[2022-09-09] MEDS: LORATADINE 10 MG TAB PO SCH (08:25)
[2022-09-09] MEDS: FAMOTIDINE 40 MG TABLET PO SCH (08:25)
[2022-09-09] MEDS: FLUTICASONE PROPIONATE NA SPR 16 GM BTL NAE SCH (08:26)
[2022-09-09] MEDS: dexAMETHasone 4 MG TAB PO SCH (08:26)
[2022-09-09] MEDS: MONTELUKAST SODIUM 10 MG TABLET PO SCH (08:26)
[2022-09-09] MEDS: FLUTICASONE/VILANTEROL 100/25MCG 14 PUFFS/INHALER INH SCH (08:26)
[2022-09-09] MEDS: PANTOprazole 40 MG TAB PO SCH (08:26)
[2022-09-09] MEDS: LOSARTAN POTASSIUM 50 MG TAB PO SCH (08:26)
[2022-09-09] MEDS: MAGNESIUM HYDROXIDE SUSP 30 ML UDC PO SCH (08:27)
--- NOTE | 2022-09-09 09:24 | Oncology Consultation ---
Date of Consultation September 09, 2022 Assessment & Plan (1) Synovial sarcoma: (2) Transaminitis: (3) Cancer related pain: (4) Hypothermia: Plan Gentleman with metastatic synovial sarcoma for which he was most recently started on pazopanib 800 mg p.o. daily by sarcoma expert at [facility] in July,. He presented with transaminitis and fever of unknown etiology. I had an extensive discussion with patient and his today. -Explained to him that I would recommend restarting pazopanib once transaminitis has completely resolved at a lower dose (preferably 400 mg p.o. daily) and dose escalating based on tolerance/labs. We will coordinate this with his sarcoma on cologist Dr. Martin at [facility] as well -He initially presented with fever of unclear etiology for which infectious work-up has so far been negative. Although this could be tumor related fever, this remains a diagnosis of exclusion and as such would recommend repeating blood cultures, urinalysis and chest x-ray to rule out infection especially in the setting of new onset hypothermia. If all work-up remains negative, and he has recurrent fever, would assume this is tumor related. Also obtain work-up for hypothyroidism and adrenal insufficiency given new onset hypothermia -Also recommend MRI brain to rule out brain metastasis or other acute pathology given complaints of headaches, intermittent blurry vision and acute onset of hypothermia Thank you for this consult. Oncology will follow peripherally while patient is in the hospital and plan to see him at [facility] upon discharge from hospital. History of Present Illness Reason for Consultation: Metastatic synovial sarcoma Attending Physician: Dale Villarreal MD History of Present Illness Mr. Bullock is a pleasant 57-year-old gentleman with history of metastatic synovial sarcoma for which he recently started pazopanib under the care of Dr. Martin of sarcoma oncology at [facility]. Patient is admitted to [facility] on 09/02/2022 with complaints of fever and abnormal LFTs. Regarding his sarcoma diagnosis/treatment, he had initially presented around July, with left elbow mass for which x-ray of the forearm was obtained on 08/23/2019 which was concerning for malignancy. On 09/20/2019 he underwent left forearm mass core needle biopsy which revealed synovial sarcoma. Staging imaging at that time did not show any evidence of metastatic disease. Patient was then evaluated by multidisciplinary sarcoma/bone cancer clinic at [facility] with recommendation for preoperative systemic therapy. He subsequently received 4 cycles preoperative AIM (doxorubicin/ifosfamide) chemotherapy at [facility]. This was followed by preoperative radiation therapy under the care of Dr. Garcia. He received 5000 cGy utilizing volumetric modulated arc therapy to the left arm which was completed on 02/20/2020. Restaging CT chest obtained on 03/14/2021 was concerning for recurrent disease with bilateral lung nodules. Needle biopsy of right lung pleural-based nodule obtained on 07/08/2021 confirmed metastatic synovial cell sarcoma. At that time, patient opted for observation. CT abdomen and pelvis on 10/16/2021 revealed slowly enlarging pulmonary nodules with a stable small radiodense area in the right posterior L1 vertebral body of indeterminate significance possibly representing metastatic disease or normal anatomic variant. Patient continued to opt for observation. Restaging CT scan on 04/09/2022 revealed significant increase in size of lung nodules with the largest nodules along the right heart border and right middle lobe measuring 2.7 x 1.9 cm. Patient then presented to his PCP on 07/24/2022 complaining of left chest wall pain which he attributed to rash from poison shona. He was placed on prednisone with significant improvement in pain. Patient was then evaluated by Dr. Martin of sarcoma oncology at [facility] who recommended pazopanib 800 mg p.o. daily which was started on 07/27/2022. CT chest abdomen and pelvis obtained on 07/30/2022 revealed subpleural mass in the right upper lobe measured 6.0 x 2.8 cm previously measuring 3.0 x 2.1 cm, right perihilar mass measured 3.7 x 4.0 cm previously measuring 2.4 x 3.1 cm, right middle lobe nodule measured 7.4 x 5.2 cm previously measuring 3.3 x 3.1 cm, A new mass along the base of the right lung abutting the right hemidiaphragm measured 5.8 x 4.5 cm with additional numerous pulmonary nodules seen which have also increased in size, 5.1 x 5.0 cm heterogeneous nodule was noted in the anterior mediastinum previously measuring 1.0 x 0.5 cm and new right paratracheal mass measuring 3.8 x 3.1 cm was noted. He presented to the ED on 07/31/2022 with intractable right-sided chest pain. He was evaluated by radiation oncology and subsequently received palliative radiation therapy to the right anterior chest wall. This was followed by resection More recently, he was noted to have elevated LFTs for which Votrient has been held for about 2 weeks. He presented to the ER at [facility] on 09/02/2022 with complaints of fever and abnormal LFTs. Work-up obtained for infection including urinalysis, blood cultures, chest imaging have all been negative. At time of today's visit, patient was hypothermic with a temperature of 34.7 C. He complains of occasional headaches, blurry vision, right-sided chest pain and abdominal pain. Allergies Allergy/AdvReac Type Severity Reaction Status Date / Time bacitracin Allergy Severe hives, Verified 09/02/22 15:46 syncopy tree and shrub pollen AdvReac Mild nasal Verified 09/02/22 15:46 congestion, eyes water Home Medications Medication Instructions Recorded Confirmed Type albuterol sulfate 90 mcg/actuation 2 puffs inhalation Q4 PRN 10/10/19 09/02/22 History aerosol inhaler (Ventolin HFA) Shortness Of Breath Or Wheezing fluticasone furoate 100 1 puffs inhalation DAILY #180 ea 10/13/19 09/02/22 Rx mcg-vilanterol 25 mcg/dose inhalation powder (Breo Ellipta) albuterol sulfate 2.5 mg/3 mL 2.5 mg inhalation Q6H PRN 01/31/20 09/02/22 History (0.083 %) solution for nebulization shortness of breath or wheezing montelukast 10 mg tablet 10 mg PO DAILY 06/29/20 09/02/22 History (Singulair) amlodipine 10 mg tablet 10 mg PO DAILY 07/31/22 09/02/22 History amoxicillin 500 mg capsule 2,000 mg PO DIRECTED 07/31/22 09/02/22 History carvedilol 6.25 mg tablet 6.25 mg PO BID 07/31/22 09/02/22 History famotidine 40 mg tablet 40 mg PO DAILY 07/31/22 09/02/22 History fluticasone propionate 50 2 spray intranasal QAM 07/31/22 09/02/22 History mcg/actuation nasal spray,suspension hydrochlorothiazide 25 mg tablet 25 mg PO DAILY 07/31/22 09/02/22 History hydroxyzine HCl 25 mg tablet 50 mg PO HS 07/31/22 09/02/22 History loratadine 10 mg tablet 10 mg PO DAILY 07/31/22 09/02/22 History losartan 100 mg tablet 100 mg PO DAILY 07/31/22 09/02/22 History docusate sodium 100 mg capsule 100 mg PO BID PRN laxative effect 08/04/22 09/02/22 Rx #60 caps fentanyl 50 mcg/hr transdermal 50 mcg transdermal Q72H #5 ea 08/04/22 09/02/22 Rx patch polyethylene glycol 3350 17 gram 17 g PO DAILY PRN laxative effect 08/04/22 09/02/22 Rx oral powder packet (Miralax) #30 ea potassium chloride 20 mEq 20 meq PO DAILY #30 tabs 08/04/22 09/02/22 Rx tablet,extended release hydromorphone 2 mg tablet 2 mg PO Q3H PRN Severe Pain (Scale 08/12/22 09/02/22 History (Dilaudid) Score 7-10) aspirin 81 mg tablet 81 mg PO DAILY 09/02/22 09/02/22 History buspirone 10 mg tablet 10 mg PO BID PRN Pain 09/02/22 09/02/22 History mirtazapine 15 mg tablet 15 mg PO HS 09/02/22 09/02/22 History pantoprazole 40 mg tablet,delayed 40 mg PO QAM 09/02/22 09/02/22 History release sennosides 8.6 mg tablet (Senokot) 8.6 mg PO BID PRN Constipation 09/02/22 09/02/22 History Patient History Medical History Asthma Cancer related pain GERD (gastroesophageal reflux disease) Hepatic steatosis HTN (hypertension) 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 Grandmother (Maternal) , iat 91 old age No problems noted. Grandfather (Paternal) , in his eighties old age No problems noted. Father , age 66 of pancreatic cancer and metastasis No problems noted. Mother No problems noted. Brother Age: 54 No problems noted. Son Age: 35 Leukemia in remission Daughter Age: 35 No problems noted. Daughter Age: 23 No problems noted. Son Age: 20 No problems noted. Social History Smoking Status: Former smoker Hx Alcohol Use: No Hx Substance Use: No Preferred Language: Burmese Communication Ability: Effective Cans Vacuum Tester Required: No Beliefs That Will Affect Care: None marital status: Current Living Situation: Spouse current occupational status: employed Feels Safe at Home: Yes Childhood Exposure to Second-Hand Smoke: Yes caffeine: No Dental Care, Regularly: Yes Physical Activity Frequency: Does not Exercise Seatbelt Use: always Sunscreen Use: Yes Do you think of yourself as: straight/heterosexual Assistive Devices: None Review of Systems Review of Systems: All systems reviewed & are unremarkable except as noted in Subjective Physical Exam Constitutional: + diaphoretic Eyes: PERRL, conjunctivae normal, anicteric sclerae Respiratory: normal respiratory effort, lungs clear to auscultation Cardiovascular: Rate/Rhythm: regular rhythm and + tachycardic Gastrointestinal (Abdomen): normal bowel sounds, soft, nontender, no hepatosplenomegaly Lymphatic: no cervical or axillary lymphadenopathy Results & Data ([facility]) Vital Signs (Past 12 Hours) Vital Signs Temp Pulse Pulse Resp BP Pulse Ox O2 Del Method 09/09/22 08:08 34.7 C L 09/09/22 07:19 80 20 118/78 92 09/09/22 05:44 34.7 C L 90 16 130/75 91 Room Air 09/09/22 03:49 36.2 C L 67 16 124/86 92 CPAP 09/08/22 23:37 85 09/08/22 23:26 36.4 C L 94 H 18 104/85 91 CPAP
[2022-09-09] MEDS ORDERED: COSYNTROPIN 1 MCG in SYRINGE 0 ML IV ONE (12:26)
[2022-09-09] MEDS: HEPARIN 100 UNIT/ML 5ML FLUSH FLUSH PRN (13:11)
[2022-09-09] MEDS ORDERED: Cosyntropin 250mcg IVP **Standard-Dose Cortrosyn Stim Test IV ONE (13:45)
--- NOTE | 2022-09-09 14:39 | Palliative Care Progress Note ---
Date of Service September 09, 2022 Assessment & Plan (1) Palliative care encounter: Plan: Patient is being followed for ongoing cancer related pain and symptom management as well as a ongoing dialogue regarding the goals of care. They have met with oncology and feel reassured. (2) Cancer related pain: Plan: Patient is on day 2 of Decadron 8 mg p.o. daily. He does not feel any significant difference in his pain. We agreed that we will give therapy another 1 to 2 days before making a determination of whether or not opioids should be adjusted further. (3) Anxiety: Plan: As needed Ativan is ordered. He takes this as needed. (4) Synovial sarcoma: Plan: Patient anticipates having updated imaging and scanning once he is discharged. (5) Metastatic cancer: Plan For now, no acute changes to the current plan. Temperature did improve after some time with the warming blanket, reassessment during my evaluation was 97.4 degrees Admission and Anticipated Discharge Date Admission Date: September 02, 2022 Subjective Patient had an episode of hypothermia earlier today and is currently under a warming blanket. is present at the bedside. They had a good conversation during the oncology consult earlier today. Access to all the [employer] imaging records has been provided through PACS for provider review. Patient has been started on Decadron 8 mg tablets once a day by the primary team. To his first dose yesterday and second dose today. So far he is not noticing any substantial relief but tells me that the last time he was given steroids it was a higher dose in the taper formation. I told him that we will wait to hear some input from oncology with regards to whether or not Decadron should be continued on a daily basis in a long-term fashion. He denies any nausea or vomiting. Appetite is okay. Mood remains subdued. He is still anxious being in the hospital and wishes to go home. He is frustrated by the lack of answers although also simultaneously relieved that the exhaustive work-up did not find anything acute. Remains concerned about the episodes of diaphoresis and diffuse sweating that he experiences in a random manner. Review of Systems Review of Systems: All systems reviewed & are unremarkable except as noted in Subjective Physical Exam Constitutional: well developed, well nourished and + ill appearing Eyes: prosthetic right eye, left PERRL ENMT: external ear and nose normal, oropharynx normal Neck: trachea midline, no thyromegaly Respiratory: Clear but diminished bilat. No rales or rhonchi appreciated. Normal effort, no conversational dyspnea. Cardiovascular: Rate/Rhythm: regular rate and regular rhythm Chest (Breasts): Chest: normal inspection of chest and + vascular access device or port Gastrointestinal (Abdomen): Distended, mildly TTP, BS+ Results & Data ([place]) Vital Signs (Past 12 Hours) Vital Signs Temp Pulse Resp BP Pulse Ox O2 Del Method 09/09/22 11:33 36.3 C L 103 H 20 134/92 94 Room Air 09/09/22 10:28 36.3 C L 09/09/22 08:08 34.7 C L 09/09/22 07:19 80 20 118/78 92 09/09/22 05:44 34.7 C L 90 16 130/75 91 Room Air 09/09/22 03:49 36.2 C L 67 16 124/86 92 CPAP Laboratory Results Labs and imaging reviewed. PG Care Time/CCT Total # of Minutes Spent Total Time Spent: 60 Total Time Spent with Patient: Total time spent is greater than 50% in coordination of care (as documented) at patient's floor/unit and/or counseling patient: Yes [place] [address] Subseq Hosp Care Lvl 3 Patient Type Established History Detailed Exam Detailed Medical Decision Making Moderate Complexity Diagnoses Palliative care encounter Z51.5 Cancer related pain G89.3 Anxiety F41.9 Synovial sarcoma C49.9 Metastatic cancer C79.9
--- NOTE | 2022-09-09 15:37 | Hospitalist Progress Note ---
Date of Service September 09, 2022 Assessment & Plan (1) Synovial sarcoma: (2) Metastatic cancer: (3) Cancer related pain: (4) GERD (gastroesophageal reflux disease): (5) HTN (hypertension): (6) Asthma: (7) Constipation: (8) Fever: (9) Abnormal CT of the abdomen: (10) Transaminitis: (11) Anterior epistaxis: (12) Hematuria: Plan 57yo M with a PMH of synovial sarcoma with metastasis to lungs and lymph nodes following with [facility] onc and Dr. Garcia [facility] rad onc, asthma, hypertension and other medical problems listed below who presented with overnight fever and transaminitis. He is being managed for the following: Fever Infective work up so far. ? Cancer related fever Intermittent fever since admission. The highest recorded temperature was 39.3 C 11/13 AM. Had temp of 34.7 C today AM. Urinalysis analysis does not show sign of infection Urine culture no growth Multiple Blood culture no growth so far CT abd/pelvis with mild enlargement and heterogeneous enhancement within the kidneys which is new from the prior study. Also with hepatic steatosis, bladder wall thickening. Head CT without acute abnormality, chest CTA without evidence of PE, overall interval mild decrease in size of numerous pulmonary and pleural-based mas ses/nodules Plan; -His infectious work-up has been negative so far. It includes urine culture, repeated blood culture, Lyme serology, acute hepatitis panel, CT chest and ech ocardiogram. CT abdomen pelvis did show mild enlargement and enhancement of the kidney; urine culture was negative. Prior attending discussed with infectious disease; agree with observing him off antibiotic for now. The finding was also discussed with his oncologist ( Dr. Javier) by prior attending. The reason for his fever is most likely from drug-induced liver injury or fever related to connective tissue cancer. Patient and his reported that he felt better when he was on steroid during the last admission. Discussion was done with Dr. Javier by prior attending, he was agreeable with Decadron trial as well. Started on Decadron 8 mg once daily 09/09. -Will monitor for fever. -Palliative on board; he is currently on Dilaudid for pain control. Family wanted to get opinion from oncology as inpatient; oncology evaluated. - d/w oncology, recommends MRI brain w/wo con to r/o mets. Plan to restart votrient at reduced dose once lft normalizes, and c/w current dose of dexa, onco logy will f/u as OP and then begin taper of dexa. -hypothermia resolved with decreasing temperature of the room, leading to decreased perspiration. Will r/o adrenal insufficiency given patient being on and off on steroid frequently due to his pain management. Will get cosyntropin stimulation test. Resending infectious workup today including bl cx, cxr, ua. Send TSH. - f/u brain mri. Hepatoxicity and acute liver insufficiency secondary to Votrient therapy Started on Votrient chemotherapy on 07/27, last taken on 08/25. Currently on hold given worsening transaminitis AST, ALT and ALP all downtrending. GI on board; likely chemo related drug-induced liver injury. Continue to monitor. d/w oncology, plan to resume votreint at reduced dose upon resolution of liver injury. Lab in AM. Hematuria Proteinuria Epistaxis Can be secondary to Votrient therapy Patient reports episode of epistaxis from his left naris and pinkish urine output on 09/03 PT/INR and APTT mildly elevated. Epistaxis resolved; he had microscopic hematuria. 24-hour urine collection reveals proteinuria of 1800mg. His CT abdomen and pelvis on admission also showed mild enlargement and enhancement of the kidney with bilateral perinephric edema. Hb stable Plan; Nephrology and urology were consulted. Nephrology recommends stopping hydrochlorothiazide. Continue on losartan .outpatient follow-up. Urology recommends cystoscopy as outpatient. - continue to monitor Hb Synovial sarcoma Metastatic cancer H/o synovial sarcoma with metastasis to lungs and lymph nodes following with [facility] med onc and Dr. Garcia [facility] rad onc Dr Martin's contact info : [phone]. Prior attending Unable to get hold of him. Informed by patient that he is currently in vacation. Acute kidney injury, likely pre-renal resolved Cr 1.49 (baseline ~ 0.61). Cancer related pain on narcotics Following with palliative care. Right thyroid nodule Incidental finding on chest CTA. Nonemergent ultrasound and outpatient follow- up recommended Hypertension on losartan. HCTz and Coreg on hold. Asthma Continue albuterol nebulizer as needed for shortness of breath and wheezing, albuterol rescue inhaler, Singulair Constipation Continue bowel regimen. DVT Ppx: SCDs for now. Holding off pharmacologic PPx in light of hematuria Code status: FULL PCP: [facility] Dispo: Admitted to PCU, plan for dc upon stabilization of temperature. CMP in 3 days, close f/u w/ pcp and oncology. Admission and Anticipated Discharge Date Admission Date: September 02, 2022 Subjective Patient seen and examined at bedside as a follow-up of likely cancer related fever, hepatotoxicity likely secondary to Votrient therapy, hematuria/proteinuria/epistaxis, synovial sarcoma with metastatic disease, acute kidney injury, cancer related pain on narcotics. Patient was sitting up in bed, with bear hugger covering the lower half of the body, on room air, NAD, denies any new acute event overnight, had temperature of 34.7 C in the deputy director, his room temperature was upped and bear hugger was set at 38 C, patient was sweating at bedside exam, his clothes and bed sheets were wet, otherwise patient reported feeling fine. Communicated with RN to decrease the temperature of the room, keep the bear hugger on so that patient can use Sourav hugger as needed, to have electrolyte solution by bedside to replace for the electrolytes lost via excessive sweating. Apparently patient's temperature got better. Patient denies any headache/chest pain/belly pain/other review of symptoms. Patient reports eating okay. Patient reports moving bowels okay. Patient is tired of staying in the hospital and would like to go home. Physical Exam Physical Exam: GENERAL: Alert and oriented x3. NAD, on RA. Class II obese. Perspiring +. HEENT: No pallor, no icterus. Pupils equal, round and reactive to light. Oral mucosa moist. NECK: No JVD, no neck masses. HEART: S1 and S2 heard. Regular rate and rhythm. No murmur, no gallop. Rt Upper chest port. RESPIRATORY SYSTEM: Normal AP diameter. No accessory muscle use. No wheezing, no crackles. ABDOMEN: Soft, bowel sounds present, nontender, no distention. CENTRAL NERVOUS SYSTEM: No facial droop. Speech is clear. Obeys simple commands. Moves extremities. EXTREMITIES: No edema, no erythema seen. Results & Data Results & Data ([facility]) Vital Signs (Past 12 Hours) Vital Signs Temp Pulse Resp BP Pulse Ox O2 Del Method 09/09/22 11:33 36.3 C L 103 H 20 134/92 94 Room Air 09/09/22 10:28 36.3 C L 09/09/22 08:08 34.7 C L 09/09/22 07:19 80 20 118/78 92 09/09/22 05:44 34.7 C L 90 16 130/75 91 Room Air 09/09/22 03:49 36.2 C L 67 16 124/86 92 CPAP (1) Fever Fever type: due to other condition Qualified Code(s): R50.81 - Fever presenting with conditions classified elsewhere
--- NOTE | 2022-09-09 16:26 | XRay Report ---
XR chest 1V portable CLINICAL HISTORY: r/o infection, infxn w/u, hypothermia COMPARISON STUDY: Chest radiograph August 21, 2022. Chest CT September 02, 2022. FINDINGS: A right internal jugular [id number] is in place. There is no pneumothorax or pleural eff usion. No consolidation is identified to suggest pneumonia. Cardiac size is normal. Mediastinal conto urs are stable. Multiple pleural and parenchymal nodules and masses are similar to chest CT of [facility] 2021. The appearance of the chest is unchanged. There is no evidence for pulmonary edema. IMPRESSION: 1. No significant change in appearance of the intrathoracic metastases. No change in appearance of t he chest. 2. No consolidation to suggest pneumonia. ACT 112: Negative or not required by law. Electronically signed by: Marquis Lu M.D. 09/09/2022 4:24 PM
[2022-09-09] MEDS ORDERED: GADOBUTROL 65ML VIAL IV ONE (18:39)
[2022-09-09 18:59] LABS: Appearance Urine Clear (Clear); Bacteria Urine Automated Negative (Negative); Bilirubin Urine Negative (Negative); Blood Urine Negative (Negative); Color Urine Yellow; Glucose Urine UA 1+ (Negative); Ketones Urine Negative (Negative); Leukocyte Esterase Urine Negative (Negative); Nitrite Urine Negative (Negative); Protein Urine 1+ (Negative); RBC Urine Automated 0-4 /hpf (0-4); Specific Gravity Urine 1.021 (1.000-1.030); Urobilinogen Urine Negative (Negative); pH Urine 5.5 (4.5-7.5)
--- NOTE | 2022-09-09 19:33 | Magnetic Resonance Report ---
MR brain wo/w con CLINICAL HISTORY: r/o mets to brain TECHNIQUE: Multiplanar and multisequence MR images of the brain were obtained prior to and following administration of gadolinium contrast. Comparison: Comparison is made to CT head 09/02/2022 FINDINGS: No abnormal restricted diffusion is identified. The white matter is unremarkable. The ventricular sys tem is normal in appearance. No mass or abnormal enhancement is seen. There is no mass effect or midl ine shift. There is no evidence of acute intraparenchymal hemorrhage. No extra axial fluid collection s are seen. The corpus callosum, pituitary gland, and cerebellar tonsils appear grossly unremarkable. Flow voids of the major intracranial arterial vessels are identified. Incidental note is made of righ t ocular prosthesis. IMPRESSION: No acute abnormality and in particular no evidence of metastatic disease. ACT 112: Negative or not required by law. Electronically signed by: Viktor Carpenter M.D. 09/09/2022 7:31 PM
[2022-09-09] MEDS: LORazepam 0.5 MG TAB PO PRN (21:04)
[2022-09-09] MEDS: hydrOXYzine HCl 25 MG TAB PO SCH (21:04)
[2022-09-09] MEDS: carvediloL 6.25 MG TAB PO SCH (21:04)
[2022-09-09] MEDS: MIRTAZAPINE TAB 15 MG TAB PO SCH (21:04)
[2022-09-10] MEDS: HYDROmorphone HCL 2 MG TAB PO PRN ×4 (00:46→15:23)
[2022-09-10 03:40] VITALS: TEMP 97.3
[2022-09-10] MEDS ORDERED: Cosyntropin 250mcg IVP **Standard-Dose Cortrosyn Stim Test IV ONE (08:15)
[2022-09-10 08:20] LABS: Hematocrit (blood only) 29.7 % (40.1-51.0); Hemoglobin 9.9 g/dl (14.0-18.0); Mean Corpuscular Hemoglobin 31.4 pg (25.0-34.0); Mean Corpuscular Hgb Conc 33.3 g/dL (32.0-36.0); Mean Corpuscular Volume 94.3 fL (80.0-100.0); Mean Platelet Volume 10.5 fL (9.4-12.4); Platelet Count 237 K/uL (130-400); RDW Standard Deviation 51.1 fL (36.4-46.3); Red Blood Count 3.15 M/uL (4.63-6.08); White Blood Count 6.19 K/ul (4.8-10.8)
[2022-09-10] MEDS: MONTELUKAST SODIUM 10 MG TABLET PO SCH (08:27)
[2022-09-10] MEDS: carvediloL 6.25 MG TAB PO SCH (08:27)
[2022-09-10] MEDS: FAMOTIDINE 40 MG TABLET PO SCH (08:28)
[2022-09-10] MEDS: CHECK fentaNYL PATCH PLACEMENT SCH (08:28)
[2022-09-10] MEDS: FLUTICASONE PROPIONATE NA SPR 16 GM BTL NAE SCH (08:28)
[2022-09-10] MEDS: FLUTICASONE/VILANTEROL 100/25MCG 14 PUFFS/INHALER INH SCH (08:28)
[2022-09-10] MEDS: PANTOprazole 40 MG TAB PO SCH (08:28)
[2022-09-10] MEDS: LORATADINE 10 MG TAB PO SCH (08:28)
[2022-09-10] MEDS: dexAMETHasone 4 MG TAB PO SCH (08:28)
[2022-09-10] MEDS: LOSARTAN POTASSIUM 50 MG TAB PO SCH (08:29)
[2022-09-10] MEDS: MAGNESIUM HYDROXIDE SUSP 30 ML UDC PO SCH (08:29)
[2022-09-10] MEDS: POTASSIUM CHLORIDE CRTAB 20 MEQ TABCR PO SCH (08:30)
[2022-09-10 08:50] LABS: Albumin Globulin Ratio 0.7 (0.9-2); Albumin Level 2.9 gm/dl (3.4-5.0); BUN Creatinine Ratio 47.5 (10-20); Bilirubin,Total 0.8 mg/dl (0.2-1.0); Calcium 8.8 mg/dl (8.5-10.1); Creatinine Clr Calc Pharmacy 186.3 ml/min; Est GFR (African American) 129.3 ml/min; Est GFR (Non-African American) 111.6 ml/min; Globulin 4.4 gm/dl (2.5-4.0); Magnesium 1.6 mg/dl (1.7-2.4); Potassium 3.9 mmol/L (3.5-5.1); Total Protein 7.3 gm/dl (6.0-8.3)
[2022-09-10] MEDS: MAGNESIUM SULFATE / D5W 1 GM/100 ML BAG IV SCH ×2 (09:39→12:01)
[2022-09-10 11:46] VITALS: BP 135/86; PULSE 72; O2SAT 94
--- NOTE | 2022-09-10 13:08 | Discharge Summary ---
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 Garcia [facility] rad onc, asthma, hypertension and other medical problems listed below who presents with overnight fever. Was started on a new oral chemotherapy Votrient at [facility] on 07/27 with side effect of transaminitis. With worsening liver function tests, Votrient has been held since 08/15 with outpatient LFT monitoring from yesterday 09/01 revealing T bili of 1.3, AST of 465 and ALT 467. Patient was encouraged to present to ED given worsening LFTs but felt fine enough to stay home, per patient. Overnight, patient had a fever with T-max of 101.6 F. States he feels okay otherwise. Still having pain in right lower ribs with associated abdominal fullness on right side. Current regimen for cancer-related pain is fentanyl 50 mcg/h with Dilaudid 2 mg tablet every 3 hours as needed for breakthrough pain. Denies any headache, chest pain, shortness of breath, nausea, vomiting, dysuria, hematuria or diarrhea. Issues with constipation in setting of opioid use but has bowel regimen with last bowel movement yesterday evening. Poor appetite but trying to keep fluid intake up. Follows with Dr. Martin at [facility] with due for telemedicine appointment tomorrow evening at 1800. Admission Exam Per Admitting Provider General Appearance:WD/WN, vitals as above, NAD, sitting up in bed, pleasant, obese Head: normocephalic, atraumatic Eyes:normal inspection, PERRL, conjunctivae normal, anicteric sclerae ENT: external ear and nose normal, oropharynx normal Neck: normal visual inspection, trachea midline, no thyromegaly Respiratory:normal respiratory effort, lungs clear to auscultation, no wheeze, rales, rhonchi. No accessory muscle use Cardiovascular: regular rate, rhythm, no murmur, normal peripheral pulses, no BLE edema. Vessels: no JVD Chest: normal inspection of chest. + TTP R anterolateral ribs. + Port R chest wall Abdomen/GI: normal bowel sounds, soft with some TTP in RUQ, no guarding Extremities/Musculoskeletal: no cyanosis or clubbing, extremities motor strength 5/5 Neurologic: PERRL, EOMI, accommodation nl, no face palsy, no dysarthria, CN's II-XI intact bilaterally and moves all extremities Psychiatric:A+Ox3, euthymic affect Skin: no rashes, +mild jaundice noted, warm/dry Principal Diagnosis Possible cancer related fever Hepatotoxicity likely secondary to Votrient therapy Hematuria Proteinuria History of synovial sarcoma with metastasis Acute kidney injury, resolved Cancer related pain on narcotics Right thyroid nodule History of hypertension Constipation secondary to use of narcotics Discharge Exam GENERAL: Alert and oriented x3. NAD, on RA. Class II obese. HEENT: No pallor, no icterus. Pupils equal, round and reactive to light. Oral mucosa moist. NECK: No JVD, no neck masses. HEART: S1 and S2 heard. Regular rate and rhythm. No murmur, no gallop. Rt Upper chest port. RESPIRATORY SYSTEM: Normal AP diameter. No accessory muscle use. No wheezing, no crackles. ABDOMEN: Soft, bowel sounds present, nontender, no distention. CENTRAL NERVOUS SYSTEM: No facial droop. Speech is clear. Obeys simple commands. Moves extremities. EXTREMITIES: No edema, no erythema seen. Discharge Data Allergies Allergy/AdvReac Type Severity Reaction Status Date / Time bacitracin Allergy Severe hives, Verified 09/02/22 15:46 syncopy tree and shrub pollen AdvReac Mild nasal Verified 09/02/22 15:46 congestion, eyes water Consultations 09/02/22 14:35 ED Decision to Admit Stat 09/02/22 15:19 Consult Palliative Care Routine 09/02/22 16:37 Consult Gastroenterology Routine 09/04/22 08:55 Consult Infectious Diseases Routine 09/05/22 09:52 Consult Nephrology Routine 09/05/22 11:55 Consult Urology Routine 09/08/22 16:03 Consult Oncology Routine Ordered Studies 09/02/22 11:56 CT abd pelvis IV con only Stat CT angio chest PE protocol Stat 09/02/22 11:57 CT head/brain wo con Stat 09/03/22 11:10 US abdomen limited Routine 09/09/22 12:29 MRI Brain [MR brain wo/w con] Routine Hospital Course (1) Synovial sarcoma: (2) Metastatic cancer: (3) Cancer related pain: (4) GERD (gastroesophageal reflux disease): (5) HTN (hypertension): (6) Asthma: (7) Constipation: (8) Fever: (9) Abnormal CT of the abdomen: (10) Transaminitis: (11) Anterior epistaxis: (12) Hematuria: Plan 57yo M with a 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 Garica [facility] rad onc, asthma, hypertension and other medical problems listed below who presented with overnight fever and transaminitis. He was managed for the following: Fever ? Cancer related fever Intermittent fever since admission. The highest recorded temperature was 39.3 C 09/07 AM. Had temp of 34.7 C today AM. Urinalysis analysis does not show sign of infection Urine culture no growth Multiple Blood culture no growth so far CT abd/pelvis with mild enlargement and heterogeneous enhancement within the kidneys which is new from the prior study. Also with hepatic steatosis, bladder wall thickening. Head CT without acute abnormality, chest CTA without evidence of PE, overall interval mild decrease in size of numerous pulmonary and pleural-based masses/nodules Repeat CXR/blood culture/UA done yesterday are negative. Pro-Dick negative. Patient's temperature has been stable since yesterday morning and patient reports feeling better. Patient would like to go home. MRI brain done, no evidence of metastasis. Cosyntropin stimulation test fairly WNL. TSH WNL. Plan; -His infectious work-up has been negative so far. It includes urine culture, repeated blood culture, Lyme serology, acute hepatitis panel, CT chest and echocardiogram. CT abdomen pelvis did show mild enlargement and enhancement of the kidney; urine culture was negative. Prior attending discussed with infectious disease; agree with observing him off antibiotic for now. The finding was also discussed with his oncologist ( Dr. Javier) by prior attending. The reason for his fever is most likely from drug-induced liver injury or fever related to connective tissue cancer. Patient and his reported that he felt better when he was on steroid during the last admission. Discussion was done with Dr. Javier by prior attending, he was agreeable with Decadron trial as well. Started on Decadron 8 mg once daily 09/09. Upon discussion with inpatient oncologist, plan to discharge patient on dexamethasone 8 mg daily and patient to follow-up with oncology office for tapering down the steroid dose. Patient is also made aware. -Patient will likely need repeat CMP in 3 days upon discharge, he can either communicate with PCP office or oncology office for the test. Also he will likely need CBC/CMP/magnesium level in a week time at which point he can coordinate with his PCP office for the same. -Palliative on board; he is currently on Dilaudid for pain control. Family wanted to get opinion from oncology as inpatient; oncology evaluated. Patient stated he will need fentanyl patch upon discharge, dispensed. -Patient to follow-up with oncology in a week time. Plan to restart votrient at reduced dose once lft normalizes, and c/w current dose of dexa, oncology will f/u as OP and then begin taper of dexa. Hepatoxicity and acute liver insufficiency secondary to Votrient therapy Started on Votrient chemotherapy on 07/27, last taken on 08/25. Currently on hold given worsening transaminitis AST, ALT and ALP all downtrending. Better than at presentation but still elevated. Will need repeat CMP as outlined above. GI on board; likely chemo related drug-induced liver injury. Continue to monitor. d/w oncology 09/09, plan to resume votreint at reduced dose upon resolution of liver injury. Lab as outpatient. Hematuria Proteinuria Epistaxis Can be secondary to Votrient therapy Patient reports episode of epistaxis from his left naris and pinkish urine output on 09/03 PT/INR and APTT mildly elevated. Epistaxis resolved; he had microscopic hematuria. 24-hour urine collection reveals proteinuria of 1800mg. His CT abdomen and pelvis on admission also showed mild enlargement and enhancement of the kidney with bilateral perinephric edema. Hb stable Plan; Nephrology and urology were consulted. Nephrology recommends stopping hydrochlorothiazide. Continue on losartan .outpatient follow-up. Urology recommends cystoscopy as outpatient. 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 Garcia [facility] rad onc Dr Martin's contact info : [phone]. Prior attending Unable to get hold of him. Informed by patient that he is currently in vacation. Acute kidney injury, likely pre-renal resolved Cr 1.49 (baseline ~ 0.61). Cancer related pain on narcotics Following with palliative care. Right thyroid nodule Incidental finding on chest CTA. Nonemergent ultrasound and outpatient follow- up recommended Hypertension on losartan. HCTz discontinued. And Coreg resumed. Asthma Continue albuterol nebulizer as needed for shortness of breath and wheezing, albuterol rescue inhaler, Singulair Constipation Continue bowel regimen. Code status: FULL PCP: [facility] Discharge instructions were communicated with patient/patient's /patient's son at bedside exam. Patient is being discharged home with following instruction at the point of discharge: Follow-up with your primary care physician within a week time and likely you will need blood test CBC/CMP/magnesium level. You will need to get CMP in 3 days time upon discharge, for this coordinate either with your primary care office or with your oncology office. For your likely cancer related fever, infectious disease work-up done in the hospital had been negative. Last 2 blood cultures final results are pending at the time of discharge, advise to coordinate with your PCP office for the final results on those blood culture. Regarding your cancer status, MRI brain was done and was negative for metastasis. Follow-up with your cancer doctor within a week time, plan is to repeat your liver function test until they are normal and then possibly start you back on Votrient therapy at reduced dose. You can coordinate with your oncology office for getting blood test CMP in 3 days upon discharge. You will be discharged on dexamethasone 8 mg daily, as discussed at the bedside you will need to follow-up with your cancer doctor in a week time who will evaluate you and start tapering down your steroid doses. For your hematuria, follow-up with urology as an outpatient. He will likely need repeat urine analysis and cystoscopy. For your proteinuria, follow-up with your kidney doctor as an outpatient. Your hydrochlorothiazide has been discontinued during this admission. For your incidental finding of right thyroid nodule on CT scan of your chest, you will need thyroid ultrasound as an outpatient, coordinate with your primary care office to set up the test. Continue to take OTC laxatives/stool softener as needed for your constipation secondary to the use of pain medication. Take your medications as prescribed. Please make sure that you are able to get your medications today by calling your pharmacy before you leave the hospital so that your treatment continuity is not broken. [facility] Attestation I certify that this patient is under my care and that I, or a physicians financial services assistant working with me, had a face to-face encounter that meets the [facility] [id number] encounter requirements with this patient. The encounter with the patient was in whole, or in part, for the following medical condition, which is the primary reason for home health care (list medical condition): I certify that, based on my findings, the following services are medically necessary home health services: My clinical findings support the need for the above services because: Further, I certify that my clinical findings support that this patient is homebound (i.e. absences from home require considerable and taxing effort and are for medical reasons or gnosticism services or infrequently or of short duration when for other reasons) because: Certification for Home Health Services: Based on the above findings, I certify that this patient is confined to the home and needs intermittent intermediate care, physical therapy and/or speech therapy or continues to need occupational therapy. The patient is under my care, and I have initiated the establishment of the plan of care. This patient will be followed by a physician who will periodically review the plan of care. Total Time Total Time Spent Total Time Spent (In Minutes): 50 Discharge Plan Discharge Items Patient Disposition: Home - Self-Care Reason For Visit: HYPOXIA,FEVER,METASTATIC CA, TRANSAMINITIS, MICHA Discharge Diagnosis: Possible cancer related fever Hepatotoxicity likely secondary to Votrient therapy Hematuria Proteinuria History of synovial sarcoma with metastasis Acute kidney injury, resolved Cancer related pain on narcotics Right thyroid nodule History of hypertension Constipation secondary to use of narcotics Activity: Resume your previous activity Non-emergency contact: Primary Care Provider Call non-emergency contact if: you have any medication questions, your symptoms worsen and your temperature is above 101 Follow-up/Referrals: Jeane So CRNP [Nurse Practitioner] - (The Urology office will call you with an appointment.) Krishna Urias MD [Primary Care Provider] - (Date & Time 09/16/2022 2:00 PM Provider Krishna Urias MD [facility] *Please note that your previously scheduled appt on 09/16 @ 9:20AM has been cancelled.*) Diet: Regular Addtl Attending Provider Instructions: Follow-up with your primary care physician within a week time and likely you will need blood test CBC/CMP/magnesium level. You will need to get CMP in 3 days time upon discharge, for this coordinate either with your primary care office or with your oncology office. For your likely cancer related fever, infectious disease work-up done in the hospital had been negative. Last 2 blood cultures final results are pending at the time of discharge, advise to coordinate with your PCP office for the final results on those blood culture. Regarding your cancer status, MRI brain was done and was negative for metastasis. Follow-up with your cancer doctor within a week time, plan is to repeat your liver function test until they are normal and then possibly start you back on Votrient therapy at reduced dose. You can coordinate with your oncology office for getting blood test CMP in 3 days upon discharge. You will be discharged on dexamethasone 8 mg daily, as discussed at the bedside you will need to follow-up with your cancer doctor in a week time who will evaluate you and start tapering down your steroid doses. For your hematuria, follow-up with urology as an outpatient. He will likely need repeat urine analysis and cystoscopy. For your proteinuria, follow-up with your kidney doctor as an outpatient. Your hydrochlorothiazide has been discontinued during this admission. For your incidental finding of right thyroid nodule on CT scan of your chest, you will need thyroid ultrasound as an outpatient, coordinate with your primary care office to set up the test. Continue to take OTC laxatives/stool softener as needed for your constipation secondary to the use of pain medication. Take your medications as prescribed. Please make sure that you are able to get your medications today by calling your pharmacy before you leave the hospital so that your treatment continuity is not broken. Pending Studies at Discharge: Yes (Blood culture final results.) Stand-Alone Forms: My [email or web address], Smoking Cessation Medications and DC Order Prescriptions: New dexamethasone 4 mg Tablet 8 mg PO DAILY 10 Days Qty: 20 0RF Continued albuterol sulfate 2.5 mg /3 mL (0.083 %) solution for nebulization 2.5 mg INH Q6H PRN (Reason: shortness of breath or wheezing) montelukast [Singulair] 10 mg tablet 10 mg PO DAILY hydromorphone [Dilaudid] 2 mg tablet 2 mg PO Q3H PRN (Reason: Severe Pain (Scale Score 7-10)) Breo Ellipta 100-25 mcg/dose blister with device 1 puffs INH DAILY Qty: 180 3RF albuterol sulfate [Ventolin HFA] 90 mcg/actuation HFA aerosol inhaler 2 puffs INH Q4 PRN (Reason: Shortness Of Breath Or Wheezing) carvedilol 6.25 mg tablet 6.25 mg PO BID amlodipine 10 mg tablet 10 mg PO DAILY hydroxyzine HCl 25 mg tablet 50 mg PO HS losartan 100 mg tablet 100 mg PO DAILY fluticasone propionate 50 mcg/actuation spray,suspension 2 spray INTRANASAL QAM loratadine 10 mg Tablet 10 mg PO DAILY famotidine 40 mg tablet 40 mg PO DAILY docusate sodium 100 mg Capsule 100 mg PO BID PRN (Reason: laxative effect) Qty: 60 0RF polyethylene glycol 3350 [Miralax] 17 gram Powder In Packet 17 g PO DAILY PRN (Reason: laxative effect) Qty: 30 0RF potassium chloride 20 mEq tablet extended release 20 meq PO DAILY Qty: 30 0RF sennosides [Senokot] 8.6 mg tablet 8.6 mg PO BID PRN (Reason: Constipation) pantoprazole 40 mg tablet,delayed release (DR/EC) 40 mg PO QAM buspirone 10 mg tablet 10 mg PO BID PRN (Reason: Pain) aspirin 81 mg Tablet 81 mg PO DAILY mirtazapine 15 mg tablet 15 mg PO HS fentanyl 50 mcg/hr Patch 72 Hour 50 mcg transdermal Q72H 7 Days Qty: 2 0RF Discontinued amoxicillin 500 mg Capsule 2,000 mg PO DIRECTED Rx Instructions: TAKE 1 HR PRIOR TO DENTIST hydrochlorothiazide 25 mg tablet 25 mg PO DAILY Discharge Orders: Discharge Order (Routine); Ordered 09/10/22 Ordered By: Dale Villarreal Admission Data Admit Date/Time: 09/02/22 15:19 Attending Provider: Dale Villarreal Admit Provider: Ellie Ludwig Primary Care Provider: Krishna Urias Other Providers: Ellie Ludwig ; Lydia Hernadez ; Johnathan Davis ; Chris Ruiz ; Ton You ; Abebe Hensley I. ; Odell Salgado II ; Blanca Riley ; Alfonso Steen ; Micah Infante ; Patel Dumont ; Kae Li ; Lauro Graves ; Jenny Allen ; Catherine Montoya ; Tae Crane ; Maria Fernanda Blakely ; Ivon Vick ; Blade Padilla ; Luis Enrique Bello ; Soha Apodaca ; [facility],No Attending
== END 2022-09-10 17:14 | disposition home or self-care (01) | DRG 442 ==
LOC: ED 11:06 → 4W 15:19 → SUATTDRO 15:19 → 4W 15:53

== ENCOUNTER 2022-11-08 10:25 | Inpatient (IN) ==
[2022-11-08] MEDS ORDERED: CEFEPIME 2,000 MG/20 ML VIAL IV STA (10:53)
--- NOTE | 2022-11-08 11:02 | Emergency Department Note ---
Impression & Plan Hypoxia, Synovial sarcoma, Pulmonary emboli, SOB (shortness of breath), Tachycardia, Abscess ED Provider Note NAME: CHAPIS VICK AGE: 57 SEX: M : 1965 ARRIVES VIA: Walk-In INFORMANT: [Patient][family, nursing] ED PROVIDER(S): [Santos Hernandez MD] CHIEF COMPLAINT: Short of breath HISTORY OF PRESENT ILLNESS: The patient is a 57-year-old male who has noticed some dyspnea on exertion beginning about a week ago. In the last 2 days, it has progressed to the point where he can barely get anything done. In triage as per nursing staff, his O2 saturation was around 86%. He does not typically wear oxygen. The saturation increased with O2 supplementation. The patient did see the palliative care team 5 days ago, nothing was changed at that visit. In addition to the dyspnea, the patient has had a week of left forearm erythema. The erythema is spreading and the area is tender. He was carrying wood and he wonders if somehow, that started this whole process. There has been no fever, no chills. He is not coughing. No abdominal pain or vomiting. He has no previous history of DVT or PE. 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 He is on chronic pain medication. PMHx/PSHx: See Below SOCIAL HISTORY: See Below. PHYSICAL EXAM: GENERAL: Patient is in no acute distress. HEENT: No acute trauma, normocephalic atraumatic, mucous membranes moist, no nasal congestion. NECK: No stridor, no adenopathy, no meningismus, trachea is midline. LUNGS: Breath sounds are equal, no wheezing, he does have an increased respiratory rate but there is no respiratory distress. HEART: Tachycardic, regular rhythm, no murmurs. ABDOMEN: Soft, nontender, bowel sounds positive, no peritonitis. EXTREMITIES: No cyanosis or edema. The patient does have a fairly rounded area of swelling and erythema to the midportion of the radial aspect of the left forearm--lesion is about 4 cm in size. This area is quite firm, no fluctuance. The area is tender. There is some spreading erythema around this central lesion. NEUROLOGIC: Oriented x 3, no acute motor or sensory deficits, no focal weakness. SKIN: No rash, no jaundice, no diaphoresis. DIFFERENTIAL DIAGNOSIS: Reactive airway disease, pneumonia, RSV, COVID-19, influenza, pneumothorax, COPD, CHF, infection, sepsis, abscess, cardiac ischemia, anemia, pulmonary embolism, bronchitis, as well as other pathologies. EMERGENCY DEPARTMENT COURSE/PROCEDURES: Prior/Outside records reviewed: Previous discharge records. ECG per my interpretation: Indication was shortness of breath. The ECG shows a sinus tachycardia with a rate of 102. There is no ST elevation, no PVCs. The QTc is 443. Continuous Cardiac Monitoring per my interpretation: An order was placed for continuous cardiac monitoring. The monitor shows a rate of 110 with sinus tachycardia. Abscess drainage: This procedure was performed by me. Using sterile technique the area was cleansed. An 11 blade scalpel was used to make a 0.5 cm incision. A moderate amount of pus was expressed. The area was then dressed. There were no complications. Patient tolerated the procedure without difficulty. A culture of the discharge was sent for analysis. Critical Care Note: I have personally spent 56 minutes of critical care time in the direct management of this patient. This includes bedside care, interpr etation of diagnostic studies, and testing, discussion with consultants, patient, and family members, and other required patient management activities. This 56 minutes is in excess of all separately billable procedures. MEDICAL DECISION MAKING: There is no leukocytosis. The patient is anemic but carries a history of anemia. There is a lower platelet count at 113. INR somewhat elevated at 1.2. No renal failure. Lactic acid level was initially elevated, this could be consistent with infection or potentially hypoxia. No concerning liver enzyme elevation. BNP was not elevated making CHF and fluid overload less likely. ECG showed a sinus tachycardia, no obvious ischemia. Cardiac enzyme testing x1 was not consistent with acute cardiac injury. Urinalysis did not show infection. COVID, influenza and RSV test were negative. Chest x-ray showed findings consistent with his known malignancy. There was no pneumonia or pneumothorax. Chest CT shows worsening of his known malignancy. Bilateral pulmonary emboli were seen. I did drain the abscess of the left forearm. Pus was expressed. A culture was sent. A dressing was applied. The patient received IV cefepime as empiric antibiotic coverage. He was given IV saline for hydration--he received 1 L of IV saline. He was placed on a heparin drip after an IV heparin bolus. The patient is looking improved. He is no longer hypoxic with his O2 supplementation in place. His heart rate has decreased. He seems more comfortable. I spoke to the patient about his findings, I did speak with case management, the on-call hospitalist was consulted. DISPOSITION: The patient's findings and presentation warrant a hospital stay. 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 Grandmother (Maternal) , iat 91 old age No problems noted. Grandfather (Paternal) , in his eighties old age No problems noted. Father , age 66 of pancreatic cancer and metastasis No problems noted. Mother No problems noted. Brother Age: 54 No problems noted. Son Age: 35 Leukemia in remission Daughter Age: 35 No problems noted. Daughter Age: 23 No problems noted. Son Age: 20 No problems noted. Social History Smoking Status: Former smoker Hx Alcohol Use: No Hx Substance Use: No Preferred Language: Greenlandic Communication Ability: Effective Muff Winder Required: No Beliefs That Will Affect Care: None marital status: Current Living Situation: Spouse current occupational status: employed Feels Safe at Home: Yes Childhood Exposure to Second-Hand Smoke: Yes caffeine: No Dental Care, Regularly: Yes Physical Activity Frequency: Does not Exercise Seatbelt Use: always Sunscreen Use: Yes Do you think of yourself as: straight/heterosexual Assistive Devices: None Allergies Allergies Allergy/AdvReac Type Severity Reaction Status Date / Time bacitracin Allergy Severe hives, Verified 11/08/22 15:35 syncopy tree and shrub pollen AdvReac Mild nasal Verified 11/08/22 15:35 congestion, eyes water Home Meds Home Medications Medication Instructions Recorded Confirmed albuterol sulfate 90 mcg/actuation 2 puffs inhalation Q4 PRN 10/10/19 11/08/22 aerosol inhaler (Ventolin HFA) Shortness Of Breath Or Wheezing albuterol sulfate 2.5 mg/3 mL 2.5 mg inhalation Q6H PRN 01/31/20 11/08/22 (0.083 %) solution for nebulization shortness of breath or wheezing montelukast 10 mg tablet 10 mg PO DAILY 06/29/20 11/08/22 (Singulair) amlodipine 10 mg tablet 10 mg PO QAM 07/31/22 11/08/22 carvedilol 6.25 mg tablet 6.25 mg PO BID 07/31/22 11/08/22 famotidine 40 mg tablet 40 mg PO DAILY 07/31/22 11/08/22 hydroxyzine HCl 25 mg tablet 25 - 50 mg PO HS PRN Anxiety 07/31/22 11/08/22 losartan 100 mg tablet 100 mg PO DAILY 07/31/22 11/08/22 buspirone 10 mg tablet 10 mg PO BID PRN Pain 09/02/22 11/08/22 mirtazapine 15 mg tablet 15 mg PO HS 09/02/22 11/08/22 pantoprazole 40 mg tablet,delayed 40 mg PO QAM 09/02/22 11/08/22 release sennosides 8.6 mg tablet (Senokot) 8.6 mg PO BID PRN Constipation 09/02/22 11/08/22 dexamethasone 2 mg tablet 4 mg PO QAM 11/08/22 11/08/22 fluticasone furoate 100 1 puffs inhalation QAM 11/08/22 11/08/22 mcg-vilanterol 25 mcg/dose inhalation powder (Breo Ellipta) fluticasone propionate 50 2 spray intranasal QAM 11/08/22 11/08/22 mcg/actuation nasal spray,suspension hydromorphone 4 mg tablet 4 mg PO Q3H PRN Pain, Severe 11/08/22 11/08/22 pazopanib 200 mg tablet (Votrient) 200 mg PO Q2D 11/08/22 11/08/22 potassium chloride 20 mEq 20 meq PO QAM 01/14/23 01/14/23 tablet,extended release valacyclovir 1 gram tablet 2,000 mg PO .BID/UD PRN .FLARES 11/08/22 11/08/22 Previous Rx's Medication Instructions Recorded docusate sodium 100 mg capsule 100 mg PO BID PRN laxative effect 08/04/22 #60 caps polyethylene glycol 3350 17 gram 17 g PO DAILY PRN laxative effect 08/04/22 oral powder packet (Miralax) #30 ea fentanyl 50 mcg/hr transdermal 50 mcg transdermal Q72H severe 09/10/22 patch pain 1 week #2 ea Results & Data (ED) Vital Signs Vital Signs - 24 hr 11/08/22 10:31 11/08/22 10:53 11/08/22 10:45 Temperature 36.6 C Temperature Source Oral Pulse Rate 110 H 106 H Pulse Rate [Finger] Pulse Rate from SpO2 Sensor 107 H Respiratory Rate 28 H 28 H Respiratory Depth Blood Pressure 141/93 H Blood Pressure [Left Arm] Blood Pressure Mean 109 Blood Pressure Mean [Left Arm] Pulse Oximetry 91 88 L 90 Oxygen Delivery Method Room Air Room Air Oxygen Flow Rate Sepsis Recent Fever Within 48 Hours No Sepsis New/Unexplained Change in Mental Status No Sepsis Action Taken by Nursing No Action Required Oxygen Flow Rate - Titration 4 Pulse Oximetry Post Tiitration 92 11/08/22 11:59 11/08/22 12:00 11/08/22 12:30 Temperature Temperature Source Pulse Rate 100 H 100 H 100 H Pulse Rate [Finger] Pulse Rate from SpO2 Sensor 98 H 100 H 100 H Respiratory Rate 22 26 H 26 H Respiratory Depth Blood Pressure 139/91 132/90 129/90 Blood Pressure [Left Arm] Blood Pressure Mean 107 104 103 Blood Pressure Mean [Left Arm] Pulse Oximetry 90 92 91 Oxygen Delivery Method Nasal Cannula Oxygen Flow Rate 4 4 4 Sepsis Recent Fever Within 48 Hours Sepsis New/Unexplained Change in Mental Status Sepsis Action Taken by Nursing Oxygen Flow Rate - Titration Pulse Oximetry Post Tiitration 11/08/22 14:00 11/08/22 13:00 11/08/22 13:37 Temperature Temperature Source Pulse Rate 103 H 96 H Pulse Rate [Finger] 96 H Pulse Rate from SpO2 Sensor 103 H 96 H Respiratory Rate 24 28 H 28 H Respiratory Depth Normal Blood Pressure 136/109 H 140/86 Blood Pressure [Left Arm] 140/86 Blood Pressure Mean 118 104 Blood Pressure Mean [Left Arm] 104 Pulse Oximetry 94 90 91 Oxygen Delivery Method Nasal Cannula Oxygen Flow Rate 4 Sepsis Recent Fever Within 48 Hours Sepsis New/Unexplained Change in Mental Status Sepsis Action Taken by Nursing Oxygen Flow Rate - Titration Pulse Oximetry Post Tiitration 11/08/22 14:03 Temperature Temperature Source Pulse Rate 91 H Pulse Rate [Finger] Pulse Rate from SpO2 Sensor 91 H Respiratory Rate 25 H Respiratory Depth Blood Pressure 134/91 Blood Pressure [Left Arm] Blood Pressure Mean 105 Blood Pressure Mean [Left Arm] Pulse Oximetry 91 Oxygen Delivery Method Oxygen Flow Rate 4 Sepsis Recent Fever Within 48 Hours Sepsis New/Unexplained Change in Mental Status Sepsis Action Taken by Nursing Oxygen Flow Rate - Titration Pulse Oximetry Post Tiitration Home Medications Current Medication List: was personally reviewed by me Laboratory Data Attestation: I reviewed the patient's lab results. 11/08/22 11:55 11/08/22 11:55 Lab Results 11/08/22 11/08/22 11/08/22 Range/Units 11:30 11:55 11:55 WBC 7.58 (4.8-10.8) K/ul RBC 3.82 L (4.63-6.08) M/uL Hgb 12.8 L (14.0-18.0) g/dl Hct 36.7 L (40.1-51.0) % MCV 96.1 (80.0-100.0) fL MCH 33.5 (25.0-34.0) pg MCHC 34.9 (32.0-36.0) g/dL RDW Std Deviation 58.8 H (36.4-46.3) fL RDW Coeff of Darrell 16.6 H (11.5-14.5) % Plt Count 113 L (130-400) K/uL MPV 10.1 (9.4-12.4) fL Immature Gran % (Auto) 4.5 % Neut % (Auto) 80.4 % Lymph % (Auto) 8.2 % [place] % (Auto) 6.5 % Eos % (Auto) 0.0 % Baso % (Auto) 0.4 % Neut # (Auto) 6.10 (1.4-6.5) K/uL Lymph # (Auto) 0.62 L (1.2-3.4) K/uL [place] # (Auto) 0.49 (0.24-0.82) K/uL Eos # (Auto) 0.00 (0-0.50) K/uL Baso # (Auto) 0.03 (0-0.2) K/uL Immature Gran # (Auto) 0.34 H (0.00-0.02) K/uL PT 13.0 H (9.0-12.0) Seconds INR 1.2 H (0.9-1.1) APTT 27.2 (21.0-31.0) Seconds PTT Ratio 1.0 Sodium (136-145) mmol/L Potassium (3.5-5.1) mmol/L Chloride (98-107) mmol/L Carbon Dioxide (21-32) mmol/L Anion Gap (3-11) BUN (6-23) mg/dl Creatinine (0.6-1.4) mg/dl Est Cr Clr Drug Dosing ml/min Est GFR ( Amer) ml/min Est GFR (Non-Af Amer) ml/min BUN/Creatinine Ratio (10-20) Glucose (70-99(Fasting)) mg/dl Lactate (0.4-2.0) mmol/L Calcium (8.5-10.1) mg/dl Magnesium (1.7-2.4) mg/dl Total Bilirubin (0.2-1.0) mg/dl Direct Bilirubin (0-0.2) mg/dl AST (13-39) U/L ALT (7-52) U/L Alkaline Phosphatase (34-104) U/L Troponin I High Sens (0-20) pg/ml B-Natriuretic Peptide (0-100) pg/ml Total Protein (6.0-8.3) gm/dl Albumin (3.4-5.0) gm/dl Procalcitonin (0-0.5) ng/ml Urine Color Dark Yellow Urine Appearance Clear (Clear) Urine pH 6.0 (4.5-7.5) Ur Specific [place] 1.018 (1.000-1.030) Urine Protein Trace H (Negative) Urine Glucose (UA) Trace H (Negative) Urine Ketones Negative (Negative) Urine Blood Negative (Negative) Urine Nitrite Negative (Negative) Urine Bilirubin Negative (Negative) Urine Urobilinogen Negative (Negative) Ur Leukocyte Esterase Negative (Negative) Urine WBC (Auto) 1-5 (0-5) /hpf Urine RBC (Auto) 0-4 (0-4) /hpf U Hyaline Cast (Auto) 1-5 (0-5) /lpf U Epithel Cells (Auto) 10-20 H (0-5) /lpf Urine Bacteria (Auto) Negative (Negative) SARS-CoV-2 (PCR) (Negative) Influenza Type A (PCR) (Neg) Influenza Type B (PCR) (Neg) RSV (RT-PCR) (Neg) 11/08/22 11/08/22 11/08/22 Range/Units 11:55 11:55 11:55 WBC (4.8-10.8) K/ul RBC (4.63-6.08) M/uL Hgb (14.0-18.0) g/dl Hct (40.1-51.0) % MCV (80.0-100.0) fL MCH (25.0-34.0) pg MCHC (32.0-36.0) g/dL RDW Std Deviation (36.4-46.3) fL RDW Coeff of Darrell (11.5-14.5) % Plt Count (130-400) K/uL MPV (9.4-12.4) fL Immature Gran % (Auto) % Neut % (Auto) % Lymph % (Auto) % [place] % (Auto) % Eos % (Auto) % Baso % (Auto) % Neut # (Auto) (1.4-6.5) K/uL Lymph # (Auto) (1.2-3.4) K/uL [place] # (Auto) (0.24-0.82) K/uL Eos # (Auto) (0-0.50) K/uL Baso # (Auto) (0-0.2) K/uL Immature Gran # (Auto) (0.00-0.02) K/uL PT (9.0-12.0) Seconds INR (0.9-1.1) APTT (21.0-31.0) Seconds PTT Ratio Sodium 138 (136-145) mmol/L Potassium 3.7 (3.5-5.1) mmol/L Chloride 104 (98-107) mmol/L Carbon Dioxide 25 (21-32) mmol/L Anion Gap 9 (3-11) BUN 21 (6-23) mg/dl Creatinine 0.62 (0.6-1.4) mg/dl Est Cr Clr Drug Dosing 171.5 ml/min Est GFR ( Amer) 126.7 ml/min Est GFR (Non-Af Amer) 109.3 ml/min BUN/Creatinine Ratio 33.9 H (10-20) Glucose 190 H (70-99(Fasting)) mg/dl Lactate 2.2 H* (0.4-2.0) mmol/L Calcium 8.6 (8.5-10.1) mg/dl Magnesium 1.8 (1.7-2.4) mg/dl Total Bilirubin 1.3 H (0.2-1.0) mg/dl Direct Bilirubin 0.2 (0-0.2) mg/dl AST 24 (13-39) U/L ALT 55 H (7-52) U/L Alkaline Phosphatase 71 (34-104) U/L Troponin I High Sens 10.5 (0-20) pg/ml B-Natriuretic Peptide (0-100) pg/ml Total Protein 6.2 (6.0-8.3) gm/dl Albumin 3.6 (3.4-5.0) gm/dl Procalcitonin 0.15 (0-0.5) ng/ml Urine Color Urine Appearance (Clear) Urine pH (4.5-7.5) Ur Specific [place] (1.000-1.030) Urine Protein (Negative) Urine Glucose (UA) (Negative) Urine Ketones (Negative) Urine Blood (Negative) Urine Nitrite (Negative) Urine Bilirubin (Negative) Urine Urobilinogen (Negative) Ur Leukocyte Esterase (Negative) Urine WBC (Auto) (0-5) /hpf Urine RBC (Auto) (0-4) /hpf U Hyaline Cast (Auto) (0-5) /lpf U Epithel Cells (Auto) (0-5) /lpf Urine Bacteria (Auto) (Negative) SARS-CoV-2 (PCR) (Negative) Influenza Type A (PCR) (Neg) Influenza Type B (PCR) (Neg) RSV (RT-PCR) (Neg) 11/08/22 11/08/22 11/08/22 Range/Units 11:55 12:50 14:49 WBC (4.8-10.8) K/ul RBC (4.63-6.08) M/uL Hgb (14.0-18.0) g/dl Hct (40.1-51.0) % MCV (80.0-100.0) fL MCH (25.0-34.0) pg MCHC (32.0-36.0) g/dL RDW Std Deviation (36.4-46.3) fL RDW Coeff of Darrell (11.5-14.5) % Plt Count (130-400) K/uL MPV (9.4-12.4) fL Immature Gran % (Auto) % Neut % (Auto) % Lymph % (Auto) % [place] % (Auto) % Eos % (Auto) % Baso % (Auto) % Neut # (Auto) (1.4-6.5) K/uL Lymph # (Auto) (1.2-3.4) K/uL [place] # (Auto) (0.24-0.82) K/uL Eos # (Auto) (0-0.50) K/uL Baso # (Auto) (0-0.2) K/uL Immature Gran # (Auto) (0.00-0.02) K/uL PT (9.0-12.0) Seconds INR (0.9-1.1) APTT (21.0-31.0) Seconds PTT Ratio Sodium (136-145) mmol/L Potassium (3.5-5.1) mmol/L Chloride (98-107) mmol/L Carbon Dioxide (21-32) mmol/L Anion Gap (3-11) BUN (6-23) mg/dl Creatinine (0.6-1.4) mg/dl Est Cr Clr Drug Dosing ml/min Est GFR ( Amer) ml/min Est GFR (Non-Af Amer) ml/min BUN/Creatinine Ratio (10-20) Glucose (70-99(Fasting)) mg/dl Lactate 1.8 (0.4-2.0) mmol/L Calcium (8.5-10.1) mg/dl Magnesium (1.7-2.4) mg/dl Total Bilirubin (0.2-1.0) mg/dl Direct Bilirubin (0-0.2) mg/dl AST (13-39) U/L ALT (7-52) U/L Alkaline Phosphatase (34-104) U/L Troponin I High Sens (0-20) pg/ml B-Natriuretic Peptide 52 (0-100) pg/ml Total Protein (6.0-8.3) gm/dl Albumin (3.4-5.0) gm/dl Procalcitonin (0-0.5) ng/ml Urine Color Urine Appearance (Clear) Urine pH (4.5-7.5) Ur Specific [place] (1.000-1.030) Urine Protein (Negative) Urine Glucose (UA) (Negative) Urine Ketones (Negative) Urine Blood (Negative) Urine Nitrite (Negative) Urine Bilirubin (Negative) Urine Urobilinogen (Negative) Ur Leukocyte Esterase (Negative) Urine WBC (Auto) (0-5) /hpf Urine RBC (Auto) (0-4) /hpf U Hyaline Cast (Auto) (0-5) /lpf U Epithel Cells (Auto) (0-5) /lpf Urine Bacteria (Auto) (Negative) SARS-CoV-2 (PCR) NEGATIVE (Negative) Influenza Type A (PCR) Negative (Neg) Influenza Type B (PCR) Negative (Neg) RSV (RT-PCR) Negative (Neg) Administered Medications Heparin Sodium/Dextrose (Heparin Sodium/Dextrose) 25,000 units in 500 mls @ 20 mls/hr IV .Q24H ADIA; Protocol Stop: 12/08/22 15:14 Last Admin: 11/08/22 16:10 Dose: 1,000 units/hr, 20 mls/hr Documented By: ALLEGRA Co-signed By: MARYANNE Discontinued Medications Heparin Sodium (Porcine) (Heparin Sod (Porcine) 1000 Unit/Ml) 1 units IV NOW ONE Stop: 11/08/22 15:16 Last Admin: 11/08/22 16:10 Dose: 4,000 units Documented By: ALLEGRA Co-signed By: MARYANNE Cefepime HCl (Maxipime) 2,000 mg in 20 mls @ 5 mls/min IV NOW STA; Protocol Stop: 11/08/22 10:56 Last Admin: 11/08/22 12:48 Dose: 5 mls/min Documented By: ALLEGRA Sodium Chloride (Nss 1000ml) 1,000 mls @ 999 mls/hr IV .Q1H1M ONE Stop: 11/08/22 14:11 Last Infusion: 11/08/22 15:16 Dose: 0 mls/hr Documented By: Admin: 11/08/22 14:08 Dose: 999 mls/hr Documented By: ALLEGRA Ioversol (Optiray 320 500ml) 120 ml IV ONCE ONE Stop: 11/08/22 13:25 Last Admin: 11/08/22 13:24 Dose: 120 ml Documented By: JAMEL Imaging Data Radiologist's Impression: Chest CTA 11/08/22 10:53 CT angio chest PE protocol CLINICAL HISTORY: PE TECHNIQUE: Multidetector row helical CT of the chest was performed with angio graphic protocol. Coronal and sagittal reformations were obtained. Coronal and sagittal MIPS were obtained from the axial data set and were submitted for review. Automated dose lowering techniques and/or adjustment according to patient size were utilized for this exam. CT DOSE: 1160.80 mGy.cm Comparison: Comparison is made to CT chest 09/02/2022 FINDINGS: Lungs and pleura: Numerous pulmonary nodules are seen which appear enlarged from prior exam. For example a right pleural-based 31 mm nodule previously measured 23 mm an 18 mm nodule in the left upper lobe which previously measured 15 mm. There is a moderate left pleural effusion, significantly increased from prior. Nodularity of the pleura is most pronounced at the right lung base Heart and pericardium: Heart size is normal. No pericardial effusion. No right heart strain is seen. Vessels: Bilateral pulmonary emboli are seen in the lobar arteries. Mediastinum and otoniel: Significant enlargement of mediastinal masses. A right lower paratracheal mass measures 56 mm compared to 30 mm in prior exam in the right hilar conglomerate now measures up to 141 x 91 mm compared to 46 x 72 mm in prior exam. Pericardial invasion cannot be excluded. Chest wall and lower neck: A left thyroid nodule measures up to 20 mm. Abdomen: Hepatic steatosis is noted. Bones: Unremarkable. IMPRESSION: 1. Interval significant worsening of metastatic disease in this patient with numerous pulmonary and pleural metastases as well as mediastinal and right hilar nodes with possible pericardial invasion. 2. Bilateral pulmonary emboli without evidence of right heart strain. 3. Enlarged malignant effusion with enlarged pleural-based nodules. 4. Stable right thyroid nodule. ACT 112: Negative or not required by law. Electronically signed by: Viktor Carpenter M.D. 11/08/2022 1:55 PM Chest X-Ray 11/08/22 10:53 XR chest 1V portable CLINICAL HISTORY: Sepsis TECHNIQUE: Single frontal radiograph of the chest was obtained. Comparison: Comparison is made to chest radiograph 09/09/2022 and CTA chest 09/02/2022 FINDINGS: Right portacatheter is stable. The cardiomediastinal silhouette is normal. Lungs are underinflated but clear. Numerous pulmonary masses are unchanged from prior exam. No evidence of pleural effusion or pneumothorax. IMPRESSION: No acute abnormalities and in particular no evidence of pneumonia. Multiple pulmonary masses are unchanged. ACT 112: Negative or not required by law. Electronically signed by: Viktor Carpenter M.D. 11/08/2022 11:20 AM Discharge Plan Visit Data Chief Complaint: Shortness of Breath/Dyspnea Stated Complaint: SOB, UPPER CHEST AND RIB PAIN ED Provider: Santos Hernandez Discharge Problem: Hypoxia, Synovial sarcoma, Pulmonary emboli, SOB (shortness of breath), Tachycardia, Abscess Patient Disposition: Admitted As Inpatient Condition: Serious Forms Stand Alone Forms: My [facility] Prescriptions Prescriptions: No Action albuterol sulfate 2.5 mg /3 mL (0.083 %) solution for nebulization 2.5 mg INH Q6H PRN (Reason: shortness of breath or wheezing) montelukast [Singulair] 10 mg tablet 10 mg PO DAILY albuterol sulfate [Ventolin HFA] 90 mcg/actuation HFA aerosol inhaler 2 puffs INH Q4 PRN (Reason: Shortness Of Breath Or Wheezing) carvedilol 6.25 mg tablet 6.25 mg PO BID Rx Instructions: TAKE THIS MED WITH FOOD amlodipine 10 mg tablet 10 mg PO QAM hydroxyzine HCl 25 mg tablet 25 - 50 mg PO HS PRN (Reason: Anxiety) losartan 100 mg tablet 100 mg PO DAILY famotidine 40 mg tablet 40 mg PO DAILY docusate sodium 100 mg Capsule 100 mg PO BID PRN (Reason: laxative effect) Qty: 60 0RF polyethylene glycol 3350 [Miralax] 17 gram Powder In Packet 17 g PO DAILY PRN (Reason: laxative effect) Qty: 30 0RF sennosides [Senokot] 8.6 mg tablet 8.6 mg PO BID PRN (Reason: Constipation) pantoprazole 40 mg tablet,delayed release (DR/EC) 40 mg PO QAM buspirone 10 mg tablet 10 mg PO BID PRN (Reason: Pain) mirtazapine 15 mg tablet 15 mg PO HS fentanyl 50 mcg/hr Patch 72 Hour 50 mcg transdermal Q72H 7 Days Qty: 2 0RF fluticasone furoate-vilanterol [Breo Ellipta] 100-25 mcg/dose blister with device 1 puffs INH QAM hydromorphone 4 mg tablet 4 mg PO Q3H PRN (Reason: Pain, Severe) fluticasone propionate 50 mcg/actuation spray,suspension 2 spray INTRANASAL QAM dexamethasone 2 mg tablet 4 mg PO QAM Rx Instructions: TWO TABLET DOSE, TAKE WITH BREAKFAST potassium chloride 20 mEq tablet extended release 20 meq PO QAM Votrient 200 mg tablet 200 mg PO Q2D valacyclovir 1 gram tablet 2,000 mg PO .BID/UD PRN (Reason: .FLARES) Rx Instructions: TAKE TWO TABLETS BY MOUTH AND REPEAT IN 12 HOURS Referrals Referrals: Krishna Urias MD [Primary Care Provider] -
--- NOTE | 2022-11-08 11:22 | XRay Report ---
XR chest 1V portable CLINICAL HISTORY: Sepsis TECHNIQUE: Single frontal radiograph of the chest was obtained. Comparison: Comparison is made to chest radiograph 09/09/2022 and CTA chest 09/02/2022 FINDINGS: Right portacatheter is stable. The cardiomediastinal silhouette is normal. Lungs are underinflated bu t clear. Numerous pulmonary masses are unchanged from prior exam. No evidence of pleural effusion or pneumothorax. IMPRESSION: No acute abnormalities and in particular no evidence of pneumonia. Multiple pulmonary masses are unch anged. ACT 112: Negative or not required by law. Electronically signed by: Viktor Carpenter M.D. 11/08/2022 11:20 AM
[2022-11-08 12:16] LABS: Basophils # (auto) 0.03 K/uL (0-0.2); Basophils % (auto) 0.4 %; Hematocrit (blood only) 36.7 % (40.1-51.0); Hemoglobin 12.8 g/dl (14.0-18.0); Immature Granulocytes # (auto) 0.34 K/uL (0.00-0.02); Immature Granulocytes % (auto) 4.5 %; Lymphocytes # (auto) 0.62 K/uL (1.2-3.4); Lymphocytes % (auto) 8.2 %; Mean Corpuscular Hemoglobin 33.5 pg (25.0-34.0); Mean Corpuscular Hgb Conc 34.9 g/dL (32.0-36.0); Mean Corpuscular Volume 96.1 fL (80.0-100.0); Mean Platelet Volume 10.1 fL (9.4-12.4); Monocytes # (auto) 0.49 K/uL (0.24-0.82); Monocytes % (auto) 6.5 %; Neutrophils % (auto) 80.4 %; Platelet Count 113 K/uL (130-400); RDW Coefficient of Variation 16.6 % (11.5-14.5); RDW Standard Deviation 58.8 fL (36.4-46.3); Red Blood Count 3.82 M/uL (4.63-6.08); White Blood Count 7.58 K/ul (4.8-10.8)
[2022-11-08 12:31] LABS: Appearance Urine Clear (Clear); Bacteria Urine Automated Negative (Negative); Bilirubin Urine Negative (Negative); Blood Urine Negative (Negative); Color Urine Dark Yellow; Glucose Urine UA Trace (Negative); Ketones Urine Negative (Negative); Leukocyte Esterase Urine Negative (Negative); Nitrite Urine Negative (Negative); Protein Urine Trace (Negative); RBC Urine Automated 0-4 /hpf (0-4); Specific Gravity Urine 1.018 (1.000-1.030); Urobilinogen Urine Negative (Negative)
[2022-11-08 12:44] LABS: Albumin Level 3.6 gm/dl (3.4-5.0); BUN Creatinine Ratio 33.9 (10-20); Bilirubin Direct 0.2 mg/dl (0-0.2); Bilirubin,Total 1.3 mg/dl (0.2-1.0); Calcium 8.6 mg/dl (8.5-10.1); Creatinine Clr Calc Pharmacy 171.5 ml/min; Est GFR (African American) 126.7 ml/min; Est GFR (Non-African American) 109.3 ml/min; Magnesium 1.8 mg/dl (1.7-2.4); Potassium 3.7 mmol/L (3.5-5.1); Total Protein 6.2 gm/dl (6.0-8.3); Troponin I High Sensitivity 10.5 pg/ml (0-20)
[2022-11-08 12:46] LABS: INR 1.2 (0.9-1.1); Partial Thromboplastin Time 27.2 Seconds (21.0-31.0)
[2022-11-08] MEDS ORDERED: SODIUM CHLORIDE 0.9% 1000ML 1,000 ML IV ONE (13:11)
[2022-11-08] MEDS ORDERED: OPTIRAY 320 500ml IV ONE (13:24)
[2022-11-08 13:49] LABS: Influenza A virus by PCR Negative (Neg); Influenza B virus by PCR Negative (Neg); RSV by PCR Negative (Neg); SARS CoV2 RNA(COVID-19) Ceph NEGATIVE (Negative)
--- NOTE | 2022-11-08 13:56 | CT Scan Report ---
CT angio chest PE protocol CLINICAL HISTORY: PE TECHNIQUE: Multidetector row helical CT of the chest was performed with angiographic protocol. Mcgarry l and sagittal reformations were obtained. Coronal and sagittal MIPS were obtained from the axial nancy a set and were submitted for review. Automated dose lowering techniques and/or adjustment according to patient size were utilized for this exam. CT DOSE: 1160.80 mGy.cm Comparison: Comparison is made to CT chest 09/02/2022 FINDINGS: Lungs and pleura: Numerous pulmonary nodules are seen which appear enlarged from prior exam. For exam ple a right pleural-based 31 mm nodule previously measured 23 mm an 18 mm nodule in the left upper lo be which previously measured 15 mm. There is a moderate left pleural effusion, significantly increase d from prior. Nodularity of the pleura is most pronounced at the right lung base Heart and pericardium: Heart size is normal. No pericardial effusion. No right heart strain is seen. Vessels: Bilateral pulmonary emboli are seen in the lobar arteries. Mediastinum and otoniel: Significant enlargement of mediastinal masses. A right lower paratracheal mass measures 56 mm compared to 30 mm in prior exam in the right hilar conglomerate now measures up to 141 x 91 mm compared to 46 x 72 mm in prior exam. Pericardial invasion cannot be excluded. Chest wall and lower neck: A left thyroid nodule measures up to 20 mm. Abdomen: Hepatic steatosis is noted. Bones: Unremarkable. IMPRESSION: 1. Interval significant worsening of metastatic disease in this patient with numerous pulmonary and pleural metastases as well as mediastinal and right hilar nodes with possible pericardial invasion. 2. Bilateral pulmonary emboli without evidence of right heart strain. 3. Enlarged malignant effusion with enlarged pleural-based nodules. 4. Stable right thyroid nodule. ACT 112: Negative or not required by law. Electronically signed by: Viktor Carpenter M.D. 11/08/2022 1:55 PM
[2022-11-08] MEDS ORDERED: Heparin IV Adult Wt-Based Low-Dose WITH Bolus Protocol IV STA (15:00)
--- NOTE | 2022-11-08 15:13 | History & Physical Report ---
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 Apodaca locally, asthma, hypertension, DUY on CPAP and other medical problems listed below who presents with progressive SOB x 5 days and was found to have bilateral pulmonary emboli without evidence of right heart strain. Hypoxia Bilateral pulmonary embolism Progressive SOB x 5 days in setting of metastatic cancer Chest CTA with interval significant worsening of metastatic disease and bilateral pulmonary emboli without evidence of right heart strain Starting on IV heparin Initially hypoxic at 88% on room air, improved to 94% on 2 L nasal cannula oxygen. Continue supplemental O2 PRN 2D echo to better evaluate for heart strain, although high-sensitivity troponin 10.5 Left forearm cellulitis Abscess on L arm s/p I&D in ED, culture sent. Does not appear septic Given empiric dose of cefepime in ED. 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 Garcia [facility] rad onc Chest CTA with interval significant worsening of metastatic disease in this patient with numerous pulmonary and pleural metastases as well as mediastinal and right hilar nodes with possible pericardial invasion Following with Dr. Martin of [facility], due to see again in November (Dr Martin's contact info : [phone]) Recently established with Dr. Apodaca locally Continue 200 mg of Votrient every other day, dexamethasone 4mg daily Consulting Dr. Apodaca given progression of disease on CT Cancer related pain on narcotics Following with palliative care. Current regimen for cancer-related pain is fentanyl 50 mcg Q72H and recently increased Dilaudid 4 mg tablet every 3 hours as needed for breakthrough pain Hypertension Normotensive. Continue losartan, amlodipine, carvedilol Asthma Continue albuterol nebulizer as needed for shortness of breath and wheezing, albuterol rescue inhaler, Singulair Constipation Continue bowel regimen DVT Ppx: IV heparin Code status: FULL PCP: [place] Dispo: Admitted to PCU Patient seen in collaboration with Dr. Bashir. Please see addendum. A total of 80 minutes were spent with greater than 50% of that time face to face with the patient, personally reviewing all current laboratories, imaging studies, past medication reconciliation, outpatient chart review, and discussion with specialists to collaborate care for the patient with attending. Please see attending documentation. 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 Apodaca locally, asthma, hypertension, DUY on CPAP and other medical problems listed below who presents with progressive SOB x 5 days first noted at palliative care appointment on Thursday. Denies any fever, chills, known recent infection. No chest pain or palpitations. Was admitted in August for possible hepatotoxicity secondary to chemotherapy, which has since had dose decreased. Is following with Dr. Martin of [facility] for metastatic synovial sarcoma and is now taking 200 mg of Votrient every other day. Follows with palliative for pain control and is on fentanyl patch and Dilaudid every 3 hours for severe pain and is also on dexamethasone. In addition to shortness of breath, patient also with lesion on left arm with surrounding redness. Thinks he may have scraped his arm a week ago when chopping wood. No fever, chills, lightheadedness, headache, chest pain, wheezing, palpitations, nausea, vomiting, abdominal pain, dysuria, diarrhea constipation. Allergies Allergy/AdvReac Type Severity Reaction Status Date / Time bacitracin Allergy Severe hives, Verified 11/08/22 15:35 syncopy tree and shrub pollen AdvReac Mild nasal Verified 11/08/22 15:35 congestion, eyes water Home Medications Medication Instructions Recorded Confirmed Type albuterol sulfate 90 mcg/actuation 2 puffs inhalation Q4 PRN 10/10/19 11/08/22 History aerosol inhaler (Ventolin HFA) Shortness Of Breath Or Wheezing albuterol sulfate 2.5 mg/3 mL 2.5 mg inhalation Q6H PRN 01/31/20 11/08/22 History (0.083 %) solution for nebulization shortness of breath or wheezing montelukast 10 mg tablet 10 mg PO DAILY 06/29/20 11/08/22 History (Singulair) amlodipine 10 mg tablet 10 mg PO QAM 07/31/22 11/08/22 History carvedilol 6.25 mg tablet 6.25 mg PO BID 07/31/22 11/08/22 History famotidine 40 mg tablet 40 mg PO DAILY 07/31/22 11/08/22 History hydroxyzine HCl 25 mg tablet 25 - 50 mg PO HS PRN Anxiety 07/31/22 11/08/22 History losartan 100 mg tablet 100 mg PO DAILY 07/31/22 11/08/22 History docusate sodium 100 mg capsule 100 mg PO BID PRN laxative effect 08/04/22 11/08/22 Rx #60 caps polyethylene glycol 3350 17 gram 17 g PO DAILY PRN laxative effect 08/04/22 11/08/22 Rx oral powder packet (Miralax) #30 ea buspirone 10 mg tablet 10 mg PO BID PRN Pain 09/02/22 11/08/22 History mirtazapine 15 mg tablet 15 mg PO HS 09/02/22 11/08/22 History pantoprazole 40 mg tablet,delayed 40 mg PO QAM 09/02/22 11/08/22 History release sennosides 8.6 mg tablet (Senokot) 8.6 mg PO BID PRN Constipation 09/02/22 11/08/22 History fentanyl 50 mcg/hr transdermal 50 mcg transdermal Q72H severe 09/10/22 11/08/22 Rx patch pain 1 week #2 ea dexamethasone 2 mg tablet 4 mg PO QAM 11/08/22 11/08/22 History fluticasone furoate 100 1 puffs inhalation QAM 11/08/22 11/08/22 History mcg-vilanterol 25 mcg/dose inhalation powder (Breo Ellipta) fluticasone propionate 50 2 spray intranasal QAM 11/08/22 11/08/22 History mcg/actuation nasal spray,suspension hydromorphone 4 mg tablet 4 mg PO Q3H PRN Pain, Severe 11/08/22 11/08/22 History pazopanib 200 mg tablet (Votrient) 200 mg PO Q2D 11/08/22 11/08/22 History potassium chloride 20 mEq 20 meq PO QAM 11/08/22 11/08/22 History tablet,extended release valacyclovir 1 gram tablet 2,000 mg PO .BID/UD PRN .FLARES 11/08/22 11/08/22 History Past Med/Surg History Medical History Asthma GERD (gastroesophageal reflux disease) Hepatic steatosis HTN (hypertension) DUY on CPAP 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 Grandmother (Maternal) , iat 91 old age No problems noted. Grandfather (Paternal) , in his eighties old age No problems noted. Father , age 66 of pancreatic cancer and metastasis No problems noted. Mother No problems noted. Brother Age: 54 No problems noted. Son Age: 35 Leukemia in remission Daughter Age: 35 No problems noted. Daughter Age: 23 No problems noted. Son Age: 20 No problems noted. Social History Smoking Status: Former smoker Hx Alcohol Use: No Hx Substance Use: No Preferred Language: Latvian Communication Ability: Effective Market Risk Manager Required: No Beliefs That Will Affect Care: None marital status: Current Living Situation: Spouse current occupational status: employed Feels Safe at Home: Yes Childhood Exposure to Second-Hand Smoke: Yes caffeine: No Dental Care, Regularly: Yes Physical Activity Frequency: Does not Exercise Seatbelt Use: always Sunscreen Use: Yes Do you think of yourself as: straight/heterosexual Assistive Devices: None Review of Systems Review of Systems: At least ten systems reviewed and negative except as noted in the HPI. Physical Exam Physical Exam: Please see Dr. Bashir's addendum for physical exam. Results & Data Results & Data ([facility]) Vital Signs (Past 12 Hours) Vital Signs Temp Pulse Pulse Resp BP BP Pulse Ox 11/08/22 14:03 91 H 25 H 134/91 91 11/08/22 13:37 96 H 28 H 140/86 91 11/08/22 13:00 103 H 28 H 136/109 H 90 11/08/22 14:00 96 H 24 140/86 94 11/08/22 12:30 100 H 26 H 129/90 91 11/08/22 12:00 100 H 26 H 132/90 92 11/08/22 11:59 100 H 22 139/91 90 11/08/22 10:45 106 H 28 H 90 11/08/22 10:53 88 L 11/08/22 10:31 36.6 C 110 H 28 H 141/93 H 91 O2 Del Method O2 Flow Rate 11/08/22 14:03 4 11/08/22 13:37 11/08/22 13:00 11/08/22 14:00 Nasal Cannula 4 11/08/22 12:30 4 11/08/22 12:00 4 11/08/22 11:59 Nasal Cannula 4 11/08/22 10:45 11/08/22 10:53 Room Air 11/08/22 10:31 Room Air Laboratory Results Short CBC 11/08/22 Range/Units 11:55 WBC 7.58 (4.8-10.8) K/ul Hgb 12.8 L (14.0-18.0) g/dl Hct 36.7 L (40.1-51.0) % Plt Count 113 L (130-400) K/uL BMP 11/08/22 11:55 Sodium 138 Potassium 3.7 Chloride 104 Carbon Dioxide 25 BUN 21 Creatinine 0.62 Glucose 190 H Calcium 8.6 Liver Function 11/08/22 Range/Units 11:55 Total Bilirubin 1.3 H (0.2-1.0) mg/dl Direct Bilirubin 0.2 (0-0.2) mg/dl AST 24 (13-39) U/L ALT 55 H (7-52) U/L Alkaline Phosphatase 71 (34-104) U/L Albumin 3.6 (3.4-5.0) gm/dl Urine 11/08/22 Range/Units 11:30 Urine Color Dark Yellow Urine Appearance Clear (Clear) Urine pH 6.0 (4.5-7.5) Ur Specific [place] 1.018 (1.000-1.030) Urine Protein Trace H (Negative) Urine Glucose (UA) Trace H (Negative) Diagnostic Findings Chest CTA 11/08/22 10:53 CT angio chest PE protocol CLINICAL HISTORY: PE TECHNIQUE: Multidetector row helical CT of the chest was performed with angiographic protocol. Coronal and sagittal reformations were obtained. Coronal and sagittal MIPS were obtained from the axial data set and were submitted for review. Automated dose lowering techniques and/or adjustment according to patient size were utilized for this exam. CT DOSE: 1160.80 mGy.cm Comparison: Comparison is made to CT chest 09/02/2022 FINDINGS: Lungs and pleura: Numerous pulmonary nodules are seen which appear enlarged from prior exam. For example a right pleural-based 31 mm nodule previously measured 23 mm an 18 mm nodule in the left upper lobe which previously measured 15 mm. There is a moderate left pleural effusion, significantly increased from prior. Nodularity of the pleura is most pronounced at the right lung base Heart and pericardium: Heart size is normal. No pericardial effusion. No right heart strain is seen. Vessels: Bilateral pulmonary emboli are seen in the lobar arteries. Mediastinum and otoniel: Significant enlargement of mediastinal masses. A right lower paratracheal mass measures 56 mm compared to 30 mm in prior exam in the right hilar conglomerate now measures up to 141 x 91 mm compared to 46 x 72 mm in prior exam. Pericardial invasion cannot be excluded. Chest wall and lower neck: A left thyroid nodule measures up to 20 mm. Abdomen: Hepatic steatosis is noted. Bones: Unremarkable. IMPRESSION: 1. Interval significant worsening of metastatic disease in this patient with numerous pulmonary and pleural metastases as well as mediastinal and right hilar nodes with possible pericardial invasion. 2. Bilateral pulmonary emboli without evidence of right heart strain. 3. Enlarged malignant effusion with enlarged pleural-based nodules. 4. Stable right thyroid nodule. ACT 112: Negative or not required by law. Electronically signed by: Viktor Carpenter M.D. 11/08/2022 1:55 PM Chest X-Ray 11/08/22 10:53 XR chest 1V portable CLINICAL HISTORY: Sepsis TECHNIQUE: Single frontal radiograph of the chest was obtained. Comparison: Comparison is made to chest radiograph 09/09/2022 and CTA chest 09/02/2022 FINDINGS: Right portacatheter is stable. The cardiomediastinal silhouette is normal. Lungs are underinflated but clear. Numerous pulmonary masses are unchanged from prior exam. No evidence of pleural effusion or pneumothorax. IMPRESSION: No acute abnormalities and in particular no evidence of pneumonia. Multiple pul monary masses are unchanged. ACT 112: Negative or not required by law. Electronically signed by: Viktor Carpenter M.D. 11/08/2022 11:20 AM ECG Additional Comments: EKG independently reviewed - Supervising Physician Co-Signing Physician Notes Pt is a 57 y/o M with hx of Metastatic Synovial Sarcoma s/p Chemoradiation, HTN, R eye blindness, DUY, Asthma, Insomnia, Pain syndrome on Dilaudid and fentanyl patch admitted for new onset b/l PE with hypoxia. PE: NAD, NC in place HEENT: R eye ocular prosthesis in place Lungs: good air entry b/l, no wheezing or crackles Cardiac: Normal S1/S2, no murmur Abd: obese abd, ND, NT, soft Skin: L forearm cellulitis with streaking, s/p I&D of abscess MSK: trace b/l LE pitting edema Psych: AAOX3, normal affect A/P: Acute respiratory failure due to b/l PE: -SpO2 improved with oxygen supplement -started the pt on heparin drip -due to acute hx of metastatic carcinoma likely discharge on lovenox -will get echo L forearm abscess with cellulitis: -s/p I&D in the ER - due to immunocompromised state and appearance of cellulitis will do IV abx with MRSA coverage --- Vanc and Ceftriaxone --- culture sent -will deescalate abx depending on the culture Metastatic Synovial Sarcoma s/p Chemoradiation: -CTA chest possible progression of metastatic disease -will inform hematology ([facility]) regarding pts admission since pt follows up with them -will continue his dexamethasone, fentanyl and dilaudid for pain management Other chronic conditions: Plan as above Agree with A/P by Ivy Hensley PA-C
[2022-11-08] MEDS ORDERED: HEPARIN SOD (PORCINE) 1000 UNIT/ML IV ONE (15:15)
[2022-11-08] MEDS ORDERED: VANCOMYCIN CONSULT ACTIVE PRN (15:50)
[2022-11-08] MEDS: HEPARIN SODIUM/DEXTROSE 25,000 UNITS/500 ML BAG IV SCH (16:10)
[2022-11-08] MEDS ORDERED: VANCOMYCIN HCL 2,750 MG in SODIUM CHLORIDE 0.9% 500 ML IV ONE (16:30)
--- NOTE | 2022-11-08 16:37 | Pharmacy Report ---
Pharmacy PK ABX Note - Date of Service November 08, 2022 Laboratory Tests 11/08/22 11/08/22 11/08/22 11:55 11:55 11:55 WBC 7.58 Lactate 2.2 H* Procalcitonin 0.15 Laboratory Tests 11/08/22 11:55 Creatinine 0.62 Est Cr Clr Drug Dosing 171.5 - Assessment and Plan Assessment 57 year old M receiving IV Vancomycin for treatment of SOB and possible arm infection d/t scarping arm when chopping wood a week ago. 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 MRSA Nasal Swab pending, BC and arm culture pending. Afebrile, WBC and procal WNL. Plan Vancomycin * Loading dose: 2750 mg IV x 1 * Maintenance dose: 1250 mg IV every 8 hours * Regimen is predicted to achieve target AUC/OSCAR of 400-600 mg/L.hr * Level will be ordered at steady state if continued therapy Pharmacy has transitioned to AUC monitoring for vancomycin. AUC/OSCAR is the preferred PK/PD target and is associated with decreased risk of nephrotoxicity compared to traditional trough targets. Cefepime 2g IV x1 in ER Ceftriaxone 2g IV Q24H Pharmacy will continue to follow and will adjust dose/frequency as necessary. Thank you.
[2022-11-08] MEDS ORDERED: hydrOXYzine HCl 25 MG TAB PO PRN (17:44)
[2022-11-08] MEDS ORDERED: ALBUTEROL HFA 8 GM INHALER INH PRN (17:44)
[2022-11-08] MEDS ORDERED: SENNA 8.6 MG TAB PO PRN (17:44)
[2022-11-08] MEDS ORDERED: POLYETHYLENE (MIRALAX) 17 GM PACK PO PRN (17:44)
[2022-11-08] MEDS ORDERED: ALBUTEROL 0.083% NEBU SOLN 3 ML VIAL INH PRN (17:44)
[2022-11-08] MEDS ORDERED: DOCUSATE SODIUM 100 MG CAP PO PRN (17:44)
[2022-11-08] MEDS ORDERED: ONDANSETRON INJ 2 MG/ML 2 ML VIAL IV PRN (17:44)
[2022-11-08] MEDS ORDERED: busPIRone 5 MG TAB PO PRN (17:44)
[2022-11-08] MEDS ORDERED: ACETAMINOPHEN 325 MG TAB PO PRN (17:44)
[2022-11-08] MEDS: HYDROmorphone HCL 2 MG TAB PO PRN ×2 (19:23→22:16)
[2022-11-08] MEDS: carvediloL 6.25 MG TAB PO SCH (20:05)
[2022-11-08] MEDS: MIRTAZAPINE TAB 15 MG TAB PO SCH (20:05)
[2022-11-08 20:24] LABS: Partial Thromboplastin Ratio 1.4; Partial Thromboplastin Time 38.2 Seconds (21.0-31.0)
[2022-11-08] MEDS: cefTRIAXone SODIUM 2,000 MG in DEXTROSE 5% 50 ML IV SCH (22:06)
[2022-11-08] MEDS ORDERED: HEPARIN 100 UNIT/ML 5ML FLUSH FLUSH PRN (22:24)
[2022-11-08] MEDS: CHECK fentaNYL PATCH PLACEMENT SCH (23:53)
[2022-11-09] MEDS: HYDROmorphone HCL 2 MG TAB PO PRN ×6 (01:25→21:29)
[2022-11-09 03:56] LABS: Partial Thromboplastin Ratio 1.3
[2022-11-09] MEDS: VANCOMYCIN HCL 1,250 MG in SODIUM CHLORIDE 0.9% 250 ML IV SCH ×2 (03:59→16:18)
[2022-11-09 04:05] LABS: Albumin Globulin Ratio 1.3 (0.9-2); Albumin Level 3.3 gm/dl (3.4-5.0); BUN Creatinine Ratio 38.5 (10-20); Bilirubin,Total 0.9 mg/dl (0.2-1.0); Calcium 8.6 mg/dl (8.5-10.1); Creatinine Clr Calc Pharmacy 204.3 ml/min; Est GFR (African American) 136.2 ml/min; Est GFR (Non-African American) 117.5 ml/min; Globulin 2.6 gm/dl (2.5-4.0); Potassium 3.3 mmol/L (3.5-5.1); Total Protein 5.9 gm/dl (6.0-8.3)
[2022-11-09 04:09] LABS: Hematocrit (blood only) 35.8 % (40.1-51.0); Hemoglobin 12.2 g/dl (14.0-18.0); Mean Corpuscular Hemoglobin 33.1 pg (25.0-34.0); Mean Corpuscular Hgb Conc 34.1 g/dL (32.0-36.0); Mean Platelet Volume 9.6 fL (9.4-12.4); Platelet Count 124 K/uL (130-400); RDW Coefficient of Variation 16.3 % (11.5-14.5); RDW Standard Deviation 58.7 fL (36.4-46.3); Red Blood Count 3.69 M/uL (4.63-6.08); White Blood Count 7.05 K/ul (4.8-10.8)
[2022-11-09] MEDS ORDERED: HEPARIN SOD (PORCINE) 1000 UNIT/ML IV ONE ×2 (04:45→12:00)
[2022-11-09] MEDS: CHECK fentaNYL PATCH PLACEMENT SCH ×2 (08:11→16:18)
[2022-11-09] MEDS: POTASSIUM CHLORIDE CRTAB 20 MEQ TABCR PO SCH (08:12)
[2022-11-09] MEDS: FAMOTIDINE 40 MG TABLET PO SCH (08:12)
[2022-11-09] MEDS: LOSARTAN POTASSIUM 50 MG TAB PO SCH (08:12)
[2022-11-09] MEDS: dexAMETHasone 4 MG TAB PO SCH (08:12)
[2022-11-09] MEDS: amLODIPine BESYLATE 5 MG TAB PO SCH (08:12)
[2022-11-09] MEDS: MONTELUKAST SODIUM 10 MG TABLET PO SCH (08:12)
[2022-11-09] MEDS: FLUTICASONE PROPIONATE NA SPR 16 GM BTL NAE SCH (08:13)
[2022-11-09] MEDS: carvediloL 6.25 MG TAB PO SCH ×2 (08:13→21:22)
[2022-11-09] MEDS: FLUTICASONE/VILANTEROL 100/25MCG 14 PUFFS/INHALER INH SCH (08:13)
[2022-11-09] MEDS: PANTOprazole 40 MG TAB PO SCH (08:13)
[2022-11-09] MEDS ORDERED: POTASSIUM CHLORIDE CRTAB 20 MEQ TABCR PO STA (08:17)
[2022-11-09] MEDS ORDERED: PAZOPANIB 200 MG PO SCH (09:00)
[2022-11-09 11:20] LABS: Partial Thromboplastin Ratio 1.4; Partial Thromboplastin Time 37.3 Seconds (21.0-31.0)
[2022-11-09] MEDS: busPIRone 5 MG TAB PO PRN ×2 (12:03→21:20)
[2022-11-09] MEDS: HEPARIN SODIUM/DEXTROSE 25,000 UNITS/500 ML BAG IV SCH (12:07)
--- NOTE | 2022-11-09 16:49 | Hospitalist Progress Note ---
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 Apodaca locally, asthma, hypertension, DUY on CPAP and other medical problems listed below who presents with progressive SOB x 5 days and was found to have bilateral pulmonary emboli without evidence of right heart strain. Hypoxia Bilateral pulmonary embolism Worsening SOB x 5 days in setting of metastatic cancer Chest CTA with interval significant worsening of metastatic disease and bilateral pulmonary emboli without evidence of right heart strain ECHO showed Left ventricular wall motion is normal. Left ventricular is mildly dilated. Ejection fraction 60 to 65%. Continue IV heparin drip Continue oxygen supplement Monitor for abnormal bleeding while on IV heparin drip Left forearm cellulitis Abscess on L arm s/p I&D in ED I&D culture grew staph species Blood culture no growth Received cefepime in the ED. currently on Vanco mycin and Rocephin IV will consider to de-escalate antibiotic in a.m. 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 Garcia [facility] rad onc Chest CTA with interval significant worsening of metastatic disease in this patient with numerous pulmonary and pleural metastases as well as mediastinal and right hilar nodes with possible pericardial invasion Following with Dr. Martin of [facility], due to see again in November (Dr Martin's contact info : [phone]) Recently established with Dr. Apodaca locally Continue 200 mg of Votrient every other day, dexamethasone 4mg daily Consulting Dr. Apodaca given progression of disease on CT Cancer related pain on narcotics Following with palliative care. Current regimen for cancer-related pain is fentanyl 50 mcg Q72H and recently increased Dilaudid 4 mg tablet every 3 hours as needed for breakthrough pain Hypertension Normotensive. Continue losartan, amlodipine, carvedilol Asthma Continue albuterol nebulizer as needed for shortness of breath and wheezing, albuterol rescue inhaler, Singulair Constipation Continue bowel regimen DVT Ppx: IV heparin Code status: FULL Disposition Continue to monitor closely in PCU Admission and Anticipated Discharge Date Admission Date: November 08, 2022 Subjective Pt was seen and examined for follow up of SOB due to PE Lying in bed with no acute distress Pt said that he continues to have sob with exertion He said that his breathing slightly improves compare to yesterday his L forearm redness significantly improves Denies any chest pain, palpitation, dizziness and SOB Review of Systems Review of Systems: All systems reviewed & are unremarkable except as noted in Subjective Physical Exam Physical Exam: General- No acute distress Head- atraumatic Eyes- PERRL, EOMI, ENT- oropharynx clear Neck- supple, no JVD Lungs- clear to auscultation Heart- regular rhythm; no murmur Abdomen- normal bowel sounds, soft, nontender Extremities- no calf tenderness, L fore arm with dressing in place Neuro- alert, oriented x 3; PERRL, EOMI; no facial palsy; no dysarthria Skin- warm & dry Results & Data Results & Data ([facility]) Vital Signs (Past 12 Hours) Vital Signs Temp Pulse Pulse Resp BP Pulse Ox O2 Del Method 11/09/22 15:10 36.3 C L 90 20 135/87 92 Nasal Cannula 11/09/22 11:54 36.4 C L 101 H 20 158/97 H 92 Nasal Cannula 11/09/22 08:00 Nasal Cannula 11/09/22 08:00 69 11/09/22 08:00 36.5 C 98 H 20 134/95 94 Nasal Cannula O2 Flow Rate 11/09/22 15:10 6 11/09/22 11:54 6 11/09/22 08:00 6 11/09/22 08:00 11/09/22 08:00 6
[2022-11-09] MEDS ORDERED: fentaNYL 50 MCG/HR TDSY TD SCH (18:00)
[2022-11-09 18:14] LABS: Partial Thromboplastin Ratio 1.6; Partial Thromboplastin Time 44.7 Seconds (21.0-31.0)
[2022-11-09] MEDS: cefTRIAXone SODIUM 2,000 MG in DEXTROSE 5% 50 ML IV SCH (21:21)
[2022-11-09] MEDS: MIRTAZAPINE TAB 15 MG TAB PO SCH (21:22)
--- NOTE | 2022-11-09 21:41 | Electrocardiogram Report ---
Test Reason : Blood Pressure : / mmHG Vent. Rate : 102 BPM Atrial Rate : 102 BPM P-R Int : 128 ms QRS Dur : 086 ms QT Int : 340 ms P-R-T Axes : 039 004 068 degrees QTc Int : 443 ms Poor data quality, interpretation may be adversely affected Sinus tachycardia Otherwise normal ECG When compared with ECG of 31-JUL-2022 11:28, Nonspecific T wave abnormality no longer evident in Inferior leads Confirmed by Simón Erickson ([id number]) on 11/09/2022 9:41:30 PM Referred By: REFERRED SELF Confirmed By:Simón Erickson
--- NOTE | 2022-11-09 22:26 | Electrocardiogram Report ---
Test Reason : Blood Pressure : / mmHG Vent. Rate : 064 BPM Atrial Rate : 064 BPM P-R Int : 134 ms QRS Dur : 088 ms QT Int : 414 ms P-R-T Axes : 011 028 051 degrees QTc Int : 427 ms Normal sinus rhythm Possible Lateral infarct , age undetermined Abnormal ECG When compared with ECG of 08-NOV-2022 10:40, (unconfirmed) Vent. rate has decreased BY 38 BPM Borderline criteria for Lateral infarct are now Present Confirmed by Simón Erickson ([id number]) on 11/09/2022 10:26:41 PM Referred By: REFERRED SELF Confirmed By:Simón Erickson
[2022-11-10] MEDS: CHECK fentaNYL PATCH PLACEMENT SCH ×3 (00:02→17:02)
[2022-11-10 01:44] LABS: Partial Thromboplastin Ratio 1.7
[2022-11-10] MEDS: HYDROmorphone HCL 2 MG TAB PO PRN ×6 (02:44→22:04)
[2022-11-10] MEDS: HEPARIN SODIUM/DEXTROSE 25,000 UNITS/500 ML BAG IV SCH ×3 (02:45→19:10)
[2022-11-10] MEDS ORDERED: VANCOMYCIN LEVEL ONE (03:30)
[2022-11-10] MEDS: VANCOMYCIN HCL 1,250 MG in SODIUM CHLORIDE 0.9% 250 ML IV SCH (04:58)
[2022-11-10 05:29] LABS: Hemoglobin 11.1 g/dl (14.0-18.0); Mean Corpuscular Hemoglobin 33.3 pg (25.0-34.0); Mean Corpuscular Hgb Conc 33.6 g/dL (32.0-36.0); Mean Corpuscular Volume 99.1 fL (80.0-100.0); Mean Platelet Volume 10.1 fL (9.4-12.4); Platelet Count 119 K/uL (130-400); RDW Coefficient of Variation 16.4 % (11.5-14.5); RDW Standard Deviation 60.3 fL (36.4-46.3); Red Blood Count 3.33 M/uL (4.63-6.08); White Blood Count 7.27 K/ul (4.8-10.8)
[2022-11-10 05:51] LABS: BUN Creatinine Ratio 47.3 (10-20); Calcium 8.4 mg/dl (8.5-10.1); Creatinine Clr Calc Pharmacy 194.2 ml/min; Est GFR (African American) 133.1 ml/min; Est GFR (Non-African American) 114.9 ml/min; Potassium 3.6 mmol/L (3.5-5.1)
--- NOTE | 2022-11-10 06:58 | Oncology Consultation ---
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 Presented with shortness of breath and was found to have significant disease progression as well as bilateral PEs. -Unclear if progression is due to suboptimal dosing of pazopanib or lack of treatment response to pazopanib. Would recommend he restart pazopanib 200 mg p.o. daily while in the hospital. Monitor LFTs closely given history of pazopanib induced transaminitis. -Given extensive progression of disease, he would likely benefit from switching to IV chemotherapy. He had previously received doxorubicin which was ineffective . Options for treatment would be increasing dose of pazopanib or switching to IV chemo such as docetaxel/Gemzar. Will discuss with Dr. Martin of sarcoma oncology at [facility] to see if he has any other recommendations -PEs probably due to pazopanib as well as malignancy. Okay to resume pazopanib as long as he is on therapeutic anticoagulation. Continue with heparin/Lovenox while in the hospital. Can be switched to DOAC such as Eliquis prior to discharge from hospital Patient and his are given the potential to ask questions which indicated were answered to satisfaction. Thank you for this consult. Oncology continue following while in the hospital. Please feel free to call if have any further questions History of Present Illness Reason for Consultation: Metastatic synovial sarcoma Attending Physician: Aguila Vaca MD History of Present Illness Tyrese 57-year-old gentleman with history of metastatic synovial sarcoma for which he is currently on pazopanib. Patient follows with me locally at [facility] as well as Dr. Martin of sarcoma oncology at [facility]. He presented to the ER [facility] with complaints of shortness of breath. CTA chest revealed Interval significant worsening of metastatic disease with numerous pulmonary and pleural metastases as well as mediastinal and right hilar nodes with possible pericardial invasion,enlarged malignant effusion with enlarged pleural-based nodules as well as bilateral pulmonary emboli without evidence of right heart strain.He was started on therapeutic unfractionated Heparin drip which he remains on at this time. Also currently requires 6 L/min supplemental oxygen with nasal cannula. Regarding his current treatment for sarcoma he is currently on pazopanib 200 mg every other day. Pazopanib was dose reduced from 800 mg p.o. daily around August, due to grade 3 transaminitis. Allergies Allergy/AdvReac Type Severity Reaction Status Date / Time bacitracin Allergy Severe hives, Verified 11/08/22 15:35 syncopy tree and shrub pollen AdvReac Mild nasal Verified 11/08/22 15:35 congestion, eyes water Home Medications Medication Instructions Recorded Confirmed Type albuterol sulfate 90 mcg/actuation 2 puffs inhalation Q4 PRN 10/10/19 11/08/22 History aerosol inhaler (Ventolin HFA) Shortness Of Breath Or Wheezing albuterol sulfate 2.5 mg/3 mL 2.5 mg inhalation Q6H PRN 01/31/20 11/08/22 History (0.083 %) solution for nebulization shortness of breath or wheezing montelukast 10 mg tablet 10 mg PO DAILY 06/29/20 11/08/22 History (Singulair) amlodipine 10 mg tablet 10 mg PO QAM 07/31/22 11/08/22 History carvedilol 6.25 mg tablet 6.25 mg PO BID 07/31/22 11/08/22 History famotidine 40 mg tablet 40 mg PO DAILY 07/31/22 11/08/22 History hydroxyzine HCl 25 mg tablet 25 - 50 mg PO HS PRN Anxiety 07/31/22 11/08/22 History losartan 100 mg tablet 100 mg PO DAILY 07/31/22 11/08/22 History docusate sodium 100 mg capsule 100 mg PO BID PRN laxative effect 08/04/22 11/08/22 Rx #60 caps polyethylene glycol 3350 17 gram 17 g PO DAILY PRN laxative effect 08/04/22 11/08/22 Rx oral powder packet (Miralax) #30 ea buspirone 10 mg tablet 10 mg PO TID PRN Anxiety 09/02/22 11/08/22 History mirtazapine 15 mg tablet 15 mg PO HS 09/02/22 11/08/22 History pantoprazole 40 mg tablet,delayed 40 mg PO QAM 09/02/22 11/08/22 History release sennosides 8.6 mg tablet (Senokot) 8.6 mg PO BID PRN Constipation 09/02/22 11/08/22 History fentanyl 50 mcg/hr transdermal 50 mcg transdermal Q72H severe 09/10/22 11/08/22 Rx patch pain 1 week #2 ea dexamethasone 2 mg tablet 4 mg PO QAM 11/08/22 11/08/22 History fluticasone furoate 100 1 puffs inhalation QAM 11/08/22 11/08/22 History mcg-vilanterol 25 mcg/dose inhalation powder (Breo Ellipta) fluticasone propionate 50 2 spray intranasal QAM 11/08/22 11/08/22 History mcg/actuation nasal spray,suspension hydromorphone 4 mg tablet 4 mg PO Q3H PRN Pain, Severe 11/08/22 11/08/22 History pazopanib 200 mg tablet (Votrient) 200 mg PO Q2D 11/08/22 11/08/22 History potassium chloride 20 mEq 20 meq PO QAM 11/08/22 11/08/22 History tablet,extended release valacyclovir 1 gram tablet 2,000 mg PO .BID/UD PRN .FLARES 11/08/22 11/08/22 History Patient History Medical History Asthma GERD (gastroesophageal reflux disease) Hepatic steatosis HTN (hypertension) DUY on CPAP 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 Grandmother (Maternal) , iat 91 old age No problems noted. Grandfather (Paternal) , in his eighties old age No problems noted. Father , age 66 of pancreatic cancer and metastasis No problems noted. Mother No problems noted. Brother Age: 54 No problems noted. Son Age: 35 Leukemia in remission Daughter Age: 35 No problems noted. Daughter Age: 23 No problems noted. Son Age: 20 No problems noted. 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 Review of Systems Review of Systems: All systems reviewed & are unremarkable except as noted in HPI & below Physical Exam Constitutional: WD/WN, vitals as above Eyes: PERRL, conjunctivae normal, anicteric sclerae Respiratory: normal respiratory effort, lungs clear to auscultation Cardiovascular: RRR, no murmur, no edema Gastrointestinal (Abdomen): normal bowel sounds, soft, nontender, no hepatosplenomegaly Results & Data ([facility]) Vital Signs (Past 12 Hours) Vital Signs Temp Pulse Pulse Resp BP BP Pulse Ox 11/10/22 05:30 36.6 C 61 14 129/91 98 11/10/22 02:13 79 11/10/22 00:30 75 16 96 11/10/22 00:00 100 H 25 H 94 11/09/22 23:30 76 16 95 11/09/22 23:11 72 19 95 11/09/22 23:11 146/92 H 11/09/22 23:00 65 27 H 96 11/09/22 22:30 70 15 95 11/09/22 22:00 82 23 95 11/09/22 21:30 87 17 94 11/09/22 21:00 77 21 94 11/09/22 20:30 73 20 95 11/09/22 20:00 83 22 93 11/09/22 19:30 85 21 93 11/09/22 19:00 88 48 H 94 11/10/22 00:46 16 11/09/22 23:11 36.8 C 88 18 146/92 H 97 11/09/22 20:16 O2 Del Method O2 Flow Rate 11/10/22 05:30 CPAP 11/10/22 02:13 01/16/23 00:30 11/10/22 00:00 11/09/22 23:30 11/09/22 23:11 11/09/22 23:11 11/09/22 23:00 11/09/22 22:30 11/09/22 22:00 11/09/22 21:30 11/09/22 21:00 11/09/22 20:30 11/09/22 20:00 11/09/22 19:30 11/09/22 19:00 11/10/22 00:46 11/09/22 23:11 Room Air 11/09/22 20:16 Nasal Cannula 6 (1) Pulmonary emboli Acute cor pulmonale presence: without acute cor pulmonale Chronicity: acute Pulmonary embolism type: unspecified Qualified Code(s): I26.99 - Other pulmonary embolism without acute cor pulmonale
[2022-11-10] MEDS ORDERED: PAZOPANIB 200 MG PO SCH (07:30)
[2022-11-10] MEDS: FLUTICASONE/VILANTEROL 100/25MCG 14 PUFFS/INHALER INH SCH (07:46)
[2022-11-10] MEDS: FLUTICASONE PROPIONATE NA SPR 16 GM BTL NAE SCH (07:46)
[2022-11-10] MEDS: amLODIPine BESYLATE 5 MG TAB PO SCH (07:53)
[2022-11-10] MEDS: carvediloL 6.25 MG TAB PO SCH ×2 (07:53→22:01)
[2022-11-10] MEDS: FAMOTIDINE 40 MG TABLET PO SCH (07:54)
[2022-11-10] MEDS: dexAMETHasone 4 MG TAB PO SCH (07:54)
[2022-11-10] MEDS: MONTELUKAST SODIUM 10 MG TABLET PO SCH (07:55)
[2022-11-10] MEDS: LOSARTAN POTASSIUM 50 MG TAB PO SCH (07:55)
[2022-11-10] MEDS: PANTOprazole 40 MG TAB PO SCH (07:56)
[2022-11-10] MEDS: POTASSIUM CHLORIDE CRTAB 20 MEQ TABCR PO SCH (07:56)
[2022-11-10 08:54] LABS: Partial Thromboplastin Ratio 1.8
[2022-11-10 08:56] LABS: Partial Thromboplastin Time 49.2 Seconds (21.0-31.0)
[2022-11-10] MEDS ORDERED: VANCOMYCIN HCL 1,500 MG in SODIUM CHLORIDE 0.9% 500 ML IV SCH (12:00)
[2022-11-10] MEDS: ceFAZolin 1000MG 1,000 MG/7.5 ML SYR IV SCH ×2 (12:21→17:03)
[2022-11-10] MEDS: MIRTAZAPINE TAB 15 MG TAB PO SCH (22:01)
[2022-11-11] MEDS: CHECK fentaNYL PATCH PLACEMENT SCH ×3 (00:57→16:27)
[2022-11-11] MEDS: ceFAZolin 1000MG 1,000 MG/7.5 ML SYR IV SCH ×4 (00:57→18:04)
[2022-11-11] MEDS: HYDROmorphone HCL 2 MG TAB PO PRN ×6 (01:04→21:19)
--- NOTE | 2022-11-11 01:47 | Hospitalist Progress Note ---
Date of Service November 10, 2022 Assessment & Plan (1) Hypoxia: (2) Bilateral pulmonary embolism: (3) Synovial sarcoma: (4) Metastatic cancer: (5) Left arm cellulitis: (6) Cancer related pain: (7) HTN (hypertension): (8) Anxiety: (9) Asthma: (10) DUY on CPAP: Plan: ` Plan This is a 57yo M with a PMH of synovial sarcoma with metastasis to lungs and lymph nodes following with [facility] med onc and Dr. Apodaca locally, asthma, hypertension, DUY on CPAP and other medical problems listed below who presents with progressive SOB x 5 days and was found to have bilateral pulmonary emboli without evidence of right heart strain. Hypoxia Bilateral pulmonary embolism Worsening SOB x 5 days in setting of metastatic cancer Chest CTA with interval significant worsening of metastatic disease and bilateral pulmonary emboli without evidence of right heart strain ECHO showed Left ventricular wall motion is normal. Left ventricular is mildly dilated. Ejection fraction 60 to 65%. Continue IV heparin drip Continue oxygen supplement Case discussed with Dr. Apodaca agreed to transition to Eliquis. Monitor for abnormal bleeding while on IV heparin drip Left forearm cellulitis Abscess on L arm s/p I&D in ED I&D culture grew staph species Blood culture no growth Received cefepime in the ED. currently on Vanco mycin and Rocephin IV Will de-escalate antibiotic to cefazolin Hypokalemia K 3.6 today K replaced Continue monitor BMP Synovial sarcoma Metastatic cancer H/o synovial sarcoma with metastasis to lungs and lymph nodes following with [facility] onc and Dr. Garcia [facility] rad onc Chest CTA with interval significant worsening of metastatic disease in this patient with numerous pulmonary and pleural metastases as well as mediastinal and right hilar nodes with possible pericardial invasion Following with Dr. Martin of [facility], due to see again in November (Dr Martin's contact info : [phone]) Recently established with Dr. Apodaca locally Continue 200 mg of Votrient every other day, dexamethasone 4mg daily Consulting Dr. Apodaca given progression of disease on CT Monitor LFTs closely given history of pazopanib induced transaminitis. Cancer related pain on narcotics Following with palliative care. Current regimen for cancer-related pain is fentanyl 50 mcg Q72H and recently increased Dilaudid 4 mg tablet every 3 hours as needed for breakthrough pain Hypertension Normotensive. Continue losartan, amlodipine, carvedilol Asthma Continue albuterol nebulizer as needed for shortness of breath and wheezing, albuterol rescue inhaler, Singulair Constipation Continue bowel regimen DVT Ppx: IV heparin Code status: FULL Disposition Continue to monitor closely in PCU Admission and Anticipated Discharge Date Admission Date: November 08, 2022 Subjective Pt was seen and examined for follow up of SOB due to PE Sitting in chair with no acute distress with at bedside Continue to require 6 L nasal cannula oxygen Patient said he continues to have shortness of breath with minimal exertion Denies any chest pain, palpitation, dizziness and SOB Review of Systems Review of Systems: All systems reviewed & are unremarkable except as noted in Subjective Physical Exam Physical Exam: General- No acute distress Head- atraumatic Eyes- PERRL, EOMI, ENT- oropharynx clear Neck- supple, no JVD Lungs- clear to auscultation Heart- regular rhythm; no murmur Abdomen- normal bowel sounds, soft, nontender Extremities- no calf tenderness, L fore arm with dressing in place Neuro- alert, oriented x 3; PERRL, EOMI; no facial palsy; no dysarthria Skin- warm & dry Results & Data Results & Data ([facility]) Vital Signs (Past 12 Hours) Vital Signs Temp Pulse Pulse Resp BP Pulse Ox O2 Del Method 11/10/22 22:03 77 11/11/22 01:15 Nasal Cannula, CPAP 11/10/22 21:58 36.1 C L 67 18 153/98 H 94 Nasal Cannula 11/10/22 19:33 35.9 C L 84 18 147/101 H 93 Nasal Cannula 11/10/22 15:00 93 Nasal Cannula 11/10/22 15:45 36.4 C L 77 18 148/89 H 93 Nasal Cannula O2 Flow Rate 11/10/22 22:03 11/11/22 01:15 4 11/10/22 21:58 4 11/10/22 19:33 11/10/22 15:00 4 11/10/22 15:45 3
[2022-11-11] MEDS: PAZOPANIB HCL PO SCH (06:39)
[2022-11-11 06:51] LABS: Hematocrit (blood only) 35.2 % (40.1-51.0); Mean Corpuscular Hemoglobin 33.3 pg (25.0-34.0); Mean Corpuscular Hgb Conc 34.1 g/dL (32.0-36.0); Mean Corpuscular Volume 97.8 fL (80.0-100.0); Mean Platelet Volume 10.3 fL (9.4-12.4); Nucleated RBC # (auto) 0.06 K/uL (0-0); Nucleated RBC % (auto) 0.7 %; Platelet Count 150 K/uL (130-400); RDW Coefficient of Variation 16.1 % (11.5-14.5); RDW Standard Deviation 58.1 fL (36.4-46.3)
[2022-11-11 07:24] LABS: Albumin Globulin Ratio 1.4 (0.9-2); Albumin Level 3.6 gm/dl (3.4-5.0); BUN Creatinine Ratio 37.9 (10-20); Bilirubin,Total 0.7 mg/dl (0.2-1.0); Calcium 8.6 mg/dl (8.5-10.1); Creatinine Clr Calc Pharmacy 175.3 ml/min; Est GFR (African American) 130.3 ml/min; Est GFR (Non-African American) 112.4 ml/min; Globulin 2.5 gm/dl (2.5-4.0); Potassium 3.6 mmol/L (3.5-5.1); Total Protein 6.1 gm/dl (6.0-8.3)
[2022-11-11] MEDS ORDERED: PAZOPANIB 200 MG PO SCH (07:30)
[2022-11-11] MEDS: FLUTICASONE PROPIONATE NA SPR 16 GM BTL NAE SCH (07:51)
[2022-11-11] MEDS: FLUTICASONE/VILANTEROL 100/25MCG 14 PUFFS/INHALER INH SCH (07:51)
[2022-11-11] MEDS: POTASSIUM CHLORIDE CRTAB 20 MEQ TABCR PO SCH (07:52)
[2022-11-11] MEDS: MONTELUKAST SODIUM 10 MG TABLET PO SCH (07:52)
[2022-11-11] MEDS: amLODIPine BESYLATE 5 MG TAB PO SCH (07:52)
[2022-11-11] MEDS: LOSARTAN POTASSIUM 50 MG TAB PO SCH (07:52)
[2022-11-11] MEDS: carvediloL 6.25 MG TAB PO SCH ×2 (07:52→21:20)
[2022-11-11] MEDS: dexAMETHasone 4 MG TAB PO SCH (07:52)
[2022-11-11] MEDS: FAMOTIDINE 40 MG TABLET PO SCH (07:52)
[2022-11-11] MEDS: PANTOprazole 40 MG TAB PO SCH (07:52)
[2022-11-11 08:08] LABS: Partial Thromboplastin Ratio 1.7
[2022-11-11 09:07] LABS: Partial Thromboplastin Time 46.9 Seconds (21.0-31.0)
[2022-11-11] MEDS: HEPARIN SODIUM/DEXTROSE 25,000 UNITS/500 ML BAG IV SCH (10:30)
--- NOTE | 2022-11-11 18:30 | Hospitalist Progress Note ---
Date of Service November 11, 2022 Assessment & Plan (1) Hypoxia: (2) Bilateral pulmonary embolism: (3) Synovial sarcoma: (4) Metastatic cancer: (5) Left arm cellulitis: (6) Cancer related pain: (7) HTN (hypertension): (8) Anxiety: (9) Asthma: (10) DUY on CPAP: Plan: ` Plan This is a 57yo M with a PMH of synovial sarcoma with metastasis to lungs and lymph nodes following with [facility] med onc and Dr. Apodaca locally, asthma, hypertension, DUY on CPAP and other medical problems listed below who presents with progressive SOB x 5 days and was found to have bilateral pulmonary emboli without evidence of right heart strain. Hypoxia Bilateral pulmonary embolism Worsening SOB x 5 days in setting of metastatic cancer Chest CTA with interval significant worsening of metastatic disease and bilateral pulmonary emboli without evidence of right heart strain ECHO showed Left ventricular wall motion is normal. Left ventricular is mildly dilated. Ejection fraction 60 to 65%. Currently on IV heparin drip Case discussed with Dr. Apodaca agreed to transition to Eliquis. Monitor for abnormal bleeding while on IV heparin drip Called Pt pharmacy to check the cost for Eliquis that will be $70 dollars/month. Patient said that he will be able to afford it Plan to transition tonight to Eliquis Continue to wean off oxygen supplement Will need a two-step prior to discharge Left forearm cellulitis Abscess on L arm s/p I&D in ED I&D culture grew staph species Blood culture no growth Received cefepime in the ED. Discontinued Vancomycin and Rocephin IV Antibiotic de-escalated to cefazolin Hypokalemia K 3.6 today Continue monitor BMP Synovial sarcoma Metastatic cancer H/o synovial sarcoma with metastasis to lungs and lymph nodes following with [facility] med onc and Dr. Garcia [facility] rad onc Chest CTA with interval significant worsening of metastatic disease in this patient with numerous pulmonary and pleural metastases as well as mediastinal and right hilar nodes with possible pericardial invasion Following with Dr. Martin of [facility], due to see again in November (Dr Martin's contact info : [phone]) Recently established with Dr. Apodaca locally Consulting Dr. Apodaca given progression of disease on CT Case discussed with Dr. Apodaca that recommended to continue Votrient 200g daily and dexamethasone 4mg Monitor LFTs closely given history of pazopanib induced transaminitis. Cancer related pain on narcotics Following with palliative care. Current regimen for cancer-related pain is fentanyl 50 mcg Q72H and recently increased Dilaudid 4 mg tablet every 3 hours as needed for breakthrough pain Hypertension Normotensive. Continue losartan, amlodipine, carvedilol Asthma Continue albuterol nebulizer as needed for shortness of breath and wheezing, albuterol rescue inhaler, Singulair Constipation Continue bowel regimen DVT Ppx: IV heparin Code status: FULL Disposition Continue to monitor closely in PCU Admission and Anticipated Discharge Date Admission Date: November 08, 2022 Subjective Pt was seen and examined for follow up of SOB due to PE Lying in bed with with no acute distress with at bedside Patient said his breathing feels much better today Currently he is on 2 L nasal cannula Denies any chest pain, palpitation, dizziness and SOB Review of Systems Review of Systems: All systems reviewed & are unremarkable except as noted in Subjective Physical Exam Physical Exam: General- No acute distress Head- atraumatic Eyes- PERRL, EOMI, ENT- oropharynx clear Neck- supple, no JVD Lungs- clear to auscultation Heart- regular rhythm; no murmur Abdomen- normal bowel sounds, soft, nontender Extremities- no calf tenderness, L fore arm with dressing in place Neuro- alert, oriented x 3; PERRL, EOMI; no facial palsy; no dysarthria Skin- warm & dry Results & Data Results & Data ([facility]) Vital Signs (Past 12 Hours) Vital Signs Temp Pulse Pulse Resp BP Pulse Ox O2 Del Method 11/11/22 17:09 37 C 65 18 139/74 98 Room Air 11/11/22 15:53 Nasal Cannula 11/11/22 12:00 35.9 C L 70 18 157/96 H 94 Nasal Cannula 11/11/22 09:00 Nasal Cannula 11/11/22 09:00 64 11/11/22 07:07 36.3 C L 64 18 152/95 H 93 Room Air O2 Flow Rate 11/11/22 17:09 11/11/22 15:53 3 11/11/22 12:00 2 11/11/22 09:00 3 11/11/22 09:00 11/11/22 07:07
[2022-11-11] MEDS ORDERED: HEPARIN STOP ORDER ONE (21:00)
[2022-11-11] MEDS: APIXABAN 5 MG TABLET PO SCH (21:19)
[2022-11-11] MEDS: MIRTAZAPINE TAB 15 MG TAB PO SCH (21:20)
[2022-11-12] MEDS: ceFAZolin 1000MG 1,000 MG/7.5 ML SYR IV SCH ×3 (00:10→12:16)
[2022-11-12] MEDS: CHECK fentaNYL PATCH PLACEMENT SCH ×2 (00:10→09:01)
[2022-11-12] MEDS: HYDROmorphone HCL 2 MG TAB PO PRN ×4 (02:16→15:02)
[2022-11-12 06:15] LABS: Hematocrit (blood only) 33.9 % (40.1-51.0); Hemoglobin 11.2 g/dl (14.0-18.0); Mean Corpuscular Hemoglobin 32.5 pg (25.0-34.0); Mean Corpuscular Volume 98.3 fL (80.0-100.0); Nucleated RBC # (auto) 0.13 K/uL (0-0); Nucleated RBC % (auto) 1.5 %; Platelet Count 137 K/uL (130-400); RDW Standard Deviation 58.4 fL (36.4-46.3); Red Blood Count 3.45 M/uL (4.63-6.08); White Blood Count 8.68 K/ul (4.8-10.8)
[2022-11-12] MEDS: PAZOPANIB HCL PO SCH (06:29)
[2022-11-12 06:33] LABS: Albumin Level 3.5 gm/dl (3.4-5.0); Bilirubin,Total 0.7 mg/dl (0.2-1.0); Calcium 8.5 mg/dl (8.5-10.1); Potassium 3.8 mmol/L (3.5-5.1)
[2022-11-12 06:37] LABS: Partial Thromboplastin Ratio 0.9; Partial Thromboplastin Time 26.1 Seconds (21.0-31.0)
[2022-11-12 06:39] LABS: Albumin Globulin Ratio 1.5 (0.9-2); BUN Creatinine Ratio 39.6 (10-20); Creatinine Clr Calc Pharmacy 190.8 ml/min; Est GFR (African American) 135.2 ml/min; Est GFR (Non-African American) 116.6 ml/min; Globulin 2.3 gm/dl (2.5-4.0); Total Protein 5.8 gm/dl (6.0-8.3)
[2022-11-12] MEDS: FAMOTIDINE 40 MG TABLET PO SCH (08:24)
[2022-11-12] MEDS: MONTELUKAST SODIUM 10 MG TABLET PO SCH (08:24)
[2022-11-12] MEDS: amLODIPine BESYLATE 5 MG TAB PO SCH (08:24)
[2022-11-12] MEDS: LOSARTAN POTASSIUM 50 MG TAB PO SCH (08:24)
[2022-11-12] MEDS: dexAMETHasone 4 MG TAB PO SCH (08:24)
[2022-11-12] MEDS: PANTOprazole 40 MG TAB PO SCH (08:24)
[2022-11-12] MEDS: POTASSIUM CHLORIDE CRTAB 20 MEQ TABCR PO SCH (08:25)
[2022-11-12] MEDS: APIXABAN 5 MG TABLET PO SCH (08:25)
[2022-11-12] MEDS: carvediloL 6.25 MG TAB PO SCH (08:25)
[2022-11-12] MEDS: FLUTICASONE PROPIONATE NA SPR 16 GM BTL NAE SCH (08:27)
[2022-11-12] MEDS: FLUTICASONE/VILANTEROL 100/25MCG 14 PUFFS/INHALER INH SCH (08:27)
[2022-11-12] MEDS ORDERED: fentaNYL 50 MCG/HR TDSY TD SCH (09:00)
--- NOTE | 2022-11-12 09:26 | Hospitalist Progress Note ---
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 Apodaca locally, asthma, hypertension, DUY on CPAP and other medical problems listed below who presents with progressive SOB x 5 days and was found to have bilateral pulmonary emboli without evidence of right heart strain. Hypoxia Bilateral pulmonary embolism Worsening SOB x 5 days in setting of metastatic cancer Chest CTA with interval significant worsening of metastatic disease and bilateral pulmonary emboli without evidence of right heart strain ECHO showed Left ventricular wall motion is normal. Left ventricular is mildly dilated. Ejection fraction 60 to 65%. Initially on IV heparin drip , now transitioned to Eliquis Case discussed with Dr. Apodaca - hem/onc Currently on RA two-step ordered prior to discharge Left forearm cellulitis Abscess on L arm s/p I&D in ED I&D culture grew staph species Blood culture no growth Received cefepime in the ED. 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 Garcia [facility] rad onc Chest CTA with interval significant worsening of metastatic disease in this patient with numerous pulmonary and pleural metastases as well as mediastinal and right hilar nodes with possible pericardial invasion Following with Dr. Martin of [facility], due to see again in November (Dr Martin's contact info : [phone]) Recently established with Dr. Apodaca locally Consulting Dr. Apodaca given progression of disease on CT Case discussed with Dr. Apodaca that recommended to continue Votrient 200g daily and dexamethasone 4mg Monitor LFTs closely given history of pazopanib induced transaminitis. Cancer related pain on narcotics Following with palliative care. Current regimen for cancer-related pain is fentanyl 50 mcg Q72H and recently increased Dilaudid 4 mg tablet every 3 hours as needed for breakthrough pain Hypertension Normotensive. Continue losartan, amlodipine, carvedilol Asthma Continue albuterol nebulizer as needed for shortness of breath and wheezing, albuterol rescue inhaler, Singulair Constipation Continue bowel regimen DVT Ppx: Eliquis Code status: FULL Disposition - plan to DC home and follow up w/ hem/onc, and pcp Admission and Anticipated Discharge Date Admission Date: November 08, 2022 Subjective Pt seen in follow up of SOB due to PE Sitting up in chair in no acute distress, on RA Reports he just worked with PT, and he did well He is breathing comfortably Denies any chest pain, palpitation, dizziness and SOB Discussed with hematology/oncology, Dr. Apodaca. Plan to discharge home on Eliquis and he will need blood work weekly and follow-up with hematology /oncology. Review of Systems Review of Systems: All systems reviewed & are unremarkable except as noted in Subjective Physical Exam Physical Exam: General- No acute distress Head- atraumatic Eyes- PERRL, EOMI, ENT- oropharynx clear Neck- supple, no JVD Lungs- clear to auscultation Heart- regular rhythm; no murmur Abdomen- normal bowel sounds, soft, nontender Extremities- no calf tenderness, L fore arm with dressing in place Neuro- alert, oriented x 3; PERRL, EOMI; no facial palsy; no dysarthria Skin- warm & dry Results & Data Results & Data ([facility]) Vital Signs (Past 12 Hours) Vital Signs Temp Pulse Pulse Resp BP Pulse Ox O2 Del Method 11/12/22 09:11 36.6 C 95 H 16 142/94 H 92 Room Air 11/12/22 02:59 139/91 92 CPAP 11/12/22 02:52 36.3 C L 65 18 91 Room Air 11/11/22 22:18 65 11/11/22 23:22 36.4 C L 61 18 142/93 H 93 CPAP Laboratory Results 11/12/22 11/12/22 11/12/22 Range/Units 05:24 05:24 05:24 WBC 8.68 (4.8-10.8) K/ul RBC 3.45 L (4.63-6.08) M/uL Hgb 11.2 L (14.0-18.0) g/dl Hct 33.9 L (40.1-51.0) % MCV 98.3 (80.0-100.0) fL MCH 32.5 (25.0-34.0) pg MCHC 33.0 (32.0-36.0) g/dL RDW Std Deviation 58.4 H (36.4-46.3) fL RDW Coeff of Darrell 16.0 H (11.5-14.5) % Plt Count 137 (130-400) K/uL MPV 10.0 (9.4-12.4) fL Absolute Nucleated RBC 0.13 H (0-0) K/uL Nucleated RBC % (auto) 1.5 % APTT 26.1 (21.0-31.0) Seconds PTT Ratio 0.9 Sodium 142 (136-145) mmol/L Potassium 3.8 (3.5-5.1) mmol/L Chloride 105 (98-107) mmol/L Carbon Dioxide 30 (21-32) mmol/L Anion Gap 7 (3-11) BUN 21 (6-23) mg/dl Creatinine 0.53 L (0.6-1.4) mg/dl Est Cr Clr Drug Dosing 190.8 ml/min Est GFR ( Amer) 135.2 ml/min Est GFR (Non-Af Amer) 116.6 ml/min BUN/Creatinine Ratio 39.6 H (10-20) Glucose 134 H (70-99(Fasting)) mg/dl Calcium 8.5 (8.5-10.1) mg/dl Total Bilirubin 0.7 (0.2-1.0) mg/dl AST 14 (13-39) U/L ALT 43 (7-52) U/L Alkaline Phosphatase 56 (34-104) U/L Total Protein 5.8 L (6.0-8.3) gm/dl Albumin 3.5 (3.4-5.0) gm/dl Globulin 2.3 L (2.5-4.0) gm/dl Albumin/Globulin Ratio 1.5 (0.9-2) Medications Administered Current Inpatient Medications Acetaminophen (Acetaminophen 325 Mg Tab) 650 mg PO Q4H PRN PRN Reason: Pain or Fever Stop: 12/08/22 17:43 Albuterol (Albuterol 0.083% Nebu Soln 3 Ml Vial) 2.5 mg INH Q6H PRN; Protocol PRN Reason: shortness of breath or wheezing Stop: 12/08/22 17:43 Albuterol (Albuterol Hfa 8 Gm Inhaler) 2 puffs INH Q4 PRN PRN Reason: Shortness Of Breath Or Wheezin Stop: 12/08/22 17:43 Amlodipine Besylate (Amlodipine Besylate 5 Mg Tab) 10 mg PO QAM [facility] Stop: 12/09/22 08:59 Last Admin: 11/12/22 08:24 Dose: 10 mg Apixaban (Apixaban 5 Mg Tablet) 10 mg PO BID [facility] Stop: 11/18/22 09:01 Last Admin: 11/12/22 08:25 Dose: 10 mg Buspirone HCl (Buspirone 5 Mg Tab) 10 mg PO TID PRN PRN Reason: Anxiety Stop: 12/08/22 17:43 Last Admin: 11/09/22 21:20 Dose: 10 mg Carvedilol (Carvedilol 6.25 Mg Tab) 6.25 mg PO BID [facility] Stop: 12/08/22 20:59 Last Admin: 11/12/22 08:25 Dose: 6.25 mg Dexamethasone (Dexamethasone 4 Mg Tab) 4 mg PO QAM [facility] Stop: 12/09/22 08:59 Last Admin: 11/12/22 08:24 Dose: 4 mg Docusate Sodium (Docusate Sodium 100 Mg Cap) 100 mg PO BID PRN PRN Reason: laxative effect Stop: 12/08/22 17:43 Famotidine (Famotidine 40 Mg Tablet) 40 mg PO DAILY [facility] Stop: 12/09/22 08:59 Last Admin: 11/12/22 08:24 Dose: 40 mg Fentanyl (Fentanyl 50 Mcg/Hr Tdsy) 50 mcg TD Q72H [facility] Stop: 11/26/22 08:59 Last Admin: 11/12/22 09:01 Dose: 50 mcg Fluticasone Propionate (Fluticasone Propionate Na Spr 16 Gm Btl) 2 sprays YING QAM [facility] Stop: 12/09/22 08:59 Last Admin: 11/12/22 08:27 Dose: 2 sprays Fluticasone/Vilanterol (Fluticasone/Vilanterol 100/25mcg 14 Puffs/Inhaler) 1 puffs INH QAM [facility] Stop: 12/09/22 08:59 Last Admin: 11/12/22 08:27 Dose: 1 puffs Heparin Sodium (Porcine) (Heparin 100 Unit/Ml 5ml Flush) 5 ml FLUSH PRN PRN PRN Reason: Flush Stop: 12/08/22 22:23 Hydromorphone HCl (Hydromorphone Hcl 2 Mg Tab) 4 mg PO Q3H PRN PRN Reason: Pain, Severe Stop: 12/08/22 17:43 Last Admin: 11/12/22 06:35 Dose: 4 mg Hydroxyzine HCl (Hydroxyzine Hcl 25 Mg Tab) 25 mg PO HS PRN PRN Reason: Anxiety Stop: 12/08/22 17:43 Cefazolin Sodium (Ancef 1000mg) 1,000 mg in 7.5 mls @ 2.5 mls/min IV Q6H [facility] Stop: 11/17/22 11:59 Last Admin: 11/12/22 06:24 Dose: 2.5 mls/min Losartan Potassium (Losartan Potassium 50 Mg Tab) 100 mg PO DAILY [facility] Stop: 12/09/22 08:59 Last Admin: 11/12/22 08:24 Dose: 100 mg Mirtazapine (Mirtazapine Tab 15 Mg Tab) 15 mg PO HS [facility] Stop: 12/08/22 20:59 Last Admin: 11/11/22 21:20 Dose: 15 mg Miscellaneous (Check Fentanyl Patch Placement) 1 each N/A QS [facility] Stop: 12/09/22 00:00 Last Admin: 11/12/22 09:01 Dose: 1 each Miscellaneous (Fentanyl Patch Remove & Waste) 1 each N/A Q3D [facility] Stop: 12/12/22 08:44 Last Admin: 11/12/22 09:02 Dose: 1 each Montelukast Sodium (Montelukast Sodium 10 Mg Tablet) 10 mg PO DAILY [facility] Stop: 12/09/22 08:59 Last Admin: 11/12/22 08:24 Dose: 10 mg Ondansetron HCl (Ondansetron Inj 2 Mg/Ml 2 Ml Vial) 4 mg IV Q6H PRN PRN Reason: Nausea Stop: 12/08/22 17:43 Pantoprazole Sodium (Pantoprazole 40 Mg Tab) 40 mg PO QAM [facility] Stop: 12/09/22 08:59 Last Admin: 11/12/22 08:24 Dose: 40 mg Pazopanib Hydrochloride (Pazopanib Hcl) 1 each PO DAILY@0730 [facility] Stop: 12/11/22 07:29 Last Admin: 11/12/22 06:29 Dose: 1 each Polyethylene Glycol (Polyethylene (Miralax) 17 Gm Pack) 17 gm PO DAILY PRN PRN Reason: Constipation Stop: 12/08/22 17:43 Potassium Chloride (Potassium Chloride Crtab 20 Meq Tabcr) 20 meq PO QAM [facility] Stop: 12/09/22 08:59 Last Admin: 11/12/22 08:25 Dose: 20 meq Sennosides (Senna 8.6 Mg Tab) 8.6 mg PO BID PRN PRN Reason: Constipation Stop: 12/08/22 17:43
[2022-11-12 11:18] VITALS: BP 152/99; TEMP 98.1
--- NOTE | 2022-11-12 14:56 | Discharge Summary ---
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 Apodaca locally, asthma, hypertension, DUY on CPAP and other medical problems listed below who presents with progressive SOB x 5 days first noted at palliative care appointment on Thursday. Denies any fever, chills, known recent infection. No chest pain or palpitations. Was admitted in August for possible hepatotoxicity secondary to chemotherapy, which has since had dose decreased. Is following with Dr. Martin of [facility] for metastatic synovial sarcoma and is now taking 200 mg of Votrient every other day. Follows with palliative for pain control and is on fentanyl patch and Dilaudid every 3 hours for severe pain and is also on dexamethasone. In addition to shortness of breath, patient also with lesion on left arm with surrounding redness. Thinks he may have scraped his arm a week ago when chopping wood. No fever, chills, lightheadedness, headache, chest pain, wheezing, palpitations, nausea, vomiting, abdominal pain, dysuria, diarrhea constipation. 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 Lungs: good air entry b/l, no wheezing or crackles Cardiac: Normal S1/S2, no murmur Abd: obese abd, ND, NT, soft Skin: L forearm cellulitis with streaking, s/p I&D of abscess MSK: trace b/l LE pitting edema Psych: AAOX3, normal affect Principal Diagnosis Pulmonary embolism, hypoxia Synovial sarcoma Discharge Exam General- No acute distress Head- atraumatic Eyes- PERRL, EOMI, ENT- oropharynx clear Neck- supple, no JVD Lungs- clear to auscultation Heart- regular rhythm; no murmur Abdomen- normal bowel sounds, soft, nontender Extremities- no calf tenderness, L fore arm with dressing in place Neuro- alert, oriented x 3; PERRL, EOMI; no facial palsy; no dysarthria Skin- warm & dry Discharge Data Allergies Allergy/AdvReac Type Severity Reaction Status Date / Time bacitracin Allergy Severe hives, Verified 11/08/22 15:35 syncopy tree and shrub pollen AdvReac Mild nasal Verified 11/08/22 15:35 congestion, eyes water Consultations 11/08/22 15:09 ED Decision to Admit Stat 11/08/22 16:41 Consult Oncology Routine Ordered Studies 11/08/22 10:53 CT angio chest PE protocol Stat FINDINGS: Lungs and pleura: Numerous pulmonary nodules are seen which appear enlarged from prior exam. For example a right pleural-based 31 mm nodule previously measured 23 mm an 18 mm nodule in the left upper lobe which previously measured 15 mm. There is a moderate left pleural effusion, significantly increased from prior. Nodularity of the pleura is most pronounced at the right lung base Heart and pericardium: Heart size is normal. No pericardial effusion. No right heart strain is seen. Vessels: Bilateral pulmonary emboli are seen in the lobar arteries. Mediastinum and otoniel: Significant enlargement of mediastinal masses. A right lower paratracheal mass measures 56 mm compared to 30 mm in prior exam in the right hilar conglomerate now measures up to 141 x 91 mm compared to 46 x 72 mm in prior exam. Pericardial invasion cannot be excluded. Chest wall and lower neck: A left thyroid nodule measures up to 20 mm. Abdomen: Hepatic steatosis is noted. Bones: Unremarkable. IMPRESSION: 1. Interval significant worsening of metastatic disease in this patient with n umerous pulmonary and pleural metastases as well as mediastinal and right hilar nodes with possible pericardial invasion. 2. Bilateral pulmonary emboli without evidence of right heart strain. 3. Enlarged malignant effusion with enlarged pleural-based nodules. 4. Stable right thyroid nodule. 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 Apodaca locally, asthma, hypertension, DUY on CPAP and other medical problems listed below who presents with progressive SOB x 5 days and was found to have bilateral pulmonary emboli without evidence of right heart strain. Hypoxia Bilateral pulmonary embolism Worsening SOB x 5 days in setting of metastatic cancer Chest CTA with interval significant worsening of metastatic disease and bilateral pulmonary emboli without evidence of right heart strain ECHO showed Left ventricular wall motion is normal. Left ventricular is mildly dilated. Ejection fraction 60 to 65%. Initially on IV heparin ip , now transitioned to Eliquis Case discussed with Dr. Apodaca - hem/onc Currently on RA two-step ordered prior to discharge - no need for suppl. O2 Left forearm cellulitis Abscess on L arm s/p I&D in ED I&D culture grew staph species Blood culture no growth Received cefepime in the ED. 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 Garcia [facility] rad onc Chest CTA with interval significant worsening of metastatic disease in this patient with numerous pulmonary and pleural metastases as well as mediastinal and right hilar nodes with possible pericardial invasion Following with Dr. Martin of [facility], due to see again in November (Dr Martin's contact info : [phone]) Recently established with Dr. Apodaca locally Consulting Dr. Apodaca given progression of disease on CT Case discussed with Dr. Apodaca that recommended to continue Votrient 200g daily and dexamethasone 4mg Monitor LFTs closely given history of pazopanib induced transaminitis. Cancer related pain on narcotics Following with palliative care. Current regimen for cancer-related pain is fentanyl 50 mcg Q72H and recently increased Dilaudid 4 mg tablet every 3 hours as needed for breakthrough pain Hypertension Normotensive. Continue losartan, amlodipine, carvedilol Asthma Continue albuterol nebulizer as needed for shortness of breath and wheezing, albuterol rescue inhaler, Singulair Constipation Continue bowel regimen Disposition - plan to DC home and follow up w/ hem/onc, and pcp Total Time Total Time Spent Total Time Spent (In Minutes): 40 Discharge Plan Discharge Items Patient Disposition: Home - Self-Care Reason For Visit: SOB,BILATERAL PES WITH HYPOXIA Discharge Diagnosis: Pulmonary embolism, hypoxia Synovial sarcoma Condition on Discharge: Serious Activity: Per Instructions section Non-emergency contact: Primary Care Provider and Oncologist Call non-emergency contact if: you have any medication questions and your symptoms worsen Follow-up/Referrals: Krishna Urias MD [Primary Care Provider] - (Date & Time 11/20/2022 11:20 AM Provider Krishna Urias MD [facility] ) Shazia Boland MD [Outside Practitioners] - (Date & Time 12/01/2022 3:00 PM Provider Shazia Boland MD Department Palliative Medicine [facility] ) Diet: Regular Addtl Attending Provider Instructions: Follow-up with primary care doctor, and your oncologist, Dr. Apodaca, as scheduled. You will need blood work weekly, per Dr. Apodaca's recommendation. Take Eliquisblood thinner, as prescribed. Prescription was sent to your pharmacy, discuss further with Dr. Apodaca how long you should be on this medication. Lastly finish antibiotic treatment with Keflex, as prescribed. Pending Studies at Discharge: No Stand-Alone Forms: My [facility] [employer], Smoking Cessation Medications and DC Order Prescriptions: New Eliquis 5 mg tablet 5 mg PO UD Qty: 74 0RF Rx Instructions: take 10mg twice a day BID for 7 days, then 5mg twice a day cephalexin 500 mg capsule 500 mg PO Q6H 3 Days Qty: 12 0RF Continued albuterol sulfate 2.5 mg /3 mL (0.083 %) solution for nebulization 2.5 mg INH Q6H PRN (Reason: shortness of breath or wheezing) montelukast [Singulair] 10 mg tablet 10 mg PO DAILY albuterol sulfate [Ventolin HFA] 90 mcg/actuation HFA aerosol inhaler 2 puffs INH Q4 PRN (Reason: Shortness Of Breath Or Wheezing) carvedilol 6.25 mg tablet 6.25 mg PO BID Rx Instructions: TAKE THIS MED WITH FOOD amlodipine 10 mg tablet 10 mg PO QAM hydroxyzine HCl 25 mg tablet 25 - 50 mg PO HS PRN (Reason: Anxiety) losartan 100 mg tablet 100 mg PO DAILY famotidine 40 mg tablet 40 mg PO DAILY docusate sodium 100 mg Capsule 100 mg PO BID PRN (Reason: laxative effect) Qty: 60 0RF polyethylene glycol 3350 [Miralax] 17 gram Powder In Packet 17 g PO DAILY PRN (Reason: laxative effect) Qty: 30 0RF sennosides [Senokot] 8.6 mg tablet 8.6 mg PO BID PRN (Reason: Constipation) pantoprazole 40 mg tablet,delayed release (DR/EC) 40 mg PO QAM buspirone 10 mg tablet 10 mg PO TID PRN (Reason: Anxiety) mirtazapine 15 mg tablet 15 mg PO HS fentanyl 50 mcg/hr Patch 72 Hour 50 mcg transdermal Q72H 7 Days Qty: 2 0RF fluticasone furoate-vilanterol [Breo Ellipta] 100-25 mcg/dose blister with device 1 puffs INH QAM hydromorphone 4 mg tablet 4 mg PO Q3H PRN (Reason: Pain, Severe) fluticasone propionate 50 mcg/actuation spray,suspension 2 spray INTRANASAL QAM dexamethasone 2 mg tablet 4 mg PO QAM Rx Instructions: TWO TABLET DOSE, TAKE WITH BREAKFAST potassium chloride 20 mEq tablet extended release 20 meq PO QAM Votrient 200 mg tablet 200 mg PO DAILY valacyclovir 1 gram tablet 2,000 mg PO .BID/UD PRN (Reason: .FLARES) Rx Instructions: TAKE TWO TABLETS BY MOUTH AND REPEAT IN 12 HOURS Discharge Orders: Discharge Order (Routine); Ordered 11/12/22 Ordered By: Quincy Iyer Admission Data Admit Date/Time: 11/08/22 15:18 Attending Provider: Quincy Iyer Admit Provider: Emelina Bashir Primary Care Provider: Krishna Urias Other Providers: Emelina Bashir ; Soha Apodaca ; Aguila Vaca
[2022-11-12 15:31] VITALS: PULSE 86; O2SAT 92
== END 2022-11-12 17:35 | disposition home or self-care (01) | DRG 176 ==
LOC: ED 10:25 → 2E 15:18 → SUATTDRO 15:18 → 2E 17:18

== ENCOUNTER 2022-11-24 11:50 | Inpatient (IN) ==
[2022-11-24] MEDS ORDERED: SODIUM CHLORIDE 0.9% 500 ML IV ONE (12:14)
--- NOTE | 2022-11-24 12:18 | Emergency Department Note ---
Impression & Plan Shortness of breath, Metastatic cancer, Pleural effusion ED Provider Note NAME: CHAPIS VICK AGE: 57 SEX: M : 1965 ARRIVES VIA: Walk-In INFORMANT: Patient ED PROVIDER(S): Krunal Dorantes DO CHIEF COMPLAINT: shortness of breath HPI: Patient is a 57-year-old male with a past medical history of metastatic stage IV synovial sarcoma, PEs, left-sided pleural effusion, hypoxia, obstructive sleep apnea, and asthma that presents to the ER for shortness of breath. Started with right-sided chest pain and now has progressed with significantly worsening shortness of breath. Denies any belly pain, nausea, or vomiting. No diarrhea. No dysuria, urgency, or frequency. No other exacerbating or remitting factors. He notes the pain is on the right lateral ribs and radiates up to his upper chest and neck PAST MEDICAL HISTORY:See Below PAST SURGICAL HISTORY:See Below FAMILY HISTORY:See Below SOCIAL HISTORY:See Below HOME MEDICATIONS:See Below ALLERGIES:See Below VITALS:See Below PHYSICAL EXAMINATION: GENERAL: Sitting up in bed, alert, moderate distress, dyspneic with conversation EYE EXAM: normal conjunctiva. PERRL and EOM's grossly intact. OROPHARYNX:mucous membranes are moist NECK: supple, no nuchal rigidity, no adenopathy, non-tender LUNGS: Diminished bilaterally. Normal chest wall mechanics HEART: Tachycardic, S1 normal and S2 normal ABDOMEN: abdomen soft, non-tender, normo-active bowel sounds, no masses, no rebound or guarding. SKIN: no rashes and no bruising UPPER EXTREMITIES: upper extremities are grossly normal. LOWER EXTREMITIES: No pitting edema. NEURO EXAM: Normal sensorium, cranial nerves II-XII grossly intact, normal speech, no gross weakness of arms, no gross weakness of legs. MEDICAL DECISION MAKING: Patient is a 57-year-old male with a past medical history of PE currently on a NOAC, stage IV metastatic cancer that presents the ER for shortness of breath. IV was established blood work is obtained. Labs show no significant le ukocytosis or anemia. VBG with a pH of 7.44. BMP with an elevated glucose of 239. No gap. Troponin was negative. Lipase was normal. COVID positive. Chest x-ray with a large right pleural effusion which is new from previous. Do favor this to clear the cause of his shortness of breath. Upon presentation he was initially flipped to BiPAP due to the significant dyspnea and respiratory rate of 40. Respiratory rate did come down he did not tolerate the BiPAP. He tolerated 4 L nasal cannula. Patient was updated at bedside. External records were reviewed. He was discussed with the hospitalist Jenny neal for presentation and further evaluation with significant shortness of breath with a new large right pleural effusion Triage Nursing notes reviewed. Limited review of prior medical records performed Vital Signs: reviewed and remarkable for tachypneic Differential diagnosis: Differential diagnoses includes but is not limited to pneumonia, bronchitis, COPD/Asthma exacerbation, pneumothorax, pulmonary embolism, congestive heart f ailure, acute coronary syndrome ER treatment provided: See below Diagnostics interpreted by me include EKG and cardiac monitoring as listed below: -Cardiac Monitoring: An order was placed for continuous cardiac monitoring. The monitor shows a rate of 115 with sinus rhythm. -ECG: Sinus tachycardia rate of 109. Normal axis No PVCs QTC 439 -Laboratory studies:Interpreted by me as stated above in MDM and shown below. 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 Grandmother (Maternal) , iat 91 old age No problems noted. Grandfather (Paternal) , in his eighties old age No problems noted. Father , age 66 of pancreatic cancer and metastasis No problems noted. Mother No problems noted. Brother Age: 54 No problems noted. Son Age: 35 Leukemia in remission Daughter Age: 35 No problems noted. Daughter Age: 23 No problems noted. Son Age: 20 No problems noted. 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 Required: No Beliefs That Will Affect Care: None marital status: Current Living Situation: Spouse and Family current occupational status: employed Feels Safe at Home: Yes Childhood Exposure to Second-Hand Smoke: Yes caffeine: No Dental Care, Regularly: Yes Physical Activity Frequency: Does not Exercise Seatbelt Use: always Sunscreen Use: Yes Do you think of yourself as: straight/heterosexual Assistive Devices: Cane, CPAP, Glasses, Prosthesis and Walker Allergies Allergies Allergy/AdvReac Type Severity Reaction Status Date / Time bacitracin Allergy Severe hives, Verified 11/24/22 15:49 syncopy tree and shrub pollen AdvReac Mild nasal Verified 11/24/22 15:49 congestion, eyes water Home Meds Home Medications Medication Instructions Recorded Confirmed albuterol sulfate 90 mcg/actuation 2 puffs inhalation Q4 PRN 10/10/19 11/24/22 aerosol inhaler (Ventolin HFA) Shortness Of Breath Or Wheezing albuterol sulfate 2.5 mg/3 mL 2.5 mg inhalation Q6H PRN 01/31/20 11/24/22 (0.083 %) solution for nebulization shortness of breath or wheezing montelukast 10 mg tablet 10 mg PO DAILY 06/29/20 11/24/22 (Singulair) amlodipine 10 mg tablet 10 mg PO QAM 07/31/22 11/24/22 carvedilol 6.25 mg tablet 6.25 mg PO BID 07/31/22 11/24/22 famotidine 40 mg tablet 40 mg PO DAILY 07/31/22 11/24/22 hydroxyzine HCl 25 mg tablet 25 - 50 mg PO HS PRN Anxiety 07/31/22 11/24/22 losartan 100 mg tablet 100 mg PO DAILY 07/31/22 11/24/22 buspirone 10 mg tablet 10 mg PO TID PRN Anxiety 09/02/22 11/24/22 mirtazapine 15 mg tablet 15 mg PO HS 09/02/22 11/24/22 pantoprazole 40 mg tablet,delayed 40 mg PO QAM 09/02/22 11/24/22 release sennosides 8.6 mg tablet (Senokot) 8.6 mg PO BID PRN Constipation 09/02/22 11/24/22 dexamethasone 2 mg tablet 4 mg PO BIDM 11/08/22 11/24/22 fluticasone furoate 100 1 puffs inhalation QAM 11/08/22 11/24/22 mcg-vilanterol 25 mcg/dose inhalation powder (Breo Ellipta) fluticasone propionate 50 2 spray intranasal QAM 11/08/22 11/24/22 mcg/actuation nasal spray,suspension hydromorphone 4 mg tablet 4 mg PO Q3H PRN Pain, Severe 11/08/22 11/24/22 pazopanib 200 mg tablet (Votrient) 200 mg PO DAILY 11/08/22 11/24/22 potassium chloride 20 mEq 20 meq PO QAM 11/08/22 11/24/22 tablet,extended release valacyclovir 1 gram tablet 2,000 mg PO .BID/UD PRN .FLARES 11/08/22 11/24/22 apixaban 5 mg tablet (Eliquis) 5 mg PO BID 11/24/22 11/24/22 doxycycline hyclate 100 mg capsule 100 mg PO BID 11/24/22 11/24/22 Previous Rx's Medication Instructions Recorded docusate sodium 100 mg capsule 100 mg PO BID PRN laxative effect 08/04/22 #60 caps polyethylene glycol 3350 17 gram 17 g PO DAILY PRN laxative effect 08/04/22 oral powder packet (Miralax) #30 ea fentanyl 50 mcg/hr transdermal 50 mcg transdermal Q72H severe 09/10/22 patch pain 1 week #2 ea Results & Data (ED) Vital Signs Vital Signs - 24 hr 11/24/22 11:50 11/24/22 12:30 11/24/22 12:50 Temperature 36.6 C Temperature Source Temporal Artery Scan Pulse Rate 112 H 108 H Pulse Rate [Left Finger] Pulse Rhythm [Left Finger] Pulse Strength [Left Finger] Respiratory Rate 38 H 20 Respiratory Effort / Characteristics Labored Short of Breath Non-Labored Spontaneous Respiratory Depth Normal Normal Respiratory Pattern Regular Blood Pressure 151/95 H Blood Pressure [Right Arm] Blood Pressure Mean 113 Blood Pressure Mean [Right Arm] Blood Pressure Position [Right Arm] Pulse Oximetry 94 96 97 Oxygen Delivery Method Room Air Nasal Cannula Oxygen Flow Rate 4 Fraction of Inspired Oxygen 21 Sepsis Recent Fever Within 48 Hours No Sepsis New/Unexplained Change in Mental Status No Sepsis Action Taken by Nursing No Action Required Oxygen Flow Rate - Titration Pulse Oximetry Post Tiitration 11/24/22 12:20 11/24/22 12:41 Temperature Temperature Source Pulse Rate Pulse Rate [Left Finger] 101 H Pulse Rhythm [Left Finger] Regular Pulse Strength [Left Finger] Normal Respiratory Rate 20 Respiratory Effort / Characteristics Non-Labored Spontaneous Respiratory Depth Normal Respiratory Pattern Regular Blood Pressure Blood Pressure [Right Arm] 159/97 H Blood Pressure Mean Blood Pressure Mean [Right Arm] 117 Blood Pressure Position [Right Arm] Sitting Pulse Oximetry 97 97 Oxygen Delivery Method Nasal Cannula Room Air Oxygen Flow Rate 0 Fraction of Inspired Oxygen Sepsis Recent Fever Within 48 Hours Sepsis New/Unexplained Change in Mental Status Sepsis Action Taken by Nursing Oxygen Flow Rate - Titration 6 Pulse Oximetry Post Tiitration 99 Laboratory Data 11/24/22 12:23 11/24/22 12:23 Lab Results 11/24/22 11/24/22 11/24/22 Range/Units 12:23 12:23 12:25 WBC 10.67 (4.8-10.8) K/ul RBC 3.70 L (4.70-6.10) M/uL Hgb 12.3 L (14.0-18.0) g/dl Hct 36.6 L (42.0-52.0) % MCV 98.9 (80.0-100.0) fL MCH 33.2 (25.0-34.0) pg MCHC 33.6 (32.0-36.0) g/dL RDW Std Deviation 56.5 H (36.4-46.3) fL RDW Coeff of Darrell 15.6 H (11.5-14.5) % Plt Count 209 (130-400) K/uL MPV 10.1 (9.4-12.4) fL Immature Gran % (Auto) 3.4 % Neut % (Auto) 80.5 % Lymph % (Auto) 10.2 % Mckenzie % (Auto) 5.6 % Eos % (Auto) 0.0 % Baso % (Auto) 0.3 % Neut # (Auto) 8.59 H (1.40-6.50) K/uL Lymph # (Auto) 1.09 L (1.2-3.4) K/uL Mckenzie # (Auto) 0.60 H (0.11-0.59) K/uL Eos # (Auto) 0.00 (0-0.50) K/uL Baso # (Auto) 0.03 (0-0.2) K/uL Immature Gran # (Auto) 0.36 H (0.01-0.20) K/uL VBG pH (7.36-7.41) VBG pCO2 (38-50) mmHg VBG pO2 mmHg VBG HCO3 mmol/L VBG O2 Saturation % VBG Base Excess mEq/L Sodium 142 (136-145) mmol/L Potassium 3.8 (3.5-5.1) mmol/L Chloride 105 (98-107) mmol/L Carbon Dioxide 26 (21-32) mmol/L Anion Gap 11 (3-11) BUN 21 (6-23) mg/dl Creatinine 0.50 L (0.6-1.4) mg/dl Est Cr Clr Drug Dosing 214.2 ml/min Est GFR ( Amer) 138.5 ml/min Est GFR (Non-Af Amer) 119.5 ml/min BUN/Creatinine Ratio 42.0 H (10-20) Glucose 239 H (70-99(Fasting)) mg/dl Calcium 8.9 (8.5-10.1) mg/dl Total Bilirubin 1.1 H (0.2-1.0) mg/dl AST 19 (13-39) U/L ALT 62 H (7-52) U/L Alkaline Phosphatase 84 (34-104) U/L Troponin I High Sens 7.2 (0-20) pg/ml Total Protein 6.5 (6.0-8.3) gm/dl Albumin 3.8 (3.4-5.0) gm/dl Globulin 2.7 (2.5-4.0) gm/dl Albumin/Globulin Ratio 1.4 (0.9-2) Lipase 18 (11-82) U/L SARS-CoV-2 (PCR) POSITIVE A* (Negative) Influenza Type A (PCR) Negative (Neg) Influenza Type B (PCR) Negative (Neg) RSV (RT-PCR) Negative (Neg) 11/24/22 Range/Units 12:38 WBC (4.8-10.8) K/ul RBC (4.70-6.10) M/uL Hgb (14.0-18.0) g/dl Hct (42.0-52.0) % MCV (80.0-100.0) fL MCH (25.0-34.0) pg MCHC (32.0-36.0) g/dL RDW Std Deviation (36.4-46.3) fL RDW Coeff of Darrell (11.5-14.5) % Plt Count (130-400) K/uL MPV (9.4-12.4) fL Immature Gran % (Auto) % Neut % (Auto) % Lymph % (Auto) % Mckenzie % (Auto) % Eos % (Auto) % Baso % (Auto) % Neut # (Auto) (1.40-6.50) K/uL Lymph # (Auto) (1.2-3.4) K/uL Mckenzie # (Auto) (0.11-0.59) K/uL Eos # (Auto) (0-0.50) K/uL Baso # (Auto) (0-0.2) K/uL Immature Gran # (Auto) (0.01-0.20) K/uL VBG pH 7.44 H (7.36-7.41) VBG pCO2 42 (38-50) mmHg VBG pO2 37 mmHg VBG HCO3 29 mmol/L VBG O2 Saturation < 60.0 % VBG Base Excess 3.9 mEq/L Sodium (136-145) mmol/L Potassium (3.5-5.1) mmol/L Chloride (98-107) mmol/L Carbon Dioxide (21-32) mmol/L Anion Gap (3-11) BUN (6-23) mg/dl Creatinine (0.6-1.4) mg/dl Est Cr Clr Drug Dosing ml/min Est GFR ( Amer) ml/min Est GFR (Non-Af Amer) ml/min BUN/Creatinine Ratio (10-20) Glucose (70-99(Fasting)) mg/dl Calcium (8.5-10.1) mg/dl Total Bilirubin (0.2-1.0) mg/dl AST (13-39) U/L ALT (7-52) U/L Alkaline Phosphatase (34-104) U/L Troponin I High Sens (0-20) pg/ml Total Protein (6.0-8.3) gm/dl Albumin (3.4-5.0) gm/dl Globulin (2.5-4.0) gm/dl Albumin/Globulin Ratio (0.9-2) Lipase (11-82) U/L SARS-CoV-2 (PCR) (Negative) Influenza Type A (PCR) (Neg) Influenza Type B (PCR) (Neg) RSV (RT-PCR) (Neg) Administered Medications Discontinued Medications Sodium Chloride (Nss) 500 mls @ 999 mls/hr IV .Q31M ONE Stop: 11/24/22 12:44 Last Infusion: 11/24/22 15:43 Dose: 0 mls/hr Documented By: Admin: 11/24/22 12:52 Dose: 999 mls/hr Documented By: MARYANNE Imaging Data Radiologist's Impression: Chest X-Ray 11/24/22 12:14 XR chest 1V portable HISTORY: Chest pain, nonspecific COMPARISON: Chest 11/08/2022. FINDINGS: Scattered pulmonary nodules consistent with metastatic disease again noted. Increase in size in the now moderate to large right pleural effusion with right basilar consolidation favors compressive atelectasis. The heart is normal in size. No pneumothorax. Right jugular Port-A-Cath terminates at the superior cavoatrial junction. This remains unchanged. IMPRESSION: 1. Increase in size in the now moderate to large right pleural effusion. 2. Scattered pulmonary nodules consistent with metastatic disease again noted. ACT 112: Negative or not required by law. Electronically signed by: Winston Sepulveda M.D. 11/24/2022 1:22 PM Discharge Plan Visit Data Chief Complaint: Shortness of Breath/Dyspnea Stated Complaint: SOB, RIGHT SIDED RIB PAIN, HEADACHE ED Provider: Krunal Dorantes Discharge Problem: Shortness of breath, Metastatic cancer, Pleural effusion
[2022-11-24 12:42] LABS: Basophils # (auto) 0.03 K/uL (0-0.2); Basophils % (auto) 0.3 %; Hematocrit (blood only) 36.6 % (42.0-52.0); Hemoglobin 12.3 g/dl (14.0-18.0); Immature Granulocytes # (auto) 0.36 K/uL (0.01-0.20); Immature Granulocytes % (auto) 3.4 %; Lymphocytes # (auto) 1.09 K/uL (1.2-3.4); Lymphocytes % (auto) 10.2 %; Mean Corpuscular Hemoglobin 33.2 pg (25.0-34.0); Mean Corpuscular Hgb Conc 33.6 g/dL (32.0-36.0); Mean Corpuscular Volume 98.9 fL (80.0-100.0); Mean Platelet Volume 10.1 fL (9.4-12.4); Monocytes % (auto) 5.6 %; Neutrophils # (auto) 8.59 K/uL (1.40-6.50); Neutrophils % (auto) 80.5 %; Platelet Count 209 K/uL (130-400); RDW Coefficient of Variation 15.6 % (11.5-14.5); RDW Standard Deviation 56.5 fL (36.4-46.3); White Blood Count 10.67 K/ul (4.8-10.8)
[2022-11-24 13:08] LABS: Base Excess VBG 3.9 mEq/L; HCO3 VBG 29 mmol/L; Oxygen Saturation VBG < 60.0 %; PCO2 VBG 42 mmHg (38-50); PO2 VBG 37 mmHg; pH VBG 7.44 (7.36-7.41)
[2022-11-24 13:08] LABS: Troponin I High Sensitivity 7.2 pg/ml (0-20)
[2022-11-24 13:23] LABS: Albumin Level 3.8 gm/dl (3.4-5.0); Bilirubin,Total 1.1 mg/dl (0.2-1.0); Calcium 8.9 mg/dl (8.5-10.1); Potassium 3.8 mmol/L (3.5-5.1)
--- NOTE | 2022-11-24 13:23 | XRay Report ---
XR chest 1V portable HISTORY: Chest pain, nonspecific COMPARISON: Chest 11/08/2022. FINDINGS: Scattered pulmonary nodules consistent with metastatic disease again noted. Increase in siz e in the now moderate to large right pleural effusion with right basilar consolidation favors es sive atelectasis. The heart is normal in size. No pneumothorax. Right jugular Port-A-Cath terminates at the superior cavoatrial junction. This remains unchanged. IMPRESSION: 1. Increase in size in the now moderate to large right pleural effusion. 2. Scattered pulmonary nodules consistent with metastatic disease again noted. ACT 112: Negative or not required by law. Electronically signed by: Winston Sepulveda M.D. 11/24/2022 1:22 PM
[2022-11-24 13:29] LABS: Albumin Globulin Ratio 1.4 (0.9-2); Creatinine Clr Calc Pharmacy 214.2 ml/min; Est GFR (African American) 138.5 ml/min; Est GFR (Non-African American) 119.5 ml/min; Globulin 2.7 gm/dl (2.5-4.0); Total Protein 6.5 gm/dl (6.0-8.3)
[2022-11-24 13:32] LABS: Influenza A virus by PCR Negative (Neg); Influenza B virus by PCR Negative (Neg); RSV by PCR Negative (Neg)
[2022-11-24 13:55] LABS: SARS CoV2 RNA(COVID-19) Ceph POSITIVE (Negative)
--- NOTE | 2022-11-24 14:23 | Pulmonary Consultation ---
Date of Consultation November 24, 2022 Assessment & Plan (1) Shortness of breath: (2) Pleural effusion: (3) COVID-19: (4) Acute respiratory failure with hypoxia: (5) Synovial sarcoma: (6) Metastatic cancer: (7) Abnormal chest CT: Plan CT chest 11/08/2022 personally reviewed: Multiple pulmonary nodules appreciated bilaterally Patchy groundglass opacity in the right upper lobe Right sided pericardiac mediastinal mass 15 cm x 11 cm Small to moderate right-sided pleural effusion No significant mediastinal lymphadenopathy 2D echo 11/09/2022: EF 60-65%, RVSP 30-40 mmHg, RV mildly dilated, mild TR, moderate concentric LVH --Acute respiratory failure with hypoxia Likely secondary to right-sided pleural effusion with dependent atelectasis COVID-19 positive Influenza A/B negative -- Right pleural effusion Moderate to large Likely from underlying malignancy Never had thoracentesis done in the past --Mild pulmonary hypertension 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 I think it is okay to wait 24-48 hours if possible I will reassess the patient tomorrow in the morning if there is any worsening in his breathing or worsening in oxygen requirement then we will do thoracentesis keeping in mind high risk of bleed Start heparin drip around 8 PM without bolus tonight. Continue with BiPAP nightly and as needed shortness of breath Patient as well as patient's who are in the room are agreeable to the plan All question queries were answered in depth Case was discussed with Jenny Arrieta Please note the above document was generated using voice recognition software. It may contain grammatical, syntax or spelling errors.Any formal questions or concerns about the content, text or information contained within the body of this dictation should be directly addressed to the provider for clarification. History of Present Illness History of Present Illness 57-year-old male presented to the hospital with complaints of shortness of breath Past medical history: Sided with sarcoma with metastases to the lung, hypertension, DUY on CPAP, recent PE on apixaban Pulmonary consulted for pleural effusion At the time of examination patient was saturating 95 to 96% on 4 L nasal cannula not in any respiratory distress. Respiratory rate was in the high teens. Heart rate in the 100 Patient did complain of fullness on the right side with some right-sided chest discomfort. He was supposed to be discharged on oxygen at home but he was still waiting to get it from the [employer] company. When he came to the ER he did require BiPAP initially but then he was transitioned to nasal cannula. Denies any fever or chills. Does complain of occasional cough with clear phlegm. Denies any hemoptysis. No dysuria, no diarrhea, no hematuria, no hematochezia. Social history: Approximately [id number] smoking history, quit in 2003 Allergies Allergy/AdvReac Type Severity Reaction Status Date / Time bacitracin Allergy Severe hives, Verified 11/24/22 15:49 syncopy tree and shrub pollen AdvReac Mild nasal Verified 11/24/22 15:49 congestion, eyes water Home Medications Medication Instructions Recorded Confirmed Type albuterol sulfate 90 mcg/actuation 2 puffs inhalation Q4 PRN 10/10/19 11/24/22 History aerosol inhaler (Ventolin HFA) Shortness Of Breath Or Wheezing albuterol sulfate 2.5 mg/3 mL 2.5 mg inhalation Q6H PRN 01/31/20 11/24/22 History (0.083 %) solution for nebulization shortness of breath or wheezing montelukast 10 mg tablet 10 mg PO DAILY 06/29/20 11/24/22 History (Singulair) amlodipine 10 mg tablet 10 mg PO QAM 07/31/22 11/24/22 History carvedilol 6.25 mg tablet 6.25 mg PO BID 07/31/22 11/24/22 History famotidine 40 mg tablet 40 mg PO DAILY 07/31/22 11/24/22 History hydroxyzine HCl 25 mg tablet 25 - 50 mg PO HS PRN Anxiety 07/31/22 11/24/22 History losartan 100 mg tablet 100 mg PO DAILY 07/31/22 11/24/22 History docusate sodium 100 mg capsule 100 mg PO BID PRN laxative effect 08/04/22 11/24/22 Rx #60 caps polyethylene glycol 3350 17 gram 17 g PO DAILY PRN laxative effect 10/10/22 01/30/23 Rx oral powder packet (Miralax) #30 ea buspirone 10 mg tablet 10 mg PO TID PRN Anxiety 09/02/22 11/24/22 History mirtazapine 15 mg tablet 15 mg PO HS 09/02/22 11/24/22 History pantoprazole 40 mg tablet,delayed 40 mg PO QAM 09/02/22 11/24/22 History release sennosides 8.6 mg tablet (Senokot) 8.6 mg PO BID PRN Constipation 09/02/22 11/24/22 History fentanyl 50 mcg/hr transdermal 50 mcg transdermal Q72H severe 09/10/22 11/24/22 Rx patch pain 1 week #2 ea dexamethasone 2 mg tablet 4 mg PO BIDM 11/08/22 11/24/22 History fluticasone furoate 100 1 puffs inhalation QAM 11/08/22 11/24/22 History mcg-vilanterol 25 mcg/dose inhalation powder (Breo Ellipta) fluticasone propionate 50 2 spray intranasal QAM 11/08/22 11/24/22 History mcg/actuation nasal spray,suspension hydromorphone 4 mg tablet 4 mg PO Q3H PRN Pain, Severe 11/08/22 11/24/22 History pazopanib 200 mg tablet (Votrient) 200 mg PO DAILY 11/08/22 11/24/22 History potassium chloride 20 mEq 20 meq PO QAM 11/08/22 11/24/22 History tablet,extended release valacyclovir 1 gram tablet 2,000 mg PO .BID/UD PRN .FLARES 11/08/22 11/24/22 History apixaban 5 mg tablet (Eliquis) 5 mg PO BID 11/24/22 11/24/22 History doxycycline hyclate 100 mg capsule 100 mg PO BID 11/24/22 11/24/22 History Patient History Medical History Asthma GERD (gastroesophageal reflux disease) Hepatic steatosis History of pulmonary embolism HTN (hypertension) DUY on CPAP 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 Grandmother (Maternal) , iat 91 old age No problems noted. Grandfather (Paternal) , in his eighties old age No problems noted. Father , age 66 of pancreatic cancer and metastasis No problems noted. Mother No problems noted. Brother Age: 54 No problems noted. Son Age: 35 Leukemia in remission Daughter Age: 35 No problems noted. Daughter Age: 23 No problems noted. Son Age: 20 No problems noted. Social History Smoking Status: Former smoker Hx Alcohol Use: No Hx Substance Use: No Preferred Language: Jamaican Communication Ability: Effective Superintendent Institution Required: No Beliefs That Will Affect Care: None marital status: Current Living Situation: Spouse and Family current occupational status: employed Feels Safe at Home: Yes Childhood Exposure to Second-Hand Smoke: Yes caffeine: No Dental Care, Regularly: Yes Physical Activity Frequency: Does not Exercise Seatbelt Use: always Sunscreen Use: Yes Do you think of yourself as: straight/heterosexual Assistive Devices: Cane, CPAP, Glasses, Prosthesis and Walker Review of Systems Review of Systems: All systems reviewed & are unremarkable except as noted in HPI & below Physical Exam Physical Exam: Constitutional: No acute distress HEENT: EOMI, PERRLA Respiratory system: Decreased air entry on the right side, no wheeze, no rhonchi, positive crackles bilateral lower lobes CVS: S1-S2 positive, no murmurs or gallops Abdomen: Soft, nontender, nondistended, positive bowel sounds x4, obese Extremities: +2 pulses bilaterally radialis/ dorsalis pedis, no cyanosis, +1 pitting edema bilateral lower extremity Neuro: Awake alert oriented x3 Psych: Normal mood and affect G/U: No Hernández Skin: no rashes, warm and dry Lymphatic: no cervical or axillary lymphadenopathy Results & Data Results & Data ([facility]) Vital Signs (Past 12 Hours) Vital Signs Temp Pulse Pulse Resp BP BP Pulse Ox 11/24/22 12:41 101 H 20 159/97 H 97 11/24/22 12:20 97 11/24/22 12:50 97 11/24/22 12:30 108 H 20 96 11/24/22 11:50 36.6 C 112 H 38 H 151/95 H 94 O2 Del Method O2 Flow Rate FiO2 11/24/22 12:41 Room Air 11/24/22 12:20 Nasal Cannula 0 11/24/22 12:50 Nasal Cannula 4 11/24/22 12:30 21 11/24/22 11:50 Room Air Laboratory Results 11/24/22 12:23 11/24/22 12:23 PG Care Time/CCT Total # of Minutes Spent Total Time Spent with Patient: Total time spent is greater than 50% in coordination of care (as documented) at patient's floor/unit and/or counseling patient: Coding Level of Care Code New Pt INP/OBS CONSULT LVL 5, 80 MIN Patient Type New Diagnoses Shortness of breath R06.02 Pleural effusion J90 COVID-19 U07.1 Acute respiratory failure with hypoxia J96.01 Synovial sarcoma C49.9 Metastatic cancer C79.[address] R93.89
--- NOTE | 2022-11-24 14:45 | Electrocardiogram Report ---
Test Reason : Blood Pressure : / mmHG Vent. Rate : 109 BPM Atrial Rate : 109 BPM P-R Int : 122 ms QRS Dur : 088 ms QT Int : 326 ms P-R-T Axes : 035 003 064 degrees QTc Int : 439 ms Poor data quality, interpretation may be adversely affected Sinus tachycardia Nonspecific ST and T wave abnormality Abnormal ECG When compared with ECG of 09-NOV-2022 06:15, Vent. rate has increased BY 45 BPM Borderline criteria for Lateral infarct are no longer Present Confirmed by Leonid Simpson ([id number]) on 11/24/2022 2:45:13 PM Referred By: Confirmed By:Leonid Simpson
--- NOTE | 2022-11-24 15:12 | History & Physical Report ---
Date of Service November 24, 2022 Assessment & Plan (1) Pleural effusion: (2) Synovial sarcoma: (3) Metastatic cancer: Plan: Admit to telemetry Patient presenting from home with reports of worsening shortness of breath. Recently admitted to [facility] for bilateral pulmonary embolism, currently on Eliquis. In the ED, patient was in respiratory distress, briefly placed on BiPAP, now currently stable on 4 L of oxygen via nasal cannula. CXR shows large right pleural effusion. 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 Pulmonary consult, case discussed with Dr. Recio. Will need thoracentesis, ideally would like to wait 48h off Eliquis. Will bridge with IV heparin. Dr. Recio to re-eval tomorrow. BiPap PRN. Patient and requesting Dr. Apodaca be notified of admission -- done. Patient also follows with Dr. Martin at [facility]. Currently receiving Votrient 200g daily and dexamethasone 4mg BID. Tentative plans to start IV chemotherapy next week. Continue home pain medication regimen including fentanyl patch and PO Dilaudid (4) Abdominal distention: Plan: No abdominal pain, nausea, vomiting US to evaluate for ascites (5) COVID-19: Plan: Tested + for COVID 19 Shortness of breath likely due to large pleural effusion. No documented hypoxia. Hold on COVID 19 directed therapies (6) Hyperglycemia: Plan: Glucose 239 No history of diabetes NovoLog per protocol while hospitalized, check A1c (7) History of pulmonary embolism: Plan: Recently diagnosed On Eliquis, bridging with IV heparin as above (8) HTN (hypertension): Plan: BP controlled, continue losartan, amlodipine, carvedilol (9) DUY on CPAP: Plan: DVT PROPHYLAXIS IV Heparin I spent a total of 90 minutes coordinating, documenting, and providing care for this patient excluding time spent in the performance of separately billed services. This included personally reviewing all current laboratories and imaging studies, medication reconciliation, outpatient chart review, and discussion with specialists. 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 Patient recently admitted to [facility] 11/08-11/12 for bilateral pulmonary embolism. Patient initially treated with heparin and transition to Eliquis. Patient reports a steady decline since returning home. Patient seen by PCP on 11/20 for complaints of shortness of breath and cough. Was found to have exertional hypoxia in the office and home O2 is being arranged. Patient was also started on doxycycline for suspected URI. Patient progressively got worse over the weekend and developed shortness of breath with minimal exertion. Patient denies chest pain and palpitations. No lightheadedness, dizziness, diaphoresis, syncopal events. Denies fevers and chills. Reports early satiety and abdominal distention. No abdominal pain, vomiting, diarrhea. Patient denies urinary symptoms. Upon arrival to the ED, patient was in respiratory distress with respiratory rate in the 40s. Patient placed on BiPAP briefly. Now currently on 4 L of oxygen via nasal cannula. CXR shows large right pleural effusion. Allergies Allergy/AdvReac Type Severity Reaction Status Date / Time bacitracin Allergy Severe hives, Verified 11/24/22 15:49 syncopy tree and shrub pollen AdvReac Mild nasal Verified 11/24/22 15:49 congestion, eyes water Home Medications Medication Instructions Recorded Confirmed Type albuterol sulfate 90 mcg/actuation 2 puffs inhalation Q4 PRN 10/10/19 11/24/22 History aerosol inhaler (Ventolin HFA) Shortness Of Breath Or Wheezing albuterol sulfate 2.5 mg/3 mL 2.5 mg inhalation Q6H PRN 01/31/20 11/24/22 History (0.083 %) solution for nebulization shortness of breath or wheezing montelukast 10 mg tablet 10 mg PO DAILY 06/29/20 11/24/22 History (Singulair) amlodipine 10 mg tablet 10 mg PO QAM 07/31/22 11/24/22 History carvedilol 6.25 mg tablet 6.25 mg PO BID 07/31/22 11/24/22 History famotidine 40 mg tablet 40 mg PO DAILY 07/31/22 11/24/22 History hydroxyzine HCl 25 mg tablet 25 - 50 mg PO HS PRN Anxiety 07/31/22 11/24/22 Hist ory losartan 100 mg tablet 100 mg PO DAILY 07/31/22 11/24/22 History docusate sodium 100 mg capsule 100 mg PO BID PRN laxative effect 08/04/22 11/24/22 Rx #60 caps polyethylene glycol 3350 17 gram 17 g PO DAILY PRN laxative effect 08/04/22 11/24/22 Rx oral powder packet (Miralax) #30 ea buspirone 10 mg tablet 10 mg PO TID PRN Anxiety 09/02/22 11/24/22 History mirtazapine 15 mg tablet 15 mg PO HS 09/02/22 11/24/22 History pantoprazole 40 mg tablet,delayed 40 mg PO QAM 09/02/22 11/24/22 History release sennosides 8.6 mg tablet (Senokot) 8.6 mg PO BID PRN Constipation 09/02/22 11/24/22 History fentanyl 50 mcg/hr transdermal 50 mcg transdermal Q72H severe 09/10/22 11/24/22 Rx patch pain 1 week #2 ea dexamethasone 2 mg tablet 4 mg PO BIDM 11/08/22 11/24/22 History fluticasone furoate 100 1 puffs inhalation QAM 11/08/22 11/24/22 History mcg-vilanterol 25 mcg/dose inhalation powder (Breo Ellipta) fluticasone propionate 50 2 spray intranasal QAM 11/08/22 11/24/22 History mcg/actuation nasal spray,suspension hydromorphone 4 mg tablet 4 mg PO Q3H PRN Pain, Severe 11/08/22 11/24/22 History pazopanib 200 mg tablet (Votrient) 200 mg PO DAILY 11/08/22 11/24/22 History potassium chloride 20 mEq 20 meq PO QAM 11/08/22 11/24/22 History tablet,extended release valacyclovir 1 gram tablet 2,000 mg PO .BID/UD PRN .FLARES 11/08/22 11/24/22 History apixaban 5 mg tablet (Eliquis) 5 mg PO BID 11/24/22 11/24/22 History doxycycline hyclate 100 mg capsule 100 mg PO BID 11/24/22 11/24/22 History Past Med/Surg History Medical History Asthma GERD (gastroesophageal reflux disease) Hepatic steatosis History of pulmonary embolism HTN (hypertension) DUY on CPAP 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 Grandmother (Maternal) , iat 91 old age No problems noted. Grandfather (Paternal) , in his eighties old age No problems noted. Father , age 66 of pancreatic cancer and metastasis No problems noted. Mother No problems noted. Brother Age: 54 No problems noted. Son Age: 35 Leukemia in remission Daughter Age: 35 No problems noted. Daughter Age: 23 No problems noted. Son Age: 20 No problems noted. Social History Smoking Status: Former smoker Hx Alcohol Use: No Hx Substance Use: No Preferred Language: Senegalese Communication Ability: Effective Assembler Type Bar And Segment Required: Yes Beliefs That Will Affect Care: None marital status: Current Living Situation: Spouse and Family current occupational status: employed Feels Safe at Home: Yes Safety Concerns: Feels Safe At This Time Childhood Exposure to Second-Hand Smoke: Yes caffeine: No Dental Care, Regularly: Yes Physical Activity Frequency: Does not Exercise Seatbelt Use: always Sunscreen Use: Yes Do you think of yourself as: straight/heterosexual Assistive Devices: None Review of Systems Review of Systems: ROS per HPI, all other systems reviewed and negative Physical Exam Constitutional: WD/WN, vitals as above Eyes: PERRL, conjunctivae normal, anicteric sclerae ENMT: external ear and nose normal, oropharynx normal Respiratory: normal respiratory effort; no respiratory distress Auscultation: + diminished lung sounds (BL) Cardiovascular: Rate/Rhythm: regular rate and regular rhythm Vessels: normal peripheral pulses Extremities: no edema Gastrointestinal (Abdomen): Inspection/Auscultation: + abdomen distended and normal bowel sounds Percussion/Palpation: abdomen nontender, + abdomen not soft (semi firm) and no hepatosplenomegaly Musculoskeletal: no cyanosis or clubbing, extremities motor strength 5/5 Skin: no rashes, warm and dry Neurologic: PERRL, EOMI, accommodation nl, no face palsy, no dysarthria Psychiatric: A+Ox3, euthymic affect Results & Data Results & Data ([facility]) Vital Signs (Past 12 Hours) Vital Signs Temp Pulse Pulse Resp BP BP Pulse Ox 11/24/22 14:00 95 H 23 96 11/24/22 14:00 134/96 11/24/22 12:41 101 H 20 159/97 H 97 11/24/22 12:20 97 11/24/22 12:50 97 11/24/22 12:30 108 H 20 96 11/24/22 11:50 36.6 C 112 H 38 H 151/95 H 94 O2 Del Method O2 Flow Rate FiO2 11/24/22 14:00 Nasal Cannula 4 11/24/22 14:00 11/24/22 12:41 Room Air 11/24/22 12:20 Nasal Cannula 0 11/24/22 12:50 Nasal Cannula 4 11/24/22 12:30 21 11/24/22 11:50 Room Air Laboratory Results Short CBC 11/24/22 Range/Units 12:23 WBC 10.67 (4.8-10.8) K/ul Hgb 12.3 L (14.0-18.0) g/dl Hct 36.6 L (42.0-52.0) % Plt Count 209 (130-400) K/uL BMP 11/24/22 12:23 Sodium 142 Potassium 3.8 Chloride 105 Carbon Dioxide 26 BUN 21 Creatinine 0.50 L Glucose 239 H Calcium 8.9 Liver Function 11/24/22 Range/Units 12:23 Total Bilirubin 1.1 H (0.2-1.0) mg/dl AST 19 (13-39) U/L ALT 62 H (7-52) U/L Alkaline Phosphatase 84 (34-104) U/L Albumin 3.8 (3.4-5.0) gm/dl Diagnostic Findings Chest X-Ray 11/24/22 12:14 XR chest 1V portable HISTORY: Chest pain, nonspecific COMPARISON: Chest 11/08/2022. FINDINGS: Scattered pulmonary nodules consistent with metastatic disease again noted. Increase in size in the now moderate to large right pleural effusion with right basilar consolidation favors compressive atelectasis. The heart is normal in size. No pneumothorax. Right jugular Port-A-Cath terminates at the superior cavoatrial junction. This remains unchanged. IMPRESSION: 1. Increase in size in the now moderate to large right pleural effusion. 2. Scattered pulmonary nodules consistent with metastatic disease again noted. ACT 112: Negative or not required by law. Electronically signed by: Winston Sepulveda M.D. 11/24/2022 1:22 PM Code Status & VTE Plan Code Status Patient is a full code as per my discussion with him. VTE Prophylaxis Plan VTE Prophylaxis will be ordered: No Supervising Physician Co-Signing Physician Notes Patient seen and examined independently. Chart reviewed. Case discussed with ALOK. Agree with assessment and plan as above.
[2022-11-24] MEDS ORDERED: POLYETHYLENE (MIRALAX) 17 GM PACK PO PRN (16:40)
[2022-11-24] MEDS ORDERED: hydrOXYzine HCl 25 MG TAB PO PRN (16:40)
[2022-11-24] MEDS ORDERED: ACETAMINOPHEN 325 MG TAB PO PRN (16:40)
[2022-11-24] MEDS ORDERED: SENNA 8.6 MG TAB PO PRN (16:40)
[2022-11-24] MEDS ORDERED: DOCUSATE SODIUM 100 MG CAP PO PRN (16:40)
[2022-11-24] MEDS ORDERED: CARBOHYDRATES FOR HYPOGLYCEMIA PO PRN (17:00)
[2022-11-24] MEDS ORDERED: GLUCOSE 40% GEL 15 GM TUBE PO PRN (17:00)
[2022-11-24] MEDS ORDERED: DEXTROSE 50% 50 ML SYRINGE IV PRN (17:00)
[2022-11-24] MEDS ORDERED: GLUCAGON FOR INJ 1 MG VIAL SQ PRN (17:00)
[2022-11-24] MEDS: HYDROmorphone HCL 2 MG TAB PO PRN ×2 (17:00→21:38)
[2022-11-24] MEDS ORDERED: GLUCOSE 10 TAB/TUBE PO PRN (17:00)
--- NOTE | 2022-11-24 17:27 | Ultrasound Report ---
ULTRASOUND ASCITES CHECK CLINICAL HISTORY: Abdominal distention. COMPARISON STUDY: Abdominal CT dated 09/02/2022. FINDINGS: Real-time grayscale sonography of all 4 quadrants of the abdomen is performed to assess for abdominal ascites. There is no sonographic evidence of abdominal ascites. Survey images of the liver show evidence of steatosis. IMPRESSION: No abdominal ascites is identified. Electronically signed by: Santos Gutiérrez M.D. 11/24/2022 5:26 PM
[2022-11-24] MEDS: dexAMETHasone 4 MG TAB PO SCH (17:36)
--- NOTE | 2022-11-24 17:43 | Procedure Note ---
Procedure Note Date of Service November 24, 2022 Note Bedside Ultrasound: Lung: Right: Large right-sided pleural effusion with dependent atelectasis. A lines appreciated anteriorly Left: A lines appreciated anteriorly and posteriorly, no pleural effusion Abdomen: No abdominal ascites appreciated Please note the above document was generated using voice recognition software. It may contain grammatical, syntax or spelling errors.Any formal questions or co ncerns about the content, text or information contained within the body of this dictation should be directly addressed to the provider for clarification. Coding CPT Codes Pulmonary/Thoracic - Pulmonary and Thoracic: 46908 US, Chest, real time with imaging documentation ([id number]) [facility] [place] Codes ([place]) Pulmonary/Thoracic Procedure 1: Pulmonary and Thoracic: 46893 US, Chest, real time with imaging documentation
[2022-11-24] MEDS: CHECK fentaNYL PATCH PLACEMENT SCH ×2 (18:02→22:45)
[2022-11-24] MEDS: fentaNYL 50 MCG/HR TDSY TD SCH (18:02)
[2022-11-24 18:39] LABS: Partial Thromboplastin Ratio 1.3
[2022-11-24] MEDS ORDERED: Heparin IV Adult Wt-Based Standard *NO* Bolus Protocol IV SCH (19:30)
[2022-11-24] MEDS: HEPARIN SODIUM/DEXTROSE 25,000 UNITS/500 ML BAG IV SCH (20:45)
[2022-11-24] MEDS: carvediloL 6.25 MG TAB PO SCH (21:39)
[2022-11-24] MEDS: MIRTAZAPINE TAB 15 MG TAB PO SCH (21:39)
[2022-11-24] MEDS: INSULIN ASPART PER UNIT SC SCH (21:54)
[2022-11-24] MEDS ORDERED: HEPARIN 100 UNIT/ML 5ML FLUSH FLUSH PRN (23:56)
[2022-11-25] MEDS: HYDROmorphone HCL 2 MG TAB PO PRN ×3 (01:38→12:09)
[2022-11-25 03:24] LABS: Hemoglobin 11.3 g/dl (14.0-18.0); Mean Corpuscular Hemoglobin 33.9 pg (25.0-34.0); Mean Corpuscular Hgb Conc 34.2 g/dL (32.0-36.0); Mean Corpuscular Volume 99.1 fL (80.0-100.0); Mean Platelet Volume 9.6 fL (9.4-12.4); Nucleated RBC # (auto) 0.02 K/uL (0-0.12); Nucleated RBC % (auto) 0.2 %; Platelet Count 177 K/uL (130-400); RDW Coefficient of Variation 15.5 % (11.5-14.5); Red Blood Count 3.33 M/uL (4.70-6.10); White Blood Count 10.36 K/ul (4.8-10.8)
[2022-11-25 03:43] LABS: Calcium 9.2 mg/dl (8.5-10.1); Creatinine Clr Calc Pharmacy 214.2 ml/min; Est GFR (African American) 138.5 ml/min; Est GFR (Non-African American) 119.5 ml/min; Potassium 4.1 mmol/L (3.5-5.1)
[2022-11-25 04:10] LABS: Partial Thromboplastin Ratio 2.1
[2022-11-25 04:17] LABS: Partial Thromboplastin Time 57.2 Seconds (21.0-31.0)
[2022-11-25] MEDS: PAZOPANIB HCL PO SCH (06:05)
[2022-11-25] MEDS: LOSARTAN POTASSIUM 50 MG TAB PO SCH (08:02)
[2022-11-25] MEDS: FAMOTIDINE 40 MG TABLET PO SCH (08:02)
[2022-11-25] MEDS: carvediloL 6.25 MG TAB PO SCH ×2 (08:02→20:11)
[2022-11-25] MEDS: MONTELUKAST SODIUM 10 MG TABLET PO SCH (08:03)
[2022-11-25] MEDS: amLODIPine BESYLATE 5 MG TAB PO SCH (08:03)
[2022-11-25] MEDS: FLUTICASONE/VILANTEROL 100/25MCG 14 PUFFS/INHALER INH SCH (08:03)
[2022-11-25] MEDS: INSULIN ASPART PER UNIT SC SCH ×4 (08:04→20:30)
[2022-11-25] MEDS: CHECK fentaNYL PATCH PLACEMENT SCH ×2 (08:04→16:11)
[2022-11-25] MEDS: dexAMETHasone 4 MG TAB PO SCH ×2 (08:04→17:06)
[2022-11-25] MEDS: POTASSIUM CHLORIDE CRTAB 20 MEQ TABCR PO SCH (08:13)
--- NOTE | 2022-11-25 08:35 | XRay Report ---
XR chest 1V portable HISTORY: 57 years-old Male f/u acute chest pain with shortness of breath COMPARISON: Chest radiograph November 24, 2022 TECHNIQUE: AP view of the chest FINDINGS: Cardiomediastinal and hilar silhouettes are unchanged. Stable positioning of the right IJ Infuse-a-Po rt catheter. There is progressively worsened now near complete opacification of the right hemithorax. Scattered pulmonary nodules again noted. Only a small portion of aerated lung is present. Bones appe ar grossly intact. IMPRESSION: 1. Progressively worsened near complete opacification of the right hemithorax suggestive of increased size of the right pleural effusion with progressive right lung volume loss/collapse. 2. Metastatic pulmonary nodules redemonstrated. ACT 112: Negative or not required by law. The above report was generated using voice recognition software. It may contain grammatical, syntax o r spelling errors. Electronically signed by: Beau Vickers M.D. 11/25/2022 8:34 AM
[2022-11-25] MEDS ORDERED: OPTIRAY 350 100ml IV ONE (09:28)
[2022-11-25] MEDS: HEPARIN SODIUM/DEXTROSE 25,000 UNITS/500 ML BAG IV SCH (10:11)
[2022-11-25] MEDS: PANTOprazole 40 MG TAB PO SCH (10:11)
--- NOTE | 2022-11-25 10:20 | Pulmonology Progress Note ---
Date of Service November 25, 2022 Assessment & Plan (1) Shortness of breath: (2) Pleural effusion: (3) COVID-19: (4) Acute respiratory failure with hypoxia: (5) Synovial sarcoma: (6) Metastatic cancer: (7) Abnormal chest CT: Plan CT chest 11/08/2022 personally reviewed: Multiple pulmonary nodules appreciated bilaterally Patchy groundglass opacity in the right upper lobe Right sided pericardiac mediastinal mass 15 cm x 11 cm Small to moderate right-sided pleural effusion No significant mediastinal lymphadenopathy 2D echo 11/09/2022: EF 60-65%, RVSP 30-40 mmHg, RV mildly dilated, mild TR, moderate concentric LVH --Acute respiratory failure with hypoxia Likely secondary to right-sided pleural effusion with dependent atelectasis COVID-19 positive Influenza A/B negative -- Right pleural effusion Moderate to large Likely from underlying malignancy Never had thoracentesis done in the past --Mild pulmonary hypertension 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 I will place a pigtail catheter today. Hold heparin drip as of now. Case discussed with Dr Barnhart Please note the above document was generated using voice recognition software. It may contain grammatical, syntax or spelling errors.Any formal questions or concerns about the content, text or information contained within the body of this dictation should be directly addressed to the provider for clarification. Admission and Anticipated Discharge Date Admission Date: November 24, 2022 Subjective Patient seen and examined at bedside. Mild respiratory distress Chest pain on taking deep breath on the right side No nausea or vomiting Did lose CPAP at night. No headache Fair appetite Review of Systems Review of Systems: All systems reviewed & are unremarkable except as noted in Subjective Physical Exam Physical Exam: Constitutional: No acute distress HEENT: EOMI, PERRLA Respiratory system: Decreased air entry on the right side, no wheeze, no rhonchi, positive crackles bilateral lower lobes CVS: S1-S2 positive, no murmurs or gallops Abdomen: Soft, nontender, nondistended, positive bowel sounds x4, obese Extremities: +2 pulses bilaterally radialis/ dorsalis pedis, no cyanosis, +1 pitting edema bilateral lower extremity Neuro: Awake alert oriented x3 Psych: Normal mood and affect G/U: No Hernández Skin: no rashes, warm and dry Lymphatic: no cervical or axillary lymphadenopathy Results & Data Results & Data ([facility]) Vital Signs (Past 12 Hours) Vital Signs Temp Pulse Resp BP Pulse Ox O2 Del Method O2 Flow Rate 11/25/22 09:15 Nasal Cannula, CPAP 4 11/25/22 07:47 36.5 C 91 H 22 139/95 94 BiPAP 11/25/22 01:50 36.8 C 95 H 24 160/90 H 95 Nasal Cannula, CPAP 4 11/24/22 22:21 36.6 C 107 H 26 H 152/102 H 95 Nasal Cannula, CPAP 4.0 Laboratory Results 11/25/22 03:02 11/25/22 03:02 PG Care Time/CCT Total # of Minutes Spent Total Time Spent with Patient: Total time spent is greater than 50% in coordination of care (as documented) at patient's floor/unit and/or counseling patient: Coding Level of Care Code 57657 SUB INP/OBS CARE 3/50MIN Diagnoses Shortness of breath R06.02 Pleural effusion J90 COVID-19 U07.1 Acute respiratory failure with hypoxia J96.01 Synovial sarcoma C49.9 Metastatic cancer C79.[address] R93.89
--- NOTE | 2022-11-25 13:58 | CT Scan Report ---
ABDOMEN AND PELVIS CT WITH IV CONTRAST CT DOSE: 1278.65 mGycm HISTORY: Acute cough with shortness of breath. History of sarcoma. hx synovial sarcoma TECHNIQUE: Multiaxial CT images of the abdomen and pelvis were performed following the IV administrat ion of 86 cc of Optiray, A dose lowering technique was utilized adhering to the principles of ALARA. COMPARISON STUDY: Chest radiograph of same day, CTA chest 11/08/2022, CT abdomen and pelvis 09/02/2022. FINDINGS: Numerous enlarged masses in the right hemithorax, most of which are pleural-based are redem onstrated. Moderate malignant right pleural effusion has increased in size from prior. Partial collap se of the right lung. 4 mm solid nodule of the inferior segment lingula. No pneumatosis or pneumoperi toneum. Unremarkable spleen, mildly atrophic pancreas and adrenal glands. Mildly contracted gallbladder. Hepa tic steatosis. Patency of the hepatic and portal veins. Mild nonspecific bilateral perinephric strand ing. 3.3 cm intermediate density lesion of the superior pole left kidney is again noted, possibly a c omplex cyst. No hydronephrosis. Prostamegaly. Partial distention of the urinary bladder. Mild atheros clerosis of the aorta without aneurysm. No lymphadenopathy. No bowel obstruction or bowel wall thickening. Colonic diverticulosis. Moderate colonic fecal retenti on. Noninflamed appendix. No ascites or mesenteric inflammation. Tiny fat filled umbilical hernia. De generative changes of the spine, pelvis and right hip. Left hip arthroplasty. Subcutaneous nodules in the left gluteal tissues suggestive of injection granulomas. IMPRESSION: 1. Metastatic disease of the right hemithorax is redemonstrated with moderate malignant pleural effus ion, increased in size from prior. 2. No acute intra-abdominal or intrapelvic abnormality. 3. Hepatic steatosis. 4. No evidence of metastatic disease within the abdomen. 5. Additional findings as above. ACT 112: Negative or not required by law. The above report was generated using voice recognition software. It may contain grammatical, syntax o r spelling errors. Electronically signed by: Beau Vickers M.D. 11/25/2022 1:56 PM
--- NOTE | 2022-11-25 14:05 | Hospitalist Progress Note ---
Date of Service November 25, 2022 Assessment & Plan (1) Acute respiratory failure with hypoxia: (2) Pleural effusion: (3) Synovial sarcoma: (4) Metastatic cancer: Plan: Patient presenting from home with reports of worsening shortness of breath. Recently admitted to [facility] for bilateral pulmonary embolism, currently on Eliquis. In the ED, patient was in respiratory distress, briefly placed on BiPAP, now currently stable on 4 L of oxygen via nasal cannula. CXR shows large right pleural effusion. 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 Chest x-ray done today shows increase in the pleural effusion. CT abdomen and pelvis with IV contrast done as per recommendation by oncology; no acute intra abdominal or intrapelvic abnormality seen. No evidence of metastatic disease within the abdomen. Plan; Pulmonology on board; plan for pigtail catheter; routine pleural fluid analysis and cytology to be sent from the sample. Given the recent history of PE; patient needs to be back on heparin as soon as the procedure is completed. Currently on Votrient 200 mg daily and dexamethasone 4 mg twice daily as per oncology; oncology consulted for comanagement. Dilaudid 4 mg every 3-hour while patient is awake; also on fentanyl patch at home. (5) Abdominal distention: Plan: No abdominal pain, nausea, vomiting CT abdomen rule out any intra-abdominal pathology. US ascites revealed no acetic fluid. (6) COVID-19: Plan: Tested + for COVID 19 Shortness of breath likely due to large pleural effusion. . no covid 19 specific treatment indicated at this point. (7) Hyperglycemia: Plan: Glucose 239 No history of diabetes NovoLog per protocol while hospitalized, check A1c (8) History of pulmonary embolism: Plan: Recently diagnosed On Eliquis, IV heparin currently on hold for the procedure. (9) HTN (hypertension): Plan: BP controlled, continue losartan, amlodipine, carvedilol (10) DUY on CPAP: Plan: DVT PROPHYLAXIS IV Heparin Admission and Anticipated Discharge Date Admission Date: November 24, 2022 Subjective Patient seen and examined at bed side. Reports that his breathing is comfortable while he is on CPAP but he gets tired when he is off it. X-ray chest shows increasing right-sided pleural effusion. Heparin on hold for pigtail catheter placement today. Review of Systems Review of Systems: All systems reviewed & are unremarkable except as noted in Subjective Physical Exam Physical Exam: Constitutional: Awake, alert orient x3; mild respiratory distress. Respiratory: No breath sound heard on right lung; vesicular breath sound on left lung field; no crackles. Cardiovascular: RRR, no murmur, no edema Vessels: no JVD or carotid bruit Chest: normal inspection of chest.Port-A-Cath in place. Abdomen: Soft, slightly distended. Nontender. Musculoskeletal: no cyanosis or clubbing, extremities motor strength 5/5 Skin: no rashes, warm and dry normal turgor Neurologic: PERRL, EOMI, accommodation nl, no face palsy, no dysarthria CN's II- XI intact bilaterally and moves all extremities Psychiatric: A+Ox3, euthymic affect Lymphatic: no cervical or axillary lymphadenopathy : deferred Results & Data Results & Data ([facility]) Vital Signs (Past 12 Hours) Vital Signs Temp Pulse Pulse Resp BP Pulse Ox O2 Del Method 11/25/22 11:12 36.5 C 100 H 26 H 138/97 96 Nasal Cannula 11/25/22 09:15 Nasal Cannula, CPAP 11/25/22 07:47 36.5 C 91 H 22 139/95 94 BiPAP O2 Flow Rate 11/25/22 11:12 4 11/25/22 09:15 4 11/25/22 07:47 Laboratory Results Laboratory Results WBC 10.36 K/ul (4.8-10.8) 11/25/22 03:02 RBC 3.33 M/uL (4.70-6.10) L 11/25/22 03:02 Hgb 11.3 g/dl (14.0-18.0) L 11/25/22 03:02 Hct 33.0 % (42.0-52.0) L 11/25/22 03:02 MCV 99.1 fL (80.0-100.0) 11/25/22 03:02 MCH 33.9 pg (25.0-34.0) 11/25/22 03:02 MCHC 34.2 g/dL (32.0-36.0) 11/25/22 03:02 RDW Std Deviation 56.0 fL (36.4-46.3) H 11/25/22 03:02 RDW Coeff of Darrell 15.5 % (11.5-14.5) H 11/25/22 03:02 Plt Count 177 K/uL (130-400) 11/25/22 03:02 MPV 9.6 fL (9.4-12.4) 11/25/22 03:02 Immature Gran % (Auto) 3.4 % 11/24/22 12: Neut % (Auto) 80.5 % 11/24/22 12:23 Lymph % (Auto) 10.2 % 11/24/22 12: [place] % (Auto) 5.6 % 11/24/22 12: Eos % (Auto) 0.0 % 11/24/22 12:23 Baso % (Auto) 0.3 % 11/24/22 12: Neut # (Auto) 8.59 K/uL (1.40-6.50) H 11/24/22 12: Lymph # (Auto) 1.09 K/uL (1.2-3.4) L 11/24/22 12:23 [place] # (Auto) 0.60 K/uL (0.11-0.59) H 11/24/22 12:23 Eos # (Auto) 0.00 K/uL (0-0.50) 11/24/22 12:23 Baso # (Auto) 0.03 K/uL (0-0.2) 11/24/22 12: Immature Gran # (Auto) 0.36 K/uL (0.01-0.20) H 11/24/22 12: Absolute Nucleated RBC 0.02 K/uL (0-0.12) 11/25/22 03:02 Nucleated RBC % (auto) 0.2 % 11/25/22 03:02 APTT 57.2 Seconds (21.0-31.0) H* 11/25/22 03:02 PTT Ratio 2.1 11/25/22 03:02 VBG pH 7.44 (7.36-7.41) H 11/24/22 12:38 VBG pCO2 42 mmHg (38-50) 11/24/22 12:38 VBG pO2 37 mmHg 11/24/22 12:38 VBG HCO3 29 mmol/L 11/24/22 12:38 VBG O2 Saturation < 60.0 % 11/24/22 12:38 VBG Base Excess 3.9 mEq/L 11/24/22 12:38 Sodium 143 mmol/L (136-145) 11/25/22 03:02 Potassium 4.1 mmol/L (3.5-5.1) 11/25/22 03:02 Chloride 105 mmol/L (98-107) 11/25/22 03:02 Carbon Dioxide 28 mmol/L (21-32) 11/25/22 03:02 Anion Gap 10 (3-11) 11/25/22 03:02 BUN 25 mg/dl (6-23) H 11/25/22 03:02 Creatinine 0.50 mg/dl (0.6-1.4) L 11/25/22 03:02 Est Cr Clr Drug Dosing 214.2 ml/min 11/25/22 03:02 Est GFR ( Amer) 138.5 ml/min 11/25/22 03:02 Est GFR (Non-Af Amer) 119.5 ml/min 11/25/22 03:02 BUN/Creatinine Ratio 50.0 (10-20) H 11/25/22 03:02 Glucose 177 mg/dl (70-99(Fasting)) H 11/25/22 03:02 POC Glucose 146 mg/dl (70-99) H 11/25/22 11:06 Calcium 9.2 mg/dl (8.5-10.1) 11/25/22 03:02 Total Bilirubin 1.1 mg/dl (0.2-1.0) H 11/24/22 12:23 AST 19 U/L (13-39) 11/24/22 12:23 ALT 62 U/L (7-52) H 11/24/22 12:23 Alkaline Phosphatase 84 U/L (34-104) 11/24/22 12:23 Troponin I High Sens 7.2 pg/ml (0-20) 11/24/22 12:23 Total Protein 6.5 gm/dl (6.0-8.3) 11/24/22 12:23 Albumin 3.8 gm/dl (3.4-5.0) 11/24/22 12:23 Globulin 2.7 gm/dl (2.5-4.0) 11/24/22 12:23 Albumin/Globulin Ratio 1.4 (0.9-2) 11/24/22 12:23 Lipase 18 U/L (11-82) 11/24/22 12:23 SARS-CoV-2 (PCR) POSITIVE (Negative) A* 11/24/22 12:25 Influenza Type A (PCR) Negative (Neg) 11/24/22 12:25 Influenza Type B (PCR) Negative (Neg) 11/24/22 12:25 RSV (RT-PCR) Negative (Neg) 11/24/22 12:25 Impressions Abdomen Ultrasound 11/24/22 14:53 ULTRASOUND ASCITES CHECK CLINICAL HISTORY: Abdominal distention. COMPARISON STUDY: Abdominal CT dated 09/02/2022. FINDINGS: Real-time grayscale sonography of all 4 quadrants of the abdomen is performed to assess for abdominal ascites. There is no sonographic evidence of abdominal ascites. Survey images of the liver show evidence of steatosis. IMPRESSION: No abdominal ascites is identified. Electronically signed by: Santos Gutiérrez M.D. 11/24/2022 5:26 PM Chest X-Ray 11/25/22 07:00 XR chest 1V portable HISTORY: 57 years-old Male f/u acute chest pain with shortness of breath COMPARISON: Chest radiograph November 24, 2022 TECHNIQUE: AP view of the chest FINDINGS: Cardiomediastinal and hilar silhouettes are unchanged. Stable positioning of the right IJ [id number] catheter. There is progressively worsened now near complete opacification of the right hemithorax. Scattered pulmonary nodules again noted. Only a small portion of aerated lung is present. Bones appear grossly intact. IMPRESSION: 1. Progressively worsened near complete opacification of the right hemithorax suggestive of increased size of the right pleural effusion with progressive right lung volume loss/collapse. 2. Metastatic pulmonary nodules redemonstrated. ACT 112: Negative or not required by law. The above report was generated using voice recognition software. It may contain grammatical, syntax or spelling errors. Electronically signed by: Beau Vickers M.D. 11/25/2022 8:34 AM Abdomen/Pelvis CT 11/25/22 07:[address] WITH IV CONTRAST CT DOSE: 1278.65 mGycm HISTORY: Acute cough with shortness of breath. History of sarcoma. hx synovial sarcoma TECHNIQUE: Multiaxial CT images of the abdomen and pelvis were performed following the IV administration of 86 cc of Optiray, A dose lowering technique was utilized adhering to the principles of ALARA. COMPARISON STUDY: Chest radiograph of same day, CTA chest 11/08/2022, CT abdomen and pelvis 09/02/2022. FINDINGS: Numerous enlarged masses in the right hemithorax, most of which are pleural-based are redemonstrated. Moderate malignant right pleural effusion has increased in size from prior. Partial collapse of the right lung. 4 mm solid nodule of the inferior segment lingula. No pneumatosis or pneumoperitoneum. Unremarkable spleen, mildly atrophic pancreas and adrenal glands. Mildly contracted gallbladder. Hepatic steatosis. Patency of the hepatic and portal veins. Mild nonspecific bilateral perinephric stranding. 3.3 cm intermediate density lesion of the superior pole left kidney is again noted, possibly a complex cyst. No hydronephrosis. Prostamegaly. Partial distention of the urinary bladder. Mild atherosclerosis of the aorta without aneurysm. No lymphadenopathy. No bowel obstruction or bowel wall thickening. Colonic diverticulosis. Moderate colonic fecal retention. Noninflamed appendix. No ascites or mesenteric inflammation. Tiny fat filled umbilical hernia. Degenerative changes of the spine, pelvis and right hip. Left hip arthroplasty. Subcutaneous nodules in the left gluteal tissues suggestive of injection granulomas. IMPRESSION: 1. Metastatic disease of the right hemithorax is redemonstrated with moderate malignant pleural effusion, increased in size from prior. 2. No acute intra-abdominal or intrapelvic abnormality. 3. Hepatic steatosis. 4. No evidence of metastatic disease within the abdomen. 5. Additional findings as above. ACT 112: Negative or not required by law. The above report was generated using voice recognition software. It may contain grammatical, syntax or spelling errors. Electronically signed by: Beau Vickers M.D. 11/25/2022 1:56 PM
[2022-11-25] MEDS: HYDROmorphone HCL 2 MG TAB PO SCH ×4 (14:57→23:11)
--- NOTE | 2022-11-25 16:25 | XRay Report ---
SINGLE VIEW CHEST CLINICAL HISTORY: Chest tube placement. FINDINGS: An AP, portable, upright chest radiograph is compared to study performed earlier the same d ay chest tube placement.. The examination is degraded by portable technique and apical lordotic posit ioning. A right internal jugular central venous infusion port is unchanged in position. The cardiomed iastinal silhouette is partially obscured. There is a large layering right pleural effusion with near complete atelectasis/consolidation of the right lung. A chest tube has been placed at the right lung base. The left lung is grossly clear. Left-sided pulmonary lesions seen by CT are not apparent on x- ray. No pneumothorax is seen. The skeletal structures are osteopenic. The bony thorax is grossly inta ct. IMPRESSION: 1. A right-sided chest tube has been placed. No pneumothorax is seen post procedure. 2. Near-complete opacification of the right hemithorax is similar to previous with atelectasis/consol idation of the right lung. ACT 112: Negative or not required by law. Electronically signed by: Santos Gutiérrez M.D. 11/25/2022 4:23 PM
--- NOTE | 2022-11-25 16:43 | Procedure Note ---
Procedure Note Date of Service November 25, 2022 Note Procedure: Pigtail chest tube insertion Applique Cutter: Dr. Paxton Recio Indication: Right-sided pleural effusion Consent: Signed by patient and verified with timeout prior to procedure Anesthesia: 1% lidocaine without epinephrine local Procedure: Consent was verified and timeout performed. Appropriate imaging studies were reviewed prior to the procedure. Patient was placed in a seated position. Appropriate site above the diaphragm on the right midaxillary line fourth intercostal space for chest tube insertion was selected. The skin was prepped and draped in normal sterile fashion. Lidocaine was used for local analgesia. Bloody was aspirated via the finder needle. A small skin nazanin was made with the scalpel and the catheter over the needle apparatus was advanced over the rib into the pleural space. With the help of guidewire and Seldinger technique, 14 Hungarian pigtail catheter was inserted and connected to Pleur-evac. 2 L of bloody fluid was drained. The tube was clamped as patient started to complain of chest tightness No air leak appreciated after that. Chest x-ray to follow Fluid was sent for labs, culture and cytology. The patient tolerated the procedure without obvious complication Complications: None Blood loss: Less than 2 cc. Coding CPT Codes Pulmonary/Thoracic - Pulmonary and Thoracic: 97219 Tube thoracostomy ([id number]) Pulmonary/Thoracic - Pulmonary and Thoracic: 60394 Pleural drainage w/o imaging ([id number]) Pulmonary/Thoracic - Pulmonary and Thoracic: 60644 US, Chest, real time with imaging documentation ([id number]) [facility] [place] Procedure Codes (Charges) Pulmonary/Thoracic Procedure 1: Pulmonary and Thoracic: 67736 Tube thoracostomy Procedure 2: Pulmonary and Thoracic: 22655 Pleural drainage w/o imaging Procedure 3: Pulmonary and Thoracic: 76818 US, Chest, real time with imaging documentation
[2022-11-25 17:29] LABS: Amylase Peritoneal Fluid 13 U/L
[2022-11-25 17:34] LABS: Glucose Peritoneal Fluid 101 mg/dl; LDH Peritoneal Fluid 1106 U/L
--- NOTE | 2022-11-25 17:47 | Oncology Consultation ---
Date of Consultation November 25, 2022 Assessment & Plan (1) Synovial sarcoma: (2) Acute respiratory failure with hypoxia: (3) Shortness of breath: Plan Tyrese 57-year-old gentleman with metastatic synovial sarcoma who presented with shortness of breath due to large right-sided pleural effusion. Shortness of breath has since resolved with drainage of effusion and pigtail placement. Suspect that pleural effusion is most likely due to metastatic sarcoma. Plan to start him on third line treatment with etoposide/ifosfamide on 12/01/2022 as long as he continues to do well and remains asymptomatic from COVID-19 standpoint. If he develops symptoms such as shortness of breath or fever, will delay treatment by 1 week. Patient agreed with this plan History of Present Illness Reason for Consultation: Metastatic sarcoma Attending Physician: Fabian Barnhart MD History of Present Illness Pleasant 57-year-old gentleman with metastatic sarcoma who recently progressed on pazopanib and was scheduled to start treatment with ifosfamide/etoposide at [facility] next week. Patient presented with worsening shortness of breath with chest x-ray demonstrating significant right-sided pleural effusion. He was also found to be COVID-19 positive on admission. He underwent right-sided pigtail chest tube insertion today by Dr. Recio with significant improvement in shortness of breath. He denies fever, chills, abdominal pain, nausea, vomiting or any other issues. CT abdomen and pelvis obtained during this admission did not show any evidence of metastatic disease Allergies Allergy/AdvReac Type Severity Reaction Status Date / Time bacitracin Allergy Severe hives, Verified 11/24/22 15:49 syncopy tree and shrub pollen AdvReac Mild nasal Verified 11/24/22 15:49 congestion, eyes water Home Medications Medication Instructions Recorded Confirmed Type albuterol sulfate 90 mcg/actuation 2 puffs inhalation Q4 PRN 10/10/19 11/24/22 History aerosol inhaler (Ventolin HFA) Shortness Of Breath Or Wheezing albuterol sulfate 2.5 mg/3 mL 2.5 mg inhalation Q6H PRN 01/31/20 11/24/22 History (0.083 %) solution for nebulization shortness of breath or wheezing montelukast 10 mg tablet 10 mg PO DAILY 06/29/20 11/24/22 History (Singulair) amlodipine 10 mg tablet 10 mg PO QAM 10/06/22 01/30/23 History carvedilol 6.25 mg tablet 6.25 mg PO BID 07/31/22 11/24/22 History famotidine 40 mg tablet 40 mg PO DAILY 07/31/22 11/24/22 History hydroxyzine HCl 25 mg tablet 25 - 50 mg PO HS PRN Anxiety 07/31/22 11/24/22 History losartan 100 mg tablet 100 mg PO DAILY 07/31/22 11/24/22 History docusate sodium 100 mg capsule 100 mg PO BID PRN laxative effect 08/04/22 11/24/22 Rx #60 caps polyethylene glycol 3350 17 gram 17 g PO DAILY PRN laxative effect 08/04/22 11/24/22 Rx oral powder packet (Miralax) #30 ea buspirone 10 mg tablet 10 mg PO TID PRN Anxiety 09/02/22 11/24/22 History mirtazapine 15 mg tablet 15 mg PO HS 09/02/22 11/24/22 History pantoprazole 40 mg tablet,delayed 40 mg PO QAM 09/02/22 11/24/22 History release sennosides 8.6 mg tablet (Senokot) 8.6 mg PO BID PRN Constipation 09/02/22 11/24/22 History fentanyl 50 mcg/hr transdermal 50 mcg transdermal Q72H severe 09/10/22 11/24/22 Rx patch pain 1 week #2 ea dexamethasone 2 mg tablet 4 mg PO BIDM 11/08/22 11/24/22 History fluticasone furoate 100 1 puffs inhalation QAM 11/08/22 11/24/22 History mcg-vilanterol 25 mcg/dose inhalation powder (Breo Ellipta) fluticasone propionate 50 2 spray intranasal QAM 11/08/22 11/24/22 History mcg/actuation nasal spray,suspension hydromorphone 4 mg tablet 4 mg PO Q3H PRN Pain, Severe 11/08/22 11/24/22 History pazopanib 200 mg tablet (Votrient) 200 mg PO DAILY 11/08/22 11/24/22 History potassium chloride 20 mEq 20 meq PO QAM 11/08/22 11/24/22 History tablet,extended release valacyclovir 1 gram tablet 2,000 mg PO .BID/UD PRN .FLARES 11/08/22 11/24/22 History apixaban 5 mg tablet (Eliquis) 5 mg PO BID 11/24/22 11/24/22 History doxycycline hyclate 100 mg capsule 100 mg PO BID 11/24/22 11/24/22 History Patient History Medical History Asthma GERD (gastroesophageal reflux disease) Hepatic steatosis History of pulmonary embolism HTN (hypertension) DUY on CPAP 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 Grandmother (Maternal) , iat 91 old age No problems noted. Grandfather (Paternal) , in his eighties old age No problems noted. Father , age 66 of pancreatic cancer and metastasis No problems noted. Mother No problems noted. Brother Age: 54 No problems noted. Son Age: 35 Leukemia in remission Daughter Age: 35 No problems noted. Daughter Age: 23 No problems noted. Son Age: 20 No problems noted. Social History Smoking Status: Former smoker Hx Alcohol Use: No Hx Substance Use: No Preferred Language: Indonesian Communication Ability: Effective Explosives Worker Required: Yes Beliefs That Will Affect Care: None marital status: Current Living Situation: Spouse and Family current occupational status: employed Feels Safe at Home: Yes Childhood Exposure to Second-Hand Smoke: Yes caffeine: No Dental Care, Regularly: Yes Physical Activity Frequency: Does not Exercise Seatbelt Use: always Sunscreen Use: Yes Do you think of yourself as: straight/heterosexual Assistive Devices: Cane, CPAP and Walker Review of Systems Review of Systems: All systems reviewed & are unremarkable except as noted in HPI & below Results & Data ([facility]) Vital Signs (Past 12 Hours) Vital Signs Temp Pulse Pulse Resp BP Pulse Ox O2 Del Method 11/25/22 15:47 36.6 C 75 22 128/86 95 Nasal Cannula 11/25/22 11:12 36.5 C 100 H 26 H 138/97 96 Nasal Cannula 11/25/22 09:15 Nasal Cannula, CPAP 11/25/22 07:47 36.5 C 91 H 22 139/95 94 BiPAP O2 Flow Rate 11/25/22 15:47 4 11/25/22 11:12 4 11/25/22 09:15 4 11/25/22 07:47
[2022-11-25 18:03] LABS: Albumin Level 3.7 gm/dl (3.4-5.0); Bilirubin,Total 1.1 mg/dl (0.2-1.0); Total Protein 6.2 gm/dl (6.0-8.3)
[2022-11-25 18:08] LABS: Appearance Pleural Fluid Bloody; Color Pleural Fluid Red; Lymphocytes, Fluid 13 %; Mono,Macrophage,Mesothelial 8 %; Neutrophils, Fluid 79 %; RBC Pleural Fluid Auto 1043000 /uL; Source Pleural Fluid Right Lung; WBC Pleural Fluid Auto 1676 /uL
[2022-11-25 19:57] LABS: Estimated Average Glucose 160 mg/dl; Hemoglobin A1C 7.2 % (4.5-5.6)
[2022-11-25] MEDS: MIRTAZAPINE TAB 15 MG TAB PO SCH (20:11)
[2022-11-25 21:55] LABS: Partial Thromboplastin Ratio 1.7
[2022-11-25 22:05] LABS: Partial Thromboplastin Time 45.4 Seconds (21.0-31.0)
[2022-11-26] MEDS: CHECK fentaNYL PATCH PLACEMENT SCH ×3 (00:09→16:58)
[2022-11-26] MEDS: HYDROmorphone HCL 2 MG TAB PO SCH ×8 (04:48→23:14)
[2022-11-26] MEDS: PAZOPANIB HCL PO SCH (06:13)
[2022-11-26] MEDS: HEPARIN SODIUM/DEXTROSE 25,000 UNITS/500 ML BAG IV SCH ×2 (06:13→19:29)
[2022-11-26 06:58] LABS: Partial Thromboplastin Ratio 2.5
--- NOTE | 2022-11-26 07:35 | Pulmonology Progress Note ---
Date of Service November 26, 2022 Assessment & Plan (1) Shortness of breath: (2) Pleural effusion: (3) COVID-19: (4) Acute respiratory failure with hypoxia: (5) Synovial sarcoma: (6) Metastatic cancer: (7) Abnormal chest CT: Plan CT chest 11/08/2022 personally reviewed: Multiple pulmonary nodules appreciated bilaterally Patchy groundglass opacity in the right upper lobe Right sided pericardiac mediastinal mass 15 cm x 11 cm Small to moderate right-sided pleural effusion No significant mediastinal lymphadenopathy 2D echo 11/09/2022: EF 60-65%, RVSP 30-40 mmHg, RV mildly dilated, mild TR, moderate concentric LVH --Acute respiratory failure with hypoxia Likely secondary to right-sided pleural effusion with dependent atelectasis COVID-19 positive Influenza A/B negative -- Right pleural effusion Moderate to large Likely from underlying malignancy Never had thoracentesis done in the past Status post right-sided pigtail catheter placement 11/25/2022, bloody fluid, exudative as per lights criteria Pleural fluid: LDH 1106, protein 4.0, glucose 101, pH 7.32, 79% neutrophils, 1,043,000 RBCs 4 L of fluid removed so far. Patient likely has trapped lung as he is getting pain and taking more fluid out. 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 Clamp the tube once the patient starts to complain of chest discomfort. We will benefit from incentive spirometry We will consider repeating a CT chest in the next 24-48 hours Case discussed with Dr Barnhart and RN Please note the above document was generated using voice recognition software. It may contain grammatical, syntax or spelling errors.Any formal questions or concerns about the content, text or information contained within the body of this dictation should be directly addressed to the provider for clarification. Admission and Anticipated Discharge Date Admission Date: November 24, 2022 Subjective Patient seen and examined at bedside. No acute distress, no adverse events overnight. Patient was saturating 90% on room air. He feels much better Approximately 4 L of fluid has been removed from the right chest tube. He does complain of chest discomfort/tightness when more fluid is removed. No nausea vomiting Per appetite Has been using CPAP Review of Systems Review of Systems: All systems reviewed & are unremarkable except as noted in Subjective Physical Exam Physical Exam: Constitutional: No acute distress HEENT: EOMI, PERRLA Respiratory system: Decreased air entry on the right side, no wheeze, no rhonchi, positive crackles bilateral lower lobes CVS: S1-S2 positive, no murmurs or gallops Abdomen: Soft, nontender, nondistended, positive bowel sounds x4, obese Extremities: +2 pulses bilaterally radialis/ dorsalis pedis, no cyanosis, +1 pitting edema bilateral lower extremity Neuro: Awake alert oriented x3 Psych: Normal mood and affect G/U: No Hernández Skin: no rashes, warm and dry Lymphatic: no cervical or axillary lymphadenopathy Results & Data Results & Data ([facility]) Vital Signs (Past 12 Hours) Vital Signs Temp Pulse Pulse Resp BP Pulse Ox O2 Del Method 11/26/22 07:26 36.8 C 87 19 126/84 95 Room Air 11/26/22 03:30 36.6 C 77 20 111/78 93 CPAP 11/25/22 23:25 36.7 C 89 20 123/78 95 Nasal Cannula 11/25/22 20:00 Nasal Cannula 11/25/22 20:11 36.7 C 94 H 20 133/91 93 Nasal Cannula O2 Flow Rate 11/26/22 07:26 11/26/22 03:30 2 11/25/22 23:25 2 11/25/22 20:00 3 11/25/22 20:11 3 Laboratory Results 11/25/22 03:02 11/25/22 03:02 PG Care Time/CCT Total # of Minutes Spent Total Time Spent with Patient: Total time spent is greater than 50% in coordination of care (as documented) at patient's floor/unit and/or counseling patient: Coding Level of Care Code 36619 SUB INP/OBS CARE 3/50MIN Diagnoses Shortness of breath R06.02 Pleural effusion J90 COVID-19 U07.1 Acute respiratory failure with hypoxia J96.01 Synovial sarcoma C49.9 Metastatic cancer C79.[address] R93.89
[2022-11-26] MEDS: INSULIN ASPART PER UNIT SC SCH ×4 (08:35→20:54)
[2022-11-26] MEDS: carvediloL 6.25 MG TAB PO SCH ×2 (09:05→20:00)
[2022-11-26] MEDS: dexAMETHasone 4 MG TAB PO SCH (09:06)
[2022-11-26] MEDS: FLUTICASONE/VILANTEROL 100/25MCG 14 PUFFS/INHALER INH SCH (09:06)
[2022-11-26] MEDS: POTASSIUM CHLORIDE CRTAB 20 MEQ TABCR PO SCH (09:58)
[2022-11-26] MEDS: FAMOTIDINE 40 MG TABLET PO SCH (09:59)
[2022-11-26] MEDS: LOSARTAN POTASSIUM 50 MG TAB PO SCH (09:59)
[2022-11-26] MEDS: amLODIPine BESYLATE 5 MG TAB PO SCH (09:59)
[2022-11-26] MEDS: PANTOprazole 40 MG TAB PO SCH (09:59)
[2022-11-26] MEDS: MONTELUKAST SODIUM 10 MG TABLET PO SCH (10:00)
--- NOTE | 2022-11-26 11:36 | Hospitalist Progress Note ---
Date of Service November 26, 2022 Assessment & Plan (1) Acute respiratory failure with hypoxia: (2) Pleural effusion: (3) Synovial sarcoma: (4) Metastatic cancer: Plan: Patient presenting from home with reports of worsening shortness of breath. Recently admitted to [facility] for bilateral pulmonary embolism, currently on Eliquis. In the ED, patient was in respiratory distress, briefly placed on BiPAP, CXR shows large right pleural effusion. 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 CT angio chest done on November 08 at some significant enlargement of mediastinal masses along with increase in size of pleural patient noted and pulmonary nodules. Chest x-ray done today shows increase in the pleural effusion. CT abdomen and pelvis with IV contrast done as per recommendation by oncology; no acute intra abdominal or intrapelvic abnormality seen. No evidence of metastatic disease within the abdomen. Status post pigtail catheter placement on November 25. Initial pleural fluid analysis shows exudative pattern with high LDL(1106). Cytology is pending. Plan; -Management of chest tube as per pulmonology. Continue supplemental oxygen as needed to keep saturation above 92%. -Continue heparin drip for now. Transition to oral DOAC will depend on whether patient will need any further procedure. Currently on Votrient 200 mg daily and dexamethasone 4 mg daily as per oncology; oncology consulted for comanagement. As per the patient, plan from oncology was told to decrease the dexamethasone gradually. Currently he is on 4 mg once daily. Dilaudid 4 mg every 3-hour while patient is awake; also on fentanyl patch at home. IV Dilaudid as needed as per patient request due to pain at chest tube insertion site. (5) Abdominal distention: Plan: No abdominal pain, nausea, vomiting CT abdomen rule out any intra-abdominal pathology. US ascites revealed no acetic fluid. (6) COVID-19: Plan: Tested + for COVID 19 Shortness of breath likely due to large pleural effusion. . no covid 19 specific treatment indicated at this point. (7) Type 2 diabetes mellitus: (8) Hyperglycemia: Plan: No prior history of type 2 diabetes mellitus A1c is 7.2% Currently on insulin during the hospitalization (9) History of pulmonary embolism: Plan: Recently diagnosed during previous hospitalization On Eliquis at home On IV heparin presently. (10) HTN (hypertension): Plan: BP controlled, continue losartan, amlodipine, carvedilol (11) DUY on CPAP: Plan: DVT PROPHYLAXIS IV Heparin Admission and Anticipated Discharge Date Admission Date: November 24, 2022 Subjective Patient seen and examined at bedside. He reports significant improvement in his respiratory status after placement of the pigtail chest tube. Review of Systems Review of Systems: All systems reviewed & are unremarkable except as noted in Subjective Physical Exam Physical Exam: Constitutional: Awake, alert orient x3; morbidly obese. Not in any distress. Respiratory: Breath sound improved on right mid and lower lung; vesicular breath sound on left lung field; no crackles. Cardiovascular: RRR, no murmur, no edema Vessels: no JVD or carotid bruit Chest: normal inspection of chest.Port-A-Cath in place. Abdomen: Soft, slightly distended. Nontender. Musculoskeletal: no cyanosis or clubbing, extremities motor strength 5/5 Skin: no rashes, warm and dry normal turgor Neurologic: PERRL, EOMI, accommodation nl, no face palsy, no dysarthria CN's II- XI intact bilaterally and moves all extremities Psychiatric: A+Ox3, euthymic affect Lymphatic: no cervical or axillary lymphadenopathy : deferred Results & Data Results & Data ([facility]) Vital Signs (Past 12 Hours) Vital Signs Temp Pulse Pulse Pulse Resp BP Pulse Ox 11/26/22 07:30 81 11/26/22 07:30 11/26/22 08:00 95 H 20 123/86 92 11/26/22 07:26 36.8 C 87 19 126/84 95 11/26/22 03:30 36.6 C 77 20 111/78 93 O2 Del Method O2 Flow Rate 11/26/22 07:30 11/26/22 07:30 Room Air 11/26/22 08:00 Room Air 11/26/22 07:26 Room Air 11/26/22 03:30 CPAP 2 Laboratory Results Laboratory Results WBC 10.36 K/ul (4.8-10.8) 11/25/22 03:02 RBC 3.33 M/uL (4.70-6.10) L 11/25/22 03:02 Hgb 11.3 g/dl (14.0-18.0) L 11/25/22 03:02 Hct 33.0 % (42.0-52.0) L 11/25/22 03:02 MCV 99.1 fL (80.0-100.0) 11/25/22 03:02 MCH 33.9 pg (25.0-34.0) 11/25/22 03:02 MCHC 34.2 g/dL (32.0-36.0) 11/25/22 03:02 RDW Std Deviation 56.0 fL (36.4-46.3) H 11/25/22 03:02 RDW Coeff of Darrell 15.5 % (11.5-14.5) H 11/25/22 03:02 Plt Count 177 K/uL (130-400) 11/25/22 03:02 MPV 9.6 fL (9.4-12.4) 11/25/22 03:02 Immature Gran % (Auto) 3.4 % 11/24/22 12:23 Neut % (Auto) 80.5 % 11/24/22 12:23 Lymph % (Auto) 10.2 % 11/24/22 12:23 Bosque % (Auto) 5.6 % 11/24/22 12:23 Eos % (Auto) 0.0 % 11/24/22 12:23 Baso % (Auto) 0.3 % 11/24/22 12:23 Neut # (Auto) 8.59 K/uL (1.40-6.50) H 11/24/22 12:23 Lymph # (Auto) 1.09 K/uL (1.2-3.4) L 11/24/22 12:23 Bosque # (Auto) 0.60 K/uL (0.11-0.59) H 11/24/22 12:23 Eos # (Auto) 0.00 K/uL (0-0.50) 11/24/22 12:23 Baso # (Auto) 0.03 K/uL (0-0.2) 11/24/22 12:23 Immature Gran # (Auto) 0.36 K/uL (0.01-0.20) H 11/24/22 12:23 Absolute Nucleated RBC 0.02 K/uL (0-0.12) 11/25/22 03:02 Nucleated RBC % (auto) 0.2 % 11/25/22 03:02 APTT 68.0 Seconds (21.0-31.0) H* 11/26/22 05:47 PTT Ratio 2.5 11/26/22 05:47 VBG pH 7.44 (7.36-7.41) H 11/24/22 12:38 VBG pCO2 42 mmHg (38-50) 11/24/22 12:38 VBG pO2 37 mmHg 11/24/22 12:38 VBG HCO3 29 mmol/L 11/24/22 12:38 VBG O2 Saturation < 60.0 % 11/24/22 12:38 VBG Base Excess 3.9 mEq/L 11/24/22 12:38 Sodium 143 mmol/L (136-145) 11/25/22 03:02 Potassium 4.1 mmol/L (3.5-5.1) 11/25/22 03:02 Chloride 105 mmol/L (98-107) 11/25/22 03:02 Carbon Dioxide 28 mmol/L (21-32) 11/25/22 03:02 Anion Gap 10 (3-11) 11/25/22 03:02 BUN 25 mg/dl (6-23) H 11/25/22 03:02 Creatinine 0.50 mg/dl (0.6-1.4) L 11/25/22 03:02 Est Cr Clr Drug Dosing 214.2 ml/min 11/25/22 03:02 Est GFR ( Amer) 138.5 ml/min 11/25/22 03:02 Est GFR (Non-Af Amer) 119.5 ml/min 11/25/22 03:02 BUN/Creatinine Ratio 50.0 (10-20) H 11/25/22 03:02 Glucose 177 mg/dl (70-99(Fasting)) H 11/25/22 03:02 POC Glucose 108 mg/dl (70-99) H 11/26/22 07:41 Estimat Average Glucose 160 mg/dl 11/25/22 03:02 Hemoglobin A1c 7.2 % (4.5-5.6) H 11/25/22 03:02 Calcium 9.2 mg/dl (8.5-10.1) 11/25/22 03:02 Total Bilirubin 1.1 mg/dl (0.2-1.0) H 11/25/22 03:02 AST 19 U/L (13-39) 11/24/22 12:23 ALT 62 U/L (7-52) H 11/24/22 12:23 Alkaline Phosphatase 84 U/L (34-104) 11/24/22 12:23 Lactate Dehydrogenase 313 U/L (86-244) H 11/25/22 20:49 Troponin I High Sens 7.2 pg/ml (0-20) 11/24/22 12:23 Total Protein 6.2 gm/dl (6.0-8.3) 11/25/22 03:02 Albumin 3.7 gm/dl (3.4-5.0) 11/25/22 03:02 Globulin 2.7 gm/dl (2.5-4.0) 11/24/22 12:23 Albumin/Globulin Ratio 1.4 (0.9-2) 11/24/22 12:23 Lipase 18 U/L (11-82) 11/24/22 12:23 Fluid Neutrophils % 79 % 11/25/22 15:50 Fluid Lymphocytes % 13 % 11/25/22 15:50 Fluid Meso/Macro/Bosque % 8 % 11/25/22 15:50 Fluid Comment 11/25/22 15:50 Peritoneal LDH 1106 U/L 11/25/22 15:50 Peritoneal Glucose 101 mg/dl 11/25/22 15:50 Peritoneal Amylase 13 U/L 11/25/22 15:50 Pleural Fluid Source Right Lung 11/25/22 15:50 Pleural Color Red 11/25/22 15:50 Pleural Appearance Bloody 11/25/22 15:50 Pleural pH 7.32 (7.3-7.4) 11/25/22 15:50 Pleural WBC (Auto) 1676 /uL 11/25/22 15:50 Pleural RBC (Auto) 4782766 /uL 11/25/22 15:50 Pleural Total Protein 4.0 gm/dl 11/25/22 15:50 SARS-CoV-2 (PCR) POSITIVE (Negative) A* 11/24/22 12:25 Influenza Type A (PCR) Negative (Neg) 11/24/22 12:25 Influenza Type B (PCR) Negative (Neg) 11/24/22 12:25 RSV (RT-PCR) Negative (Neg) 11/24/22 12:25 Impressions Abdomen Ultrasound 11/24/22 14:53 ULTRASOUND ASCITES CHECK CLINICAL HISTORY: Abdominal distention. COMPARISON STUDY: Abdominal CT dated 09/02/2022. FINDINGS: Real-time grayscale sonography of all 4 quadrants of the abdomen is performed to assess for abdominal ascites. There is no sonographic evidence of abdominal ascites. Survey images of the liver show evidence of steatosis. IMPRESSION: No abdominal ascites is identified. Electronically signed by: Santos Gutiérrez M.D. 11/24/2022 5:26 PM Abdomen/Pelvis CT 11/25/22 07:[address] WITH IV CONTRAST CT DOSE: 1278.65 mGycm HISTORY: Acute cough with shortness of breath. History of sarcoma. hx synovial sarcoma TECHNIQUE: Multiaxial CT images of the abdomen and pelvis were performed following the IV administration of 86 cc of Optiray, A dose lowering technique was utilized adhering to the principles of ALARA. COMPARISON STUDY: Chest radiograph of same day, CTA chest 11/08/2022, CT abdomen and pelvis 09/02/2022. FINDINGS: Numerous enlarged masses in the right hemithorax, most of which are pleural-based are redemonstrated. Moderate malignant right pleural effusion has increased in size from prior. Partial collapse of the right lung. 4 mm solid nodule of the inferior segment lingula. No pneumatosis or pneumoperitoneum. Unremarkable spleen, mildly atrophic pancreas and adrenal glands. Mildly contracted gallbladder. Hepatic steatosis. Patency of the hepatic and portal veins. Mild nonspecific bilateral perinephric stranding. 3.3 cm intermediate density lesion of the superior pole left kidney is again noted, possibly a complex cyst. No hydronephrosis. Prostamegaly. Partial distention of the urinary bladder. Mild atherosclerosis of the aorta without aneurysm. No lymphadenopathy. No bowel obstruction or bowel wall thickening. Colonic diverticulosis. Moderate colonic fecal retention. Noninflamed appendix. No ascites or mesenteric inflammation. Tiny fat filled umbilical hernia. Degenerative changes of the spine, pelvis and right hip. Left hip arthroplasty. Subcutaneous nodules in the left gluteal tissues suggestive of injection granulomas. IMPRESSION: 1. Metastatic disease of the right hemithorax is redemonstrated with moderate malignant pleural effusion, increased in size from prior. 2. No acute intra-abdominal or intrapelvic abnormality. 3. Hepatic steatosis. 4. No evidence of metastatic disease within the abdomen. 5. Additional findings as above. ACT 112: Negative or not required by law. The above report was generated using voice recognition software. It may contain grammatical, syntax or spelling errors. Electronically signed by: Beau Vickers M.D. 11/25/2022 1:56 PM
[2022-11-26] MEDS: HYDROmorphone INJ 0.5 MG/0.5 ML SYR IV PRN ×2 (12:00→16:58)
--- NOTE | 2022-11-26 14:19 | XRay Report ---
XR chest 1V portable HISTORY: Right-sided chest tube. Follow-up. COMPARISON: Chest 11/25/2022. FINDINGS: No change in position of the right basilar pleural catheter. The moderate right pleural eff usion has decreased in size. No pneumothorax. Multiple right-sided lung masses are again noted. A few left pulmonary nodules remain unchanged consistent with metastatic disease. The heart remains mildly enlarged. A right jugular Port-A-Cath terminates at the distal SVC. IMPRESSION: 1. Decreased in size in the moderate right pleural effusion. The right basilar chest tube is unchange d in position. 2. No pneumothorax. 3. Pulmonary metastatic disease again noted. ACT 112: Negative or not required by law. Electronically signed by: Winston Sepulveda M.D. 11/26/2022 2:16 PM
[2022-11-26 14:28] LABS: Partial Thromboplastin Ratio 2.4
[2022-11-26 14:31] LABS: Partial Thromboplastin Time 66.4 Seconds (21.0-31.0)
[2022-11-26] MEDS: MIRTAZAPINE TAB 15 MG TAB PO SCH (20:00)
[2022-11-27] MEDS: HYDROmorphone INJ 0.5 MG/0.5 ML SYR IV PRN ×4 (00:09→19:27)
[2022-11-27] MEDS: CHECK fentaNYL PATCH PLACEMENT SCH ×3 (00:26→17:04)
[2022-11-27] MEDS: HYDROmorphone HCL 2 MG TAB PO SCH ×8 (02:00→23:02)
[2022-11-27] MEDS: PAZOPANIB HCL PO SCH (05:40)
[2022-11-27 06:42] LABS: Hematocrit (blood only) 33.1 % (42.0-52.0); Mean Corpuscular Hemoglobin 33.6 pg (25.0-34.0); Mean Corpuscular Hgb Conc 33.2 g/dL (32.0-36.0); Mean Corpuscular Volume 101.2 fL (80.0-100.0); Mean Platelet Volume 9.9 fL (9.4-12.4); Nucleated RBC # (auto) 0.07 K/uL (0-0.12); Nucleated RBC % (auto) 0.6 %; Platelet Count 196 K/uL (130-400); RDW Coefficient of Variation 15.8 % (11.5-14.5); RDW Standard Deviation 57.9 fL (36.4-46.3); Red Blood Count 3.27 M/uL (4.70-6.10); White Blood Count 11.34 K/ul (4.8-10.8)
[2022-11-27 06:55] LABS: BUN Creatinine Ratio 36.2 (10-20); Creatinine Clr Calc Pharmacy 174.6 ml/min; Est GFR (African American) 130.3 ml/min; Est GFR (Non-African American) 112.4 ml/min; Potassium 4.2 mmol/L (3.5-5.1)
[2022-11-27 07:07] LABS: Basophils # (auto) 0.03 K/uL (0-0.2); Basophils % (auto) 0.3 %; Immature Granulocytes # (auto) 0.64 K/uL (0.01-0.20); Immature Granulocytes % (auto) 5.6 %; Lymphocytes # (auto) 1.85 K/uL (1.2-3.4); Lymphocytes % (auto) 16.3 %; Monocytes # (auto) 0.89 K/uL (0.11-0.59); Monocytes % (auto) 7.8 %; Neutrophils # (auto) 7.93 K/uL (1.40-6.50); Tear Drop Cells 1+
[2022-11-27 07:54] LABS: Partial Thromboplastin Ratio 2.8
[2022-11-27 08:16] LABS: Partial Thromboplastin Time 77.5 Seconds (21.0-31.0)
--- NOTE | 2022-11-27 08:22 | XRay Report ---
XR chest 1V portable HISTORY: Follow-up right pleural effusion. COMPARISON: Chest 11/26/2022. FINDINGS: Persistent moderate right pleural effusion. The right basilar chest tube is unchanged in po sition. No pneumothorax. Right perihilar mass and scattered pulmonary nodules are again noted. Right jugular Port-A-Cath runs at the SVC. The heart is stable in size. IMPRESSION: No change in the moderate right pleural effusion and right basilar chest tube. Pulmonary metastatic d isease/mass is again noted. ACT 112: Negative or not required by law. Electronically signed by: Winston Sepulveda M.D. 11/27/2022 8:21 AM
[2022-11-27] MEDS: INSULIN ASPART PER UNIT SC SCH ×4 (08:35→20:32)
[2022-11-27] MEDS: carvediloL 6.25 MG TAB PO SCH ×2 (08:46→21:00)
[2022-11-27] MEDS: FAMOTIDINE 40 MG TABLET PO SCH (08:47)
[2022-11-27] MEDS: dexAMETHasone 4 MG TAB PO SCH (08:47)
[2022-11-27] MEDS: amLODIPine BESYLATE 5 MG TAB PO SCH (08:47)
[2022-11-27] MEDS: LOSARTAN POTASSIUM 50 MG TAB PO SCH (08:47)
[2022-11-27] MEDS: PANTOprazole 40 MG TAB PO SCH (08:47)
[2022-11-27] MEDS: MONTELUKAST SODIUM 10 MG TABLET PO SCH (08:47)
[2022-11-27] MEDS: FLUTICASONE/VILANTEROL 100/25MCG 14 PUFFS/INHALER INH SCH (08:47)
[2022-11-27] MEDS: POTASSIUM CHLORIDE CRTAB 20 MEQ TABCR PO SCH (08:51)
[2022-11-27] MEDS: HEPARIN SODIUM/DEXTROSE 25,000 UNITS/500 ML BAG IV SCH ×2 (09:34→23:13)
--- NOTE | 2022-11-27 10:46 | Pulmonology Progress Note ---
Date of Service November 27, 2022 Assessment & Plan (1) Shortness of breath: (2) Pleural effusion: (3) COVID-19: (4) Acute respiratory failure with hypoxia: (5) Synovial sarcoma: (6) Metastatic cancer: (7) Abnormal chest CT: Plan CT chest 11/08/2022 personally reviewed: Multiple pulmonary nodules appreciated bilaterally Patchy groundglass opacity in the right upper lobe Right sided pericardiac mediastinal mass 15 cm x 11 cm Small to moderate right-sided pleural effusion No significant mediastinal lymphadenopathy 2D echo 11/09/2022: EF 60-65%, RVSP 30-40 mmHg, RV mildly dilated, mild TR, moderate concentric LVH --Acute respiratory failure with hypoxia Likely secondary to right-sided pleural effusion with dependent atelectasis COVID-19 positive Influenza A/B negative -- Right pleural effusion Moderate to large Likely from underlying malignancy Never had thoracentesis done in the past Status post right-sided pigtail catheter placement 11/25/2022, bloody fluid, exudative as per lights criteria Pleural fluid: LDH 1106, protein 4.0, glucose 101, pH 7.32, 79% neutrophils, 1,043,000 RBCs 4.5 L of fluid removed so far. Patient likely has trapped lung as he is getting pain and taking more fluid out. 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 The chest tube was also drained with saline to make sure it is now clotted. We will order CT chest without contrast to look at the right-sided pleural effusion. Cytology of the pleural fluid from 11/26/2022 is negative. It stated '' the cellblock did not survive processing''. I will again send the pleural fluid for cytology Case discussed with RN at bedside and Dr Barnhart Please note the above document was generated using voice recognition software. It may contain grammatical, syntax or spelling errors.Any formal questions or concerns about the content, text or information contained within the body of this dictation should be directly addressed to the provider for clarification. Admission and Anticipated Discharge Date Admission Date: November 24, 2022 Subjective Patient seen and examined at bedside. No acute distress, notable symptoms overnight He says his breathing is better. Denies any pain at the site of the chest tube No chest pain, no chest tightness, no wheezing, no diaphoresis Shortness of breath is significantly improved. For appetite. Review of Systems Review of Systems: All systems reviewed & are unremarkable except as noted in Subjective Physical Exam Physical Exam: Constitutional: No acute distress HEENT: EOMI, PERRLA Respiratory system: Decreased air entry on the right side, no wheeze, no rhonchi, positive crackles bilateral lower lobes CVS: S1-S2 positive, no murmurs or gallops Abdomen: Soft, nontender, nondistended, positive bowel sounds x4, obese Extremities: +2 pulses bilaterally radialis/ dorsalis pedis, no cyanosis, +1 p itting edema bilateral lower extremity Neuro: Awake alert oriented x3 Psych: Normal mood and affect G/U: No Hernández Skin: no rashes, warm and dry Lymphatic: no cervical or axillary lymphadenopathy Results & Data Results & Data ([facility]) Vital Signs (Past 12 Hours) Vital Signs Temp Pulse Pulse Pulse Resp BP Pulse Ox 11/27/22 07:48 36.8 C 93 H 18 127/90 92 11/27/22 03:14 36.3 C L 84 22 119/84 93 11/26/22 23:51 82 11/26/22 23:00 36.6 C 76 24 108/77 91 O2 Del Method 11/27/22 07:48 Room Air 11/27/22 03:14 Room Air 11/26/22 23:51 11/26/22 23:00 Room Air Laboratory Results 11/27/22 06:17 11/27/22 06:17 PG Care Time/CCT Total # of Minutes Spent Total Time Spent with Patient: Total time spent is greater than 50% in coordination of care (as documented) at patient's floor/unit and/or counseling patient: Coding Level of Care Code 94048 SUB INP/OBS CARE 3/50MIN Diagnoses Shortness of breath R06.02 Pleural effusion J90 COVID-19 U07.1 Acute respiratory failure with hypoxia J96.01 Synovial sarcoma C49.9 Metastatic cancer C79.[address] R93.89
--- NOTE | 2022-11-27 11:35 | Hospitalist Progress Note ---
Date of Service November 27, 2022 Assessment & Plan (1) Acute respiratory failure with hypoxia: (2) Pleural effusion: (3) Synovial sarcoma: (4) Metastatic cancer: Plan: Patient presenting from home with reports of worsening shortness of breath. Recently admitted to [facility] for bilateral pulmonary embolism, currently on Eliquis. In the ED, patient was in respiratory distress, briefly placed on BiPAP, CXR shows large right pleural effusion. 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 CT angio chest done on November 08 at some significant enlargement of mediastinal masses along with increase in size of pleural nodules and pulmonary nodules. Chest x-ray done today shows increase in the pleural effusion. CT abdomen and pelvis with IV contrast done as per recommendation by oncology; no acute intra abdominal or intrapelvic abnormality seen. No evidence of metastatic disease within the abdomen. Status post pigtail catheter placement on November 25. Initial pleural fluid analysis shows exudative pattern with high LDL(1106). Cytology Negative for malignancy ( Comment: The cell block did not survive processing.) Plan; -Management of chest tube as per pulmonology. Connected to suction today. Will have CT chest without contrast today. Continue supplemental oxygen as needed to keep saturation above 92%. -Continue heparin drip for now. Transition to oral DOAC will depend on whether patient will need any further procedure. Currently on Votrient 200 mg daily and dexamethasone 4 mg daily as per oncology; oncology consulted for comanagement. As per the patient, plan from oncology was told to decrease the dexamethasone gradually. Currently he is on 4 mg once daily. Dilaudid 4 mg every 3-hour while patient is awake; also on fentanyl patch at home. IV Dilaudid as needed as per patient request due to pain at chest tube insertion site. (5) Abdominal distention: Plan: No abdominal pain, nausea, vomiting CT abdomen rule out any intra-abdominal pathology. US ascites revealed no acetic fluid. (6) COVID-19: Plan: Tested + for COVID 19 Shortness of breath likely due to large pleural effusion. . no covid 19 specific treatment indicated at this point. (7) Type 2 diabetes mellitus: (8) Hyperglycemia: Plan: No prior history of type 2 diabetes mellitus A1c is 7.2% Currently on insulin during the hospitalization Has been on steroid for the last 3 months which may have resulted in persistent hyperglycemia Patient's steroid currently being tapered off. Discuss about treatment options; (9) History of pulmonary embolism: Plan: Recently diagnosed during previous hospitalization On Eliquis at home On IV heparin presently. (10) HTN (hypertension): Plan: BP controlled, continue losartan, amlodipine, carvedilol (11) DUY on CPAP: Plan: DVT PROPHYLAXIS IV Heparin Admission and Anticipated Discharge Date Admission Date: November 24, 2022 Subjective Patient seen and examined at bedside. He reports that his breathing has continued to improve. Chest tube with 4.5 L of output since placement. No overnight events Review of Systems Review of Systems: All systems reviewed & are unremarkable except as noted in Subjective Physical Exam Physical Exam: Constitutional: Awake, alert orient x3; morbidly obese. Not in any distress. Respiratory: Breath sound improved on right upper lung field; decreased breath sounds at mid and lower lung; vesicular breath sound on left lung field; no crackles. Cardiovascular: RRR, no murmur, no edema Vessels: no JVD or carotid bruit Chest: normal inspection of chest.Port-A-Cath in place. Abdomen: Soft, slightly distended. Nontender. Musculoskeletal: no cyanosis or clubbing, extremities motor strength 5/5 Skin: no rashes, warm and dry normal turgor Neurologic: PERRL, EOMI, accommodation nl, no face palsy, no dysarthria CN's II- XI intact bilaterally and moves all extremities Psychiatric: A+Ox3, euthymic affect Lymphatic: no cervical or axillary lymphadenopathy : deferred Results & Data Results & Data ([facility]) Vital Signs (Past 12 Hours) Vital Signs Temp Pulse Pulse Resp BP Pulse Ox O2 Del Method 11/27/22 11:23 36.7 C 113 H 24 133/80 92 Room Air 11/27/22 06:00 92 H 11/27/22 07:48 36.8 C 93 H 18 127/90 92 Room Air 11/27/22 03:14 36.3 C L 84 22 119/84 93 Room Air 11/26/22 23:51 82 Laboratory Results Laboratory Results WBC 11.34 K/ul (4.8-10.8) H 11/27/22 06:17 RBC 3.27 M/uL (4.70-6.10) L 11/27/22 06:17 Hgb 11.0 g/dl (14.0-18.0) L 11/27/22 06:17 Hct 33.1 % (42.0-52.0) L 11/27/22 06:17 MCV 101.2 fL (80.0-100.0) H 11/27/22 06:17 MCH 33.6 pg (25.0-34.0) 11/27/22 06:17 MCHC 33.2 g/dL (32.0-36.0) 11/27/22 06:17 RDW Std Deviation 57.9 fL (36.4-46.3) H 11/27/22 06:17 RDW Coeff of Darrell 15.8 % (11.5-14.5) H 11/27/22 06:17 Plt Count 196 K/uL (130-400) 11/27/22 06:17 MPV 9.9 fL (9.4-12.4) 11/27/22 06:17 Immature Gran % (Auto) 5.6 % 11/27/22 06:17 Neut % (Auto) 70.0 % 11/27/22 06:17 Lymph % (Auto) 16.3 % 11/27/22 06:17 Fajardo % (Auto) 7.8 % 11/27/22 06:17 Eos % (Auto) 0.0 % 11/27/22 06:17 Baso % (Auto) 0.3 % 11/27/22 06:17 Neut # (Auto) 7.93 K/uL (1.40-6.50) H 11/27/22 06:17 Lymph # (Auto) 1.85 K/uL (1.2-3.4) 11/27/22 06:17 Fajardo # (Auto) 0.89 K/uL (0.11-0.59) H 11/27/22 06:17 Eos # (Auto) 0.00 K/uL (0-0.50) 11/27/22 06:17 Baso # (Auto) 0.03 K/uL (0-0.2) 11/27/22 06:17 Immature Gran # (Auto) 0.64 K/uL (0.01-0.20) H 11/27/22 06:17 Absolute Nucleated RBC 0.07 K/uL (0-0.12) 11/27/22 06:17 Nucleated RBC % (auto) 0.6 % 11/27/22 06:17 Tear Drop Cells 1+ 11/27/22 06:17 APTT 77.5 Seconds (21.0-31.0) H* 11/27/22 06:17 PTT Ratio 2.8 11/27/22 06:17 VBG pH 7.44 (7.36-7.41) H 11/24/22 12:38 VBG pCO2 42 mmHg (38-50) 11/24/22 12:38 VBG pO2 37 mmHg 11/24/22 12:38 VBG HCO3 29 mmol/L 11/24/22 12:38 VBG O2 Saturation < 60.0 % 11/24/22 12:38 VBG Base Excess 3.9 mEq/L 11/24/22 12:38 Sodium 140 mmol/L (136-145) 11/27/22 06:17 Potassium 4.2 mmol/L (3.5-5.1) 11/27/22 06:17 Chloride 101 mmol/L (98-107) 11/27/22 06:17 Carbon Dioxide 29 mmol/L (21-32) 11/27/22 06:17 Anion Gap 10 (3-11) 11/27/22 06:17 BUN 21 mg/dl (6-23) 11/27/22 06:17 Creatinine 0.58 mg/dl (0.6-1.4) L 11/27/22 06:17 Est Cr Clr Drug Dosing 174.6 ml/min 11/27/22 06:17 Est GFR ( Amer) 130.3 ml/min 11/27/22 06:17 Est GFR (Non-Af Amer) 112.4 ml/min 11/27/22 06:17 BUN/Creatinine Ratio 36.2 (10-20) H 11/27/22 06:17 Glucose 140 mg/dl (70-99(Fasting)) H 11/27/22 06:17 POC Glucose 152 mg/dl (70-99) H 11/27/22 11:26 Estimat Average Glucose 160 mg/dl 11/25/22 03:02 Hemoglobin A1c 7.2 % (4.5-5.6) H 11/25/22 03:02 Calcium 9.0 mg/dl (8.5-10.1) 11/27/22 06:17 Total Bilirubin 1.1 mg/dl (0.2-1.0) H 11/25/22 03:02 AST 19 U/L (13-39) 11/24/22 12:23 ALT 62 U/L (7-52) H 11/24/22 12:23 Alkaline Phosphatase 84 U/L (34-104) 11/24/22 12:23 Lactate Dehydrogenase 313 U/L (86-244) H 11/25/22 20:49 Troponin I High Sens 7.2 pg/ml (0-20) 11/24/22 12:23 Total Protein 6.2 gm/dl (6.0-8.3) 11/25/22 03:02 Albumin 3.7 gm/dl (3.4-5.0) 11/25/22 03:02 Globulin 2.7 gm/dl (2.5-4.0) 11/24/22 12:23 Albumin/Globulin Ratio 1.4 (0.9-2) 11/24/22 12:23 Lipase 18 U/L (11-82) 11/24/22 12:23 Fluid Neutrophils % 79 % 11/25/22 15:50 Fluid Lymphocytes % 13 % 11/25/22 15:50 Fluid Meso/Macro/Fajardo % 8 % 11/25/22 15:50 Fluid Comment 11/25/22 15:50 Peritoneal LDH 1106 U/L 11/25/22 15:50 Peritoneal Glucose 101 mg/dl 11/25/22 15:50 Peritoneal Amylase 13 U/L 11/25/22 15:50 Pleural Fluid Source Right Lung 11/25/22 15:50 Pleural Color Red 11/25/22 15:50 Pleural Appearance Bloody 11/25/22 15:50 Pleural pH 7.32 (7.3-7.4) 11/25/22 15:50 Pleural WBC (Auto) 1676 /uL 11/25/22 15:50 Pleural RBC (Auto) 8939805 /uL 11/25/22 15:50 Pleural Total Protein 4.0 gm/dl 11/25/22 15:50 SARS-CoV-2 (PCR) POSITIVE (Negative) A* 11/24/22 12:25 Influenza Type A (PCR) Negative (Neg) 11/24/22 12:25 Influenza Type B (PCR) Negative (Neg) 11/24/22 12:25 RSV (RT-PCR) Negative (Neg) 11/24/22 12:25 Impressions Abdomen Ultrasound 11/24/22 14:53 ULTRASOUND ASCITES CHECK CLINICAL HISTORY: Abdominal distention. COMPARISON STUDY: Abdominal CT dated 09/02/2022. FINDINGS: Real-time grayscale sonography of all 4 quadrants of the abdomen is performed to assess for abdominal ascites. There is no sonographic evidence of abdominal ascites. Survey images of the liver show evidence of steatosis. IMPRESSION: No abdominal ascites is identified. Electronically signed by: Santos Gutiérrez M.D. 11/24/2022 5:26 PM Abdomen/Pelvis CT 11/25/22 07:[address] WITH IV CONTRAST CT DOSE: 1278.65 mGycm HISTORY: Acute cough with shortness of breath. History of sarcoma. hx synovial sarcoma TECHNIQUE: Multiaxial CT images of the abdomen and pelvis were performed following the IV administration of 86 cc of Optiray, A dose lowering technique was utilized adhering to the principles of ALARA. COMPARISON STUDY: Chest radiograph of same day, CTA chest 11/08/2022, CT abdomen and pelvis 09/02/2022. FINDINGS: Numerous enlarged masses in the right hemithorax, most of which are pleural-based are redemonstrated. Moderate malignant right pleural effusion has increased in size from prior. Partial collapse of the right lung. 4 mm solid nodule of the inferior segment lingula. No pneumatosis or pneumoperitoneum. Unremarkable spleen, mildly atrophic pancreas and adrenal glands. Mildly contracted gallbladder. Hepatic steatosis. Patency of the hepatic and portal veins. Mild nonspecific bilateral perinephric stranding. 3.3 cm intermediate density lesion of the superior pole left kidney is again noted, possibly a complex cyst. No hydronephrosis. Prostamegaly. Partial distention of the urinary bladder. Mild atherosclerosis of the aorta without aneurysm. No lymphadenopathy. No bowel obstruction or bowel wall thickening. Colonic diverticulosis. Moderate colonic fecal retention. Noninflamed appendix. No ascites or mesenteric inflammation. Tiny fat filled umbilical hernia. Degenerative changes of the spin e, pelvis and right hip. Left hip arthroplasty. Subcutaneous nodules in the left gluteal tissues suggestive of injection granulomas. IMPRESSION: 1. Metastatic disease of the right hemithorax is redemonstrated with moderate malignant pleural effusion, increased in size from prior. 2. No acute intra-abdominal or intrapelvic abnormality. 3. Hepatic steatosis. 4. No evidence of metastatic disease within the abdomen. 5. Additional findings as above. ACT 112: Negative or not required by law. The above report was generated using voice recognition software. It may contain grammatical, syntax or spelling errors. Electronically signed by: Beau Vickers M.D. 11/25/2022 1:56 PM Chest X-Ray 11/27/22 07:00 XR chest 1V portable HISTORY: Follow-up right pleural effusion. COMPARISON: Chest 11/26/2022. FINDINGS: Persistent moderate right pleural effusion. The right basilar chest tube is unchanged in position. No pneumothorax. Right perihilar mass and scattered pulmonary nodules are again noted. Right jugular Port-A-Cath runs at the SVC. The heart is stable in size. IMPRESSION: No change in the moderate right pleural effusion and right basilar chest tube. Pulmonary metastatic disease/mass is again noted. ACT 112: Negative or not required by law. Electronically signed by: Winston Sepulveda M.D. 11/27/2022 8:21 AM
--- NOTE | 2022-11-27 14:05 | CT Scan Report ---
CT OF THE CHEST WITHOUT IV CONTRAST CLINICAL HISTORY: Follow-up pleural effusion. Metastatic synovial sarcoma. COMPARISON STUDY: Chest radiograph performed earlier today. Chest CT November 08, 2022. CT of the abdo men and pelvis November 25, 2022. CT DOSE: 745.88 mGycm TECHNIQUE: Axial images of the chest were obtained without IV contrast. Images were reviewed in the axial, sagittal, and coronal planes. IV contrast was not administered for this examination. Automat ed exposure control was utilized for the study. A dose lowering technique was utilized adhering to t he principles of ALARA. FINDINGS: Right internal jugular [id number]-Rsdb is in place. Size of the heart is normal. There is a trace pericardial effusion. Interval placement of a right basilar pleural pigtail catheter is noted. The right pleural effusion has significantly decreased in size since abdominal CT of November 25, 2022 . There is a small residual right hydropneumothorax. Diminished right lung aeration is again noted. N umerous pleural metastases within the right hemithorax are again noted. Several pulmonary metastases are again noted, including a 1.9 cm left upper lobe lesion. A right upper mediastinal implant measure s 6.5 cm. Dominant additional implant along the right aspect of the mediastinum measures 10.9 cm in t ransverse dimension. These metastatic deposits are suboptimally assessed on this unenhanced examinati on. There is no left-sided pleural effusion. Hepatic steatosis is noted. There is a 3.1 cm lesion wit hin the upper pole of the left kidney which measures above water attenuation. IMPRESSION: 1. Interval placement of a right pleural pigtail catheter with significant decrease in size of the ri ght pleural effusion. Small residual multiloculated hydropneumothorax. 2. Redemonstration of extensive metastatic disease primarily within the right hemithorax, as describe d above. This is suboptimally assessed on this unenhanced exam. ACT 112: Negative or not required by law. Electronically signed by: Marquis Lu M.D. 11/27/2022 2:03 PM
[2022-11-27 15:23] LABS: Partial Thromboplastin Ratio > 5.1
[2022-11-27 15:39] LABS: Partial Thromboplastin Time > 139.0 Seconds (21.0-31.0)
[2022-11-27 17:11] LABS: Partial Thromboplastin Time 55.7 Seconds (21.0-31.0)
[2022-11-27] MEDS: fentaNYL 50 MCG/HR TDSY TD SCH (17:16)
[2022-11-27] MEDS: FLUTICASONE PROPIONATE NA SPR 16 GM BTL SCH (17:16)
[2022-11-27] MEDS: MIRTAZAPINE TAB 15 MG TAB PO SCH (20:59)
[2022-11-28] MEDS: CHECK fentaNYL PATCH PLACEMENT SCH ×3 (00:31→15:32)
[2022-11-28] MEDS: HYDROmorphone HCL 2 MG TAB PO SCH ×9 (04:54→23:08)
[2022-11-28] MEDS: HYDROmorphone INJ 0.5 MG/0.5 ML SYR IV PRN ×3 (05:04→19:24)
[2022-11-28] MEDS: HEPARIN SODIUM/DEXTROSE 25,000 UNITS/500 ML BAG IV SCH ×2 (05:37→20:28)
[2022-11-28] MEDS: PAZOPANIB HCL PO SCH (06:27)
[2022-11-28 06:59] LABS: Hematocrit (blood only) 29.1 % (42.0-52.0); Hemoglobin 9.8 g/dl (14.0-18.0); Mean Corpuscular Hemoglobin 33.8 pg (25.0-34.0); Mean Corpuscular Hgb Conc 33.7 g/dL (32.0-36.0); Mean Corpuscular Volume 100.3 fL (80.0-100.0); Mean Platelet Volume 10.3 fL (9.4-12.4); Nucleated RBC # (auto) 0.19 K/uL (0-0.12); Nucleated RBC % (auto) 1.4 %; Platelet Count 223 K/uL (130-400); RDW Standard Deviation 58.5 fL (36.4-46.3); White Blood Count 13.32 K/ul (4.8-10.8)
[2022-11-28 07:16] LABS: Albumin Globulin Ratio 1.3 (0.9-2); Albumin Level 3.4 gm/dl (3.4-5.0); BUN Creatinine Ratio 38.7 (10-20); Bilirubin,Total 1.1 mg/dl (0.2-1.0); Calcium 8.7 mg/dl (8.5-10.1); Creatinine Clr Calc Pharmacy 138.3 ml/min; Est GFR (African American) 117.2 ml/min; Est GFR (Non-African American) 101.1 ml/min; Globulin 2.7 gm/dl (2.5-4.0); Total Protein 6.1 gm/dl (6.0-8.3)
[2022-11-28 07:18] LABS: Partial Thromboplastin Ratio 2.8
[2022-11-28 07:30] LABS: Basophils # (auto) 0.04 K/uL (0-0.2); Basophils % (auto) 0.3 %; Immature Granulocytes # (auto) 0.83 K/uL (0.01-0.20); Immature Granulocytes % (auto) 6.2 %; Lymphocytes # (auto) 2.01 K/uL (1.2-3.4); Lymphocytes % (auto) 15.1 %; Monocytes # (auto) 1.16 K/uL (0.11-0.59); Monocytes % (auto) 8.7 %; Neutrophils # (auto) 9.28 K/uL (1.40-6.50); Neutrophils % (auto) 69.7 %; Polychromasia 1+; Tear Drop Cells 1+
--- NOTE | 2022-11-28 08:19 | XRay Report ---
XR chest 1V portable CLINICAL HISTORY: f/u COMPARISON STUDY: Chest radiograph and chest CT November 27, 2022. FINDINGS: Right internal jugular Wbertk-d-Gyuf is in place. Aeration of the right lung has diminished . This is likely due to a combination of pleural metastases and increase right pleural fluid. Right b asilar pleural catheter is in place. There is no pneumothorax. Cardiomediastinal silhouette is stable with stable mediastinal widening. Left upper lobe nodule is again noted. IMPRESSION: 1. Decrease in right lung aeration with suspected increase in a right pleural effusion. This could be due to increase in a hemothorax shown on recent chest CT and could be correlated with H&H. Findings discussed with Dr. Recio at time of dictation. 2. Right basilar pleural catheter in place. No pneumothorax. ACT 112: Negative or not required by law. Electronically signed by: Marquis Lu M.D. 11/28/2022 8:18 AM
[2022-11-28] MEDS: INSULIN ASPART PER UNIT SC SCH ×4 (08:47→20:31)
[2022-11-28] MEDS: POTASSIUM CHLORIDE CRTAB 20 MEQ TABCR PO SCH (08:51)
[2022-11-28] MEDS: FLUTICASONE/VILANTEROL 100/25MCG 14 PUFFS/INHALER INH SCH (08:52)
[2022-11-28] MEDS: FLUTICASONE PROPIONATE NA SPR 16 GM BTL SCH (08:52)
[2022-11-28] MEDS: FAMOTIDINE 40 MG TABLET PO SCH (08:53)
[2022-11-28] MEDS: dexAMETHasone 4 MG TAB PO SCH (08:53)
[2022-11-28] MEDS: MONTELUKAST SODIUM 10 MG TABLET PO SCH (08:53)
[2022-11-28] MEDS: PANTOprazole 40 MG TAB PO SCH (08:53)
[2022-11-28] MEDS: LOSARTAN POTASSIUM 50 MG TAB PO SCH (08:54)
[2022-11-28] MEDS: amLODIPine BESYLATE 5 MG TAB PO SCH (08:54)
--- NOTE | 2022-11-28 10:22 | Ultrasound Report ---
BILATERAL LOWER EXTREMITY VENOUS DOPPLER CLINICAL HISTORY: r/o DVT, B/l COMPARISON STUDY: No previous studies for comparison. TECHNIQUE: Sonography of the deep venous system of the bilateral lower extremities was performed. Co mpression and augmentation were evaluated. FINDINGS: There is no deep venous thrombus within the right lower extremity. There is deep venous thr ombus within one of 2 duplicated left superficial femoral veins. No additional sites of deep venous t hrombus are present. IMPRESSION: Deep venous thrombus within the left superficial femoral vein. ACT 112: Negative or not required by law. Electronically signed by: Marquis Lu M.D. 11/28/2022 10:21 AM
--- NOTE | 2022-11-28 11:10 | Pulmonology Progress Note ---
Date of Service November 28, 2022 Assessment & Plan (1) Shortness of breath: (2) Pleural effusion: (3) COVID-19: (4) Acute respiratory failure with hypoxia: (5) Synovial sarcoma: (6) Metastatic cancer: (7) Abnormal chest CT: Plan CT chest 11/08/2022 personally reviewed: Multiple pulmonary nodules appreciated bilaterally Patchy groundglass opacity in the right upper lobe Right sided pericardiac mediastinal mass 15 cm x 11 cm Small to moderate right-sided pleural effusion No significant mediastinal lymphadenopathy CT chest 11/27/2022 personally reviewed: Significant pleural mets on the right side along with mediastinal mass appreciated Effusion has significantly improved in size, patchy groundglass opacity in the right upper lobe persist 2D echo 11/09/2022: EF 60-65%, RVSP 30-40 mmHg, RV mildly dilated, mild TR, moderate concentric LVH --Acute respiratory failure with hypoxia Likely secondary to right-sided pleural effusion with dependent atelectasis COVID-19 positive Influenza A/B negative --Hemorrhagic right pleural effusion Moderate to large Likely from underlying malignancy Never had thoracentesis done in the past Status post right-sided pigtail catheter placement 11/25/2022, bloody fluid, exudative as per lights criteria Pleural fluid: LDH 1106, protein 4.0, glucose 101, pH 7.32, 79% neutrophils, 1,043,000 RBCs 4.5 L of fluid removed so far. Patient likely has trapped lung as he is getting pain and taking more fluid out. 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 I again confirmed that the chest tube is not clotted. It is working well. Repeat chest x-ray at 12 PM today with good inspiratory effort. Repeat H&H at noon as well. If the still drop in hemoglobin then I would recommend to hold the heparin drip. We need to keep in mind that patient did have recent PE and he also has a clot in his left lower extremity Consideration to IVC filter if you are not able to anticoagulate him should be made. Continue with chest tube to suction at -20 mm Hg for the time being Case discussed with RN at bedside and Dr Barnhart Please note the above document was generated using voice recognition software. It may contain grammatical, syntax or spelling errors.Any formal questions or concerns about the content, text or information contained within the body of this dictation should be directly addressed to the provider for clarification. Admission and Anticipated Discharge Date Admission Date: November 24, 2022 Subjective Patient seen and examined at bedside. No acute distress, no adverse events overnight Has been using his incentive spirometry. Did use CPAP overnight Fair appetite, no nausea or vomiting Shortness of breath is improved Denies any headach Review of Systems Review of Systems: All systems reviewed & are unremarkable except as noted in Subjective Physical Exam Physical Exam: Constitutional: No acute distress HEENT: EOMI, PERRLA Respiratory system: Decreased air entry on the right side, no wheeze, no rhonchi, positive crackles bilateral lower lobes CVS: S1-S2 positive, no murmurs or gallops Abdomen: Soft, nontender, nondistended, positive bowel sounds x4, obese Extremities: +2 pulses bilaterally radialis/ dorsalis pedis, no cyanosis, +1 pitting edema bilateral lower extremity Neuro: Awake alert oriented x3 Psych: Normal mood and affect G/U: No Hernández Skin: no rashes, warm and dry Lymphatic: no cervical or axillary lymphadenopathy Results & Data Results & Data ([facility]) Vital Signs (Past 12 Hours) Vital Signs Temp Pulse Pulse Resp BP Pulse Ox O2 Del Method 11/28/22 07:37 36.8 C 96 H 19 130/84 93 Room Air 11/28/22 07:10 90 11/28/22 03:12 36.4 C L 88 18 125/86 92 CPAP 11/27/22 23:05 36.7 C 82 18 123/81 90 Room Air Laboratory Results 11/28/22 06:15 11/28/22 06:15 PG Care Time/CCT Total # of Minutes Spent Total Time Spent with Patient: Total time spent is greater than 50% in coordination of care (as documented) at patient's floor/unit and/or counseling patient: Coding Level of Care Code 70452 SUB INP/OBS CARE 3/50MIN Diagnoses Shortness of breath R06.02 Pleural effusion J90 COVID-19 U07.1 Acute respiratory failure with hypoxia J96.01 Synovial sarcoma C49.9 Metastatic cancer C79.[address] R93.89
[2022-11-28] MEDS: carvediloL 6.25 MG TAB PO SCH ×2 (11:23→20:41)
[2022-11-28 12:10] LABS: Hematocrit (blood only) 27.1 % (42.0-52.0)
--- NOTE | 2022-11-28 12:22 | XRay Report ---
XR chest 1V portable HISTORY: 57 years-old Male f/u acute shortness of breath COMPARISON: Chest radiograph of same day at 6:49 AM, chest CT November 27, 2022 TECHNIQUE: AP view of the chest FINDINGS: Cardiac silhouette is enlarged. Right-sided central venous catheter appears unchanged. No pneumothora x. Right basilar pleural drainage catheter is in place. Right pleural effusion with right lung consol idation and volume loss and numerous pleural masses redemonstrated. Unchanged 1.9 cm left upper lobe pulmonary nodule. Degenerative changes of the shoulders and spine. IMPRESSION: 1. Right-sided pleural drainage catheter in place. No pneumothorax. 2. Right pleural effusion with right lung volume loss again noted. 3. Right lung consolidation with pleural masses are better characterized on the comparison chest CT. ACT 112: Negative or not required by law. The above report was generated using voice recognition software. It may contain grammatical, syntax o r spelling errors. Electronically signed by: Beau Vickers M.D. 11/28/2022 12:21 PM
[2022-11-28] MEDS ORDERED: ceFAZolin 2000MG 2,000 MG/15 ML SYR IV ONE (13:40)
[2022-11-28] MEDS ORDERED: busPIRone 5 MG TAB PO SCH (14:00)
--- NOTE | 2022-11-28 14:09 | Consultation ---
Date of Consultation November 28, 2022 Assessment & Plan (1) DVT (deep venous thrombosis): Pt with DVT and PE and metastatic ca. Now with signficant decrease in hgb while on heparin drip. Pt discussed with Dr Lion, recommends IVC filter insertion. Procedure, risks, benefits and alternatives discussed with pt and his by myself at Dr Lion's request. Pt is agreeable to proceed. 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 Pt admits pain in chest tube site and fatigue. Denies LAMB, fever, other chest pain, SOB at rest, abd pain, N/V, rest pain, claudication, other complaints. Allergies Allergy/AdvReac Type Severity Reaction Status Date / Time bacitracin Allergy Severe hives, Verified 11/24/22 15:49 syncopy tree and shrub pollen AdvReac Mild nasal Verified 11/24/22 15:49 congestion, eyes water Home Medications Medication Instructions Recorded Confirmed Type albuterol sulfate 90 mcg/actuation 2 puffs inhalation Q4 PRN 10/10/19 11/24/22 History aerosol inhaler (Ventolin HFA) Shortness Of Breath Or Wheezing albuterol sulfate 2.5 mg/3 mL 2.5 mg inhalation Q6H PRN 01/31/20 11/24/22 History (0.083 %) solution for nebulization shortness of breath or wheezing montelukast 10 mg tablet 10 mg PO DAILY 06/29/20 11/24/22 History (Singulair) amlodipine 10 mg tablet 10 mg PO QAM 07/31/22 11/24/22 History carvedilol 6.25 mg tablet 6.25 mg PO BID 07/31/22 11/24/22 History famotidine 40 mg tablet 40 mg PO DAILY 07/31/22 11/24/22 History hydroxyzine HCl 25 mg tablet 25 - 50 mg PO HS PRN Anxiety 07/31/22 11/24/22 History losartan 100 mg tablet 100 mg PO DAILY 07/31/22 11/24/22 History docusate sodium 100 mg capsule 100 mg PO BID PRN laxative effect 08/04/22 11/24/22 Rx #60 caps polyethylene glycol 3350 17 gram 17 g PO DAILY PRN laxative effect 08/04/22 11/24/22 Rx oral powder packet (Miralax) #30 ea buspirone 10 mg tablet 10 mg PO TID PRN Anxiety 09/02/22 11/24/22 History mirtazapine 15 mg tablet 15 mg PO HS 09/02/22 11/24/22 History pantoprazole 40 mg tablet,delayed 40 mg PO QAM 09/02/22 11/24/22 History release sennosides 8.6 mg tablet (Senokot) 8.6 mg PO BID PRN Constipation 09/02/22 11/24/22 History fentanyl 50 mcg/hr transdermal 50 mcg transdermal Q72H severe 09/10/22 11/24/22 Rx patch pain 1 week #2 ea dexamethasone 2 mg tablet 4 mg PO BIDM 11/08/22 11/24/22 History fluticasone furoate 100 1 puffs inhalation QAM 11/08/22 11/24/22 History mcg-vilanterol 25 mcg/dose inhalation powder (Breo Ellipta) fluticasone propionate 50 2 spray intranasal QAM 11/08/22 11/24/22 History mcg/actuation nasal spray,suspension hydromorphone 4 mg tablet 4 mg PO Q3H PRN Pain, Severe 11/08/22 11/24/22 History pazopanib 200 mg tablet (Votrient) 200 mg PO DAILY 11/08/22 11/24/22 History potassium chloride 20 mEq 20 meq PO QAM 11/08/22 11/24/22 History tablet,extended release valacyclovir 1 gram tablet 2,000 mg PO .BID/UD PRN .FLARES 11/08/22 11/24/22 History apixaban 5 mg tablet (Eliquis) 5 mg PO BID 11/24/22 11/24/22 History doxycycline hyclate 100 mg capsule 100 mg PO BID 11/24/22 11/24/22 History Patient History Medical History (Updated 11/28/22 @ 14:08 by Maria Fernanda Taylor PA-C) Asthma DVT (deep venous thrombosis) GERD (gastroesophageal reflux disease) Hepatic steatosis History of pulmonary embolism HTN (hypertension) DUY on CPAP 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 Grandmother (Maternal) , iat 91 old age No problems noted. Grandfather (Paternal) , in his eighties old age No problems noted. Father , age 66 of pancreatic cancer and metastasis No problems noted. Mother No problems noted. Brother Age: 54 No problems noted. Son Age: 35 Leukemia in remission Daughter Age: 35 No problems noted. Daughter Age: 23 No problems noted. Son Age: 20 No problems noted. Social History Smoking Status: Former smoker Hx Alcohol Use: No Hx Substance Use: No Preferred Language: Niuean Communication Ability: Effective Academic Intern Required: Yes Beliefs That Will Affect Care: None marital status: Current Living Situation: Spouse and Family current occupational status: employed Feels Safe at Home: Yes Childhood Exposure to Second-Hand Smoke: Yes caffeine: No Dental Care, Regularly: Yes Physical Activity Frequency: Does not Exercise Seatbelt Use: always Sunscreen Use: Yes Do you think of yourself as: straight/heterosexual Assistive Devices: Cane, CPAP and Walker Review of Systems Review of Systems: All systems reviewed & are unremarkable except as noted in HPI & below Physical Exam Constitutional: WD/WN, vitals as above + obese Neck: trachea midline Respiratory: normal respiratory effort Auscultation: lungs clear to auscultation bilaterally and + diminished lung sounds chest tube noted Cardiovascular: Rate/Rhythm: regular rate and regular rhythm Vessels: posterior tibial pulses present, dorsalis pedis pulses present and radial pulses present; + abnormal peripheral pulses Extremities: + vascular access device (R chest infusaport) Gastrointestinal (Abdomen): Inspection/Auscultation: abdomen normal to inspection and normal bowel sounds Percussion/Palpation: abdomen soft; abdomen nontender Musculoskeletal: no cyanosis or clubbing, extremities motor strength 5/5 Skin: no rashes, warm and dry Neurologic: moves all extremities and awake; no focal motor deficits and not confused Psychiatric: A+Ox3, euthymic affect Results & Data ([facility]) Vital Signs (Past 12 Hours) Vital Signs Temp Pulse Pulse Resp BP Pulse Ox O2 Del Method 11/28/22 11:31 36.7 C 102 H 22 149/83 H 94 Room Air 11/28/22 08:30 Room Air 11/28/22 07:37 36.8 C 96 H 19 130/84 93 Room Air 11/28/22 07:10 90 11/28/22 03:12 36.4 C L 88 18 125/86 92 CPAP
[2022-11-28] MEDS ORDERED: LIDOCAINE 1% LOCAL 20 ML VIAL ONE (14:33)
--- NOTE | 2022-11-28 15:05 | Hospitalist Progress Note ---
Date of Service November 28, 2022 Assessment & Plan (1) Acute respiratory failure with hypoxia: (2) Pleural effusion: (3) Synovial sarcoma: (4) DVT (deep venous thrombosis): (5) Acute blood loss anemia: (6) Metastatic cancer: Plan: Patient presenting from home with reports of worsening shortness of breath. Recently admitted to [facility] for bilateral pulmonary embolism, currently on Eliquis. In the ED, patient was in respiratory distress, briefly placed on BiPAP, CXR shows large right pleural effusion. 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 CT angio chest done on November 08 at some significant enlargement of mediastinal masses along with increase in size of pleural nodules and pulmonary nodules. CT abdomen and pelvis with IV contrast done as per recommendation by oncology; no acute intra abdominal or intrapelvic abnormality seen. No evidence of metastatic disease within the abdomen. Status post pigtail catheter placement on November 25. Initial pleural fluid analysis shows exudative pattern with high LDL(1106). Cytology Negative for malignancy ( Comment: The cell block did not survive processing.) Total output of 4500 cc; serosanguineous Patient's hemoglobin dropped from 11 to 9 on November 28, 2021. Pulmonology consulted regarding bleeding into pulmonary metastasis; recommended to hold heparin. CT angio to be obtained. Discussed with radiology; due to complexity of patient's metastatic disease; it would be very difficult to determine where the bleeding might be occurring. CT angio chest was recommended. Lower extremity duplex shows deep vein thrombosis in superficial femoral vein. Discussed with vascular surgery; IVC filter placed. Discussed with hematology; recommended hemolytic work-up for anemia. Plan; Patient to undergo IVC filter placement today given the drop in hemoglobin level and presence of DVT. We will follow-up on CT angio for probable source of bleeding. We will monitor H&H every 6 hours for now. Management of chest tube as per pulmonology. Currently on Votrient 200 mg daily and dexamethasone 4 mg daily as per oncology; oncology consulted for comanagement. As per the patient, plan from oncology was told to decrease the dexamethasone gradually. Currently he is on 4 mg once daily. Patient to be started on chemotherapy on December 01, 2022 as outpatient. Dilaudid 4 mg every 3-hour while patient is awake; also on fentanyl patch at home. IV Dilaudid as needed as per patient request due to pain at chest tube insertion site. (7) Abdominal distention: Plan: No abdominal pain, nausea, vomiting CT abdomen rule out any intra-abdominal pathology. US ascites revealed no acetic fluid. (8) COVID-19: Plan: Tested + for COVID 19 Shortness of breath likely due to large pleural effusion. . no covid 19 specific treatment indicated at this point. (9) Type 2 diabetes mellitus: (10) Hyperglycemia: Plan: No prior history of type 2 diabetes mellitus A1c is 7.2% Currently on insulin during the hospitalization Has been on steroid for the last 3 months which may have resulted in persistent hyperglycemia Patient's steroid currently being tapered off. Discuss about treatment options; wants to do dietary measures (11) History of pulmonary embolism: Plan: Recently diagnosed during previous hospitalization On Eliquis at home Was on IV heparin till November 28. Patient's hemoglobin dropped from 11-9. Recommended to hold heparin as per pulmonology. CT angio chest ordered. IVC filter placed by vascular surgery on November 28. (12) HTN (hypertension): Plan: BP controlled, continue losartan, amlodipine, carvedilol (13) DUY on CPAP: Plan: DVT PROPHYLAXIS SCDs; Admission and Anticipated Discharge Date Admission Date: November 24, 2022 Subjective Patient seen and examined at bedside. Is comfortable; not in distress. Denies any chest pain or shortness of breath. Review of Systems Review of Systems: All systems reviewed & are unremarkable except as noted in Subjective Physical Exam Physical Exam: Constitutional: Awake, alert orient x3; morbidly obese. Not in any distress. Respiratory: Breath sound improved on right upper lung field; decreased breath sounds at mid and lower lung; vesicular breath sound on left lung field; no crackles. Cardiovascular: RRR, no murmur, no edema Vessels: no JVD or carotid bruit Chest: normal inspection of chest.Port-A-Cath in place. Chest tube in place with sanguinous output. Abdomen: Soft, slightly distended. Nontender. Musculoskeletal: no cyanosis or clubbing, extremities motor strength 5/5 Skin: no rashes, warm and dry normal turgor Neurologic: PERRL, EOMI, accommodation nl, no face palsy, no dysarthria CN's II- XI intact bilaterally and moves all extremities Psychiatric: A+Ox3, euthymic affect Lymphatic: no cervical or axillary lymphadenopathy : deferred Results & Data Results & Data ([facility]) Vital Signs (Past 12 Hours) Vital Signs Temp Pulse Pulse Resp BP Pulse Ox O2 Del Method 11/28/22 11:31 36.7 C 102 H 22 149/83 H 94 Room Air 11/28/22 08:30 Room Air 11/28/22 07:37 36.8 C 96 H 19 130/84 93 Room Air 11/28/22 07:10 90 11/28/22 03:12 36.4 C L 88 18 125/86 92 CPAP Laboratory Results Laboratory Results WBC 13.32 K/ul (4.8-10.8) H 11/28/22 06:15 RBC 2.90 M/uL (4.70-6.10) L 11/28/22 06:15 Hgb 9.0 g/dl (14.0-18.0) L 11/28/22 11:14 Hct 27.1 % (42.0-52.0) L 11/28/22 11:14 MCV 100.3 fL (80.0-100.0) H 11/28/22 06:15 MCH 33.8 pg (25.0-34.0) 11/28/22 06:15 MCHC 33.7 g/dL (32.0-36.0) 11/28/22 06:15 RDW Std Deviation 58.5 fL (36.4-46.3) H 11/28/22 06:15 RDW Coeff of Darrell 16.0 % (11.5-14.5) H 11/28/22 06:15 Plt Count 223 K/uL (130-400) 11/28/22 06:15 MPV 10.3 fL (9.4-12.4) 11/28/22 06:15 Immature Gran % (Auto) 6.2 % 11/28/22 06:15 Neut % (Auto) 69.7 % 11/28/22 06:15 Lymph % (Auto) 15.1 % 11/28/22 06:15 Travis % (Auto) 8.7 % 11/28/22 06:15 Eos % (Auto) 0.0 % 11/28/22 06:15 Baso % (Auto) 0.3 % 11/28/22 06:15 Neut # (Auto) 9.28 K/uL (1.40-6.50) H 11/28/22 06:15 Lymph # (Auto) 2.01 K/uL (1.2-3.4) 11/28/22 06:15 Travis # (Auto) 1.16 K/uL (0.11-0.59) H 11/28/22 06:15 Eos # (Auto) 0.00 K/uL (0-0.50) 11/28/22 06:15 Baso # (Auto) 0.04 K/uL (0-0.2) 11/28/22 06:15 Immature Gran # (Auto) 0.83 K/uL (0.01-0.20) H 11/28/22 06:15 Absolute Nucleated RBC 0.19 K/uL (0-0.12) H 11/28/22 06:15 Nucleated RBC % (auto) 1.4 % 11/28/22 06:15 Polychromasia 1+ 11/28/22 06:15 Tear Drop Cells 1+ 11/28/22 06:15 APTT 77.0 Seconds (21.0-31.0) H* 11/28/22 06:15 PTT Ratio 2.8 11/28/22 06:15 VBG pH 7.44 (7.36-7.41) H 11/24/22 12:38 VBG pCO2 42 mmHg (38-50) 11/24/22 12:38 VBG pO2 37 mmHg 11/24/22 12:38 VBG HCO3 29 mmol/L 11/24/22 12:38 VBG O2 Saturation < 60.0 % 11/24/22 12:38 VBG Base Excess 3.9 mEq/L 11/24/22 12:38 Sodium 138 mmol/L (136-145) 11/28/22 06:15 Potassium 4.0 mmol/L (3.5-5.1) 11/28/22 06:15 Chloride 101 mmol/L (98-107) 11/28/22 06:15 Carbon Dioxide 27 mmol/L (21-32) 11/28/22 06:15 Anion Gap 10 (3-11) 11/28/22 06:15 BUN 29 mg/dl (6-23) H 11/28/22 06:15 Creatinine 0.75 mg/dl (0.6-1.4) 11/28/22 06:15 Est Cr Clr Drug Dosing 138.3 ml/min 11/28/22 06:15 Est GFR ( Amer) 117.2 ml/min 11/28/22 06:15 Est GFR (Non-Af Amer) 101.1 ml/min 11/28/22 06:15 BUN/Creatinine Ratio 38.7 (10-20) H 11/28/22 06:15 Glucose 142 mg/dl (70-99(Fasting)) H 11/28/22 06:15 POC Glucose 169 mg/dl (70-99) H 11/28/22 11:26 Estimat Average Glucose 160 mg/dl 11/25/22 03:02 Hemoglobin A1c 7.2 % (4.5-5.6) H 11/25/22 03:02 Calcium 8.7 mg/dl (8.5-10.1) 11/28/22 06:15 Total Bilirubin 1.1 mg/dl (0.2-1.0) H 11/28/22 06:15 AST 12 U/L (13-39) L 11/28/22 06:15 ALT 33 U/L (7-52) 11/28/22 06:15 Alkaline Phosphatase 74 U/L (34-104) 11/28/22 06:15 Lactate Dehydrogenase 313 U/L (86-244) H 11/25/22 20:49 Troponin I High Sens 7.2 pg/ml (0-20) 11/24/22 12:23 Total Protein 6.1 gm/dl (6.0-8.3) 11/28/22 06:15 Albumin 3.4 gm/dl (3.4-5.0) 11/28/22 06:15 Globulin 2.7 gm/dl (2.5-4.0) 11/28/22 06:15 Albumin/Globulin Ratio 1.3 (0.9-2) 11/28/22 06:15 Lipase 18 U/L (11-82) 11/24/22 12:23 Fluid Neutrophils % 79 % 11/25/22 15:50 Fluid Lymphocytes % 13 % 11/25/22 15:50 Fluid Meso/Macro/Travis % 8 % 11/25/22 15:50 Fluid Comment 11/25/22 15:50 Peritoneal LDH 1106 U/L 11/25/22 15:50 Peritoneal Glucose 101 mg/dl 11/25/22 15:50 Peritoneal Amylase 13 U/L 11/25/22 15:50 Pleural Fluid Source Right Lung 11/25/22 15:50 Pleural Color Red 11/25/22 15:50 Pleural Appearance Bloody 11/25/22 15:50 Pleural pH 7.32 (7.3-7.4) 11/25/22 15:50 Pleural WBC (Auto) 1676 /uL 11/25/22 15:50 Pleural RBC (Auto) 3326319 /uL 11/25/22 15:50 Pleural Total Protein 4.0 gm/dl 11/25/22 15:50 SARS-CoV-2 (PCR) POSITIVE (Negative) A* 11/24/22 12:25 Influenza Type A (PCR) Negative (Neg) 11/24/22 12:25 Influenza Type B (PCR) Negative (Neg) 11/24/22 12:25 RSV (RT-PCR) Negative (Neg) 11/24/22 12:25 Impressions Abdomen Ultrasound 11/24/22 14:53 ULTRASOUND ASCITES CHECK CLINICAL HISTORY: Abdominal distention. COMPARISON STUDY: Abdominal CT dated 09/02/2022. FINDINGS: Real-time grayscale sonography of all 4 quadrants of the abdomen is performed to assess for abdominal ascites. There is no sonographic evidence of abdominal ascites. Survey images of the liver show evidence of steatosis. IMPRESSION: No abdominal ascites is identified. Electronically signed by: Santos Gutiérrez M.D. 11/24/2022 5:26 PM Abdomen/Pelvis CT 11/25/22 07:[address] WITH IV CONTRAST CT DOSE: 1278.65 mGycm HISTORY: Acute cough with shortness of breath. History of sarcoma. hx synovial sarcoma TECHNIQUE: Multiaxial CT images of the abdomen and pelvis were performed following the IV administration of 86 cc of Optiray, A dose lowering technique was utilized adhering to the principles of ALARA. COMPARISON STUDY: Chest radiograph of same day, CTA chest 11/08/2022, CT abdomen and pelvis 09/02/2022. FINDINGS: Numerous enlarged masses in the right hemithorax, most of which are pleural-based are redemonstrated. Moderate malignant right pleural effusion has increased in size from prior. Partial collapse of the right lung. 4 mm solid nodule of the inferior segment lingula. No pneumatosis or pneumoperitoneum. Unremarkable spleen, mildly atrophic pancreas and adrenal glands. Mildly contracted gallbladder. Hepatic steatosis. Patency of the hepatic and portal veins. Mild nonspecific bilateral perinephric stranding. 3.3 cm intermediate density lesion of the superior pole left kidney is again noted, possibly a complex cyst. No hydronephrosis. Prostamegaly. Partial distention of the urinary bladder. Mild atherosclerosis of the aorta without aneurysm. No lymphadenopathy. No bowel obstruction or bowel wall thickening. Colonic diverticulosis. Moderate colonic fecal retention. Noninflamed appendix. No ascites or mesenteric inflammation. Tiny fat filled umbilical hernia. Degenerative changes of the spine, pelvis and right hip. Left hip arthroplasty. Subcutaneous nodules in the left gluteal tissues suggestive of injection granulomas. IMPRESSION: 1. Metastatic disease of the right hemithorax is redemonstrated with moderate malignant pleural effusion, increased in size from prior. 2. No acute intra-abdominal or intrapelvic abnormality. 3. Hepatic steatosis. 4. No evidence of metastatic disease within the abdomen. 5. Additional findings as above. ACT 112: Negative or not required by law. The above report was generated using voice recognition software. It may contain grammatical, syntax or spelling errors. Electronically signed by: Beau Vickers M.D. 11/25/2022 1:[address] 11/27/22 10:44 CT OF THE CHEST WITHOUT IV CONTRAST CLINICAL HISTORY: Follow-up pleural effusion. Metastatic synovial sarcoma. COMPARISON STUDY: Chest radiograph performed earlier today. Chest CT November 08, 2022. CT of the abdomen and pelvis November 25, 2022. CT DOSE: 745.88 mGycm TECHNIQUE: Axial images of the chest were obtained without IV contrast. Images were reviewed in the axial, sagittal, and coronal planes. IV contrast was not administered for this examination. Automated exposure control was utilized for the study. A dose lowering technique was utilized adhering to the principles of ALARA. FINDINGS: Right internal jugular [id number]-Nopy is in place. Size of the heart is normal. There is a trace pericardial effusion. Interval placement of a right basilar pleural pigtail catheter is noted. The right pleural effusion has significantly decreased in size since abdominal CT of November 25, 2022. There is a small residual right hydropneumothorax. Diminished right lung aeration is again noted. Numerous pleural metastases within the right hemithorax are again noted. Several pulmonary metastases are again noted, including a 1.9 cm left upper lobe lesion. A right upper mediastinal implant measures 6.5 cm. Dominant additional implant along the right aspect of the mediastinum measures 10.9 cm in transverse dimension. These metastatic deposits are suboptimally assessed on this unenhanced examination. There is no left-sided pleural effusion. Hepatic steatosis is noted. There is a 3.1 cm lesion within the upper pole of the left kidney which measures above water attenuation. IMPRESSION: 1. Interval placement of a right pleural pigtail catheter with significant decrease in size of the right pleural effusion. Small residual multiloculated hydropneumothorax. 2. Redemonstration of extensive metastatic disease primarily within the right hemithorax, as described above. This is suboptimally assessed on this unenhanced exam. ACT 112: Negative or not required by law. Electronically signed by: Marquis Lu M.D. 11/27/2022 2:03 PM Venous Doppler Study 11/28/22 08:15 BILATERAL LOWER EXTREMITY VENOUS DOPPLER CLINICAL HISTORY: r/o DVT, B/l COMPARISON STUDY: No previous studies for comparison. TECHNIQUE: Sonography of the deep venous system of the bilateral lower extremities was performed. Compression and augmentation were evaluated. FINDINGS: There is no deep venous thrombus within the right lower extremity. There is deep venous thrombus within one of 2 duplicated left superficial femoral veins. No additional sites of deep venous thrombus are present. IMPRESSION: Deep venous thrombus within the left superficial femoral vein. ACT 112: Negative or not required by law. Electronically signed by: Marquis Lu M.D. 11/28/2022 10:21 AM Chest X-Ray 11/28/22 12:00 XR chest 1V portable HISTORY: 57 years-old Male f/u acute shortness of breath COMPARISON: Chest radiograph of same day at 6:49 AM, chest CT November 27, 2022 TECHNIQUE: AP view of the chest FINDINGS: Cardiac silhouette is enlarged. Right-sided central venous catheter appears unchanged. No pneumothorax. Right basilar pleural drainage catheter is in place. Right pleural effusion with right lung consolidation and volume loss and numerous pleural masses redemonstrated. Unchanged 1.9 cm left upper lobe pulmonary nodule. Degenerative changes of the shoulders and spine. IMPRESSION: 1. Right-sided pleural drainage catheter in place. No pneumothorax. 2. Right pleural effusion with right lung volume loss again noted. 3. Right lung consolidation with pleural masses are better characterized on the comparison chest CT. ACT 112: Negative or not required by law. The above report was generated using voice recognition software. It may contain grammatical, syntax or spelling errors. Electronically signed by: Beau Vickers M.D. 11/28/2022 12:21 PM
[2022-11-28] MEDS ORDERED: OPTIRAY 300 IV PRN (15:08)
--- NOTE | 2022-11-28 15:10 | Operative Report ---
Post Operative Report Pre & Post Diagnosis Operation Date: 11/28/22 08:55 Pre-Op Diagnosis: DVT and PE, Contraindication to Anticoagulation. Post-Op Diagnosis: DVT and PE, Contraindication to Anticoagulation. I identified the patient and participated in the time-out.: Yes Procedure Operation Date: 11/28/22 08:55 Actual Procedures p Insertion of Inferior Vena Cava Filter, Right Femoral Approach, Ultrasound Localization of Right Femoral Vein, Fluoroscopy for Positioing(Right) - Tommy Lion MD Surgeon Tommy Lion MD Consolidator none Estimated Blood Loss 0 Findings Consistent with Post-Op Diagnosis Specimens none Anesthesia Type Local Complications none Disposition Accompanied Patient To Recovery: No Disposition: Recovery Room Indications This is a 57-year-old gentleman who has DVT left lower extremity as well as pulmonary emboli. He was on heparin. He is COVID-positive. He has a chest tube in place which is sanguinous drainage. He did have a significant drop in hemoglobin. Filter is now recommended due to his bleeding while anticoagulated. I have discussed the risks options and benefits of the procedure with the patient. The patient understands the risks options and benefits and agrees to the procedure. Description of Procedure The patient was brought to the angio suite and placed in the supine position. The patient was identified and a timeout performed. The right groin was prepped and draped in the usual fashion. The right common femoral vein was located with ultrasound. It was patent, compressed easily, and had no filling defects. The vein was then punctured under ultrasound visualization. A guidewire was then passed centrally into the inferior vena cava under fluoroscopic guidance. The puncture site was then dilated and the filter sheath inserted. It was passed to the infra renal vena cava. A venacavagram was done which showed no cava clot and an acceptable size of the vena cava. The renal veins were identified. The filter was then passed through the sheath and deployed in the infra renal vena cava in an upright position. The sheath was removed. Pressure was applied to the puncture site. Adequate hemostasis was obtained and a sterile dressing was applied. The patient left the operation room in satisfactory condition and tolerated the procedure well. All needle and sponge counts were correct at the end of the procedure. I attest to the content of the Intraoperative Record and any orders documented therein. Any exceptions are noted below.
[2022-11-28] MEDS: busPIRone 5 MG TAB PO PRN ×2 (15:40→23:58)
[2022-11-28 16:02] LABS: Hematocrit (blood only) 23.9 % (42.0-52.0); Hemoglobin 8.2 g/dl (14.0-18.0); Mean Corpuscular Hemoglobin 34.2 pg (25.0-34.0); Mean Corpuscular Hgb Conc 34.3 g/dL (32.0-36.0); Mean Corpuscular Volume 99.6 fL (80.0-100.0); Mean Platelet Volume 9.9 fL (9.4-12.4); Nucleated RBC # (auto) 0.33 K/uL (0-0.12); Nucleated RBC % (auto) 2.6 %; Platelet Count 200 K/uL (130-400); RDW Coefficient of Variation 15.8 % (11.5-14.5); RDW Standard Deviation 56.9 fL (36.4-46.3); Reticulocyte % 4.9 % (0.5-2.0); Reticulocytes # 0.12 10^6/uL (0.02-0.10); White Blood Count 12.64 K/ul (4.8-10.8)
[2022-11-28 16:30] LABS: Basophils # (auto) 0.02 K/uL (0-0.2); Basophils % (auto) 0.2 %; Immature Granulocytes % (auto) 7.1 %; Lymphocytes % (auto) 11.9 %; Monocytes # (auto) 1.08 K/uL (0.11-0.59); Monocytes % (auto) 8.5 %; Neutrophils # (auto) 9.14 K/uL (1.40-6.50); Neutrophils % (auto) 72.3 %; Polychromasia 1+; Tear Drop Cells 1+
[2022-11-28] MEDS ORDERED: OPTIRAY 320 500ml IV ONE (16:47)
--- NOTE | 2022-11-28 17:10 | CT Scan Report ---
CT ANGIOGRAM OF THE CHEST CLINICAL HISTORY: Metastatic pleural disease. Hemothorax. COMPARISON STUDY: Chest x-ray dated 11/28/2022. Chest CT dated 11/27/2022. TECHNIQUE: Following the IV administration of 119 cc of Optiray 320, CT angiogram of the chest was pe rformed from the thoracic inlet to the upper abdomen utilizing the dissection protocol. Images are re viewed in the axial, sagittal, and coronal planes. 3-D MIPS images are created and assessed. IV contr ast was administered without complication. A dose lowering technique was utilized adhering to the pr inciples of KARLA. CT DOSE: 2166.68 mGy.cm FINDINGS: Thyroid: Imaged portions of the thyroid gland are normal in size and attenuation. Thoracic aorta: The thoracic aorta is normal in caliber and demonstrates standard 3-vessel arch anato my. No dissection is seen. The arch vessels are widely patent. Pulmonary vasculature: The pulmonary trunk is normal in caliber. There is thrombus within the distal left main pulmonary artery. This extends into the left lower lobe pulmonary artery into segmental bra nches. There is also thrombus within the right upper lobe pulmonary artery extending into segmental a nd subsegmental branches. Heart: A right internal jugular central venous catheter is in place. The heart is normal in size noti ng a small pericardial effusion. Lungs and pleural spaces: There is mild emphysematous change. Large pleural-based metastatic lesions are again seen throughout the right thorax. A inside sales representative lesion in the medial left upper lung on image #75 measures approximately 6.5 x 4 cm, and a lesion in the anterior right lower thorax on image #134 measures approximately 9 x 7.5 cm. A right-sided chest tube is in place, entering between the a nterior 7th and 8th ribs. The tip is coiled at the right lung base. There is right-sided hemopneumoth orax. Loculations of gas are present throughout the blood products at the right lung base. The volume of hemothorax has increased as compared to yesterday. Question a focus of active extravasation versu s streak artifact just posterior to the catheter as it enters the chest wall on axial #223 of the sec ond series. No additional foci are suspicious for active extravasation. There are numerous (at least 10) left-sided pulmonary pleural-based nodules. The largest is in the left upper lobe on image #100 a nd measures 2.0 cm. Mediastinum: There are several subcentimeter mediastinal lymph nodes. Parvin: The right hilum is obscured. No left hilar adenopathy is identified. Axillae: There is no axillary lymphadenopathy. Upper abdomen: Partially visualized upper abdominal viscera is within normal limits. Skeletal structures: The skeletal structures are osteopenic. No lytic or blastic bony lesions are see n. IMPRESSION: 1. Unremarkable CT angiogram of the thoracic aorta. 2. Bilateral pulmonary emboli as above. 3. Extensive pleural-based metastatic disease is again seen throughout the right lung. 4. A right-sided pleural drain is in place. 5. There is right-sided hemopneumothorax. The volume of hemothorax has increased as compared to yeste rday. 6. Question a focus of streak artifact versus active extravasation posterior to the catheter as it en ters the pleural space. 7. Milder metastatic disease is noted in the left lung. 8. Additional findings as above. ACT 112: Negative or not required by law. Electronically signed by: Santos Gutiérrez M.D. 11/28/2022 5:08 PM
--- NOTE | 2022-11-28 19:12 | Communication Note ---
Date of Service: November 28, 2022 Patient underwent placement of IVC filter today. Patient had CTA chest done which showed persistent bilateral PE, extensive pleural-based metastatic disease, right-sided hemopneumothorax which is increased compared to yesterday. Reviewed the images with pulmonology; recommended to transfer to tertiary care center given very high suspicion of bleeding into the metastasis; patient will likely need evaluation by interventional radiology and multidisciplinary approach by pulmonology, CT surgery and oncology. Discussed with [facility]. Accepting doctordr. Lane. Await bed assignment. If patient continues to be hospitalized, will monitor hemoglobin every 6 hours; transfuse if hemoglobin less than 8. Discussed with patient and at bedside.
[2022-11-28] MEDS: MIRTAZAPINE TAB 15 MG TAB PO SCH (20:41)
[2022-11-29] MEDS: CHECK fentaNYL PATCH PLACEMENT SCH ×2 (00:04→07:56)
[2022-11-29 00:59] LABS: Hematocrit (blood only) 23.5 % (42.0-52.0); Mean Corpuscular Hemoglobin 33.6 pg (25.0-34.0); Mean Corpuscular Volume 98.7 fL (80.0-100.0); Mean Platelet Volume 10.4 fL (9.4-12.4); Nucleated RBC # (auto) 0.27 K/uL (0-0.12); Nucleated RBC % (auto) 2.1 %; Platelet Count 205 K/uL (130-400); RDW Coefficient of Variation 15.9 % (11.5-14.5); RDW Standard Deviation 56.7 fL (36.4-46.3); Red Blood Count 2.38 M/uL (4.70-6.10)
[2022-11-29 01:49] LABS: Basophils # (auto) 0.02 K/uL (0-0.2); Basophils % (auto) 0.2 %; Immature Granulocytes # (auto) 0.78 K/uL (0.01-0.20); Immature Granulocytes % (auto) 6.2 %; Lymphocytes # (auto) 1.42 K/uL (1.2-3.4); Lymphocytes % (auto) 11.3 %; Monocytes # (auto) 1.05 K/uL (0.11-0.59); Monocytes % (auto) 8.3 %; Neutrophils # (auto) 9.33 K/uL (1.40-6.50); Polychromasia 1+; Tear Drop Cells 1+
[2022-11-29] MEDS: HYDROmorphone HCL 2 MG TAB PO SCH ×3 (03:45→07:56)
[2022-11-29] MEDS: HYDROmorphone INJ 0.5 MG/0.5 ML SYR IV PRN (05:00)
[2022-11-29] MEDS: PAZOPANIB HCL PO SCH (07:17)
[2022-11-29 07:19] LABS: Hematocrit (blood only) 23.2 % (42.0-52.0); Hemoglobin 7.7 g/dl (14.0-18.0); Mean Corpuscular Hemoglobin 33.5 pg (25.0-34.0); Mean Corpuscular Hgb Conc 33.2 g/dL (32.0-36.0); Mean Corpuscular Volume 100.9 fL (80.0-100.0); Mean Platelet Volume 10.3 fL (9.4-12.4); Nucleated RBC % (auto) 3.1 %; Platelet Count 201 K/uL (130-400); RDW Coefficient of Variation 16.1 % (11.5-14.5); RDW Standard Deviation 57.6 fL (36.4-46.3); White Blood Count 12.93 K/ul (4.8-10.8)
[2022-11-29] MEDS: INSULIN ASPART PER UNIT SC SCH (07:39)
[2022-11-29 07:42] LABS: Albumin Globulin Ratio 1.3 (0.9-2); Albumin Level 3.4 gm/dl (3.4-5.0); BUN Creatinine Ratio 57.9 (10-20); Bilirubin,Total 0.9 mg/dl (0.2-1.0); Calcium 9.2 mg/dl (8.5-10.1); Creatinine Clr Calc Pharmacy 136.5 ml/min; Est GFR (African American) 116.6 ml/min; Est GFR (Non-African American) 100.6 ml/min; Globulin 2.6 gm/dl (2.5-4.0); Potassium 3.9 mmol/L (3.5-5.1)
[2022-11-29 07:44] LABS: Basophils # (auto) 0.02 K/uL (0-0.2); Basophils % (auto) 0.2 %; Immature Granulocytes # (auto) 0.75 K/uL (0.01-0.20); Immature Granulocytes % (auto) 5.8 %; Lymphocytes # (auto) 1.63 K/uL (1.2-3.4); Lymphocytes % (auto) 12.6 %; Monocytes # (auto) 1.12 K/uL (0.11-0.59); Monocytes % (auto) 8.7 %; Neutrophils # (auto) 9.41 K/uL (1.40-6.50); Neutrophils % (auto) 72.7 %; Polychromasia 1+; Tear Drop Cells 1+
[2022-11-29 08:00] VITALS: BP 123/73; PULSE 97; TEMP 97.7; O2SAT 93
--- NOTE | 2022-11-29 10:40 | Discharge Summary ---
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 Patient recently admitted to [facility] 11/08-11/12 for bilateral pulmonary embolism. Patient initially treated with heparin and transition to Eliquis. Patient reports a steady decline since returning home. Patient seen by PCP on 11/20 for complaints of shortness of breath and cough. Was found to have exertional hypoxia in the office and home O2 is being arranged. Patient was also started on doxycycline for suspected U RI. Patient progressively got worse over the weekend and developed shortness of breath with minimal exertion. Patient denies chest pain and palpitations. No lightheadedness, dizziness, diaphoresis, syncopal events. Denies fevers and chills. Reports early satiety and abdominal distention. No abdominal pain, vomiting, diarrhea. Patient denies urinary symptoms. Upon arrival to the ED, patient was in respiratory distress with respiratory rate in the 40s. Patient placed on BiPAP briefly. Now currently on 4 L of oxygen via nasal cannula. CXR shows large right pleural effusion. Admission Exam Per Admitting Provider Constitutional: WD/WN, vitals as above Eyes: PERRL, conjunctivae normal, anicteric sclerae ENMT: external ear and nose normal, oropharynx normal Respiratory: normal respiratory effort; no respiratory distress Auscultation: + diminished lung sounds (BL) Cardiovascular: Rate/Rhythm: regular rate and regular rhythm Vessels: normal peripheral pulses Extremities: no edema Gastrointestinal (Abdomen): Inspection/Auscultation: + abdomen distended and normal bowel sounds Percussion/Palpation: abdomen nontender, + abdomen not soft (semi firm) and no hepatosplenomegaly Musculoskeletal: no cyanosis or clubbing, extremities motor strength 5/5 Skin: no rashes, warm and dry Neurologic: PERRL, EOMI, accommodation nl, no face palsy, no dysarthria Psychiatric: A+Ox3, euthymic affect Principal Diagnosis Acute hypoxic respiratory failure 2/2 Malignant Pleural Effusion with chest tube Left DVT with b/l PE Metastatic synovial sarcoma COVID-19 positive Discharge Exam Constitutional: Awake, alert orient x3; morbidly obese. Not in any distress. Respiratory: Breath sound improved on right upper lung field; decreased breath sounds at mid and lower lung; vesicular breath sound on left lung field; no crackles. Cardiovascular: RRR, no murmur, no edema Vessels: no JVD or carotid bruit Chest: normal inspection of chest.Port-A-Cath in place. Chest tube in place with sanguinous output. Abdomen: Soft, slightly distended. Nontender. Musculoskeletal: no cyanosis or clubbing, extremities motor strength 5/5 Skin: no rashes, warm and dry normal turgor Neurologic: PERRL, EOMI, accommodation nl, no face palsy, no dysarthria CN's II- XI intact bilaterally and moves all extremities Psychiatric: A+Ox3, euthymic affect Lymphatic: no cervical or axillary lymphadenopathy : deferred Discharge Data Allergies Allergy/AdvReac Type Severity Reaction Status Date / Time bacitracin Allergy Severe hives, Verified 11/24/22 15:49 syncopy tree and shrub pollen AdvReac Mild nasal Verified 11/24/22 15:49 congestion, eyes water Consultations 11/24/22 13:30 ED Decision to Admit Stat 11/24/22 13:57 Consult Pulmonology Routine 11/25/22 11:34 Consult Oncology Routine 11/28/22 13:30 Consult Vascular Surgery Routine Procedures Performed Operation Date: 11/28/22 08:55 Actual Procedures p Insertion of Inferior Vena Cava Filter, Right Femoral Approach, Ultrasound Localization of Right Femoral Vein, Fluoroscopy for Positioing(Right) - Tommy Lion MD Ordered Studies 11/24/22 14:24 US point of care ultrasound Urgent 11/24/22 14:53 US abdomen ltd ascites Routine 11/25/22 07:51 CT Abd and Pelvis [CT abd pelvis IV con only] Routine 11/25/22 10:18 US point of care ultrasound Urgent 11/27/22 10:44 CT chest diagnostic wo con Routine 11/28/22 08:15 US venous doppler LE BI Routine 11/28/22 12:48 CT angio chest w con Stat 11/28/22 14:22 EV IVC filter placement Routine Hospital Course (1) Acute respiratory failure with hypoxia: (2) Pleural effusion: (3) Synovial sarcoma: (4) DVT (deep venous thrombosis): (5) Acute blood loss anemia: (6) Metastatic cancer: (7) Abdominal distention: (8) COVID-19: (9) Type 2 diabetes mellitus: (10) Hyperglycemia: (11) History of pulmonary embolism: (12) HTN (hypertension): (13) DUY on CPAP: Plan Patient is a 57-year-old male with past medical history of 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 Chest x-ray done showed showed large size right pleural effusion. Patient underwent pigtail chest tube placement on November 24, 2022. Patient was placed on heparin drip for the procedure which was kept on hold for 6 hours prior to placement of the chest tube Patient had drainage of 4500 cc of sanguinous fluid from the chest tube since placement. Pleural studies shows exudative pattern with very high LDH; no signs of infection. Cytology was negative; the pleural effusion is suspected to be malignant given the extensive metastasis in his right lung and pleura. Patient's respiratory status improved with placement of chest tube; has been in room air since drainage of pleural fluid. On November 28, 2022; patient's hemoglobin dropped from 11 to 9 and subsequently to 8.4. No drainage has been noted in the chest tube. Heparin drip was stopped. Bilateral lower extremity Doppler shows DVT in left superficial femoral vein. Vascular surgery was consulted; IVC filter was p laced. CT angio chest was done which showed persistent bilateral PE, extensive pleural- based metastatic disease, right-sided hemopneumothorax which is increased compared to yesterday. Reviewed the images with pulmonology; recommended to transfer to tertiary care center given very high suspicion of bleeding into the metastasis; patient will likely need evaluation by interventional radiology and multidisciplinary approach by pulmonology, CT surgery and oncology. Discussed with [facility]. Accepting doctorDr. Lane. Total Time Total Time Spent Total Time Spent (In Minutes): 45 Total Time Includes: Examination of the Patient, Discharge Planning, Medication Reconciliation, Communication With Other Providers and Other Discharge Plan Discharge Items Patient Disposition: Transfer Acute Care Hospital Reason For Visit: PLEURAL EFFUSION Discharge Diagnosis: Metastatic synovial sarcoma Malignant right-sided pleural effusion status post chest tube placement Bilateral PE and left-sided DVT status post IVC filter Activity: Resume your previous activity Non-emergency contact: Primary Care Provider Call non-emergency contact if: you have any medication questions and your symptoms worsen Follow-up/Referrals: Oesterling,Krishna R., MD [Primary Care Provider] - (Date & Time 12/04/2022 10:20 AM Provider Salazar Ocasio MD Department [facility] ) Shazia Boland MD [Outside Practitioners] - (Date & Time 12/01/2022 3:00 PM Provider Shazia Boland MD Department Palliative Medicine [facility] ) Diet: Regular Addtl Attending Provider Instructions: The current inpatient meds are as follows Acetaminophen (Acetaminophen 325 Mg Tab) 650 mg PO Q4H PRN PRN Reason: Pain or Fever Stop: 12/24/22 16:39 Amlodipine Besylate (Amlodipine Besylate 5 Mg Tab) 10 mg PO QAM [facility] Stop: 12/25/22 08:59 Last Admin: 11/28/22 08:54 Dose: 10 mg Buspirone HCl (Buspirone 5 Mg Tab) 10 mg PO TID PRN PRN Reason: anxiety Stop: 12/28/22 13:59 Last Admin: 11/28/22 15:40 Dose: 10 mg Carvedilol (Carvedilol 6.25 Mg Tab) 6.25 mg PO BID ADIA Stop: 12/24/22 20:59 Last Admin: 11/28/22 11:23 Dose: 6.25 mg Dexamethasone (Dexamethasone 4 Mg Tab) 4 mg PO DAILY [facility] Stop: 12/26/22 08:59 Last Admin: 11/28/22 08:53 Dose: 4 mg Dextrose (Dextrose 50% 50 Ml Syringe) 25 - 50 ml IV UD PRN; Protocol PRN Reason: Hypoglycemia Protocol Stop: 12/24/22 16:59 Docusate Sodium (Docusate Sodium 100 Mg Cap) 100 mg PO BID PRN PRN Reason: laxative effect Stop: 12/24/22 16:39 Famotidine (Famotidine 40 Mg Tablet) 40 mg PO DAILY [facility] Stop: 12/25/22 08:59 Last Admin: 11/28/22 08:53 Dose: 40 mg Fentanyl (Fentanyl 50 Mcg/Hr Tdsy) 50 mcg TD Q72H ADIA Stop: 12/08/22 16:59 Last Admin: 11/27/22 17:16 Dose: 50 mcg Fluticasone Propionate (Fluticasone Propionate Na Spr 16 Gm Btl) 2 sprays NA DAILY ADIA Stop: 12/27/22 14:44 Last Admin: 11/28/22 08:52 Dose: 2 sprays Fluticasone/Vilanterol (Fluticasone/Vilanterol 100/25mcg 14 Puffs/Inhaler) 1 puffs INH QAM ADIA Stop: 12/25/22 08:59 Last Admin: 11/28/22 08:52 Dose: 1 puffs Glucagon (Glucagon For Inj 1 Mg Vial) 1 mg SQ UD PRN; Protocol PRN Reason: Hypoglycemia Protocol Stop: 12/24/22 16:59 Glucose (Glucose 40% Gel 15 Gm Tube) 15 - 30 gm PO UD PRN; Protocol PRN Reason: Hypoglycemia Protocol Stop: 12/24/22 16:59 Glucose (Glucose 10 Tab/Tube) 4 - 8 tab PO UD PRN; Protocol PRN Reason: Hypoglycemia Treatment Stop: 12/24/22 16:59 Heparin Sodium (Porcine) (Heparin 100 Unit/Ml 5ml Flush) 5 ml FLUSH PRN PRN PRN Reason: Flush Stop: 12/24/22 23:55 Hydromorphone HCl (Hydromorphone Hcl 2 Mg Tab) 4 mg PO Q3H ADIA Stop: 12/09/22 13:59 Last Admin: 11/28/22 17:59 Dose: 4 mg Hydromorphone HCl (Hydromorphone Inj 0.5 Mg/0.5 Ml Syr) 0.5 mg IV Q4H PRN PRN Reason: Pain Stop: 12/10/22 10:17 Last Admin: 11/28/22 19:24 Dose: 0.5 mg Hydroxyzine HCl (Hydroxyzine Hcl 25 Mg Tab) 25 mg PO HS PRN PRN Reason: Anxiety Stop: 12/24/22 16:39 Last Admin: 11/25/22 01:38 Dose: 25 mg Heparin Sodium/Dextrose (Heparin Sodium/Dextrose) 25,000 units in 500 mls @ 0 mls/hr IV .Q0M ADIA; Protocol Stop: 12/24/22 19:59 Last Titration: 11/28/22 13:09 Dose: 0 units/hr, 0 mls/hr Insulin Aspart (Insulin Aspart Per Unit) 0 units SC ACHS ADIA Stop: 12/24/22 20:59 Last Admin: 11/28/22 17:31 Dose: 4 units Ioversol (Optiray 300) 10 ml IV UD PRN PRN Reason: Interaction Checking Stop: 12/02/22 15:07 Last Admin: 11/28/22 15:08 Dose: 10 ml Losartan Potassium (Losartan Potassium 50 Mg Tab) 100 mg PO DAILY ADIA Stop: 12/25/22 08:59 Last Admin: 11/28/22 08:54 Dose: 100 mg Mirtazapine (Mirtazapine Tab 15 Mg Tab) 15 mg PO HS ADIA Stop: 12/24/22 20:59 Last Admin: 11/27/22 20:59 Dose: 15 mg Miscellaneous (Fentanyl Patch Remove & Waste) 1 each N/A Q3D ADIA Stop: 12/24/22 16:58 Last Admin: 11/27/22 17:32 Dose: 1 each Miscellaneous (Check Fentanyl Patch Placement) 1 each N/A QS ADIA Stop: 12/24/22 16:39 Last Admin: 11/28/22 15:32 Dose: 1 each Miscellaneous (Carbohydrates For Hypoglycemia ) 15 - 30 gm PO UD PRN PRN Reason: Hypoglycemia Protocol Stop: 12/24/22 16:59 Montelukast Sodium (Montelukast Sodium 10 Mg Tablet) 10 mg PO DAILY ADIA Stop: 12/25/22 08:59 Last Admin: 11/28/22 08:53 Dose: 10 mg Pantoprazole Sodium (Pantoprazole 40 Mg Tab) 40 mg PO QAM ADIA Stop: 12/25/22 08:59 Last Admin: 11/28/22 08:53 Dose: 40 mg Pazopanib Hydrochloride (Pazopanib Hcl) 1 each PO DAILYBB ADIA Stop: 12/25/22 06:29 Last Admin: 11/28/22 06:27 Dose: 1 each Polyethylene Glycol (Polyethylene (Miralax) 17 Gm Pack) 17 gm PO DAILY PRN PRN Reason: laxative effect Stop: 12/24/22 16:39 Potassium Chloride (Potassium Chloride Crtab 20 Meq Tabcr) 20 meq PO QAM ADIA Stop: 12/25/22 08:59 Last Admin: 11/28/22 08:51 Dose: 20 meq Sennosides (Senna 8.6 Mg Tab) 8.6 mg PO BID PRN PRN Reason: Constipation Stop: 12/24/22 16:39 Pending Studies at Discharge: No Stand-Alone Forms: My [facility] Skilled Items Patient informed of condition?: Yes DNR: No Discharge Level of Care: Other Communicable Disease: No Discharge Prognosis: Stable Lines: PICC Urinary Catheter: No Medications and DC Order Prescriptions: Continued albuterol sulfate 2.5 mg /3 mL (0.083 %) solution for nebulization 2.5 mg INH Q6H PRN (Reason: shortness of breath or wheezing) montelukast [Singulair] 10 mg tablet 10 mg PO DAILY albuterol sulfate [Ventolin HFA] 90 mcg/actuation HFA aerosol inhaler 2 puffs INH Q4 PRN (Reason: Shortness Of Breath Or Wheezing) carvedilol 6.25 mg tablet 6.25 mg PO BID Rx Instructions: TAKE THIS MED WITH FOOD amlodipine 10 mg tablet 10 mg PO QAM hydroxyzine HCl 25 mg tablet 25 - 50 mg PO HS PRN (Reason: Anxiety) losartan 100 mg tablet 100 mg PO DAILY famotidine 40 mg tablet 40 mg PO DAILY docusate sodium 100 mg Capsule 100 mg PO BID PRN (Reason: laxative effect) Qty: 60 0RF polyethylene glycol 3350 [Miralax] 17 gram Powder In Packet 17 g PO DAILY PRN (Reason: laxative effect) Qty: 30 0RF Eliquis 5 mg tablet 5 mg PO BID doxycycline hyclate 100 mg capsule 100 mg PO BID sennosides [Senokot] 8.6 mg tablet 8.6 mg PO BID PRN (Reason: Constipation) pantoprazole 40 mg tablet,delayed release (DR/EC) 40 mg PO QAM buspirone 10 mg tablet 10 mg PO TID PRN (Reason: Anxiety) mirtazapine 15 mg tablet 15 mg PO HS fentanyl 50 mcg/hr Patch 72 Hour 50 mcg transdermal Q72H 7 Days Qty: 2 0RF fluticasone furoate-vilanterol [Breo Ellipta] 100-25 mcg/dose blister with device 1 puffs INH QAM hydromorphone 4 mg tablet 4 mg PO Q3H PRN (Reason: Pain, Severe) fluticasone propionate 50 mcg/actuation spray,suspension 2 spray INTRANASAL QAM dexamethasone 2 mg tablet 4 mg PO BIDM Rx Instructions: TWO TABLET DOSE, TAKE WITH BREAKFAST potassium chloride 20 mEq tablet extended release 20 meq PO QAM Votrient 200 mg tablet 200 mg PO DAILY valacyclovir 1 gram tablet 2,000 mg PO .BID/UD PRN (Reason: .FLARES) Rx Instructions: TAKE TWO TABLETS BY MOUTH AND REPEAT IN 12 HOURS Discharge Orders: Discharge Order (Routine); Ordered 11/29/22 Ordered By: Fabian Barnhart Admission Data Admit Date/Time: 11/24/22 13:57 Attending Provider: Fabian Barnhart Admit Provider: Mariana Nelson Primary Care Provider: Krishna Urias Other Providers: Mariana Nelson ; Paxton Recio ; Jenny Allen ; Catherine Montoya ; Tae Crane ; Maria Fernanda Blakely ; Ivon Vick ; Blade Padilla ; Luis Enrique Bello ; Soha Apodaca ; Luis,No Attending ; Tommy Lion
== END 2022-11-29 08:55 | disposition short-term general hospital (02) | DRG 542 ==
LOC: ED 11:50 → EDINP 13:57 → SUATTDRO 13:57 → 2S 16:41

== ENCOUNTER 2022-12-21 09:14 | Inpatient (IN) ==
[2022-12-21] MEDS ORDERED: FUROSEMIDE 40 MG/4 ML VIAL IV STA (09:50)
--- NOTE | 2022-12-21 09:57 | Emergency Department Note ---
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 He does have an IVC filter. He presents to the ED with increasing shortness of breath over the last 2 weeks. Things really worsened the last few days. There was an outpatient x-ray performed showing significant fluid in the right lung. The patient was discharged from our hospital on the fourth of this month. He was discharged to [facility] in [place]. He left [facility] on the . In short, the patient had a large right pleural effusion that was drained via a pigtail catheter. He currently does not have a catheter in place. He believes he has increasing shortness of breath because of repeat fluid buildup on the right lung The patient is on 4 L of oxygen on a regular basis. He is on a diuretic regularly. He has not had fever or increased cough. He has not had vomiting or diarrhea. The patient was told recently that he would likely need a permanent catheter in the right chest wall, he is willing to have this placed. Of note, the patient held his Eliquis last night and this morning in anticipation of the catheter placement. PMHx/PSHx: See Below SOCIAL HISTORY: See Below. PHYSICAL EXAM: GENERAL: Patient is in no acute distress. HEENT: No acute trauma, normocephalic atraumatic, mucous membranes moist, no nasal congestion. NECK: No stridor, no adenopathy, no meningismus, trachea is midline. LUNGS: Basically no breath sounds on the right, the left lung is clear. Patient does have an increased respiratory rate, no wheezing HEART: Mildly tachycardic, regular rhythm, no murmurs. ABDOMEN: Soft, nontender, bowel sounds positive, no peritonitis. EXTREMITIES: No cyanosis, mild bilateral pedal edema, full range of motion of all the joints without pain or difficulty, no signs for acute trauma. NEUROLOGIC: Oriented x 3, no acute motor or sensory deficits, no focal weakness. SKIN: No rash, no jaundice, no diaphoresis. Pale. DIFFERENTIAL DIAGNOSIS: Fluid overload, pleural effusion, CHF, cardiac ischemia/CO, anemia, electrolyte imbalance, infection, among others. EMERGENCY DEPARTMENT COURSE/PROCEDURES: Prior/Outside records reviewed: Recent discharge summaries. ECG per my interpretation: Indication was shortness of breath. The ECG shows a sinus tachycardia with a rate of 108. There is some nonspecific ST change diffusely. There is no ST elevation, no PVCs. The QTc is 455 Continuous Cardiac Monitoring per my interpretation: An order was placed for continuous cardiac monitoring. The monitor shows a rate of 111 with sinus tachycardia. Critical Care Note: I have personally spent 38 minutes of critical care time in the direct management of this patient. This includes bedside care, interpretation of diagnostic studies, and testing, discussion with consultants, patient, and family members, and other required patient management activities. This 38 minutes is in excess of all separately billable procedures. MEDICAL DECISION MAKING: There is no leukocytosis. An anemia was seen however, the patient's hemoglobin is improved compared to more recent testing. There is a normal platelet count. INR is elevated at 1.3, likely from his Eliquis use. Potassium is low at 3, no renal failure. Alk phos was elevated, the remaining liver enzymes were unremarkable. ECG showed a sinus tachycardia, no obvious ischemia. Cardiac enzyme testing x1 is not consistent with acute cardiac injury. COVID test r eturned positive however, patient was positive for COVID just last month and this is likely a carryover from the previous infection. The influenza and RSV test were negative. Chest x-ray shows whiteout of the right hemithorax consistent with a large right pleural effusion. The patient received IV Lasix to help with diuresis. He was maintained on nasal cannula O2. I did speak with pulmonology, . The patient will be seen for potential Pleurx catheter placement. I spoke with the patient and his family, I did speak with case management, the on-call hospitalist was consulted. In short, the patient's shortness of breath is secondary to his cancer, the large pleural effusion and, likely, some fluid overload. DISPOSITION: Patient's presentation and findings warrant a hospital stay. 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 Grandmother (Maternal) No problems noted. Grandfather (Paternal) No problems noted. Father No problems noted. Mother No problems noted. Brother Age: 54 No problems noted. Son Age: 35 Leukemia in remission Daughter Age: 35 No problems noted. Daughter Age: 23 No problems noted. Son Age: 20 No problems noted. Social History Smoking Status: Former smoker Hx Alcohol Use: No Hx Substance Use: No Preferred Language: Tajik Communication Ability: Effective Financial Advisor Required: Yes Beliefs That Will Affect Care: None marital status: Current Living Situation: Spouse and Family current occupational status: employed Feels Safe at Home: Yes Childhood Exposure to Second-Hand Smoke: Yes caffeine: No Dental Care, Regularly: Yes Physical Activity Frequency: Does not Exercise Seatbelt Use: always Sunscreen Use: Yes Do you think of yourself as: straight/heterosexual Assistive Devices: Cane, CPAP and Walker Allergies Allergies Allergy/AdvReac Type Severity Reaction Status Date / Time bacitracin Allergy Severe hives, Verified 12/21/22 10:19 syncopy tree and shrub pollen AdvReac Mild nasal Verified 12/21/22 10:19 congestion, eyes water Home Meds Home Medications Medication Instructions Recorded Confirmed albuterol sulfate 90 mcg/actuation 2 puffs inhalation Q4 PRN 10/10/19 12/21/22 aerosol inhaler (Ventolin HFA) Shortness Of Breath Or Wheezing albuterol sulfate 2.5 mg/3 mL 2.5 mg inhalation Q6H PRN 01/31/20 12/21/22 (0.083 %) solution for nebulization shortness of breath or wheezing montelukast 10 mg tablet 10 mg PO DAILY 06/29/20 12/21/22 (Singulair) amlodipine 10 mg tablet 10 mg PO QAM 07/31/22 12/21/22 carvedilol 6.25 mg tablet 6.25 mg PO BID 07/31/22 12/21/22 famotidine 40 mg tablet 40 mg PO DAILY 07/31/22 12/21/22 hydroxyzine HCl 25 mg tablet 25 - 50 mg PO HS PRN Anxiety 07/31/22 12/21/22 buspirone 10 mg tablet 20 mg PO BID 09/02/22 12/21/22 mirtazapine 15 mg tablet 15 mg PO HS 09/02/22 12/21/22 pantoprazole 40 mg tablet,delayed 40 mg PO QAM 09/02/22 12/21/22 release fluticasone furoate 100 1 puffs inhalation QAM 11/08/22 12/21/22 mcg-vilanterol 25 mcg/dose inhalation powder (Breo Ellipta) fluticasone propionate 50 2 spray intranasal QAM 11/08/22 12/21/22 mcg/actuation nasal spray,suspension hydromorphone 4 mg tablet 8 mg PO Q3H PRN Pain, Severe 11/08/22 12/21/22 potassium chloride 20 mEq 20 meq PO QAM 11/08/22 12/21/22 tablet,extended release valacyclovir 1 gram tablet 2,000 mg PO .BID/UD PRN .FLARES 11/08/22 12/21/22 apixaban 5 mg tablet (Eliquis) 5 mg PO BID 11/24/22 12/21/22 lorazepam 0.5 mg tablet 0.5 mg PO Q6H PRN Anxiety 12/21/22 12/21/22 Previous Rx's Medication Instructions Recorded fentanyl 50 mcg/hr transdermal 50 mcg transdermal Q72H severe 09/10/22 patch pain 1 week #2 ea Results & Data (ED) Vital Signs Vital Signs - 24 hr 12/21/22 09:22 12/21/22 09:40 12/21/22 09:40 Temperature 35.8 C L Temperature Source Temporal Artery Scan Pulse Rate 116 H 108 H Pulse Rate from SpO2 Sensor 107 H Respiratory Rate 22 22 Respiratory Effort / Characteristics Accessory Muscle Use Labored Short of Breath SOB on Exertion Respiratory Pattern Tachypnea Blood Pressure 160/108 H 138/93 Blood Pressure Mean 125 108 Pulse Oximetry 97 99 Oxygen Delivery Method Room Air Nasal Cannula Nasal Cannula Oxygen Flow Rate 2 4 4 Sepsis Recent Fever Within 48 Hours No Sepsis New/Unexplained Change in Mental Status No Sepsis Action Taken by Nursing No Action Required 12/21/22 09:48 12/21/22 11:05 Temperature Temperature Source Pulse Rate 111 H 100 H Pulse Rate from SpO2 Sensor Respiratory Rate 22 Respiratory Effort / Characteristics Respiratory Pattern Blood Pressure Blood Pressure Mean Pulse Oximetry 98 Oxygen Delivery Method Nasal Cannula Oxygen Flow Rate 4 Sepsis Recent Fever Within 48 Hours Sepsis New/Unexplained Change in Mental Status Sepsis Action Taken by Group Home Medications Current Medication List: was personally reviewed by me Laboratory Data Attestation: I reviewed the patient's lab results. 12/21/22 10:56 12/21/22 10:56 Lab Results 12/21/22 12/21/22 12/21/22 Range/Units 10:56 10:56 10:56 WBC 10.03 (4.8-10.8) K/ul RBC 2.96 L (4.70-6.10) M/uL Hgb 9.4 L (14.0-18.0) g/dl Hct 29.5 L (42.0-52.0) % MCV 99.7 (80.0-100.0) fL MCH 31.8 (25.0-34.0) pg MCHC 31.9 L (32.0-36.0) g/dL RDW Std Deviation 63.0 H (36.4-46.3) fL RDW Coeff of Darrell 17.4 H (11.5-14.5) % Plt Count 220 (130-400) K/uL MPV 10.2 (9.4-12.4) fL Immature Gran % (Auto) 4.3 % Neut % (Auto) 77.5 % Lymph % (Auto) 8.8 % Wilbarger % (Auto) 9.2 % Eos % (Auto) 0.0 % Baso % (Auto) 0.2 % Neut # (Auto) 7.78 H (1.40-6.50) K/uL Lymph # (Auto) 0.88 L (1.2-3.4) K/uL Wilbarger # (Auto) 0.92 H (0.11-0.59) K/uL Eos # (Auto) 0.00 (0-0.50) K/uL Baso # (Auto) 0.02 (0-0.2) K/uL Immature Gran # (Auto) 0.43 H (0.01-0.20) K/uL Absolute Nucleated RBC 0.08 (0-0.12) K/uL Nucleated RBC % (auto) 0.8 % PT 14.1 H (9.0-12.0) Seconds INR 1.3 H (0.9-1.1) APTT 26.7 (21.0-31.0) Seconds PTT Ratio 1.0 Sodium 144 (136-145) mmol/L Potassium 3.0 L (3.5-5.1) mmol/L Chloride 106 (98-107) mmol/L Carbon Dioxide 26 (21-32) mmol/L Anion Gap 12 H (3-11) BUN 22 (6-23) mg/dl Creatinine 0.44 L (0.6-1.4) mg/dl Est Cr Clr Drug Dosing 249.6 ml/min Est GFR ( Amer) 145.9 ml/min Est GFR (Non-Af Amer) 125.9 ml/min BUN/Creatinine Ratio 50.0 H (10-20) Glucose 113 H (70-99(Fasting)) mg/dl Calcium 8.9 (8.5-10.1) mg/dl Magnesium 1.8 (1.7-2.4) mg/dl Total Bilirubin 0.9 (0.2-1.0) mg/dl AST 20 (13-39) U/L ALT 23 (7-52) U/L Alkaline Phosphatase 124 H (34-104) U/L Troponin I High Sens 8.4 (0-20) pg/ml Total Protein 7.0 (6.0-8.3) gm/dl Albumin 3.5 (3.4-5.0) gm/dl Globulin 3.5 (2.5-4.0) gm/dl Albumin/Globulin Ratio 1.0 (0.9-2) SARS-CoV-2 (PCR) (Negative) Influenza Type A (PCR) (Neg) Influenza Type B (PCR) (Neg) RSV (RT-PCR) (Neg) 12/21/22 Range/Units 10:57 WBC (4.8-10.8) K/ul RBC (4.70-6.10) M/uL Hgb (14.0-18.0) g/dl Hct (42.0-52.0) % MCV (80.0-100.0) fL MCH (25.0-34.0) pg MCHC (32.0-36.0) g/dL RDW Std Deviation (36.4-46.3) fL RDW Coeff of Darrell (11.5-14.5) % Plt Count (130-400) K/uL MPV (9.4-12.4) fL Immature Gran % (Auto) % Neut % (Auto) % Lymph % (Auto) % Wilbarger % (Auto) % Eos % (Auto) % Baso % (Auto) % Neut # (Auto) (1.40-6.50) K/uL Lymph # (Auto) (1.2-3.4) K/uL Wilbarger # (Auto) (0.11-0.59) K/uL Eos # (Auto) (0-0.50) K/uL Baso # (Auto) (0-0.2) K/uL Immature Gran # (Auto) (0.01-0.20) K/uL Absolute Nucleated RBC (0-0.12) K/uL Nucleated RBC % (auto) % PT (9.0-12.0) Seconds INR (0.9-1.1) APTT (21.0-31.0) Seconds PTT Ratio Sodium (136-145) mmol/L Potassium (3.5-5.1) mmol/L Chloride (98-107) mmol/L Carbon Dioxide (21-32) mmol/L Anion Gap (3-11) BUN (6-23) mg/dl Creatinine (0.6-1.4) mg/dl Est Cr Clr Drug Dosing ml/min Est GFR ( Amer) ml/min Est GFR (Non-Af Amer) ml/min BUN/Creatinine Ratio (10-20) Glucose (70-99(Fasting)) mg/dl Calcium (8.5-10.1) mg/dl Magnesium (1.7-2.4) mg/dl Total Bilirubin (0.2-1.0) mg/dl AST (13-39) U/L ALT (7-52) U/L Alkaline Phosphatase (34-104) U/L Troponin I High Sens (0-20) pg/ml Total Protein (6.0-8.3) gm/dl Albumin (3.4-5.0) gm/dl Globulin (2.5-4.0) gm/dl Albumin/Globulin Ratio (0.9-2) SARS-CoV-2 (PCR) POSITIVE A* (Negative) Influenza Type A (PCR) Negative (Neg) Influenza Type B (PCR) Negative (Neg) RSV (RT-PCR) Negative (Neg) Administered Medications Potassium Chloride (K Osvaldo / Wtr) 10 meq in 100 mls @ 100 mls/hr IV Q1H ADIA; Protocol Stop: 12/21/22 13:44 Last Admin: 12/21/22 11:41 Dose: 100 mls/hr Documented By: QGV Discontinued Medications Furosemide (Furosemide 40 Mg/4 Ml Vial) 40 mg IV NOW STA Stop: 12/21/22 09:51 Last Admin: 12/21/22 11:33 Dose: 40 mg Documented By: QGV Imaging Data Radiologist's Impression: Chest X-Ray 12/21/22 09:50 XR chest 1V portable HISTORY: Dyspnea COMPARISON: Chest 12/10/2022. FINDINGS: There is now complete opacification of the right hemithorax. This likely represents a combination of the patient's known pleural-based masses and right pleural effusion. Right jugular catheter terminates at the SVC. No pneumothorax. The left lung nodules are again noted. IMPRESSION: There is now complete opacification of the right hemithorax. This likely represe nts a combination of the patient's known pleural-based masses and right pleural effusion. ACT 112: Negative or not required by law. Electronically signed by: Winston Sepulveda M.D. 12/21/2022 10:11 AM Discharge Plan Visit Data Chief Complaint: Shortness of Breath/Dyspnea Stated Complaint: SHORTNESS OF BREATH ED Provider: Santos Hernandez Discharge Problem: SOB (shortness of breath), Pleural effusion, Synovial cell sarcoma, Anemia, Hypokalemia Patient Disposition: Admitted As Inpatient Condition: Fair Discharge Instructions Interventions: ED Discharge Assessment Last Done: 12/21/22 13:01 Forms Stand Alone Forms: My [facility] Decurate Prescriptions Prescriptions: No Action albuterol sulfate 2.5 mg /3 mL (0.083 %) solution for nebulization 2.5 mg INH Q6H PRN (Reason: shortness of breath or wheezing) montelukast [Singulair] 10 mg tablet 10 mg PO DAILY albuterol sulfate [Ventolin HFA] 90 mcg/actuation HFA aerosol inhaler 2 puffs INH Q4 PRN (Reason: Shortness Of Breath Or Wheezing) carvedilol 6.25 mg tablet 6.25 mg PO BID Rx Instructions: TAKE THIS MED WITH FOOD amlodipine 10 mg tablet 10 mg PO QAM hydroxyzine HCl 25 mg tablet 25 - 50 mg PO HS PRN (Reason: Anxiety) famotidine 40 mg tablet 40 mg PO DAILY Eliquis 5 mg tablet 5 mg PO BID lorazepam 0.5 mg tablet 0.5 mg PO Q6H PRN (Reason: Anxiety) pantoprazole 40 mg tablet,delayed release (DR/EC) 40 mg PO QAM buspirone 10 mg tablet 20 mg PO BID mirtazapine 15 mg tablet 15 mg PO HS fentanyl 50 mcg/hr Patch 72 Hour 50 mcg transdermal Q72H 7 Days Qty: 2 0RF fluticasone furoate-vilanterol [Breo Ellipta] 100-25 mcg/dose blister with device 1 puffs INH QAM hydromorphone 4 mg tablet 8 mg PO Q3H PRN (Reason: Pain, Severe) fluticasone propionate 50 mcg/actuation spray,suspension 2 spray INTRANASAL QAM potassium chloride 20 mEq tablet extended release 20 meq PO QAM valacyclovir 1 gram tablet 2,000 mg PO .BID/UD PRN (Reason: .FLARES) Rx Instructions: TAKE TWO TABLETS BY MOUTH AND REPEAT IN 12 HOURS Referrals Referrals: Krishna Urias MD [Primary Care Provider] -
--- NOTE | 2022-12-21 10:13 | XRay Report ---
XR chest 1V portable HISTORY: Dyspnea COMPARISON: Chest 12/10/2022. FINDINGS: There is now complete opacification of the right hemithorax. This likely represents a combi nation of the patient's known pleural-based masses and right pleural effusion. Right jugular catheter terminates at the SVC. No pneumothorax. The left lung nodules are again noted. IMPRESSION: There is now complete opacification of the right hemithorax. This likely represents a combination of the patient's known pleural-based masses and right pleural effusion. ACT 112: Negative or not required by law. Electronically signed by: Winston Sepulveda M.D. 12/21/2022 10:11 AM
--- NOTE | 2022-12-21 10:34 | Pulmonary Consultation ---
Date of Consultation December 21, 2022 Assessment & Plan (1) Malignant pleural effusion: No clear pocket for placement of Pleurx catheter using bedside ultrasound. We will send the patient for CT chest with contrast to better evaluate the pleural space and consider placement of a catheter after CT chest is complete. Patient also has a recent history of hemopneumothorax which may be contributing to the situation and making interpretation of the right hemithorax using ultrasound difficult given possibility of old retained blood clots. (2) Acute dyspnea: Secondary to tumor burden in the right hemithorax, malignant pleural effusion, pulmonary emboli and obesity. Recommend palliative care consult and transitioning home with hospice. (3) Synovial sarcoma: No longer in therapy as he was intolerant. (4) Pleural metastasis: Quite severe. We will obtain updated CT today to evaluate further. Plan Thank you for allowing us to participate in the care of this patient. We will continue to follow. Plan of care discussed with the ER physician, patient and patient's spouse. History of Present Illness Reason for Consultation: Large right pleural effusion History of Present Illness History obtained from chart review and reviewing the EMR, prior imaging studies, discussion with the ER physician, discussion with patient and . Patient with a history of metastatic carcinoma and recurrent malignant right pleural effusion presenting to the hospital due to increasing shortness of breath. He essentially has white out of his right lung. He was evaluated by Dr. Recio in the clinic 11/28/2022. During his last admission he had a pigtail catheter placed on the right and he was transferred to [facility]. There was thought that he had hemopneumothorax. Patient declined Pleurx catheter placement by thoracic surgery due to risks involved with placement. Patient is chronically on Eliquis due to recent pulmonary embolism. Patient did hold his Eliquis last night and this morning. He is chronically on 2 L of oxygen which has been escalating upwards over the last few days. He denies any increased cough or fever. Patient's is present and notes that he has been having increasing shortness of breath that is quite severe over the last night or 2. He is minimally active. CT chest from 12/15/2022 reviewed with large pleural mets and numerous loculations noted. Right pigtail catheter in place. Small bilateral pulmonary emboli. Allergies Allergy/AdvReac Type Severity Reaction Status Date / Time bacitracin Allergy Severe hives, Verified 12/21/22 10:19 syncopy tree and shrub pollen AdvReac Mild nasal Verified 12/21/22 10:19 congestion, eyes water Home Medications Medication Instructions Recorded Confirmed Type albuterol sulfate 90 mcg/actuation 2 puffs inhalation Q4 PRN 10/10/19 12/21/22 History aerosol inhaler (Ventolin HFA) Shortness Of Breath Or Wheezing albuterol sulfate 2.5 mg/3 mL 2.5 mg inhalation Q6H PRN 01/31/20 12/21/22 History (0.083 %) solution for nebulization shortness of breath or wheezing montelukast 10 mg tablet 10 mg PO DAILY 06/29/20 12/21/22 History (Singulair) amlodipine 10 mg tablet 10 mg PO QAM 07/31/22 12/21/22 History carvedilol 6.25 mg tablet 6.25 mg PO BID 07/31/22 12/21/22 History famotidine 40 mg tablet 40 mg PO DAILY 07/31/22 12/21/22 History hydroxyzine HCl 25 mg tablet 25 - 50 mg PO HS PRN Anxiety 07/31/22 12/21/22 History buspirone 10 mg tablet 20 mg PO BID 09/02/22 12/21/22 History mirtazapine 15 mg tablet 15 mg PO HS 09/02/22 12/21/22 History pantoprazole 40 mg tablet,delayed 40 mg PO QAM 09/02/22 12/21/22 History release fentanyl 50 mcg/hr transdermal 50 mcg transdermal Q72H severe 09/10/22 12/21/22 Rx patch pain 1 week #2 ea fluticasone furoate 100 1 puffs inhalation QAM 11/08/22 12/21/22 History mcg-vilanterol 25 mcg/dose inhalation powder (Breo Ellipta) fluticasone propionate 50 2 spray intranasal QAM 11/08/22 12/21/22 History mcg/actuation nasal spray,suspension hydromorphone 4 mg tablet 8 mg PO Q3H PRN Pain, Severe 11/08/22 12/21/22 History potassium chloride 20 mEq 20 meq PO QAM 11/08/22 12/21/22 History tablet,extended release valacyclovir 1 gram tablet 2,000 mg PO .BID/UD PRN .FLARES 11/08/22 12/21/22 History apixaban 5 mg tablet (Eliquis) 5 mg PO BID 11/24/22 12/21/22 History lorazepam 0.5 mg tablet 0.5 mg PO Q6H PRN Anxiety 12/21/22 12/21/22 History Patient History Medical History (Updated 12/21/22 @ 12:36 by Bronson Yang MD) Acute dyspnea Asthma DVT (deep venous thrombosis) GERD (gastroesophageal reflux disease) Hepatic steatosis History of pulmonary embolism HTN (hypertension) Malignant pleural effusion DUY on CPAP 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 Grandmother (Maternal) No problems noted. Grandfather (Paternal) No problems noted. Father No problems noted. Mother No problems noted. Brother Age: 54 No problems noted. Son Age: 35 Leukemia in remission Daughter Age: 35 No problems noted. Daughter Age: 23 No problems noted. Son Age: 20 No problems noted. Social History Smoking Status: Former smoker Hx Alcohol Use: No Hx Substance Use: No Preferred Language: Norwegian Communication Ability: Effective Chair Springer Required: Yes Beliefs That Will Affect Care: None marital status: Current Living Situation: Spouse and Family current occupational status: employed Feels Safe at Home: Yes Childhood Exposure to Second-Hand Smoke: Yes caffeine: No Dental Care, Regularly: Yes Physical Activity Frequency: Does not Exercise Seatbelt Use: always Sunscreen Use: Yes Do you think of yourself as: straight/heterosexual Assistive Devices: Cane, CPAP and Walker Review of Systems Review of Systems: All systems reviewed & are unremarkable except as noted in HPI & below Physical Exam Physical Exam: Constitutional: Patient is obese in moderate distress. Tachypneic. Eyes: Pupils are equal round and reactive to light. Conjunctivae are normal. Anicteric sclera. Ears nose, mouth and throat: Mallampati class 2. Normal posterior oropharynx. Uvula is midline. Neck: Trachea is midline. Visual inspection is normal. Respiratory: Diminished on the right. Tachypneic. Cardiovascular: Regular rate and rhythm. No murmurs. No edema. Gastrointestinal: Normal bowel sounds, soft, nontender and nondistended. No hepatosplenomegaly noted. Musculoskeletal: No cyanosis. Patient is able to move all extremities. Strength is 5 out of 5 in the upper and lower extremities. Skin: No rashes, warm dry and intact. Neurologic: No obvious focal neurological deficits seen. Psychiatric: Alert and oriented x3 with an anxious mood. Results & Data Results & Data ([facility]) Vital Signs (Past 12 Hours) Vital Signs Temp Pulse Resp BP Pulse Ox O2 Del Method O2 Flow Rate 12/21/22 09:48 111 H 12/21/22 09:40 108 H 22 138/93 99 Nasal Cannula 4 12/21/22 09:40 Nasal Cannula 4 12/21/22 09:22 35.8 C L 116 H 22 160/108 H 97 Room Air 2 PG Care Time/CCT Total # of Minutes Spent Total Time Spent with Patient: Total time spent is greater than 50% in coordination of care (as documented) at patient's floor/unit and/or counseling patient: Coding Level of Care Code INP/OBS CONSULT LVL 5, 80 MIN Diagnoses Malignant pleural effusion J91.0 Acute dyspnea R06.00 Synovial sarcoma C49.9 Pleural metastasis C78.2
[2022-12-21 11:19] LABS: Basophils # (auto) 0.02 K/uL (0-0.2); Basophils % (auto) 0.2 %; Hematocrit (blood only) 29.5 % (42.0-52.0); Hemoglobin 9.4 g/dl (14.0-18.0); Immature Granulocytes # (auto) 0.43 K/uL (0.01-0.20); Immature Granulocytes % (auto) 4.3 %; Lymphocytes # (auto) 0.88 K/uL (1.2-3.4); Lymphocytes % (auto) 8.8 %; Mean Corpuscular Hemoglobin 31.8 pg (25.0-34.0); Mean Corpuscular Hgb Conc 31.9 g/dL (32.0-36.0); Mean Corpuscular Volume 99.7 fL (80.0-100.0); Mean Platelet Volume 10.2 fL (9.4-12.4); Monocytes # (auto) 0.92 K/uL (0.11-0.59); Monocytes % (auto) 9.2 %; Neutrophils # (auto) 7.78 K/uL (1.40-6.50); Neutrophils % (auto) 77.5 %; Nucleated RBC # (auto) 0.08 K/uL (0-0.12); Nucleated RBC % (auto) 0.8 %; Platelet Count 220 K/uL (130-400); RDW Coefficient of Variation 17.4 % (11.5-14.5); Red Blood Count 2.96 M/uL (4.70-6.10); White Blood Count 10.03 K/ul (4.8-10.8)
[2022-12-21 11:32] LABS: Albumin Level 3.5 gm/dl (3.4-5.0); Bilirubin,Total 0.9 mg/dl (0.2-1.0); Calcium 8.9 mg/dl (8.5-10.1); Creatinine Clr Calc Pharmacy 249.6 ml/min; Est GFR (African American) 145.9 ml/min; Est GFR (Non-African American) 125.9 ml/min; Globulin 3.5 gm/dl (2.5-4.0); Magnesium 1.8 mg/dl (1.7-2.4)
[2022-12-21 11:39] LABS: Troponin I High Sensitivity 8.4 pg/ml (0-20)
[2022-12-21] MEDS: POTASSIUM CHLORIDE / WTR 10 MEQ/100 ML PLCT IV SCH ×2 (11:41→13:37)
[2022-12-21 11:45] LABS: INR 1.3 (0.9-1.1); Partial Thromboplastin Time 26.7 Seconds (21.0-31.0); Prothrombin Time 14.1 Seconds (9.0-12.0)
[2022-12-21 11:46] LABS: Influenza A virus by PCR Negative (Neg); Influenza B virus by PCR Negative (Neg); RSV by PCR Negative (Neg)
[2022-12-21 11:56] LABS: SARS CoV2 RNA(COVID-19) Ceph POSITIVE (Negative)
[2022-12-21] MEDS ORDERED: ALBUTEROL HFA 8 GM INHALER INH PRN (12:05)
[2022-12-21] MEDS ORDERED: ALBUTEROL 0.083% NEBU SOLN 3 ML VIAL INH PRN (12:05)
[2022-12-21] MEDS: HYDROmorphone HCL 2 MG TAB PO PRN ×4 (13:30→23:09)
[2022-12-21] MEDS ORDERED: OPTIRAY 320 500ml IV ONE (13:46)
--- NOTE | 2022-12-21 14:07 | CT Scan Report ---
CHEST CTA for PULMONARY ARTERIES CT DOSE: 1058.98 mGy.cm HISTORY: Short is of breath. PE and pleural effusion TECHNIQUE: Multiaxial CT images of the chest were performed following the intravenous administration of contrast to evaluate the pulmonary arteries. Maximal intensity projection images were also obtaine d. A dose lowering technique was utilized adhering to the principles of ALARA. COMPARISON STUDY: Chest CTA 11/28/2022. FINDINGS: Normal caliber thoracic aorta with no evidence for a dissection. The right upper lobe and l eft lower lobe pulmonary emboli seen on the prior study have slightly improved. No new pulmonary embo li identified. A right jugular Port-A-Cath terminates at the distal SVC. Significant progression of t he metastatic disease within the right lung/pleura with multiple loculated fluid collections and no s uspicious lytic or blastic osseous lesions. No acute fractures identified. No left pleural effusion. Persistent mass effect from the pleural masses which results in near complete compression of the righ t lung with only a few small areas of aerated lung remaining. There 2 punctate foci of gas seen withi n the loculated pleural fluid collections. This could be due to the prior pleural catheter. Secondary infection would be difficult to exclude by imaging but is considered less likely. Progressive mass e ffect along the right heart border from the pleural tumor deposits. The visualized liver and spleen a re unremarkable. There is mass effect along the distal esophagus from the enlarging metastatic diseas e within the posterior mediastinum. There is mild mass effect along the right bronchi due to the prog ressive pleural masses. The right pulmonary arteries are attenuated due to the mass effect from the p leural masses. Left pulmonary nodules are again noted. IMPRESSION: 1. Slight improvement in the pulmonary emboli seen on the prior study. 2. Extensive metastatic disease within the right hemithorax which has progressed in the interval. Thi s results in near complete opacification/compression of the right lung. 3. There is progressive mass effect on the right bronchi, distal esophagus, and right heart border du e to the progressive interstitial disease. 4. There are 2 punctate foci of gas within the loculated right pleural fluid collections. This is non specific but is likely related to the prior pleural catheter placement. Secondary infection would be difficult to exclude by imaging but is considered less likely. ACT 112: Negative or not required by law. Electronically signed by: Winston Sepulveda M.D. 12/21/2022 2:04 PM
[2022-12-21] MEDS ORDERED: POTASSIUM CHLORIDE CRTAB 20 MEQ TABCR PO STA ×2 (14:17→17:20)
[2022-12-21] MEDS ORDERED: POLYETHYLENE (MIRALAX) 17 GM PACK PO PRN (14:17)
[2022-12-21] MEDS ORDERED: NITROGLYCERIN SL 0.4 MG/TAB TAB SL PRN (14:17)
[2022-12-21] MEDS ORDERED: ACETAMINOPHEN 325 MG TAB PO PRN (14:17)
[2022-12-21] MEDS ORDERED: LIDOCAINE 2% LOCAL 50 ML VIAL ONE (15:13)
--- NOTE | 2022-12-21 16:20 | Procedure Note ---
Procedure Note Date of Service December 21, 2022 Note PREOPERATIVE DIAGNOSIS: Recurrent malignant right pleural effusion. POSTOPERATIVE DIAGNOSIS: Recurrent malignant right pleural effusion. PROCEDURE PERFORMED: Right PleurX catheter placement. ANESTHESIA: No IV sedation. Local lidocaine given (15 ml) COMPLICATIONS: None. Written consent was obtained and placed on the chart. Timeout was done prior to the procedure. INDICATION FOR PROCEDURE: The patient is an 57-year-old male with a complex past medical history, most pertinent for synovial sarcoma. The patient has developed a recurrent right pleural effusion. In an effort to palliate his respiratory symptoms, the patient was referred for a PleurX catheter placement for home drainage. The patient and her family understood the risks and possible complications of the procedure and wished to proceed. OPERATIVE FINDINGS: The right chest was opacified on preoperative chest x-ray, and 800 ml of serosanguineous fluid was withdrawn upon leaving the room. There were no bleeding complications. DESCRIPTION OF PROCEDURE: The patient was placed in a semirecumbent position. I evaluated the right pleura with the ultrasound and located an adequate spot insert the finder needle to inject lidocaine and aspirate pleural fluid. The right chest and upper abdomen were prepped and draped in the usual sterile fashion. Lidocaine 2% was used to infiltrate two areas; one in the right upper quadrant where the tube would exit and the other along the anterior axillary line in the seventh intercostal space. A small counterincision was made in the right upper quadrant area. Through the anterior axillary line area, the pleural space was accessed by Seldinger technique. The counterincision was made around the guidewire and then the PleurX catheter was tunneled from the right upper quadrant small incision to the one overlying the ribs. A sheath introducer was then passed over the wire and then the PleurX catheter was placed through the sheath introducer. There was good return of fluid. The catheter was attached to a Vivian drain at -20 cm H2O suction. Approximately 800 mL of fluid was out upon my leaving the room. The patient felt much better and was less short of breath. Postprocedure chest x-ray is pending. Cultures from the fluid will be sent. We will order CBC. Coding CPT Codes Pulmonary/Thoracic - Pulmonary and Thoracic: 31311 Insert pleural cathereter w/cuff ([id number]) [facility] [place] Procedure Codes (Charges) Pulmonary/Thoracic Procedure 1: Pulmonary and Thoracic: 91888 Insert pleural cathereter w/cuff
[2022-12-21] MEDS ORDERED: ALBUMIN 25% 12.5 GM/50 ML VIAL IV ONE (16:30)
--- NOTE | 2022-12-21 16:44 | History and Physical Report ---
DATE OF ADMISSION: 12/21/2022. CHIEF COMPLAINT: Shortness of breath. 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 The patient was admitted in [facility] on 11/24/2022, was discharged to [place] on 11/29/2022, at that time he was admitted for shortness of breath. Last admission while in [facility] had a pigtail chest tube placement on 11/24/2022 on and had drainage of 4.5 liters of serous fluid . Fluid pattern with very high LDL, exudative . There were no signs of infection. Serology was negative. Pleural effusion was suspected to be malignant given extensive metastasis in the right lung and pleura. Pulmonary status improved with placement of chest tube. On 11/28/2022, the patient's hemoglobin dropped from 11 to 9 and subsequently to 8.4. No drainage has been noted from chest tube and heparin drip was stopped and bilateral lower extremity Doppler showed DVT in the left superficial femoral artery. Vascular surgery was consulted and IVC filter was placed and CT angio chest was done, which showed persistent bilateral PE, extensive pleural based metastatic disease, right erythema, no pneumothorax and on reviewing the images pulmonary recommended transfer to tertiary care given high suspicion of bleeding through metastasis. The patient was transferred to [place], on 11/29/2022. Pulmonary, Oncology and Thoracic Surgery was consulted. Pulmonary and Oncology had no acute intervention to offer due to progression of disease. Thoracic Surgery discussed risks and benefits of PleurX placement. The patient at that time declined given the concerning risks. On 12/02/2022 chest tube was removed. He was stable and ready for discharge on 12/03/2022. As per the patient from the next day, at home, he was on 2 liters of oxygen. Last Thursday night home health felt that , going to bathroom coming back, he was taking longer time to recover. He ambulates with walker. Oxygen was increased to 4 liters and since then he has progressively becoming more short of breath, that is the reason he came here and his imaging studies showed total whitening of right lung with massive effusion. Pulmonary saw the patient, they could not find a spot on ultrasound ,so CAT scan of the chest with contrast was ordered to better evaluate the pleural space and consider placement of chest tube. Currently on oxygen the patient is saturating okay, seems slightly tachypneic No abdominal pain. He has some discomfort in the right side of the chest radiating to the back. He is on fentanyl patch and he is taking Dilaudid 8 mg every 3 hours almost regularly. Denies any headache. No abdominal pain. No nausea. Appetite is okay. Eating and drinking okay. He has normal bowel and bladder movements. He has some swelling in the feet. Denies any rash. Taking Lasix 40 mg daily at home. Currently, hemodynamics are okay, he is saturating okay on 4 liters. As per Diana notes, it looks like he had diagnosed of sarcoma around 09/2019. He had multiple sessions of radiation therapy followed by surgical intervention in 02/2022 and a few weeks later he was found to have pulmonary metastasis. In summer, patient was seen by Oncology at [facility] and was started on Votrient. Currently the patient states he is following with palliative care as outpatient and discussing about hospice. Currently, he is not getting any chemo. He is planning to see Pulmonary as outpatient coming week and there is plan for PleurX catheter. Once the PleurX catheter is placed, he is considering transition to hospice care. ALLERGIES: BACITRACIN, TREE AND SHRUB POLLEN. PAST MEDICAL HISTORY: As mentioned above. PAST SURGICAL HISTORY: Radical resection of the left side arm-elbow tumors, colonoscopy, free fascial flap with microvascular anastomosis, IR biopsy, removal of the right eye, tonsillectomy, vasectomy. MEDICATIONS: The patient is on albuterol nebulization q. 6 hours p.r.n., albuterol inhalation q. 4 hours p.r.n., amlodipine 10 mg p.o. a.m., buspirone 20 mg p.o. b.i.d., Coreg 6.25 mg p.o. b.i.d., Eliquis 5 mg p.o. b.i.d., famotidine 40 mg p.o. daily, fentanyl 50 mcg transdermal q.72 hours, Breo Ellipta 1 puff a.m., fluticasone 2 sprays intranasal a.m., Lasix 40 mg p.o. daily, hydromorphone 8 mg p.o. q. 3 hours p.r.n., hydroxyzine 25-50 mg p.o. at bedtime p.r.n., lorazepam 0.5 mg p.o. q. 6 hours p.r.n., mirtazapine 15 mg p.o. at bedtime, montelukast 10 mg p.o. daily, Protonix 40 mg p.o. daily, potassium chloride 20 mEq p.o. daily,Valacyclovir 2 g p.o. b.i.d. p.r.n. FAMILY HISTORY: Significant for father of metastatic melanoma, had hypertension, pancreatic cancer. Mother has thyroid disorder, hyperlipidemia. Paternal grandfather has heart disorder, CABG. SOCIAL HISTORY: . Quit smoking in 2003, smoked quarter pack a day for 14 years. Alcohol social. No drugs currently. REVIEW OF SYMPTOMS: As per HPI. Rest of review of systems is negative. PHYSICAL EXAMINATION: GENERAL: The patient is obese, not in acute distress. VITAL SIGNS: Temperature 35.0, pulse 100, respiratory rate 22, blood pressure 138/93, oxygen 98% on 4 liters. 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 Pupils react to light on left eye. No facial trauma. Oral mucosa moist. NECK: No JVD. No neck masses. CARDIOVASCULAR: S1 and S2 heard. Regular rate and rhythm. No murmur, no gallop. RESPIRATORY SYSTEM: Normal AP diameter. Mild tachypneic, decreased breath sounds in the right side. Bibasilar crackles. Occasional wheezing. ABDOMEN: Soft, bowel sounds present, nontender, no distention. CENTRAL NERVOUS SYSTEM: Alert and oriented. Speech is clear. Obeys simple commands. Moves extremities. EXTREMITIES: Bilateral edema in the feet. Moves extremities. PERTINENT LABS: WBC 10.03, hemoglobin 9.4, hematocrit 29.5, platelets 220. PT 14.1, INR 1.3, APTT 26.7. Sodium 144, potassium 3, chloride 106, bicarb 26, CO2 26, BUN 22, creatinine 0.4, serum glucose 113, calcium 8.9, magnesium 1.8, total bilirubin 0.9, AST 20, ALT 23, alkaline phosphatase 124. Troponin I high sensitivity 8.4. SARS-CoV-2 PCR positive. Influenza A and B PCR negative. RSV PCR negative. IMAGING DATA: Chest x-ray, there is no complete opacification of right hemithorax this likely represents a combination of the patient's known pleural masses and right pleural effusion. EKG: Sinus tachycardia at a rate of 108, nonspecific ST abnormalities. ASSESSMENT AND PLAN: This is a 57-year-old male who presents with shortness of breath. 1. 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 He was transferred to [place] at that time because the CAT scan was showing extensive pleural based metastatic disease, right sided hemopneumothorax. In [place] it was recommended PleurX catheter, which he declined at that time. He says he has followup appointment with Pulmonary coming week and planning for PleurX catheter, currently comes with increased shortness of breath, right lung is totally whiteout, seen by Pulmonary in the ER. We are going to get CT chest. Based on CT chest, plan for chest tube placement as per Pulmonary. He received a dose of IV Lasix in the ER. We will continue with IV Lasix 40 daily and closely monitor in tele floor.Patient eventually had chest tube placed with improving of symtoms. Appreciate Pulmonary help. 2. Synovial sarcoma with metastasis to the lungs, currently he is off of the chemo. He is currently following Pulmonary as outpatient, and also trying to discuss with palliative care about hospice once the PleurX catheter is placed. Currently want to be full code for today, because says if something happens, she wants her kids to come and see him. Continue his home pain medications. He is on fentanyl patches and Dilaudid 8 mg p.o. q. 3 hours p.r.n., but states he is taking almost every 3 hours Dilaudid dose. We will monitor. 3. History of obstructive sleep apnea on CPAP at bedtime. 4. History of deep venous thrombosis and pulmonary embolism, status post IVC filter, currently on Eliquis, which is on hold for the procedure. Once procedure is done we can restart the Eliquis.Pulmonary recommends to hols eliquis for today as bloody drainage from chest tube. 5. History of COVID-19. His COVID was positive on 11/24/2022. He said he had COVID vaccine and booster twice and he had COVID, also in the past. Currently has no COVID symptoms and his COVID is again positive today, possibly old infection from October. We will not do any isolations for now. 6. Gastroesophageal reflux disease: Continue Protonix. 7. History of asthma: Continue home nebulization p.r.n., 8. Ongoing cancer, we will follow the labs while on Eliquis. 9. History of hypertension: Continue his Coreg, amlodipine, diuretics. We will monitor the blood pressure. 10. Anemia. From cancer. Will follow h and h closely. 11. Deep venous thrombosis prophylaxis: Sequential compression devices for now. Restart Eliquis once procedures are done. 12. History of hypercalcemia. We will follow HbA1c levels. DISPOSITION: Closely monitor in tele floor. Level 1 full code for now. Job ID: [id number] [facility]
--- NOTE | 2022-12-21 16:53 | XRay Report ---
XR chest 1V portable HISTORY: Status post right-sided chest tube. COMPARISON: Chest 12/21/2022. FINDINGS: There is again noted near complete opacification the right hemithorax. Right jugular Port-A -Cath remains at the distal SVC. Left pulmonary nodules again noted. The heart is stable in size. No pneumothorax. Possible placement of a right basilar pleural catheter. However, this is not well visua lized due to the dense opacification of the right hemithorax. No definite pneumothorax. IMPRESSION: Possible placement of a right basilar pleural catheter. However, this is not well visualized due to t he dense opacification of the right hemithorax. No definite pneumothorax. ACT 112: Negative or not required by law. Electronically signed by: Winston Sepulveda M.D. 12/21/2022 4:52 PM
[2022-12-21 16:56] LABS: Basophils # (auto) 0.03 K/uL (0-0.2); Basophils % (auto) 0.3 %; Hematocrit (blood only) 30.3 % (42.0-52.0); Hemoglobin 9.4 g/dl (14.0-18.0); Immature Granulocytes # (auto) 0.43 K/uL (0.01-0.20); Immature Granulocytes % (auto) 4.4 %; Lymphocytes # (auto) 0.81 K/uL (1.2-3.4); Lymphocytes % (auto) 8.3 %; Mean Corpuscular Hemoglobin 31.1 pg (25.0-34.0); Mean Corpuscular Volume 100.3 fL (80.0-100.0); Mean Platelet Volume 10.3 fL (9.4-12.4); Monocytes # (auto) 0.83 K/uL (0.11-0.59); Monocytes % (auto) 8.5 %; Neutrophils # (auto) 7.61 K/uL (1.40-6.50); Neutrophils % (auto) 78.5 %; Nucleated RBC # (auto) 0.06 K/uL (0-0.12); Nucleated RBC % (auto) 0.6 %; Platelet Count 236 K/uL (130-400); RDW Coefficient of Variation 17.4 % (11.5-14.5); RDW Standard Deviation 63.6 fL (36.4-46.3); Red Blood Count 3.02 M/uL (4.70-6.10); White Blood Count 9.71 K/ul (4.8-10.8)
[2022-12-21] MEDS: CHECK fentaNYL PATCH PLACEMENT SCH ×2 (17:19→23:08)
[2022-12-21] MEDS: carvediloL 6.25 MG TAB PO SCH (17:23)
--- NOTE | 2022-12-21 18:06 | XRay Report ---
XR chest 2V PA/lateral HISTORY: pleurx placement COMPARISON: Chest 12/21/2022. FINDINGS: The right basilar pleural catheter is noted. Near complete opacification of the right hemit horax is not significantly changed. No definite pneumothorax. Left pulmonary nodules are again noted. A right jugular Port-A-Cath terminates in the distal SVC. IMPRESSION: 1. A right basilar pleural catheter is noted. 2. Near-complete opacification of the right hemithorax is not significantly changed. 3. No definite pneumothorax. ACT 112: Negative or not required by law. Electronically signed by: Winston Sepulveda M.D. 12/21/2022 6:03 PM
[2022-12-21] MEDS ORDERED: HEPARIN 100 UNIT/ML 5ML FLUSH FLUSH PRN (18:28)
--- NOTE | 2022-12-21 19:00 | Electrocardiogram Report ---
Test Reason : Blood Pressure : / mmHG Vent. Rate : 108 BPM Atrial Rate : 108 BPM P-R Int : 124 ms QRS Dur : 090 ms QT Int : 340 ms P-R-T Axes : 031 000 -62 degrees QTc Int : 455 ms Poor data quality, interpretation may be adversely affected Sinus tachycardia Nonspecific ST and T wave abnormality Abnormal ECG When compared with ECG of 24-NOV-2022 12:10, Nonspecific T wave abnormality now evident in Inferior leads Nonspecific T wave abnormality now evident in Anterior leads Nonspecific T wave abnormality, improved in Lateral leads Confirmed by Simón Erickson ([id number]) on 12/21/2022 6:59:54 PM Referred By: REFERRED SELF Confirmed By:Simón Erickson
[2022-12-21] MEDS: LORazepam 0.5 MG TAB PO PRN (19:58)
[2022-12-21] MEDS: busPIRone 5 MG TAB PO SCH (19:59)
[2022-12-21] MEDS ORDERED: MIRTAZAPINE TAB 15 MG TAB PO SCH (21:00)
[2022-12-22] MEDS: LORazepam 0.5 MG TAB PO PRN ×4 (01:08→15:13)
[2022-12-22] MEDS: HYDROmorphone HCL 2 MG TAB PO PRN ×4 (01:41→15:13)
[2022-12-22] MEDS ORDERED: LORazepam 0.5 MG TAB PO STA (01:54)
[2022-12-22 07:33] LABS: Estimated Average Glucose 120 mg/dl; Hemoglobin A1C 5.8 % (4.5-5.6)
[2022-12-22] MEDS ORDERED: POTASSIUM CHLORIDE CRTAB 20 MEQ TABCR PO ONE ×2 (07:53→21:00)
[2022-12-22] MEDS: carvediloL 6.25 MG TAB PO SCH (08:09)
[2022-12-22] MEDS: busPIRone 5 MG TAB PO SCH (08:09)
[2022-12-22] MEDS: CHECK fentaNYL PATCH PLACEMENT SCH ×2 (08:09→15:12)
[2022-12-22] MEDS ORDERED: FLUTICASONE/VILANTEROL 100/25MCG 14 PUFFS/INHALER INH SCH (09:00)
[2022-12-22] MEDS ORDERED: FAMOTIDINE 40 MG TABLET PO SCH (09:00)
[2022-12-22] MEDS ORDERED: PANTOprazole 40 MG TAB PO SCH (09:00)
[2022-12-22] MEDS ORDERED: FUROSEMIDE 40 MG/4 ML VIAL IV SCH (09:00)
[2022-12-22] MEDS ORDERED: FLUTICASONE PROPIONATE NA SPR 16 GM BTL SCH (09:00)
[2022-12-22] MEDS ORDERED: POTASSIUM CHLORIDE CRTAB 20 MEQ TABCR PO SCH (09:00)
[2022-12-22] MEDS ORDERED: amLODIPine BESYLATE 5 MG TAB PO SCH (09:00)
--- NOTE | 2022-12-22 09:07 | Pulmonology Progress Note ---
Date of Service December 22, 2022 Assessment & Plan (1) Pleural effusion: Plan: IMPRESSION: 57-year-old male with a significant past medical history of metastatic synovial carcinoma with multiple RIGHT-sided pleural lesions with recurrent RIGHT-sided pleural effusion who is status post Pleurx catheter placement in the setting of recurrent effusion, dyspnea, and hypoxia. RECOMMENDATIONS: 1. Malignant pleural effusion - * Status post Pleurx catheter placement. Continues to have slight bloody serosanguineous drainage from the RIGHT-sided chest tube which remains to suction. * Clinically, the patient reports feeling much better and states that his breathing has significantly improved. * Will arrange for patient to have outpatient home health follow-up as he plans to return home in the care of his versus hospice as previously thought. * Will communicate with our office staff to have this coordinated in the outpatient setting. * Will send the patient home with Pleurx starter kit. * Conveniently, he has a follow-up appointment on Thursday with Dr. Recio. Encouraged the patient to keep this appointment. 2. Dyspnea - * Seems improved since drainage of pleural fluid. * Remains on 4L NC at 99% * Can titrate down his O2 to his home 2L as tolerated. 3. Metastatic Synovial Sarcoma - * Previously intolerant of therapy. * Would recommend patient consider hospice care approach. * Does not seem interested in conversations at this time. Will defer to his pr imary service. Thank you for allowing us to participate in the care of this patient. Patient likely stable for discharge to home when he is back to his baseline oxygen requirement and we are able to establish outpatient management of his Pleurx catheter. We will continue to follow him while he remains inpatient (2) Synovial cell sarcoma: (3) SOB (shortness of breath): (4) Pleural metastasis: (5) Malignant pleural effusion: Admission and Anticipated Discharge Date Admission Date: December 21, 2022 Supervising Physician Co-Signing Physician Notes Patient seen and examined. EMR reviewed. Discussed with off going flame burner as well as with the physicians assistant basketball coach. Agree with assessment plan as noted. Patient was taken off suction. He and his were educated regarding drainage of the pleural catheter system. Our office will coordinate getting supplies for the patient. He has a follow-up scheduled with Dr. Recio later this week. Output will continue to be monitored. It appears the patient is transitioning to palliative care measures which is appropriate. The patient stable for discharge from a pulmonary standpoint. Will sign off, call if questions. Subjective Patient seen and evaluated by myself and Dr. Hill bedside. Patient states that he is breathing much better at this time. He reports no chest pain or worsening cough. He remains on 4 L nasal cannula. He is hopeful to be discharged home soon in the care of his with home health services. Review of Systems Review of Systems: A complete 6 point review of systems was reviewed with the patient with pertinent positives and negatives as per history of present illness. All else were negative. Physical Exam Physical Exam: VITAL SIGNS - Vital signs and nursing notes were reviewed. GENERAL - 57-year-old male appearing his stated age who is in no acute distress. Communicates well with provider and answers questions appropriately. NECK - Neck with FROM. LUNGS - Slight tachypnea at rest. Decreased breath sounds in the RIGHT-sided lung field. RIGHT-sided Pleurx in place with bloody serosanguineous drainage. CARDIAC - RRR with S1/S2. No murmur, rubs, or gallops appreciated. ABDOMEN - Abdominal contour obese without pulsations or visible masses. BS normoactive all four quadrants. No tenderness, palpable masses, hepatosplenomegaly, or ascites noted. PSYCH - A&Ox3 and cooperates fully with examiner. Pt is very pleasant and interacts well with examiner. Results & Data Results & Data ([facility]) Vital Signs (Past 12 Hours) Vital Signs Temp Pulse Pulse Resp BP Pulse Ox O2 Del Method 12/22/22 08:00 74 12/22/22 07:25 36.5 C 100 H 20 136/87 99 Nasal Cannula 12/22/22 02:42 36.4 C L 95 H 20 149/84 H 98 Nasal Cannula 12/21/22 23:07 90 O2 Flow Rate 12/22/22 08:00 12/22/22 07:25 4 12/22/22 02:42 4 12/21/22 23:07 PG Care Time/CCT Total # of Minutes Spent Total Time Spent with Patient: Total time spent is greater than 50% in coordination of care (as documented) at patient's floor/unit and/or counseling patient: Coding Level of Care Code 41543 SUB INP/OBS CARE 3/50MIN Diagnoses Pleural effusion J90 Synovial cell sarcoma C49.9 SOB (shortness of breath) R06.02 Pleural metastasis C78.2 Malignant pleural effusion J91.0
[2022-12-22 10:35] VITALS: BP 135/87; TEMP 97.9; O2SAT 98
[2022-12-22] MEDS ORDERED: HYDROmorphone INJ 0.5 MG/0.5 ML SYR IV ONE (12:00)
--- NOTE | 2022-12-22 12:47 | Hospitalist Progress Note ---
Date of Service December 22, 2022 Assessment & Plan (1) Pleural effusion: Plan: Patient is a 57 yr old male who presents with shortness of breath. Malignant pleural effusion Acute on chronic respiratory failure with hypoxia -CTA:Slight improvement in the pulmonary emboli seen on the prior study. Extensive metastatic disease within the right hemithorax which has progressed in the interval. This results in near complete opacification/compression of the right lung. There is progressive mass effect on the right bronchi, distal esophagus, and right heart border due to the progressive interstitial disease. There are 2 punctate foci of gas within the loculated right pleural fluid collections. This is nonspecific but is likely related to the prior pleural catheter placement. Secondary infection would be difficult to exclude by imaging but is considered less likely. -S/P Pleurx catheter placement Symptomatically improved after drainage of serosanguineous fluid. Appreciate pulmonology input Scheduled for follow-up with pulmonology on Thursday with Dr. 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 H/O Asthma: Nebs PRN Hypertension Continue Coreg, amlodipine, diuretics Anemia of Chronic Disease Monitor CBC DM II Diet Controlled HbA1C: 5.8 DVT Px: SCDs Eliquis Code Status Full code for now Disposition Home with Home Health Admission and Anticipated Discharge Date Admission Date: December 21, 2022 Subjective Patient is seen and examined at bedside States his dyspnea is much improved after Pleurx catheter placement Denies any chest pain, dizziness, nausea, abdominal pain Minimal cough but otherwise no complaints Discussed with patient's at bedside Review of Systems Review of Systems: All systems reviewed & are unremarkable except as noted in Subjective Physical Exam Physical Exam: Physical Exam: Vitals signs as noted above General Appearance:Moderately built and nourished, Chronic ill appearing, no apparent distress Head: normocephalic, Atraumatic Eyes: normal inspection, EOMI Neck: supple, Trachea midline Respiratory/Chest:Right decreased breath sounds, +Pleurx, No accessory muscle use Cardiovascular: S1, S2, No murmur Abdomen/GI:Soft, Non tender, Bowel sounds present Extremities/Musculoskeletal:normal inspection, 2+ B/L edema Neurologic/Psych:AAOX3, grossly no focal neurological deficits Skin: normal color, warm Results & Data Results & Data ([facility]) Vital Signs (Past 12 Hours) Vital Signs Temp Pulse Pulse Resp BP Pulse Ox O2 Del Method 12/22/22 10:33 36.6 C 106 H 20 135/87 98 Nasal Cannula 12/22/22 09:00 Nasal Cannula 12/22/22 08:00 74 12/22/22 07:25 36.5 C 100 H 20 136/87 99 Nasal Cannula 12/22/22 02:42 36.4 C L 95 H 20 149/84 H 98 Nasal Cannula O2 Flow Rate 12/22/22 10:33 4 12/22/22 09:00 4 12/22/22 08:00 12/22/22 07:25 4 12/22/22 02:42 4 Laboratory Results Short CBC 12/21/22 Range/Units 16:29 WBC 9.71 (4.8-10.8) K/ul Hgb 9.4 L (14.0-18.0) g/dl Hct 30.3 L (42.0-52.0) % Plt Count 236 (130-400) K/uL
--- NOTE | 2022-12-22 12:49 | Palliative Care Consultation ---
Date of Consultation December 22, 2022 Assessment & Plan (1) Palliative care encounter: Patient and are well-informed on palliative care interventions for his advanced cancer from our prior hospital engagement as well as their engagement with outpatient palliative medicine/Dr. Shazia Mazariegos. He is now admitted with multiple right-sided pleural lesions and a recurrent right-sided pleural effusion secondary to the progression of his metastatic synovial carcinoma. He is now status post Pleurx catheter placement. He has a recurrent effusion, dyspnea/air hunger and hypoxic respiratory failure requiring oxygen support [id number]. (2) Advanced care planning/counseling discussion: [id number] advance care planning discussion was held with patient and his at the bedside for 55 minutes .This discussion is held in addition to the 15 minutes spent on patient exam. Patient and his have had numerous conversations with prior providers about the timing of hospice. His states that she feels this is an appropriate time to engage hospice however he notes t hat he is just simply not ready to accept this. He states that when his father was dying hospice was consulted and his father did within a day of being admitted to hospice. He feels that this somehow is implied if he were to agree to go on hospice right now. He feels that he is coming to the hospital multiple times over the last 5 to 6 months and each time left a little worse than when he came in. He notes that he is no longer able to drive, walk on his own or even get out of bed without significant assistance. We discussed the impact of health facets and proximal bigeminy are lost through the progression of a serious chronic medical illness. This case he is not currently able to drive and be relatively independent at home and in his life to them requiring assistance with mobility and a walker to now requiring a wheelchair and transported assistance to wall activities. We discussed that the impact on our wellbeing is significantly decreased when these facets of self-identity are removed and not replaced with something of equal value. (3) Encounter for hospice care discussion: I have provided education about the hospice benefit. Hospice is an int erdisciplinary program offered by nurses, nurses aides, social workers, chaplains and a auditor medical claims for patients with a terminal condition and a life expectancy of less than 6 months. The goal would be to improve the quality of life of the patient in their home setting (home, intermediate, inpatient hospice setting) by providing symptoms management, psychosocial and spiritual support. However, they cannot offer 24 hours care and if the family is unable to provide that care, they will have to consider personal care with out of pocket cost vs. intermediate placement. (4) Cancer related pain: Patient is requiring Dilaudid 48 mg/day for breakthrough pain management. In addition he is using transdermal fentanyl 50 mcg every 72 H. Dilaudid 40 mg/day is roughly equivalent to 192 mg of oral morphine per day. This is roughly equivalent to 63 mg of IV morphine a day. We discussed options for improving his long-term pain management by increasing the dose of his tr ansdermal fentanyl. 63 mg dose of IV morphine per day is approximately to a 50 mcg dose increase. With dose adjustment for cross tolerance, we have agreed on an increase of 75 mcg transdermal fentanyl every 72 H. I anticipate patient will likely need a dose of approximately 100 to 150 mcg of transdermal fentanyl. I have written order at this time for 75 mcg of transdermal fentanyl. We will need additional prescriptions for 25 mcg patches to use along with the 50 mcg patch as he has at home for a total dose of 75mcg. I have updated Dr Vicente. (5) Dyspnea and respiratory abnormalities: Patient currently using Dilaudid 48 mg orally per day along with Ativan to provide relief of cancer related dyspnea as well as anxiety from progressive dyspnea and air hunger. For now there is no need to change his dose of Dilaudid 8 mg by mouth q4h as needed breakthrough dosing however I would decrease the interval from every 4 hours to every 2 hours as needed. Patient an d are in agreement. Right now, they have an adequate supply at home but may need a refill in the next few weeks. Should he go on hospice however, these medications will be provided through hospice to him at no additional cost. Therefore would not give an additional prescription at this time until decision about hospice is made. (6) Anxiety: see above (7) Synovial sarcoma: (8) Acute respiratory failure with hypoxia: (9) Malignant pleural effusion: Plan 1. Increase transdermal fentanyl to 75 mcg every 72 H. 2. Continue Dilaudid 8 mg p.o. but change the interval to every 2 hours as needed for breakthrough cancer related pain. 3. Bowel regimen will continue at home, patient does not need new prescriptions. 4.. Patient will plan to keep his follow-up with pulmonary clinic this week as scheduled in addition he mentions that he has appointments coming up with his home care nurse as well as the home care nurse practitioner with the [facility]. He does not wish to enroll in hospice at this time but is willing to think about a little bit more over the next few days. The discussion about hospice and the benefits were held with patient and his as outlined above. 5. I will provide a copy of this update to Dr. Mazariegos from [facility] palliative medicine as well as the primary team. He may need a refill of his as needed Dilaudid in the next few weeks if the adjusted dose of transdermal fentanyl does not prove to be sufficient. I have asked him to call me in 3 to 5 days with an update about the transdermal fentanyl dose with the possibility of increasing him to 100 mcg every 72 H. History of Present Illness Reason for Consultation: cancer sx mgt, GOC, hospice Attending Physician: Peter Vicente MD History of Present Illness Patient presents With respiratory distress secondary to fluid accumulation in the lung from his progressive malignancy. He is well known to me from prior admissions.He tells me today that he has felt that every admission has led to a further decline in performance status, mobility, and independence. Last admission required transfer to [facility] for possible cardiothoracic intervention which was then deemed not to be necessary. He is not eligible for the cancer directed therapies of chemo due to the progression of his illness, declining performance status and overall toxicities. His tells me that they are interested in starting hospice but patient is reluctant to do so. At the time of my evaluation, patient reports significant cancer-related pain bu t is averaging 8-9 out of 10. He also reports significant anxiety which is required more frequent dosing of Ativan to relieve. His shares their pain regimen log from home which indicates he is averaging 6 doses of his Dilaudid 8 mg tablets every day. Occasionally there are days where he will use approximately 7 doses but on average he is using 6 of the 8 mg doses a day for total of 48 mg of oral Dilaudid which is roughly equivalent to 192 mg of oral morphine. The nature of his pain remains unchanged. He is having increasing dyspnea however due to the pulmonary progression. In turn the pulmonary symptoms are driving his anxiety up and he is finding that he needs to use Ativan more frequently. He is very distressed by the progression of his symptoms. While other providers have discussed hospice with him patient shares that his father would not hospice and daily. Feels this is a reason not to go on hospice right away because it is basically only for end-of-life care. From a symptom perspective, his cancer related pain, dyspnea, air hunger, and anxiety remain the significant issues. He denies any nausea, vomiting, diarrhea or constipation. His appetite remains stable and he is able to tolerate all textures of food and drink. He denies any aspiration or dysphagia. Chest x-ray indicates a complete opacification of the right hemithorax. This is likely representation of combination of his known pleural-based masses and a right pleural effusion. There is no pneumothorax noted. Left lung nodules are again noted. This is a significant change from his chest x-ray of 12/10/2022. His CTA of the chest showed improvement in the pulmonary emboli from prior study but extensive metastatic disease in the right hemithorax which has progressed in the interval. This as a result is led to near complete opacification and compression of his right lung. There is a progressive mass effect on the right bronchi, distal esophagus, the right heart border due to progression of his interstitial disease. There are also 2 punctate foci of gas noted to be present in the loculated right pleural fluid collections. It is relatively nonspecific but is noted to be related to the prior pleural catheter placement. Allergies Allergy/AdvReac Type Severity Reaction Status Date / Time bacitracin Allergy Severe hives, Verified 12/21/22 10:19 syncopy tree and shrub pollen AdvReac Mild nasal Verified 12/21/22 10:19 congestion, eyes water Home Medications Medication Instructions Recorded Confirmed Type albuterol sulfate 90 mcg/actuation 2 puffs inhalation Q4 PRN 10/10/19 12/21/22 History aerosol inhaler (Ventolin HFA) Shortness Of Breath Or Wheezing albuterol sulfate 2.5 mg/3 mL 2.5 mg inhalation Q6H PRN 01/31/20 12/21/22 History (0.083 %) solution for nebulization shortness of breath or wheezing montelukast 10 mg tablet 10 mg PO DAILY 06/29/20 12/21/22 History (Singulair) amlodipine 10 mg tablet 10 mg PO QAM 07/31/22 12/21/22 History carvedilol 6.25 mg tablet 6.25 mg PO BID 07/31/22 12/21/22 History famotidine 40 mg tablet 40 mg PO DAILY 07/31/22 12/21/22 History hydroxyzine HCl 25 mg tablet 25 - 50 mg PO HS PRN Anxiety 07/31/22 12/21/22 History buspirone 10 mg tablet 20 mg PO BID 09/02/22 12/21/22 History mirtazapine 15 mg tablet 15 mg PO HS 09/02/22 12/21/22 History pantoprazole 40 mg tablet,delayed 40 mg PO QAM 09/02/22 12/21/22 History release fentanyl 50 mcg/hr transdermal 50 mcg transdermal Q72H severe 09/10/22 12/21/22 Rx patch pain 1 week #2 ea fluticasone furoate 100 1 puffs inhalation QAM 11/08/22 12/21/22 History mcg-vilanterol 25 mcg/dose inhalation powder (Breo Ellipta) fluticasone propionate 50 2 spray intranasal QAM 11/08/22 12/21/22 History mcg/actuation nasal spray,suspension hydromorphone 4 mg tablet 8 mg PO Q3H PRN Pain, Severe 11/08/22 12/21/22 History potassium chloride 20 mEq 20 meq PO QAM 11/08/22 12/21/22 History tablet,extended release valacyclovir 1 gram tablet 2,000 mg PO .BID/UD PRN .FLARES 11/08/22 12/21/22 History apixaban 5 mg tablet (Eliquis) 5 mg PO BID 11/24/22 12/21/22 History furosemide 40 mg tablet 40 mg PO DAILY 12/21/22 12/21/22 History lorazepam 0.5 mg tablet 0.5 mg PO Q6H PRN Anxiety 12/21/22 12/21/22 History Patient History Medical History (Updated 12/22/22 @ 12:45 by Jolie Lincoln DNP) Acute dyspnea Advanced care planning/counseling discussion Anxiety Asthma Cancer related pain DVT (deep venous thrombosis) Dyspnea and respiratory abnormalities Encounter for hospice care discussion GERD (gastroesophageal reflux disease) Hepatic steatosis History of pulmonary embolism HTN (hypertension) Malignant pleural effusion DUY on CPAP 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 Grandmother (Maternal) No problems noted. Grandfather (Paternal) No problems noted. Father No problems noted. Mother No problems noted. Brother Age: 54 No problems noted. Son Age: 35 Leukemia in remission Daughter Age: 35 No problems noted. Daughter Age: 23 No problems noted. Son Age: 20 No problems noted. 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 Beliefs That Will Affect Care: None marital status: Current Living Situation: Spouse current occupational status: employed Other Information That Helps Us Care for You: No Feels Safe at Home: Yes Safety Concerns: Feels Safe At This Time Childhood Exposure to Second-Hand Smoke: Yes caffeine: No Dental Care, Regularly: Yes Physical Activity Frequency: Does not Exercise Seatbelt Use: always Sunscreen Use: Yes Do you think of yourself as: straight/heterosexual Assistive Devices: CPAP Review of Systems Review of Systems: All systems reviewed & are unremarkable except as noted in Subjective Physical Exam Physical Exam: Patient is seen sitting at the edge of the bed, there is a Pleurx catheter on the right with serosanguineous drainage noted. He is pale and slightly diaphoretic. He is short of breath at baseline with some mild respiratory distress. There is conversational dyspnea noted. He chooses words carefully and speaks in sentences and approximately 5 words long. He will stop every 2 sentences or so to catch his breath. There is use of accessory muscles. There are some abdominal breathing noted. His extremities are swollen. There is generalized weakness noted throughout especially in his lower extremities. He needs significant assistance coming from a supine to sitting position at the edge of the bed and required a two-person assist to stand to use the urinal while I was evaluating him. Results & Data ([facility]) Vital Signs (Past 12 Hours) Vital Signs Temp Pulse Pulse Resp BP Pulse Ox O2 Del Method 12/22/22 10:33 36.6 C 106 H 20 135/87 98 Nasal Cannula 12/22/22 09:00 Nasal Cannula 12/22/22 08:00 74 12/22/22 07:25 36.5 C 100 H 20 136/87 99 Nasal Cannula 12/22/22 02:42 36.4 C L 95 H 20 149/84 H 98 Nasal Cannula O2 Flow Rate 12/22/22 10:33 4 12/22/22 09:00 4 12/22/22 08:00 12/22/22 07:25 4 12/22/22 02:42 4 Laboratory Results Labs and data reviewed Diagnostic Findings Labs and data reviewed PG Care Time/CCT Total # of Minutes Spent Total Time Spent: 115 Total Time Spent with Patient: Total time spent is greater than 50% in coordination of care (as documented) at patient's floor/unit and/or counseling patient: I spent 115 minutes overall addressing this very complex cancer case: 15 in medical data review/discussion with referring provider(s) and/or preparation for the visit 25 in direct interaction with the patient and/or 55min in addition to the 25m above spent in direct face to face Advance Care Planning/Goals of Care discussions as detailed above in note (must be >16min) with pt and his 10 in subsequent review and synthesis of assessment and plan 10 in communicating with other providers regarding the patient's case: nursing, pulm, primary team Prolonged Care Time Prolonged Care Time: Yes Advanced Care Planning 48154 Advanced Care Planning 30 Min 81596 Advanced Care Planning Additional 30 Min Coding Level of Care Code New Pt INP/OBS CONSULT LVL 5, 80 MIN Patient Type New History Comprehensive Exam Comprehensive Medical Decision Making High Complexity Diagnoses Palliative care encounter Z51.5 Advanced care planning/counseling discussion Z71.89 Encounter for hospice care discussion Z71.89 Cancer related pain G89.3 Dyspnea and respiratory abnormalities R06.00; R06.89 Anxiety F41.9 Synovial sarcoma C49.9 Acute respiratory failure with hypoxia J96.01 Malignant pleural effusion J91.0 Additional Codes Advanced Care Planning - 83996 Advanced Care Planning 30 Min: 96168 Advanced Care Planning 30 Min ([id number]) Advanced Care Planning - 66112 Advanced Care Planning Additional 30 Min: 62628 Advanced Care Planning Additional 30 Min ([id number]) Prolonged Care Time - Prolonged Care Time: Yes ([id number])
--- NOTE | 2022-12-22 14:35 | Discharge Summary ---
Date of Service December 22, 2022 Admission HPI Per Admitting Provider CHIEF COMPLAINT: Shortness of breath. 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 The patient was admitted in [facility] on 11/24/2022, was discharged to [facility] on 11/29/2022, at that time he was admitted for shortness of breath. Last admission while in [facility] had a pigtail chest tube placement on 11/24/2022 on and had drainage of 4.5 liters of serous fluid . Fluid pattern with very high LDL, exudative . There were no signs of infection. Serology was negative. Pleural effusion was suspected to be malignant given extensive metastasis in the right lung and pleura. Pulmonary status improved with placement of chest tube. On 11/28/2022, the patient's hemoglobin dropped from 11 to 9 and subsequently to 8.4. No drainage has been noted from chest tube and heparin drip was stopped and bilateral lower extremity Doppler showed DVT in the left superficial femoral artery. Vascular surgery was consulted and IVC filter was placed and CT angio chest was done, which showed persistent bilateral PE, extensive pleural based metastatic disease, right erythema, no pneumothorax and on reviewing the images pulmonary recommended transfer to tertiary care given high suspicion of bleeding through metastasis. The patient was transferred to [place], on 11/29/2022. Pulmonary, Oncology and Thoracic Surgery was consulted. Pulmonary and Oncology had no acute intervention to offer due to progression of disease. Thoracic Surgery discussed risks and benefits of PleurX placement. The patient at that time declined given the concerning risks. On 12/02/2022 chest tube was removed. He was stable and ready for discharge on 12/03/2022. As per the patient from the next day, at home, he was on 2 liters of oxygen. Last Thursday night home health felt that , going to bathroom coming back, he was taking longer time to recover. He ambulates with walker. Oxygen was increased to 4 liters and since then he has progressively becoming more short of breath, that is the reason he came here and his imaging studies showed total whitening of right lung with massive effusion. Pulmonary saw the patient, they could not find a spot on ultrasound ,so CAT scan of the chest with contrast was ordered to better evaluate the pleural space and consider placement of chest tube. Currently on oxygen the patient is saturating okay, seems slightly tachypneic No abdominal pain. He has some discomfort in the right side of the chest radiating to the back. He is on fentanyl patch and he is taking Dilaudid 8 mg every 3 hours almost regularly. Denies any headache. No abdominal pain. No nausea. Appetite is okay. Eating and drinking okay. He has normal bowel and bladder movements. He has some swelling in the feet. Denies any rash. Taking Lasix 40 mg daily at home. Currently, hemodynamics are okay, he is saturating okay on 4 liters. As per Diana notes, it looks like he had diagnosed of sarcoma around 09/2019. He had multiple sessions of radiation therapy followed by surgical intervention in 02/2022 and a few weeks later he was found to have pulmonary metastasis. In summer, patient was seen by Oncology at [facility] and was started on Votrient. Currently the patient states he is following with palliative care as outpatient and discussing about hospice. Currently, he is not getting any chemo. He is planning to see Pulmonary as outpatient coming week and there is plan for PleurX catheter. Once the PleurX catheter is placed, he is considering transition to hospice care. Admission Exam Per Admitting Provider PHYSICAL EXAMINATION: GENERAL: The patient is obese, not in acute distress. VITAL SIGNS: Temperature 35.0, pulse 100, respiratory rate 22, blood pressure 138/93, oxygen 98% on 4 liters. 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 Pupils react to light on left eye. No facial trauma. Oral mucosa moist. NECK: No JVD. No neck masses. CARDIOVASCULAR: S1 and S2 heard. Regular rate and rhythm. No murmur, no gallop. RESPIRATORY SYSTEM: Normal AP diameter. Mild tachypneic, decreased breath sounds in the right side. Bibasilar crackles. Occasional wheezing. ABDOMEN: Soft, bowel sounds present, nontender, no distention. CENTRAL NERVOUS SYSTEM: Alert and oriented. Speech is clear. Obeys simple commands. Moves extremities. EXTREMITIES: Bilateral edema in the feet. Moves extremities. Principal Diagnosis Malignant pleural effusion Acute on chronic respiratory failure with hypoxia Metastatic Synovial sarcoma Discharge Data Allergies Allergy/AdvReac Type Severity Reaction Status Date / Time bacitracin Allergy Severe hives, Verified 12/21/22 10:19 syncopy tree and shrub pollen AdvReac Mild nasal Verified 12/21/22 10:19 congestion, eyes water Consultations 12/21/22 11:53 ED Decision to Admit Stat 12/21/22 14:17 Consult Pulmonology Routine 12/21/22 16:25 Consult Palliative Care Routine Procedures Performed Laboratory Results WBC 9.71 K/ul (4.8-10.8) 12/21/22 16: RBC 3.02 M/uL (4.70-6.10) L 12/21/22 16:29 Hgb 9.4 g/dl (14.0-18.0) L 12/21/22 16: Hct 30.3 % (42.0-52.0) L 12/21/22 16: MCV 100.3 fL (80.0-100.0) H 12/21/22 16: MCH 31.1 pg (25.0-34.0) 12/21/22 16: MCHC 31.0 g/dL (32.0-36.0) L 12/21/22 16:29 RDW Std Deviation 63.6 fL (36.4-46.3) H 12/21/22 16:29 RDW Coeff of Darrell 17.4 % (11.5-14.5) H 12/21/22 16: Plt Count 236 K/uL (130-400) 12/21/22 16: MPV 10.3 fL (9.4-12.4) 12/21/22 16: Immature Gran % (Auto) 4.4 % 12/21/22 16: Neut % (Auto) 78.5 % 12/21/22 16: Lymph % (Auto) 8.3 % 12/21/22 16: [place] % (Auto) 8.5 % 12/21/22 16: Eos % (Auto) 0.0 % 12/21/22 16: Baso % (Auto) 0.3 % 12/21/22 16: Neut # (Auto) 7.61 K/uL (1.40-6.50) H 12/21/22 16:29 Lymph # (Auto) 0.81 K/uL (1.2-3.4) L 12/21/22 16:29 [place] # (Auto) 0.83 K/uL (0.11-0.59) H 12/21/22 16:29 Eos # (Auto) 0.00 K/uL (0-0.50) 12/21/22 16: Baso # (Auto) 0.03 K/uL (0-0.2) 12/21/22 16: Immature Gran # (Auto) 0.43 K/uL (0.01-0.20) H 12/21/22 16: Absolute Nucleated RBC 0.06 K/uL (0-0.12) 12/21/22 16: Nucleated RBC % (auto) 0.6 % 12/21/22 16:29 PT 14.1 Seconds (9.0-12.0) H 12/21/22 10:56 INR 1.3 (0.9-1.1) H 12/21/22 10:56 APTT 26.7 Seconds (21.0-31.0) 12/21/22 10:56 PTT Ratio 1.0 12/21/22 10:56 Sodium 144 mmol/L (136-145) 12/21/22 10:56 Potassium 3.0 mmol/L (3.5-5.1) L 12/21/22 10:56 Chloride 106 mmol/L (98-107) 12/21/22 10:56 Carbon Dioxide 26 mmol/L (21-32) 12/21/22 10:56 Anion Gap 12 (3-11) H 12/21/22 10:56 BUN 22 mg/dl (6-23) 12/21/22 10:56 Creatinine 0.44 mg/dl (0.6-1.4) L 12/21/22 10:56 Est Cr Clr Drug Dosing 249.6 ml/min 12/21/22 10:56 Est GFR ( Amer) 145.9 ml/min 12/21/22 10:56 Est GFR (Non-Af Amer) 125.9 ml/min 12/21/22 10:56 BUN/Creatinine Ratio 50.0 (10-20) H 12/21/22 10:56 Glucose 113 mg/dl (70-99(Fasting)) H 12/21/22 10:56 Estimat Average Glucose 120 mg/dl 12/22/22 05:27 Hemoglobin A1c 5.8 % (4.5-5.6) H 12/22/22 05:27 Calcium 8.9 mg/dl (8.5-10.1) 12/21/22 10:56 Magnesium 1.8 mg/dl (1.7-2.4) 12/21/22 10:56 Total Bilirubin 0.9 mg/dl (0.2-1.0) 12/21/22 10:56 AST 20 U/L (13-39) 12/21/22 10:56 ALT 23 U/L (7-52) 12/21/22 10:56 Alkaline Phosphatase 124 U/L (34-104) H 12/21/22 10:56 Troponin I High Sens 8.4 pg/ml (0-20) 12/21/22 10:56 Total Protein 7.0 gm/dl (6.0-8.3) 12/21/22 10:56 Albumin 3.5 gm/dl (3.4-5.0) 12/21/22 10:56 Globulin 3.5 gm/dl (2.5-4.0) 12/21/22 10:56 Albumin/Globulin Ratio 1.0 (0.9-2) 12/21/22 10:56 SARS-CoV-2 (PCR) POSITIVE (Negative) A* 12/21/22 10:57 Influenza Type A (PCR) Negative (Neg) 12/21/22 10:57 Influenza Type B (PCR) Negative (Neg) 12/21/22 10:57 RSV (RT-PCR) Negative (Neg) 12/21/22 10:57 Impressions Chest CTA 12/21/22 12:34 CHEST CTA for PULMONARY ARTERIES CT DOSE: 1058.98 mGy.cm HISTORY: Short is of breath. PE and pleural effusion TECHNIQUE: Multiaxial CT images of the chest were performed following the intravenous administration of contrast to evaluate the pulmonary arteries. Maximal intensity projection images were also obtained. A dose lowering technique was utilized adhering to the principles of ALARA. COMPARISON STUDY: Chest CTA 11/28/2022. FINDINGS: Normal caliber thoracic aorta with no evidence for a dissection. The right upper lobe and left lower lobe pulmonary emboli seen on the prior study have slightly improved. No new pulmonary emboli identified. A right jugular Port-A-Cath terminates at the distal SVC. Significant progression of the metastatic disease within the right lung/pleura with multiple loculated fluid collections and no suspicious lytic or blastic osseous lesions. No acute fractures identified. No left pleural effusion. Persistent mass effect from the pleural masses which results in near complete compression of the right lung with only a few small areas of aerated lung remaining. There 2 punctate foci of gas seen within the loculated pleural fluid collections. This could be due to the prior pleural catheter. Secondary infection would be difficult to exclude by imaging but is considered less likely. Progressive mass effect along the right heart border from the pleural tumor deposits. The visualized liver and spleen are unremarkable. There is mass effect along the distal esophagus from the enlarging metastatic disease within the posterior mediastinum. There is mild mass effect along the right bronchi due to the progressive pleural masses. The right pulmonary arteries are attenuated due to the mass effect from the pleural masses. Left pulmonary nodules are again noted. IMPRESSION: 1. Slight improvement in the pulmonary emboli seen on the prior study. 2. Extensive metastatic disease within the right hemithorax which has progressed in the interval. This results in near complete opacification/compression of the right lung. 3. There is progressive mass effect on the right bronchi, distal esophagus, and right heart border due to the progressive interstitial disease. 4. There are 2 punctate foci of gas within the loculated right pleural fluid collections. This is nonspecific but is likely related to the prior pleural catheter placement. Secondary infection would be difficult to exclude by imaging but is considered less likely. ACT 112: Negative or not required by law. Electronically signed by: Winston Sepulveda M.D. 12/21/2022 2:04 PM Chest X-Ray 12/21/22 16:55 XR chest 2V PA/lateral HISTORY: pleurx placement COMPARISON: Chest 12/21/2022. FINDINGS: The right basilar pleural catheter is noted. Near complete opacification of the right hemithorax is not significantly changed. No definite pneumothorax. Left pulmonary nodules are again noted. A right jugular Port-A-Cath terminates in the distal SVC. IMPRESSION: 1. A right basilar pleural catheter is noted. 2. Near-complete opacification of the right hemithorax is not significantly changed. 3. No definite pneumothorax. ACT 112: Negative or not required by law. Electronically signed by: Winston Sepulveda M.D. 12/21/2022 6:03 PM Ordered Studies 12/21/22 12:13 US point of care ultrasound Urgent 12/21/22 12:34 CT angio chest PE protocol Stat Hospital Course (1) Pleural effusion: Patient is a 57 yr old male who presents with shortness of breath. Malignant pleural effusion Acute on chronic respiratory failure with hypoxia -CTA:Slight improvement in the pulmonary emboli seen on the prior study. Extensive metastatic disease within the right hemithorax which has progressed in the interval. This results in near complete opacification/compression of the right lung. There is progressive mass effect on the right bronchi, distal esophagus, and right heart border due to the progressive interstitial disease. There are 2 punctate foci of gas within the loculated right pleural fluid collections. This is nonspecific but is likely related to the prior pleural catheter placement. Secondary infection would be difficult to exclude by imaging but is considered less likely. -S/P Pleurx catheter placement Symptomatically improved after drainage of serosanguineous fluid. Appreciate pulmonology input Scheduled for follow-up with pulmonology on Thursday with Dr. 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 H/O Asthma: Nebs PRN Hypertension Continue Coreg, amlodipine, diuretics Anemia of Chronic Disease Monitor CBC DM II Diet Controlled HbA1C: 5.8 DVT Px: SCDs Eliquis Code Status Full code for now Disposition Home with Home Health Total Time Total Time Spent Total Time Spent (In Minutes): 67 minutes Discharge Plan Discharge Items Patient Disposition: Home - Home Health Services Reason For Visit: MASSIVE EFFUSION Discharge Diagnosis: Malignant pleural effusion Acute on chronic respiratory failure with hypoxia Metastatic Synovial sarcoma Condition on Discharge: Fair Activity: As commented below Exercise/Sports: Wait until after follow-up appointment Non-emergency contact: Primary Care Provider and [employer] Car[employer] Inspector Call non-emergency contact if: you have any medication questions, your symptoms worsen, your pain is concerning for you and you have a fever Follow-up/Referrals: [facility] [Other] (Date & Time 12/23/2022 8:30 AM Provider Doreen Flores RN Department [facility] [place], [facility] ) Krishna Urias MD [Primary Care Provider] - (Date & Time 12/29/2022 11:00 AM Provider Jodi Puga MD Department [facility] ) Diet: Heart Healthy Ambulatory Orders: Basic Metabolic Panel (Routine) Timeframe: 1 Day Location: Determined by Patient Ordered By: Peter Harrington Attending Provider Instructions: Follow-up with your primary care physician on 12/29/2022 11:00 AM Follow-up with your health informatics specialist on 12/24/22 as scheduled --Obtain Blood Test (Basic Metabolic Panel) tomorrow ( 12/23/22) and follow up with your Physician with results -- Your pleural fluid cultures are pending at the time of discharge. Follow-up with your physician for results. --Take 40 Meq potassium tonight. Further recommendations based on blood work tomorrow per your Primary Care physician Seek immediate medical attention if your symptoms reoccur or worsen Please take all medications as instructed on discharge list below. Please call if you have any questions or problems. You can reach a [facility] hospitalist on duty at [facility] 24 hours a day by calling [phone] Pending Studies at Discharge: Yes Studies:: Pleural fluid Studies Stand-Alone Forms: My [facility], Smoking Cessation Medications and DC Order Prescriptions: New fentanyl 25 mcg/hr patch 72 hour 1 patch transdermal Q72H Qty: 5 0RF Continued albuterol sulfate 2.5 mg /3 mL (0.083 %) solution for nebulization 2.5 mg INH Q6H PRN (Reason: shortness of breath or wheezing) montelukast [Singulair] 10 mg tablet 10 mg PO DAILY albuterol sulfate [Ventolin HFA] 90 mcg/actuation HFA aerosol inhaler 2 puffs INH Q4 PRN (Reason: Shortness Of Breath Or Wheezing) carvedilol 6.25 mg tablet 6.25 mg PO BID Rx Instructions: TAKE THIS MED WITH FOOD amlodipine 10 mg tablet 10 mg PO QAM hydroxyzine HCl 25 mg tablet 25 - 50 mg PO HS PRN (Reason: Anxiety) famotidine 40 mg tablet 40 mg PO DAILY Eliquis 5 mg tablet 5 mg PO BID lorazepam 0.5 mg tablet 0.5 mg PO Q6H PRN (Reason: Anxiety) furosemide 40 mg tablet 40 mg PO DAILY pantoprazole 40 mg tablet,delayed release (DR/EC) 40 mg PO QAM buspirone 10 mg tablet 20 mg PO BID mirtazapine 15 mg tablet 15 mg PO HS fentanyl 50 mcg/hr Patch 72 Hour 50 mcg transdermal Q72H 7 Days Qty: 2 0RF fluticasone furoate-vilanterol [Breo Ellipta] 100-25 mcg/dose blister with dev ice 1 puffs INH QAM hydromorphone 4 mg tablet 8 mg PO Q3H PRN (Reason: Pain, Severe) fluticasone propionate 50 mcg/actuation spray,suspension 2 spray INTRANASAL QAM potassium chloride 20 mEq tablet extended release 20 meq PO QAM valacyclovir 1 gram tablet 2,000 mg PO .BID/UD PRN (Reason: .FLARES) Rx Instructions: TAKE TWO TABLETS BY MOUTH AND REPEAT IN 12 HOURS Discharge Orders: Discharge Order (Routine); Ordered 12/22/22 Ordered By: Peter Vicente Admission Data Admit Date/Time: 12/21/22 12:01 Attending Provider: Peter Vicente Admit Provider: Cullen Chambers Primary Care Provider: Krishna Urias Other Providers: Cullen Chambers ; Bronson Yang ; Lydia Hernadez
[2022-12-22 15:49] VITALS: PULSE 104
[2022-12-22] MEDS ORDERED: MONTELUKAST SODIUM 10 MG TABLET PO SCH (21:00)
[2022-12-22] MEDS ORDERED: APIXABAN 5 MG TABLET PO SCH (21:00)
[2022-12-23] MEDS ORDERED: fentaNYL 75 MCG/HR TDSY TD SCH (09:00)
[2022-12-23] MEDS ORDERED: fentaNYL 50 MCG/HR TDSY TD SCH (09:00)
== END 2022-12-22 16:53 | disposition home health service (06) | DRG 180 ==
LOC: ED 09:14 → 2S 12:01
DX: E66.9 Obesity, unspecified; G89.3 Neoplasm related pain (acute) (chronic); U07.1 COVID-19; C78.2 Secondary malignant neoplasm of pleura; I10 Essential (primary) hypertension; C78.00 Secondary malignant neoplasm of unspecified lung; Z87.891 Personal history of nicotine dependence; J91.0 Malignant pleural effusion; E87.6 Hypokalemia; C79.89 Secondary malignant neoplasm of other specified sites; Z95.828 Presence of other vascular implants and grafts; Z90.01 Acquired absence of eye; Z86.711 Personal history of pulmonary embolism; C49.9 Malignant neoplasm of connective and soft tissue, unspecified; G47.33 Obstructive sleep apnea (adult) (pediatric); Z86.718 Personal history of other venous thrombosis and embolism; Z68.38 Body mass index [BMI] 38.0-38.9, adult; J96.20 Acute and chronic respiratory failure, unspecified whether with hypoxia or hypercapnia